=== PATIENT | female | born 1945 | race Hispanic/Latino ===

== ENCOUNTER 2018-02-19 09:53 | Emergency (ER) | payer MEDICARE, SELFPAY ==
[2018-02-19] VITALS (19 sets, daily range): BP systolic 103–137; BP diastolic 45–84; PULSE 39–104; RESP 12–23; TEMP 36.4; O2SAT 95–100
--- NOTE | 2018-02-19 10:04 | DI.RAD.S_ITS ---
PROCEDURE: XR CHEST 1V INDICATIONS: chest pains TECHNIQUE: One view of the chest was acquired. COMPARISON: [facility], , CHEST 1 VIEW, 10/17/2017, 4:18. FINDINGS: Surgical changes and devices: None. Metallic artifact overlies the lower spine Lungs and pleura: No pleural effusions or pneumothorax. Lungs are clear. Mediastinum: Mediastinal contours appear normal. Heart size is normal. Bones and chest wall: No suspicious bony lesions. Bilateral degenerative a.c. joint disease. Overlying soft tissues appear unremarkable. IMPRESSION: No acute cardiopulmonary abnormality Dictated by: Dante Garrison M.D. on 02/19/2018 at 10:43 Approved by: Dante Garrison M.D. on 02/19/2018 at 10:44
--- NOTE | 2018-02-19 10:12 | ED.CHESTPAIN ---
HPI - Chest Pain General Chief Complaint: Chest Pain Stated Complaint: SHORTNESS OF BREATH,AFIB Time Seen by Provider: 02/19/18 09:58 Source: patient Mode of arrival: ambulatory Limitations: no limitations History of Present Illness HPI narrative: Patient with history of cardiac disease and AFib on Xarelto presents with worsening chest pain with radiation to her jaw and dizziness. She had some episodes of discomfort last night that improved with nitro and at 8:30 a.m. this morning her pain has been more consistent and started radiating to her jaw. Her nitro at home did not help. She denies shortness of breath or any obvious provocation. She last had a stress test about 1 year ago at [facility]. 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 at [facility] complaint: chest pain Onset (ago): hour(s) Time: 10:13 Duration: constant and progressively worsening Onset: during rest Pain location: substernal Severity: moderate Severity scale (1-10): 5 Quality: tightness, aching and heaviness Pain radiation: jaw/teeth Relieving factors: nothing Exacerbating factors: nothing Associated symptoms: dyspnea Treatments prior to arrival chest pain: nitroglycerin Related Data On Oral Contraceptives: No Home Medications Medication Instructions Recorded Confirmed omeprazole 20 mg PO QDAY #0 01/16/17 02/19/18 diltiazem HCl 120 mg PO DAILY #0 11/08/17 02/19/18 B.breve-L.acid-L.rham-S.thermo 1 tab PO DAILY 02/19/18 02/19/18 [Probiotic] cyclosporine [Restasis] 1 drp OPHTHALMIC (EYE) BID 02/19/18 02/19/18 digoxin 125 mcg PO BEDTIME 02/19/18 02/19/18 nitroglycerin [Nitrostat] 0.4 mg SUBLINGUAL 5XD PRN 02/19/18 02/19/18 pravastatin 20 mg PO BEDTIME 02/19/18 02/19/18 promethazine 25 mg PO Q4-6H PRN 02/19/18 02/19/18 ranitidine HCl [Zantac] 150 mg PO BEDTIME 02/19/18 02/19/18 rivaroxaban [Xarelto] 20 mg PO QPM 02/19/18 02/19/18 Allergies Allergy/AdvReac Type Severity Reaction Status Date / Time No Known Drug Allergies Allergy Verified 02/19/18 10:08 Review of Systems Review of Systems All systems reviewed & are unremarkable except as noted in HPI and below Constitutional Denies chills, Denies fever(s), Denies lethargy and Denies weakness Eyes Denies change in vision, Denies eye discharge, Denies irritation and Denies loss of vision ENT Ears, Nose, Mouth, and Throat: Denies change in voice, Reports dizziness, Denies neck pain and Denies sore throat Cardiovascular Reports chest pain, Reports chest pain at rest, Denies irregular heart rhythm, Reports lightheadedness, Reports radiating jaw, neck or arm pain, Denies palpitations, Reports dyspnea, Denies dyspnea on exertion and Denies orthopnea Respiratory Denies cough, Reports dyspnea, Denies dyspnea on exertion and Denies wheezing Gastrointestinal Gastrointestinal: Denies abdominal pain, Denies change in bowel habits, Denies diarrhea, Denies nausea and Denies vomiting Genitourinary Denies hematuria, Denies flank pain, Denies urinary incontinence and Denies urinary urgency Musculoskeletal Denies neck pain Integumentary/Breasts Denies pruritus, Denies erythema, Denies rash and Denies wounds Neurologic Denies confusion, Reports dizziness, Denies loss of vision and Denies weakness Psychiatric Denies anxiety, Denies confusion, Denies depression, Denies homicidal ideation and Denies suicidal ideation Endocrine Denies palpitations Hematologic/Lymphatic Denies easy bruising Allergic/Immunologic Denies wheezing PFSH Medical History Cystocele (Acute) Hypertension (Acute) Lower GI bleed (Acute) Surgical History H/O abdominal hysterectomy (Acute) H/O laminectomy (Acute) Hx of cholecystectomy (Acute) Social History Smoking Status: Former smoker Exam Narrative Exam Narrative: Pleasant 72-year-old female obviously in some distress Initial Vital Signs Initial Vital Signs: Vital Signs Temperature 97.6 F 02/19/18 09:55 Pulse Rate 104 H 02/19/18 09:55 Respiratory Rate 16 02/19/18 09:55 Blood Pressure 131/76 H 02/19/18 09:55 Pulse Oximetry 100 02/19/18 09:55 Const General: cooperative, well developed and in distress Nutritional Appearance: well nourished Orientation: alert, awake, oriented x3 and not confused HENMT Head: normocephalic and atraumatic Ears: external ears normal and TM's normal bilaterally Nose: external nose normal and No nasal discharge Face and sinus: sinuses nontender, face symmetric, no sinus tenderness and No dry mucous membranes Mouth: oral mucosae normal and moist mucous membranes Teeth and gingiva: dentition normal Throat: tonsils normal and uvula midline Eyes General: appearance normal, both eyes and all related structures Eyelids: eyelids normal Conjunctivae: conjunctivae normal Sclera: sclerae normal Pupils: PERRL EOM: EOM intact bilaterally Chest Chest: normal inspection of the chest Resp Effort & Inspection: normal respiratory effort, able to speak in complete sentences, no respiratory distress and no use of accessory muscles Auscultation: clear to auscultation bilaterally, no rales, no rhonchi and no wheezes Cardio Rate: regular rate Rhythm: regular rhythm Heart Sounds: no click, no gallops, no murmurs and no rubs Pulses: normal peripheral pulses GI Inspection: non-distended Palpation: soft, no hepatosplenomegaly, No guarding, No pulsatile mass and No tender Auscultation: normal bowel sounds Back/Spine/Pelvis Back: No CVA tenderness Cervical Spine: cervical ROM normal and No pain with cervical ROM Thoracic/Lumbar Spine: thoracic and lumbar spine normal to inspection Neuro General: alert, awake and oriented x3 Psych Appearance: grossly normal and well kempt Mental Status: mental status grossly normal Speech and Movement: speech and movement normal Course Orders Ordered: ED Orders 02/19/18 10:04 XR chest 1V Stat EKG-12 Lead Stat 02/19/18 10:08 Complete Blood Count AUTO DIFF Stat Comprehensive Metabolic Panel Stat Digoxin Stat Lipase Stat Troponin with CK Cardiac Panel Stat 02/19/18 12:18 Urine Culture Stat Urine Microscopic Stat 02/19/18 13:00 Troponin I Stat Sodium Chloride (Normal Saline 0.9%) 1,000 mls @ 150 mls/hr IV CONT NICOLA Last Infusion: 02/19/18 14:39 Dose: 0 mls/hr Admin: 02/19/18 10:17 Dose: 150 mls/hr Nitroglycerin (Nitrostat) 0.4 mg SL [id number] PRN PRN Reason: Chest Pain Last Admin: 02/19/18 10:41 Dose: 0.4 mg Admin: 02/19/18 10:17 Dose: 0.4 mg Discontinued Medications Aspirin (Aspirin Chew) 324 mg PO NOW ONE Stop: 02/19/18 10:05 Last Admin: 02/19/18 10:17 Dose: 324 mg Metoprolol Tartrate (Lopressor) 50 mg PO NOW ONE Stop: 02/19/18 10:12 Last Admin: 02/19/18 10:17 Dose: 50 mg Reevaluation(s) Reevaluation #1: Patient pain is resolved after nitro. Repeat EKG shows improvement of the ST depressions in the 3, V4, V5 Time: 10:58 Reevaluation #2: Patient continues to be pain free. Repeat EKG shows near complete resolution ofST depressions. Consultations Consultation #1: Call to Cardiology at [facility] whom recommends a 2nd troponin at the 3 hr chiara and a call back Time: 10:58 Consultation #2: Repeat troponin unchanged. Cardiology recommends admission locally provided hospitalist is comfortable caring for patient Consultation #3: Call to Dr. Easton whom is uncomfortable keeping patient here given the very concerning story, EKG changes, and resolution with nitro Additional Consultation(s): Call back to [facility] Cardiology whom recommends hospitalist admit patient. Dr. Chen is happy to accept Vital Signs - 8 hr 02/19/18 09:55 02/19/18 10:17 02/19/18 10:29 Temperature 97.6 F Pulse Rate 104 H 96 H 95 H Respiratory Rate 16 Blood Pressure 131/76 H 129/60 H 121/49 H Blood Pressure [Right Arm] Pulse Oximetry 100 02/19/18 10:30 02/19/18 10:41 02/19/18 11:00 Temperature Pulse Rate 85 95 H 76 Respiratory Rate 20 20 Blood Pressure 106/47 L Blood Pressure [Right Arm] 106/47 L 114/61 Pulse Oximetry 100 100 02/19/18 11:20 02/19/18 12:32 02/19/18 12:33 Temperature Pulse Rate 66 56 L 60 Respiratory Rate 13 18 Blood Pressure 111/55 L Blood Pressure [Right Arm] 103/53 L 111/55 L Pulse Oximetry 99 99 02/19/18 13:00 02/19/18 13:30 02/19/18 14:30 Temperature Pulse Rate 62 39 L 70 Respiratory Rate 12 20 14 Blood Pressure Blood Pressure [Right Arm] 112/45 L 107/58 L 125/79 H Pulse Oximetry 99 95 99 MDM - Chest Pain Differential Diagnosis Likely stable angina, unstable angina pectoris, atypical chest pain, st elevation myocardial infarction, costochondritis and chest pain Medical Records Data Attestation: I reviewed the patient's medical records. Lab Data Result diagrams: 02/19/18 10:08 02/19/18 10:08 Lab Results 02/19/18 02/19/18 02/19/18 Range/Units 10:08 10:08 10:08 WBC 6.7 (4.5-11.0) X10^3/uL RBC 5.05 (4.0-5.2) X10^6/uL Hgb 15.0 (12.0-16.0) g/dL Hct 45.6 (36-46) % MCV 90.3 (80-100) fL MCH 29.7 (26-34) PG MCHC 32.9 (30-36) % RDW 14.2 (11.6-14.8) % Plt Count 180 (150-400) X10^3/uL Neut % (Auto) 50.8 (50-75) % Lymph % (Auto) 38.5 (25-40) % Winston % (Auto) 8.5 (3-14) % Eos % (Auto) 1.5 L (2-4) % Baso % (Auto) 0.7 (0-2) % Neut # (Auto) 3400 (0569-2386) /uL Sodium 142 (137-145) mmol/L Potassium 5.5 H (3.4-5.1) mmol/L Chloride 107 (98-107) mmol/L Carbon Dioxide 24 (22-32) mmol/L BUN 13 (7-17) mg/dL Creatinine 0.70 (0.52-1.04) mg/dL Estimated GFR > 60.0 (>60) mL/min BUN/Creatinine Ratio 18.6 (6-22) Glucose 113 H (80-110) mg/dL Calcium 9.1 (8.4-10.2) mg/dL Total Bilirubin 1.1 (0.2-1.3) mg/dL AST 47 H (14-36) IU/L ALT 18 (9-52) IU/L Alkaline Phosphatase 79 (38-126) U/L Total Creatine Kinase 77 (30-135) U/L Troponin I 0.012 (0.01-0.034) ng/mL Total Protein 8.0 (6.3-8.2) g/dL Albumin 4.4 (3.5-5.0) g/dL Globulin 3.6 (1.7-4.1) g/dL Albumin/Globulin Ratio 1.2 (1.0-2.8) Lipase 66 (23-300) U/L Urine RBC (0-5/HPF) Urine WBC (0-5/HPF) Ur Squamous Epith Cells Urine Bacteria (None) Ur Culture Indicated? Micro UA Comment Digoxin 2.4 H (0.8-2.0) ng/mL 02/19/18 02/19/18 Range/Units 12:18 13:00 WBC (4.5-11.0) X10^3/uL RBC (4.0-5.2) X10^6/uL Hgb (12.0-16.0) g/dL Hct (36-46) % MCV (80-100) fL MCH (26-34) PG MCHC (30-36) % RDW (11.6-14.8) % Plt Count (150-400) X10^3/uL Neut % (Auto) (50-75) % Lymph % (Auto) (25-40) % Winston % (Auto) (3-14) % Eos % (Auto) (2-4) % Baso % (Auto) (0-2) % Neut # (Auto) (9285-4572) /uL Sodium (137-145) mmol/L Potassium (3.4-5.1) mmol/L Chloride (98-107) mmol/L Carbon Dioxide (22-32) mmol/L BUN (7-17) mg/dL Creatinine (0.52-1.04) mg/dL Estimated GFR (>60) mL/min BUN/Creatinine Ratio (6-22) Glucose (80-110) mg/dL Calcium (8.4-10.2) mg/dL Total Bilirubin (0.2-1.3) mg/dL AST (14-36) IU/L ALT (9-52) IU/L Alkaline Phosphatase (38-126) U/L Total Creatine Kinase (30-135) U/L Troponin I < 0.012 (0.01-0.034) ng/mL Total Protein (6.3-8.2) g/dL Albumin (3.5-5.0) g/dL Globulin (1.7-4.1) g/dL Albumin/Globulin Ratio (1.0-2.8) Lipase (23-300) U/L Urine RBC None seen (0-5/HPF) Urine WBC 0-1/hpf (0-5/HPF) Ur Squamous Epith Cells 0-1 /hpf Urine Bacteria Moderate (10-30) H (None) Ur Culture Indicated? Specimen cultured Micro UA Comment Not Reportable Digoxin (0.8-2.0) ng/mL ECG Data Attestation: I personally reviewed and interpreted this ECG as follows: Prior ECG tracings: not available for review Interpretation: AFib in the mid 90s. ST depressions in septal leads Critical Care Time Critical Care Time: Yes Total Critical Care Time: 30 Attestation: C Critical care time is separate from other billable procedures. This critical care time includes consultation with family and other consulting doctors, review of records, and interpretation of data from labs, EKGs, imaging, etc. Discharge Plan Departure Patient Disposition: [facility] Clinical Impression: Chest pain Prescriptions: No Action omeprazole 20 MG tablet,delayed release (DR/EC) 20 mg PO QDAY Qty: 0 RF: 0 diltiazem HCl 120 MG capsule,extended release 24hr 120 mg PO DAILY Qty: 0 RF: 0 nitroglycerin [Nitrostat] 0.4 MG tablet, sublingual 0.4 mg Sublingual 5XD PRN (Reason: Chest Pain) RF: 0 ranitidine HCl [Zantac] 150 mg Tablet 150 mg PO BEDTIME RF: 0 promethazine 25 mg Tablet 25 mg PO Q4-6H PRN (Reason: nasuea) RF: 0 pravastatin 20 mg Tablet 20 mg PO BEDTIME RF: 0 digoxin 125 mcg Tablet 125 mcg PO BEDTIME RF: 0 rivaroxaban [Xarelto] 20 mg Tablet 20 mg PO QPM RF: 0 B.breve-L.acid-L.rham-S.thermo [Probiotic] 3 billion cell Tablet,Chewable 1 tab PO DAILY RF: 0 cyclosporine [Restasis] 0.05 % dropperette 1 drp ophthalmic (eye) BID RF: 0
[2018-02-19] MEDS: NITROGLYCERIN 0.4 MG SL TAB SL ×2 (10:17→10:41)
[2018-02-19] MEDS: ASPIRIN 81 MG TAB 324 MG PO (10:17)
[2018-02-19] MEDS: SODIUM CHLORIDE 0.9% 1,000 ML 150 ML IV (10:17)
[2018-02-19] MEDS: METOPROLOL 50 MG TABLET PO (10:17)
[2018-02-19 10:19] LABS: Add Manual Diff / Slide Review NO; Basophils Percent Auto 0.7 % (0-2); Eosinophils Percent Auto 1.5 % (2-4); Hematocrit 45.6 % (36-46); Lymphocytes Percent Auto 38.5 % (25-40); Mean Corpuscular HGB Conc 32.9 % (30-36); Mean Corpuscular Hemoglobin 29.7 PG (26-34); Mean Corpuscular Volume 90.3 fL (80-100); Monocytes Percent Auto 8.5 % (3-14); Neutrophils Absolute Auto 3400 /uL (3000-5900); Neutrophils Percent Auto 50.8 % (50-75); Platelet Count 180 X10^3/uL (150-400); Red Blood Cell Count 5.05 X10^6/uL (4.0-5.2); Red Cell Distribution Width 14.2 % (11.6-14.8); White Blood Cell Count 6.7 X10^3/uL (4.5-11.0)
[2018-02-19 10:28] LABS: Alanine Aminotransferase 18 IU/L (9-52); Albumin 4.4 g/dL (3.5-5.0); Albumin Globulin Ratio 1.2 (1.0-2.8); Alkaline Phosphatase 79 U/L (38-126); Aspartate Aminotransferase 47 IU/L (14-36); BUN Creatinine Ratio 18.6 (6-22); Bilirubin Total 1.1 mg/dL (0.2-1.3); Blood Urea Nitrogen 13 mg/dL (7-17); Calcium 9.1 mg/dL (8.4-10.2); Carbon Dioxide 24 mmol/L (22-32); Chloride 107 mmol/L (98-107); Creatine Kinase 77 U/L (30-135); Estimated Glomerular Filt Rate > 60.0 mL/min (>60); Globulin 3.6 g/dL (1.7-4.1); Glucose 113 mg/dL (80-110); Lipase 66 U/L (23-300); Sodium 142 mmol/L (137-145)
[2018-02-19 10:33] LABS: HEMOLYSIS 187 (0-50); Potassium 5.5 mmol/L (3.4-5.1)
[2018-02-19 10:39] LABS: Troponin I 0.012 ng/mL (0.01-0.034)
[2018-02-19 10:46] LABS: Digoxin 2.4 ng/mL (0.8-2.0)
[2018-02-19 12:57] LABS: RBC Urine None Seen (0-5/HPF)
--- NOTE | 2018-02-19 13:40 | PC.NURSE ---
Dr. Julian aware of pt's heart rate of 39. other vss.
[2018-02-19 13:50] LABS: Troponin I < 0.012 ng/mL (0.01-0.034)
[2018-02-19 13:59] LABS: Squamous Epithelial Cell Urine 0-1 /HPF; WBC Urine 0-1/HPF (0-5/HPF)
[2018-02-19 14:00] LABS: Bacteria Urine Moderate (10-30); Culture Indicated Urine Specimen Cultured
--- NOTE | 2018-02-19 19:42 | PC.NURSE ---
Pt updated on ambulance ETA now being 2030. Pt verbalized frustration.
== END 2018-02-19 20:54 | disposition short-term general hospital (02) ==
PROVIDERS: Emergency Provider Emergency Medicine; PCP Internal Medicine Infectious Disease
DX: R07.9 Chest pain, unspecified (principal)
CPT/HCPCS: 36415; 36591; 71045; 80053; 80162; 81003; 81015; 82550; 82553; 83690; 84484; 85025; 87077; 87086; 87186; 93005; 96360; 96361; 99285

== ENCOUNTER → 2018-05-25 14:11 | Outpatient (CLI) | payer MEDICARE, SELFPAY ==
--- NOTE | 2018-05-25 | DI.MG.S_ITS ---
BILATERAL DIGITAL SCREENING MAMMOGRAM 3D/2D WITH CAD: 05/25/2018 CLINICAL: Routine screening. Family history of breast cancer. Comparison is made to exams dated: 04/28/2017 mammogram, 04/27/2016 mammogram, and 04/23/2015 mammogram - [facility]. There are scattered fibroglandular elements in both breasts. Current study was also evaluated with a Computer Aided Detection (CAD) system. No significant masses, calcifications, or other findings are seen in either breast. There has been no significant interval change. IMPRESSION: NEGATIVE There is no mammographic evidence of malignancy. A 1 year screening mammogram is recommended.(05/26/2019) This exam was interpreted at Station ID: [id number]. NOTE: For mammograms, a report in lay terms will be sent to the patient. Approximately 15% of breast malignancies will not be visualized mammographically. In the management of a palpable breast mass, a negative mammogram must not discourage biopsy of a clinically suspicious lesion. Electronically Signed By: Opal paul/adriano:05/25/2018 16:43:36 letter sent: Normal Exam ACR BI-RADS Category 1: Negative [id number]
== END ==
PROVIDERS: Visit Provider Family Medicine
DX: Z12.31 Encounter for screening mammogram for malignant neoplasm of breast (principal); Z80.3 Family history of malignant neoplasm of breast
CPT/HCPCS: 77063; 77067

== ENCOUNTER 2018-07-27 22:31 | Emergency (ER) | payer MEDICARE, SELFPAY ==
[2018-07-27 22:41] VITALS: BP 127/76; PULSE 77; RESP 16; TEMP 36.4; O2SAT 97; BMI 42.1
--- NOTE | 2018-07-27 22:44 | DI.RAD.S_ITS ---
PROCEDURE: XR CHEST 1V INDICATIONS: chest pain TECHNIQUE: One view of the chest was acquired. COMPARISON: [facility], CR, XR CHEST 1V, 02/19/2018, 10:20. FINDINGS: Surgical changes and devices: None. Lungs and pleura: No pleural effusions or pneumothorax. Lungs are clear. Mediastinum: Mediastinal contours appear normal. Heart size is normal. Bones and chest wall: No suspicious bony lesions. Overlying soft tissues appear unremarkable. IMPRESSION: No acute cardiopulmonary disease process. Dictated by: Christina Winslow MD, PhD on 07/28/2018 at 12:03 Approved by: Christina Winslow MD, PhD on 07/28/2018 at 12:03
--- NOTE | 2018-07-27 22:45 | PC.NURSE ---
Attempted PIV placement in R AC, unsuccessful. Second RN to attempt IV placement.
--- NOTE | 2018-07-27 22:54 | ED.CHESTPAIN ---
HPI - Chest Pain General Chief Complaint: Chest Pain Stated Complaint: CHEST , ARM , NECK PAIN, NAUSEA Time Seen by Provider: 07/27/18 22:47 Source: patient and old records reviewed Mode of arrival: ambulatory Limitations: no limitations History of Present Illness HPI narrative: The patient is a 72-year-old female who presents with left-sided chest pain and bilateral arm pain. He does have a history of atrial fibrillation. She says that it has been acting up however her rate does seem to be controlled. She also had a similar presentation to this in January at which point she was transferred to [facility] where she had full workup including stress test and echocardiogram which were negative. 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 She says she is still having some mild pressure in her chest but the arm pain is gone. She often gets neck pain and flushing which she also experienced today. She has no shortness of breath she did have some minor nausea but no vomiting. She has no abdominal pain. MD complaint: chest pain Onset (ago): hour(s) Duration: intermittent and improved Onset: during rest Pain location: left chest Severity: similar to previous episodes Pain radiation: RUE, LUE and neck Related Data Home Medications Medication Instructions Recorded Confirmed omeprazole 20 mg PO QDAY #0 01/16/17 02/19/18 diltiazem HCl 120 mg PO DAILY #0 11/08/17 02/19/18 B.breve-L.acid-L.rham-S.thermo 1 tab PO DAILY 02/19/18 02/19/18 [Probiotic] cyclosporine [Restasis] 1 drp OPHTHALMIC (EYE) BID 02/19/18 02/19/18 digoxin 125 mcg PO BEDTIME 02/19/18 02/19/18 nitroglycerin [Nitrostat] 0.4 mg SUBLINGUAL 5XD PRN 02/19/18 02/19/18 pravastatin 20 mg PO BEDTIME 02/19/18 02/19/18 promethazine 25 mg PO Q4-6H PRN 02/19/18 02/19/18 ranitidine HCl [Zantac] 150 mg PO BEDTIME 02/19/18 02/19/18 rivaroxaban [Xarelto] 20 mg PO QPM 02/19/18 02/19/18 Allergies Allergy/AdvReac Type Severity Reaction Status Date / Time No Known Drug Allergies Allergy Verified 07/27/18 22:41 Review of Systems Review of Systems All systems reviewed & are unremarkable except as noted in HPI and below Constitutional Denies chills, Denies fever(s), Denies lethargy and Denies weakness Eyes Denies change in vision, Denies eye discharge, Denies irritation and Denies loss of vision ENT Ears, Nose, Mouth, and Throat: Reports as per HPI, Denies vertigo, Denies dizziness, Denies facial pain, Denies epistaxis and Reports neck pain Cardiovascular Reports as per HPI, Reports chest pain, Reports irregular heart rhythm, Reports radiating jaw, neck or arm pain, Denies palpitations, Denies dyspnea on exertion and Denies orthopnea Respiratory Denies dyspnea on exertion Gastrointestinal Gastrointestinal: Denies abdominal pain, Denies change in bowel habits, Denies diarrhea, Reports nausea and Denies vomiting Musculoskeletal Reports neck pain Integumentary/Breasts Denies pruritus, Denies erythema, Denies rash and Denies wounds Neurologic Denies vertigo, Denies dizziness, Denies loss of vision and Denies weakness Endocrine Denies palpitations Hematologic/Lymphatic Reports easy bleeding and Reports easy bruising PFSH Medical History Atrial fibrillation (Acute) Cystocele (Acute) Hypertension (Acute) Lower GI bleed (Acute) Surgical History H/O abdominal hysterectomy (Acute) H/O laminectomy (Acute) Hx of cholecystectomy (Acute) Social History Smoking Status: Former smoker Exam Initial Vital Signs Initial Vital Signs: Vital Signs Temperature 97.6 F 07/27/18 22:41 Pulse Rate 77 07/27/18 22:41 Respiratory Rate 16 07/27/18 22:41 Blood Pressure 127/76 07/27/18 22:41 Pulse Oximetry 97 07/27/18 22:41 Const General: cooperative and healthy appearing Nutritional Appearance: overweight Orientation: alert, awake and oriented x3 Eyes General: appearance normal, both eyes and all related structures Neck Neck: normal visual inspection, full ROM, no meningeal signs and trachea midline Chest Chest: normal inspection of the chest Resp Effort & Inspection: normal respiratory effort Auscultation: clear to auscultation bilaterally, no rales, no rhonchi and no wheezes Cardio Rate: regular rate Rhythm: regular rhythm Heart Sounds: S1 normal and S2 normal GI Palpation: soft, No firm, No guarding and No tender Percussion: normal to percussion Skin General: no rashes or lesions noted Neuro General: alert, oriented x3, gait normal and no focal motor deficits Speech: speech normal Course Orders Ordered: ED Orders 07/27/18 22:44 XR chest 1V Stat EKG-12 Lead Stat 07/27/18 23:10 Complete Blood Count AUTO DIFF Stat Comprehensive Metabolic Panel Stat Lipase Stat Partial Thromboplastin Time Stat Prothrombin Time INR Stat Troponin & CK Cardiac Panel Stat 07/28/18 01:21 Trop I [Troponin I] Stat Discontinued Medications Sodium Chloride (Normal Saline 0.9%) 500 mls @ 1,000 mls/hr IV BOLUS ONE Stop: 07/28/18 00:26 Last Infusion: 07/28/18 00:28 Dose: 0 mls/hr Admin: 07/27/18 23:58 Dose: 1,000 mls/hr Nitroglycerin (Nitrostat) 0.4 mg SL NOW ONE Stop: 07/27/18 23:00 Last Admin: 07/27/18 23:44 Dose: 0.4 mg Vital Signs - 8 hr 07/27/18 22:41 07/27/18 23:00 07/27/18 23:30 Temperature 97.6 F Pulse Rate 77 61 66 Respiratory Rate 16 16 15 Blood Pressure 127/76 Blood Pressure [Left Arm] 115/73 129/55 L Pulse Oximetry 97 99 98 07/27/18 23:44 07/27/18 23:56 07/28/18 00:00 Temperature Pulse Rate 62 81 60 Respiratory Rate 15 Blood Pressure 122/55 L 100/52 L Blood Pressure [Left Arm] 120/65 Pulse Oximetry 98 07/28/18 00:06 07/28/18 00:30 07/28/18 01:06 Temperature Pulse Rate 60 56 L 58 L Respiratory Rate 15 14 16 Blood Pressure Blood Pressure [Left Arm] 122/62 129/67 113/61 Pulse Oximetry 96 100 100 07/28/18 01:56 07/28/18 02:18 Temperature Pulse Rate 69 58 L Respiratory Rate 15 14 Blood Pressure Blood Pressure [Left Arm] 131/62 116/66 Pulse Oximetry 98 MDM - Chest Pain Lab Data Attestation: I reviewed the patient's lab results. Result diagrams: 07/27/18 23:10 07/27/18 23:10 Lab Results 07/27/18 07/27/18 07/27/18 Range/Units 23:10 23:10 23:10 WBC 8.5 (4.5-11.0) X10^3/uL RBC 5.12 (4.0-5.2) X10^6/uL Hgb 15.2 (12.0-16.0) g/dL Hct 44.9 (36-46) % MCV 87.8 (80-100) fL MCH 29.8 (26-34) PG MCHC 33.9 (30-36) % RDW 13.9 (11.6-14.8) % Plt Count 182 (150-400) X10^3/uL Neut % (Auto) 48.2 L (50-75) % Lymph % (Auto) 39.0 (25-40) % [place] % (Auto) 10.0 (3-14) % Eos % (Auto) 2.0 (2-4) % Baso % (Auto) 0.8 (0-2) % Neut # (Auto) 4100 (1067-9715) /uL PT 22.2 H (10.1-12.7) SECONDS INR 2.0 H (0.9-1.3) APTT 40 H (26.4-36.2) SECONDS Sodium 141 (137-145) mmol/L Potassium 4.2 (3.4-5.1) mmol/L Chloride 108 H (98-107) mmol/L Carbon Dioxide 21 L (22-32) mmol/L BUN 17 (7-17) mg/dL Creatinine 0.80 (0.52-1.04) mg/dL Estimated GFR > 60.0 (>60) mL/min BUN/Creatinine Ratio 21.3 (6-22) Glucose 96 (80-110) mg/dL Calcium 9.0 (8.4-10.2) mg/dL Total Bilirubin 0.2 (0.2-1.3) mg/dL AST 30 (14-36) IU/L ALT 32 (9-52) IU/L Alkaline Phosphatase 99 (38-126) U/L Total Creatine Kinase 71 (30-135) U/L CK-MB (CK-2) TNP CK-MB (CK-2) Rel Index TNP Troponin I < 0.012 (0.01-0.034) ng/mL Total Protein 7.7 (6.3-8.2) g/dL Albumin 4.3 (3.5-5.0) g/dL Globulin 3.4 (1.7-4.1) g/dL Albumin/Globulin Ratio 1.3 (1.0-2.8) Lipase 108 (23-300) U/L 07/28/18 Range/Units 01:21 WBC (4.5-11.0) X10^3/uL RBC (4.0-5.2) X10^6/uL Hgb (12.0-16.0) g/dL Hct (36-46) % MCV (80-100) fL MCH (26-34) PG MCHC (30-36) % RDW (11.6-14.8) % Plt Count (150-400) X10^3/uL Neut % (Auto) (50-75) % Lymph % (Auto) (25-40) % [place] % (Auto) (3-14) % Eos % (Auto) (2-4) % Baso % (Auto) (0-2) % Neut # (Auto) (5246-3243) /uL PT (10.1-12.7) SECONDS INR (0.9-1.3) APTT (26.4-36.2) SECONDS Sodium (137-145) mmol/L Potassium (3.4-5.1) mmol/L Chloride (98-107) mmol/L Carbon Dioxide (22-32) mmol/L BUN (7-17) mg/dL Creatinine (0.52-1.04) mg/dL Estimated GFR (>60) mL/min BUN/Creatinine Ratio (6-22) Glucose (80-110) mg/dL Calcium (8.4-10.2) mg/dL Total Bilirubin (0.2-1.3) mg/dL AST (14-36) IU/L ALT (9-52) IU/L Alkaline Phosphatase (38-126) U/L Total Creatine Kinase (30-135) U/L CK-MB (CK-2) CK-MB (CK-2) Rel Index Troponin I < 0.012 (0.01-0.034) ng/mL Total Protein (6.3-8.2) g/dL Albumin (3.5-5.0) g/dL Globulin (1.7-4.1) g/dL Albumin/Globulin Ratio (1.0-2.8) Lipase (23-300) U/L Imaging Data Chest x-ray: Attestation: I personally reviewed and interpreted this imaging study as follows: My impression: No acute cardiopulmonary process similar to prior chest x-ray ECG Data Attestation: I personally reviewed and interpreted this ECG as follows: Prior ECG tracings: available for review Interpretation: Atrial fibrillation rate [address] changes similar to previous EKG [facility] and here [facility] Narrative Medical decision making narrative: Patient had nitroglycerin which did not change her chest discomfort. The chest discomfort has overall improved. This presentation is very similar to her previous presentation. I have received and reviewed [facility] records including stress test and echocardiogram. From 6 months ago. They were reviewed as negative. She has 2-troponins here. I think that her discomfort is due to her atrial fibrillation. She has appointment with her PCP next week. At this time she feels ready and able to go home. Discharge Plan Departure Patient Disposition: Home Clinical Impression: Atrial fibrillation Discharge Date/Time: 07/28/18 02:36 Interventions: ED Discharge Assessment Last Done: 07/28/18 02:33 Instructions: Atrial Fibrillation Activity Restrictions/Additional Instructions: *You have been diagnosed with atrial fibrillation * blood work, EKG chest x-ray are reassuring today. You did not have a stress test today. 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 on Monday to schedule follow-up appointment *Return to ER if you should have increasing chest pain, neck pain, arm pain, shortness of or any new, worsening or concerning symptoms Prescriptions: No Action omeprazole 20 MG tablet,delayed release (DR/EC) 20 mg PO QDAY Qty: 0 RF: 0 diltiazem HCl 120 MG capsule,extended release 24hr 120 mg PO DAILY Qty: 0 RF: 0 nitroglycerin [Nitrostat] 0.4 MG tablet, sublingual 0.4 mg Sublingual 5XD PRN (Reason: Chest Pain) RF: 0 ranitidine HCl [Zantac] 150 mg Tablet 150 mg PO BEDTIME RF: 0 promethazine 25 mg Tablet 25 mg PO Q4-6H PRN (Reason: nasuea) RF: 0 pravastatin 20 mg Tablet 20 mg PO BEDTIME RF: 0 digoxin 125 mcg Tablet 125 mcg PO BEDTIME RF: 0 rivaroxaban [Xarelto] 20 mg Tablet 20 mg PO QPM RF: 0 B.breve-L.acid-L.rham-S.thermo [Probiotic] 3 billion cell Tablet,Chewable 1 tab PO DAILY RF: 0 cyclosporine [Restasis] 0.05 % dropperette 1 drp ophthalmic (eye) BID RF: 0 Referrals: Vivi Avila DO [Primary Care Provider] -
[2018-07-27 23:00] VITALS: BP 115/73; PULSE 61; RESP 16; O2SAT 99
[2018-07-27 23:21] LABS: Add Manual Diff / Slide Review NO; Basophils Percent Auto 0.8 % (0-2); Hematocrit 44.9 % (36-46); Hemoglobin 15.2 g/dL (12.0-16.0); Mean Corpuscular HGB Conc 33.9 % (30-36); Mean Corpuscular Hemoglobin 29.8 PG (26-34); Mean Corpuscular Volume 87.8 fL (80-100); Neutrophils Absolute Auto 4100 /uL (3000-5900); Neutrophils Percent Auto 48.2 % (50-75); Platelet Count 182 X10^3/uL (150-400); Red Blood Cell Count 5.12 X10^6/uL (4.0-5.2); Red Cell Distribution Width 13.9 % (11.6-14.8); White Blood Cell Count 8.5 X10^3/uL (4.5-11.0)
[2018-07-27 23:28] LABS: Prothrombin Time 22.2 SECONDS (10.1-12.7)
[2018-07-27 23:30] VITALS: BP 129/55; PULSE 66; RESP 15; O2SAT 98
[2018-07-27 23:30] LABS: PTT Partial Thromboplastin Tim 40 SECONDS (26.4-36.2)
[2018-07-27 23:32] LABS: Alanine Aminotransferase 32 IU/L (9-52); Albumin 4.3 g/dL (3.5-5.0); Albumin Globulin Ratio 1.3 (1.0-2.8); Alkaline Phosphatase 99 U/L (38-126); Aspartate Aminotransferase 30 IU/L (14-36); BUN Creatinine Ratio 21.3 (6-22); Bilirubin Total 0.2 mg/dL (0.2-1.3); Blood Urea Nitrogen 17 mg/dL (7-17); Carbon Dioxide 21 mmol/L (22-32); Chloride 108 mmol/L (98-107); Creatine Kinase 71 U/L (30-135); Estimated Glomerular Filt Rate > 60.0 mL/min (>60); Globulin 3.4 g/dL (1.7-4.1); Glucose 96 mg/dL (80-110); HEMOLYSIS 18 (0-50); Lipase 108 U/L (23-300); Potassium 4.2 mmol/L (3.4-5.1); Sodium 141 mmol/L (137-145); Total Protein 7.7 g/dL (6.3-8.2)
[2018-07-27 23:44] VITALS: BP 122/55; PULSE 62
[2018-07-27 23:44] LABS: Troponin I < 0.012 ng/mL (0.01-0.034)
[2018-07-27] MEDS: NITROGLYCERIN 0.4 MG SL TAB SL (23:44)
--- NOTE | 2018-07-27 23:44 | PC.NURSE ---
provider aware of bp and heart rate, ordered nitro.
[2018-07-27 23:56] VITALS: BP 100/52; PULSE 81
--- NOTE | 2018-07-27 23:56 | PC.NURSE ---
provider notified of vitals post nitro, recieved order for 500ml NS bolus.
[2018-07-27] MEDS: SODIUM CHLORIDE 0.9% 500 ML 1000 ML IV (23:58)
[2018-07-28] VITALS: BP 120/65; PULSE 60; RESP 15; O2SAT 98
[2018-07-28 00:06] VITALS: BP 122/62; PULSE 60; RESP 15; O2SAT 96
[2018-07-28 00:30] VITALS: BP 129/67; PULSE 56; PULSE 58; RESP 14; RESP 58; O2SAT 100; O2SAT 99
[2018-07-28 01:06] VITALS: BP 113/61; PULSE 58; RESP 16; O2SAT 100
[2018-07-28 01:56] VITALS: BP 131/62; PULSE 69; RESP 15
[2018-07-28 02:04] LABS: Troponin I < 0.012 ng/mL (0.01-0.034)
[2018-07-28 02:18] VITALS: BP 116/66; PULSE 58; RESP 14; O2SAT 98
== END 2018-07-28 02:36 | disposition home or self-care (01) ==
PROVIDERS: Emergency Provider Emergency Medicine; Family Provider Family Medicine; PCP Family Medicine
DX: I48.91 Unspecified atrial fibrillation (principal)
CPT/HCPCS: 36591; 71045; 80053; 82550; 83690; 84484; 85025; 85610; 85730; 93005; 99285

== ENCOUNTER 2018-08-11 14:49 | Observation (INO) | payer MEDICARE, SELFPAY ==
[2018-08-11] VITALS (10 sets, daily range): BP systolic 113–137; BP diastolic 56–77; PULSE 45–62; RESP 12–17; TEMP 36.4–36.6; O2SAT 97–100; BMI 39.4
--- NOTE | 2018-08-11 15:11 | DI.RAD.S_ITS ---
PROCEDURE: XR CHEST 1V INDICATIONS: chest pain TECHNIQUE: One view of the chest was acquired. COMPARISON: [facility], CR, XR CHEST 1V, 07/27/2018, 22:52. [facility], CR, XR CHEST 1V, 02/19/2018, 10:20. [facility], CR, CHEST 1 VIEW, 10/17/2017, 4:18. [facility], CR, CHEST 1 VIEW, 05/28/2017, 1:20. FINDINGS: Surgical changes and devices: None. Lungs and pleura: No pleural effusions or pneumothorax. Diffuse reticular pulmonary opacities are noted. There is prominence of the pulmonary vasculature. Mediastinum: Cardiac and mediastinal silhouettes appear enlarged, suggestive of cardiomegaly. This is similar in appearance prior comparison exams. Bones and chest wall: Osseous structures are unchanged from prior exam. IMPRESSION: Pulmonary findings suggestive of mild pulmonary edema. Stable enlargement of the cardiac silhouette suggestive of cardiomegaly versus a pericardial effusion. Dictated by: Gustavo Leonardo M.D. on 08/11/2018 at 16:12 Approved by: Gustavo Leonardo M.D. on 08/11/2018 at 16:14
[2018-08-11 15:24] LABS: Add Manual Diff / Slide Review NO; Basophils Percent Auto 0.9 % (0-2); Eosinophils Percent Auto 1.3 % (2-4); Hematocrit 43.5 % (36-46); Hemoglobin 14.6 g/dL (12.0-16.0); Lymphocytes Percent Auto 36.4 % (25-40); Mean Corpuscular HGB Conc 33.5 % (30-36); Mean Corpuscular Hemoglobin 29.6 PG (26-34); Mean Corpuscular Volume 88.5 fL (80-100); Monocytes Percent Auto 7.9 % (3-14); Neutrophils Absolute Auto 4000 /uL (1500-7000); Neutrophils Percent Auto 53.5 % (50-75); Platelet Count 183 X10^3/uL (150-400); Red Blood Cell Count 4.91 X10^6/uL (4.0-5.2); Red Cell Distribution Width 14.4 % (11.6-14.8); White Blood Cell Count 7.4 X10^3/uL (4.5-11.0)
[2018-08-11 15:30] LABS: INR 1.3 (0.9-1.3); Prothrombin Time 15.4 SECONDS (10.1-12.7)
[2018-08-11 15:32] LABS: PTT Partial Thromboplastin Tim 35 SECONDS (26.4-36.2)
[2018-08-11 15:37] LABS: Alanine Aminotransferase 123 IU/L (9-52); Albumin 4.3 g/dL (3.5-5.0); Albumin Globulin Ratio 1.3 (1.0-2.8); Alkaline Phosphatase 97 U/L (38-126); Aspartate Aminotransferase 126 IU/L (14-36); BUN Creatinine Ratio 18.8 (6-22); Bilirubin Total 0.2 mg/dL (0.2-1.3); Blood Urea Nitrogen 15 mg/dL (7-17); Calcium 9.2 mg/dL (8.4-10.2); Carbon Dioxide 21 mmol/L (22-32); Chloride 109 mmol/L (98-107); Creatine Kinase 62 U/L (30-135); Estimated Glomerular Filt Rate > 60.0 mL/min (>60); Globulin 3.2 g/dL (1.7-4.1); Glucose 116 mg/dL (80-110); HEMOLYSIS 19 (0-50); Lipase 69 U/L (23-300); Potassium 4.3 mmol/L (3.4-5.1); Sodium 144 mmol/L (137-145); Total Protein 7.5 g/dL (6.3-8.2)
--- NOTE | 2018-08-11 15:44 | ED_ITS ---
HPI - Dizziness General Chief Complaint: Dizziness Stated Complaint: elevated HR & BP, SOB, Dizziness Time Seen by Provider: 08/11/18 15:09 Source: patient Mode of arrival: ambulatory Limitations: no limitations History of Present Illness HPI Narrative: patient is a 72-year-old female with history of atrial fibrillation presenting with lightheadedness. She was seen evaluated here for atrial fibrillation on June as. She has since followed up with her direct care professional who started her on sotalol 3 days ago. Today she will extremely dizzy lightheaded her heart rate dropped to the 40 she said and she had a blood pressure in the 90s. Related Data Home Medications Medication Instructions Recorded Confirmed diltiazem HCl 360 mg PO DAILY #0 11/08/17 08/11/18 digoxin 125 mcg PO BEDTIME 02/19/18 08/11/18 nitroglycerin [Nitrostat] 0.4 mg SUBLINGUAL 5XD PRN 02/19/18 08/11/18 pravastatin 20 mg PO BEDTIME 02/19/18 08/11/18 rivaroxaban [Xarelto] 20 mg PO QPM 02/19/18 08/11/18 sotalol 80 mg PO BID 08/11/18 08/11/18 Allergies Allergy/AdvReac Type Severity Reaction Status Date / Time No Known Drug Allergies Allergy Verified 08/11/18 15:03 Review of Systems Review of Systems All systems reviewed & are unremarkable except as noted in HPI and below Constitutional Denies chills, Denies fever(s), Denies lethargy and Denies weakness Eyes Denies blurry vision and Denies change in vision ENT Ears, Nose, Mouth, and Throat: Denies change in voice, Denies vertigo, Denies dizziness, Denies neck pain and Denies sore throat Cardiovascular Reports as per HPI, Denies chest pain, Denies syncope, Reports lightheadedness, Denies dyspnea and Denies dyspnea on exertion Respiratory Denies cough, Denies dyspnea, Denies dyspnea on exertion and Denies wheezing Gastrointestinal Gastrointestinal: Denies abdominal pain, Denies change in bowel habits, Denies diarrhea, Denies nausea and Denies vomiting Genitourinary Denies hematuria, Denies flank pain, Denies urinary incontinence and Denies urinary urgency Musculoskeletal Denies atrophy and Denies neck pain Integumentary/Breasts Denies pruritus, Denies erythema, Denies rash and Denies wounds Neurologic Denies confusion, Denies vertigo, Denies dizziness, Denies syncope and Denies weakness Psychiatric Denies confusion Allergic/Immunologic Denies wheezing [facility] Medical History Atrial fibrillation (Acute) Cystocele (Acute) Hypertension (Acute) Lower GI bleed (Acute) Social History Smoking Status: Former smoker Exam Initial Vital Signs Initial Vital Signs: Vital Signs Temperature 97.9 F 08/11/18 15:03 Pulse Rate 60 08/11/18 15:03 Respiratory Rate 12 08/11/18 15:03 Blood Pressure 133/77 08/11/18 15:03 Pulse Oximetry 99 08/11/18 15:03 GENERAL: Alert elderly female no acute distress alert oriented x3 HEENT: Head atraumatic,EOMI, pupils reactive, CARDIOVASCULAR: Bradycardia irregularly irregular RESPIRATORY: Breath sounds equal bilaterally, no wheezes rales or rhonchi. ABDOMEN: Soft, nontender. Normoactive bowel sounds all 4 quadrants. No guarding or rebound. EXTREMITIES: Normal range of motion, no clubbing or edema. Neurovascularly intact NEUROLOGICAL: Alert and oriented x4.Normal gait and speech. Cranial nerves II through XII grossly intact. SKIN: Warm, dry, no laceration, no petechiae, no rashes or lesions. Course Orders Ordered: ED Orders 08/11/18 15:00 Complete Blood Count AUTO DIFF Stat Comprehensive Metabolic Panel Stat Lipase Stat Partial Thromboplastin Time Stat Prothrombin Time INR Stat Troponin & CK Cardiac Panel Stat EKG-12 Lead Stat 08/11/18 15:11 XR chest 1V Stat 08/11/18 17:11 Digoxin Stat Sodium Chloride (Normal Saline 0.9%) 1,000 mls @ 125 mls/hr IV CONT NICOLA Last Infusion: 08/11/18 17:53 Dose: 125 mls/hr Admin: 08/11/18 17:14 Dose: 125 mls/hr Vital Signs - 8 hr 08/11/18 15:03 08/11/18 15:30 08/11/18 16:00 Temperature 97.9 F Pulse Rate 60 45 L 46 L Respiratory Rate 08 11 17 Blood Pressure 133/77 Blood Pressure [Left Arm] 118/70 137/72 Pulse Oximetry 99 100 98 08/11/18 16:30 08/11/18 17:25 Temperature Pulse Rate 45 L 47 L Respiratory Rate 17 17 Blood Pressure Blood Pressure [Left Arm] 123/66 125/69 Pulse Oximetry 98 100 MDM - Dizziness Lab Data Attestation: I reviewed the patient's lab results. Result diagrams: 08/11/18 15:00 08/11/18 15:00 Lab Results 08/11/18 08/11/18 08/11/18 Range/Units 15:00 15:00 15:00 WBC 7.4 (4.5-11.0) X10^3/uL RBC 4.91 (4.0-5.2) X10^6/uL Hgb 14.6 (12.0-16.0) g/dL Hct 43.5 (36-46) % MCV 88.5 (80-100) fL MCH 29.6 (26-34) PG MCHC 33.5 (30-36) % RDW 14.4 (11.6-14.8) % Plt Count 183 (150-400) X10^3/uL Neut % (Auto) 53.5 (50-75) % Lymph % (Auto) 36.4 (25-40) % [place] % (Auto) 7.9 (3-14) % Eos % (Auto) 1.3 L (2-4) % Baso % (Auto) 0.9 (0-2) % Neut # (Auto) 4000 (7919-0595) /uL PT 15.4 H (10.1-12.7) SECONDS INR 1.3 (0.9-1.3) APTT 35 D (26.4-36.2) SECONDS Sodium 144 (137-145) mmol/L Potassium 4.3 (3.4-5.1) mmol/L Chloride 109 H (98-107) mmol/L Carbon Dioxide 21 L (22-32) mmol/L BUN 15 (7-17) mg/dL Creatinine 0.80 (0.52-1.04) mg/dL Estimated GFR > 60.0 (>60) mL/min BUN/Creatinine Ratio 18.8 (6-22) Glucose 116 H (80-110) mg/dL Calcium 9.2 (8.4-10.2) mg/dL Total Bilirubin 0.2 (0.2-1.3) mg/dL AST 126 H (14-36) IU/L ALT 123 H (9-52) IU/L Alkaline Phosphatase 97 (38-126) U/L Total Creatine Kinase 62 (30-135) U/L CK-MB (CK-2) TNP CK-MB (CK-2) Rel Index TNP Troponin I < 0.012 (0.01-0.034) ng/mL Total Protein 7.5 (6.3-8.2) g/dL Albumin 4.3 (3.5-5.0) g/dL Globulin 3.2 (1.7-4.1) g/dL Albumin/Globulin Ratio 1.3 (1.0-2.8) Lipase 69 (23-300) U/L Digoxin (0.8-2.0) ng/mL 08/11/ Range/Units 17:11 WBC (4.5-11.0) X10^3/uL RBC (4.0-5.2) X10^6/uL Hgb (12.0-16.0) g/dL Hct (36-46) % MCV (80-100) fL MCH (26-34) PG MCHC (30-36) % RDW (11.6-14.8) % Plt Count (150-400) X10^3/uL Neut % (Auto) (50-75) % Lymph % (Auto) (25-40) % [place] % (Auto) (3-14) % Eos % (Auto) (2-4) % Baso % (Auto) (0-2) % Neut # (Auto) (8212-2453) /uL PT (10.1-12.7) SECONDS INR (0.9-1.3) APTT (26.4-36.2) SECONDS Sodium (137-145) mmol/L Potassium (3.4-5.1) mmol/L Chloride (98-107) mmol/L Carbon Dioxide (22-32) mmol/L BUN (7-17) mg/dL Creatinine (0.52-1.04) mg/dL Estimated GFR (>60) mL/min BUN/Creatinine Ratio (6-22) Glucose (80-110) mg/dL Calcium (8.4-10.2) mg/dL Total Bilirubin (0.2-1.3) mg/dL AST (14-36) IU/L ALT (9-52) IU/L Alkaline Phosphatase (38-126) U/L Total Creatine Kinase (30-135) U/L CK-MB (CK-2) CK-MB (CK-2) Rel Index Troponin I (0.01-0.034) ng/mL Total Protein (6.3-8.2) g/dL Albumin (3.5-5.0) g/dL Globulin (1.7-4.1) g/dL Albumin/Globulin Ratio (1.0-2.8) Lipase (23-300) U/L Digoxin 0.4 L (0.8-2.0) ng/mL Imaging Data Chest x-ray: Radiologist's impression: PROCEDURE: XR CHEST 1V INDICATIONS: chest pain TECHNIQUE: One view of the chest was acquired. COMPARISON: [facility], CR, XR CHEST 1V, 07/27/2018, 22:52. [facility], CR, XR CHEST 1V, 02/19/2018, 10:20. [facility], CR, CHEST 1 VIEW, 10/17/2017, 4: 18. [facility], CR, CHEST 1 VIEW, 05/28/2017, 1:20. FINDINGS: Surgical changes and devices: None. Lungs and pleura: No pleural effusions or pneumothorax. Diffuse reticular pulmonary opacities are noted. There is prominence of the pulmonary vasculature. Mediastinum: Cardiac and mediastinal silhouettes appear enlarged, suggestive of cardiomegaly. This is similar in appearance prior comparison exams. Bones and chest wall: Osseous structures are unchanged from prior exam. IMPRESSION: Pulmonary findings suggestive of mild pulmonary edema. Stable enlargement of the cardiac silhouette suggestive of cardiomegaly versus a pericardial effusion. Dictated by: Gustavo Leonardo M.D. on 08/11/2018 at 16:12 ECG Data Attestation: I personally reviewed and interpreted this ECG as follows: Prior ECG tracings: available for review Interpretation: Atrial fibrillation rate [address] changes similar to prior EKG MDM Narrative Medical decision making narrative: I have called and spoken with patient's on- call direct care professional at [facility] . He states patient is still on digoxin and taking diltiazem x3. On and was started on sotalol. Her heart rate is in the 40s here which he is aware of. He recommends stopping digoxin and diltiazem only taking sotalol. He also says checked his heart rate twice a day if heart rate is more than 80 beats per minute then to take 1 diltiazem. He will follow up with the patient next week. Patient is been monitored in the ED. Her heart rate actually dropped to the 30s at time she still does not feel great. Recommend monitoring in observation while changing medications. agrees with observation Discharge Plan Departure Patient Disposition: Admitted as Observation Clinical Impression: Bradycardia, Atrial fibrillation Discharge Date/Time: 08/11/18 17:54 Interventions: ED Discharge Assessment Last Done: 08/11/18 17:32 Admit Date/Time: 08/11/18 17:21 Admit Provider: Nikhil Zamudio
--- NOTE | 2018-08-11 15:47 | PC.NURSE ---
pt reports, while walking at 11am, developed shortness of breath, when she was sitting down, hr 47, systolic bp at 90's/50. felt flushed. reports tightness throat,neck,chest and jaw 03/06 with right ear popping sensations. new meds since monday sotalol. denies fever,chills,coughing, vomiting or diarrhea.
[2018-08-11 15:52] LABS: Troponin I < 0.012 ng/mL (0.01-0.034)
[2018-08-11] MEDS: SODIUM CHLORIDE 0.9% 1,000 ML 125 ML IV (17:14)
--- NOTE | 2018-08-11 17:25 | PC.NURSE ---
pt reports chills, cold inside hr as low as 37-47
[2018-08-11 17:27] LABS: Digoxin 0.4 ng/mL (0.8-2.0)
--- NOTE | 2018-08-11 19:30 | PM.HP.1 ---
History of Present Illness Date Patient Seen: 08/11/18 Time Patient Seen: 18:50 Chief complaint: elevated HR,BP, SOB, Dizziness Narrative: The patient is a 72-year-old female with PMH significant for HTN, AFIB (dx 2013), chronic anticoagulation (Xarelto), HLD, GERD, h/o GIB (2003), IBS, diverticulitis, DVT and PE sequela of a fall 1896, obesity (BMI 39.5), and JEFF / BiPap (04/2015). Presented to the ED on 08/11/2018 at 1503, respectively, out of concern for chest pain, dizziness, and exertional dyspnea. Patient woke up on the morning of 08/11 in her usual state of health. At 9:00 a.m. she took her morning medications, which included diltiazem and digoxin. He has taken a shower and felt a little bit dizzy and lightheaded; however, notes that she does experience that fairly frequently. Thereafter, she went for a walk (approx. 1/2 a mile) at her routine, non-exertional pace (patient ambulates w/ a walker). During her walk she started to feel weak and short of breath. Her walk was essentially completed (short of 50 feet or so). Came home, rested and took her BP which showed a BP of 90/50 and a HR of 40. At that time all started to experience chest tightness, localized to the left upper aspect of the chest with radiation to left shoulder, and bilateral aspect of the neck and jaw. Pain magnitude of 5/10 chest and 7/10 neck/jaw. Additional, associated symptoms included head pressure, increased in magnitude of weakness (nots notes being able to get up from the chair), palpitations, and diaphoresis. Denies change in vision / blurry vision, disorientation, difficulty with speech, extremity weakness, heaviness, paresthesia, nausea, or vomiting. In ED, initial trop was negative and EKG revealing of AFIB w/ slow ventricular response. She did not receive ASA. Review of patient's records revealed a myocardial perfusion scan, 05/2016, revealed a small sized, reversible inferior wall perfusion defect, suggestive of small, reversible ischemia of inferior wall. Also, reports having a stress echo in [facility], 03/2018, w/ reported normal findings. Patient has never had a cardiac cath. Next f/u scheduled for 08/13/2018. Per patient's report, she was diagnosed with atrial fibrillation in 2013. At that time she underwent cardioversion, which was unsuccessful. No additional attempts at cardioversion. Consequently she was started on metoprolol and beta-shay. Since 2014, patient notes inconsistent follow up with Cardiology for reasons out of her control. 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 Recently, establish herself with a different practice at [facility]. Patient has had difficulties with AFib control in the past 6 months. Reports a hospitalization in February of 2018. At that time she underwent a stress echo, which she notes to be negative and her dose of diltiazem was increased from 240 mg to 360 mg daily. Since diagnosis she has had labila AFib control; however, more so and more symptomatic in the past 6 months. Now seeing a new shipping and receiving operator at [facility]. Recently, 2-3 weeks ago placed on Sotalol. Patient History Medical History Atrial fibrillation (Acute) Cystocele (Acute) Hypertension (Acute) Lower GI bleed (Acute) Surgical History H/O abdominal hysterectomy (Acute) H/O laminectomy (Acute) Hx of cholecystectomy (Acute) Family & Social History Social History: PSx: Patient is . Lives with her in her own home. She does have children. Ambulates with the use of an assistive device (walker); however, fairly independent and able to engage no activities of daily living. Currently denies tobacco, alcohol, marijuana, and recreational drug use. Patient's HISTORICAL RECORDS note that she has a PRIOR history of tobacco dependence; however, patient denies. I have confirmed with patient and she reports no lifetime history of tobacco use. household members Spouse Prior Living Arrangements House Safety & Behavioral: Feels Safe in Current Yes Environment Been Physically Hurt or No Threatened By a Person Suicidal Ideation Description None Suicide Plan Description No Plan Tobacco & Substance use: Smoking Status Never smoker alcohol intake frequency 0-2 drinks per day Substance Use Type Does not use Meds Home Medications Medication Instructions Recorded Confirmed Type diltiazem HCl 360 mg PO DAILY #0 11/08/17 08/11/18 History digoxin 125 mcg PO BEDTIME 02/19/18 08/11/18 History nitroglycerin [Nitrostat] 0.4 mg SUBLINGUAL 5XD PRN 02/19/18 08/11/18 History pravastatin 20 mg PO BEDTIME 02/19/18 08/11/18 History rivaroxaban [Xarelto] 20 mg PO QPM 02/19/18 08/11/18 History sotalol 80 mg PO BID 08/11/18 08/11/18 History Allergies Allergy/AdvReac Type Severity Reaction Status Date / Time No Known Drug Allergies Allergy Verified 08/11/18 15:03 Review of Systems Review of Systems All systems reviewed & are unremarkable except as noted in HPI and below Exam Vital Signs (past 8 hours): - 08/11/18 15:03 08/11/18 15:30 08/11/18 16:00 Temperature 97.9 F Pulse Rate 60 45 L 46 L Respiratory Rate 12 15 17 Blood Pressure 133/77 Blood Pressure [Left Arm] 118/70 137/72 Pulse Oximetry 99 100 98 08/11/18 16:30 08/11/18 17:25 08/11/18 18:19 Temperature 97.7 F Pulse Rate 45 L 47 L 50 L Respiratory Rate 17 17 16 Blood Pressure 121/74 Blood Pressure [Left Arm] 123/66 125/69 Pulse Oximetry 98 100 99 08/11/18 18:40 Temperature Pulse Rate Respiratory Rate Blood Pressure Blood Pressure [Left Arm] Pulse Oximetry 99 Oxygen Delivery Method Room Air Oxygen Flow Rate 0 Narrative Exam Narrative: Constitutional: NAD, older female that appears younger than her stated age Neurologic: AOx3, no focal neurological deficits Head: NC, AT Eyes: Pupils equal and reactive Ears: external ears normal, no otorrhea Nose: external nose normal, no rhinorrhea or epistaxis Throat: MMM, oropharynx w/o exudate Neck: no masses, lymphadenopathy, or JVD Chest / Respiratory: equal chest rise, unlabored respiratory effort, no tachypnea, CTAB Heart / CV: S1S2, irregularly irregular, telemonitor rate 40s, no murmur Abdomen / GI: round, + central obesity,NT, ND, + BS, no organomegaly : no suprapubic tenderness Peripheral / Vascular: warm to touch, DP and PT pulses palpable bilateral 1-2 + edema, mild pitting Musc: full ROM of upper and lower extremities, adequate muscle tone and bulk Skin: no ecchymosis or suspicious lesions / ulcers Objective Labs Result Diagrams: 08/11/18 15:00 08/11/18 15:00 Labs: Laboratory Results - last 24 hr 08/11/18 08/11/18 08/11/18 15:00 15:00 15:00 WBC 7.4 RBC 4.91 Hgb 14.6 Hct 43.5 MCV 88.5 MCH 29.6 MCHC 33.5 RDW 14.4 Plt Count 183 Neut % (Auto) 53.5 Lymph % (Auto) 36.4 [place] % (Auto) 7.9 Eos % (Auto) 1.3 L Baso % (Auto) 0.9 Neut # (Auto) 4000 PT 15.4 H INR 1.3 APTT 35 D Sodium 144 Potassium 4.3 Chloride 109 H Carbon Dioxide 21 L BUN 15 Creatinine 0.80 Estimated GFR > 60.0 BUN/Creatinine Ratio 18.8 Glucose 116 H Calcium 9.2 Total Bilirubin 0.2 AST 126 H ALT 123 H Alkaline Phosphatase 97 Total Creatine Kinase 62 CK-MB (CK-2) TNP CK-MB (CK-2) Rel Index TNP Troponin I < 0.012 Total Protein 7.5 Albumin 4.3 Globulin 3.2 Albumin/Globulin Ratio 1.3 Lipase 69 Digoxin 08/11/18 17:11 WBC RBC Hgb Hct MCV MCH MCHC RDW Plt Count Neut % (Auto) Lymph % (Auto) [place] % (Auto) Eos % (Auto) Baso % (Auto) Neut # (Auto) PT INR APTT Sodium Potassium Chloride Carbon Dioxide BUN Creatinine Estimated GFR BUN/Creatinine Ratio Glucose Calcium Total Bilirubin AST ALT Alkaline Phosphatase Total Creatine Kinase CK-MB (CK-2) CK-MB (CK-2) Rel Index Troponin I Total Protein Albumin Globulin Albumin/Globulin Ratio Lipase Digoxin 0.4 L Assessment & Plan Plan: Assessment/Plan Narrative: Permanent AFIB w/ slow ventricular rate, symptomatic - Tele monitoring at all times - Hold Cardizem and digoxin - Pending patient's heart rate, resume sotalol at 80 mg b.i.d. this evening or tomorrow am - Continue anticoagulation w/ Xarelto - TSH Chest Pain potentially in the setting of slow ventricular response, hypoperfusion, ischemia Troponin negative. EKG without ST changes. Myocardial perfusion scan, 05/2016, revealed a small sized, reversible inferior wall perfusion defect, suggestive of small, reversible ischemia of inferior wall. She has had a stress echo in [facility], by report, on 03/2018 w/ reported normal findings. No reported or known h/o a cardiac cath. Risk Factors: HTN, HLD, obesity. No family h/o heart disease. - Trend troponins - Risk stratify: FLP, A1C Pulmonary Edema XR chest revealed diffuse reticular pulmonary opacities. Prominence of pulmonary vasculature. Pulmonary findings suggestive of mild pulmonary edema. Cardiac and mediastinal silhouettes appear enlarged, suggestive of cardiomegaly. Stable enlargement of the cardiac silhouette suggestive of cardiomegaly versus a pericardial effusion. No prior known h/o heart failure. Per exercise perfusion study 05/2016, resting LVEF 68% and stress LVEF 72%. Known h/o HTN, AFIB (uncontrolled). Not on diuretics at home. At present time no overt s/s of volume excess, she does have 1-2+ peripheral edema (fairly recent manifestation for the patient). - Will hold diuretics at this time - Echo - Check BNP - Stop IVF Elevated Glucose No personal or family history of DM. 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 No formal have directive. Designates her as a surrogate decision maker. Home medications reviewed and reconciled accordingly / as clinically indicated DVT prophylaxis with SCDs. Patient chronically anticoagulated with Xarelto, continue. [id number] time with patient is 35 min, obtaining HPI, discussing AFib pathology and associated complications, and plan of care.
--- NOTE | 2018-08-11 19:34 | P.HP_ITS ---
History of Present Illness Date Patient Seen: 08/11/18 Time Patient Seen: 18:50 Chief complaint: elevated HR,BP, SOB, Dizziness Narrative: The patient is a 72-year-old female with PMH significant for HTN, AFIB (dx 2013), chronic anticoagulation (Xarelto), HLD, GERD, h/o GIB ( 2003), IBS, diverticulitis, DVT and PE sequela of a fall 1896, obesity (BMI 39.5 ), and JEFF / BiPap (04/2015). Presented to the ED on 08/11/2018 at 1503, respectively, out of concern for chest pain, dizziness, and exertional dyspnea. Patient woke up on the morning of 08/11 in her usual state of health. At 9:00 a.m. she took her morning medications, which included diltiazem and digoxin. He has taken a shower and felt a little bit dizzy and lightheaded; however, notes that she does experience that fairly frequently. Thereafter, she went for a walk (approx. 1/ 2 a mile) at her routine, non-exertional pace (patient ambulates w/ a walker). During her walk she started to feel weak and short of breath. Her walk was essentially completed (short of 50 feet or so). Came home, rested and took her BP which showed a BP of 90/50 and a HR of 40. At that time all started to experience chest tightness, localized to the left upper aspect of the chest with radiation to left shoulder, and bilateral aspect of the neck and jaw. Pain magnitude of 5/10 chest and 7/10 neck/jaw. Additional, associated symptoms included head pressure, increased in magnitude of weakness (nots notes being able to get up from the chair), palpitations, and diaphoresis. Denies change in vision / blurry vision, disorientation, difficulty with speech, extremity weakness, heaviness, paresthesia, nausea, or vomiting. In ED, initial trop was negative and EKG revealing of AFIB w/ slow ventricular response. She did not receive ASA. Review of patient's records revealed a myocardial perfusion scan, 05/2016, revealed a small sized, reversible inferior wall perfusion defect, suggestive of small, reversible ischemia of inferior wall. Also, reports having a stress echo in [facility], 03/2018, w/ reported normal findings. Patient has never had a cardiac cath. Next f/u scheduled for 08/13/2018. Per patient's report, she was diagnosed with atrial fibrillation in 2013. At that time she underwent cardioversion, which was unsuccessful. No additional attempts at cardioversion. Consequently she was started on metoprolol and beta- shay. Since 2014, patient notes inconsistent follow up with Cardiology for reasons out of her control. 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 Recently, establish herself with a different practice at [facility]. Patient has had difficulties with AFib control in the past 6 months. Reports a hospitalization in February of 2018. At that time she underwent a stress echo, which she notes to be negative and her dose of diltiazem was increased from 240 mg to 360 mg daily. Since diagnosis she has had labila AFib control; however, more so and more symptomatic in the past 6 months. Now seeing a new realty loan specialist at [facility]. Recently, 2-3 weeks ago placed on Sotalol. Patient History Medical History Atrial fibrillation (Acute) Cystocele (Acute) Hypertension (Acute) Lower GI bleed (Acute) Surgical History H/O abdominal hysterectomy (Acute) H/O laminectomy (Acute) Hx of cholecystectomy (Acute) Family & Social History Social History: PSx: Patient is . Lives with her in her own home. She does have children. Ambulates with the use of an assistive device ( walker); however, fairly independent and able to engage no activities of daily living. Currently denies tobacco, alcohol, marijuana, and recreational drug use. Patient's HISTORICAL RECORDS note that she has a PRIOR history of tobacco dependence; however, patient denies. I have confirmed with patient and she reports no lifetime history of tobacco use. household members Spouse Prior Living Arrangements House Safety & Behavioral: Feels Safe in Current Yes Environment Been Physically Hurt or No Threatened By a Person Suicidal Ideation Description None Suicide Plan Description No Plan Tobacco & Substance use: Smoking Status Never smoker alcohol intake frequency 0-2 drinks per day Substance Use Type Does not use Meds Home Medications Medication Instructions Recorded Confirmed Type diltiazem HCl 360 mg PO DAILY #0 11/08/17 08/11/18 History digoxin 125 mcg PO BEDTIME 02/19/18 08/11/18 History nitroglycerin [Nitrostat] 0.4 mg SUBLINGUAL 5XD PRN 02/19/18 08/11/18 History pravastatin 20 mg PO BEDTIME 02/19/18 08/11/18 History rivaroxaban [Xarelto] 20 mg PO QPM 02/19/18 08/11/18 History sotalol 80 mg PO BID 08/11/18 08/11/18 History Allergies Allergy/AdvReac Type Severity Reaction Status Date / Time No Known Drug Allergies Allergy Verified 08/11/18 15:03 Review of Systems Review of Systems All systems reviewed & are unremarkable except as noted in HPI and below Exam Vital Signs (past 8 hours): - 08/11/18 15:03 08/11/18 15:30 08/11/18 16:00 Temperature 97.9 F Pulse Rate 60 45 L 46 L Respiratory Rate 12 15 17 Blood Pressure 133/77 Blood Pressure [Left Arm] 118/70 137/72 Pulse Oximetry 99 100 98 08/11/18 16:30 08/11/18 17:25 08/11/18 18:19 Temperature 97.7 F Pulse Rate 45 L 47 L 50 L Respiratory Rate 17 17 16 Blood Pressure 121/74 Blood Pressure [Left Arm] 123/66 125/69 Pulse Oximetry 98 100 99 08/11/18 18:40 Temperature Pulse Rate Respiratory Rate Blood Pressure Blood Pressure [Left Arm] Pulse Oximetry 99 Oxygen Delivery Method Room Air Oxygen Flow Rate 0 Narrative Exam Narrative: Constitutional: NAD, older female that appears younger than her stated age Neurologic: AOx3, no focal neurological deficits Head: NC, AT Eyes: Pupils equal and reactive Ears: external ears normal, no otorrhea Nose: external nose normal, no rhinorrhea or epistaxis Throat: MMM, oropharynx w/o exudate Neck: no masses, lymphadenopathy, or JVD Chest / Respiratory: equal chest rise, unlabored respiratory effort, no tachypnea, CTAB Heart / CV: S1S2, irregularly irregular, telemonitor rate 40s, no murmur Abdomen / GI: round, + central obesity,NT, ND, + BS, no organomegaly : no suprapubic tenderness Peripheral / Vascular: warm to touch, DP and PT pulses palpable bilateral 1-2 + edema, mild pitting Musc: full ROM of upper and lower extremities, adequate muscle tone and bulk Skin: no ecchymosis or suspicious lesions / ulcers Objective Labs Result Diagrams: 08/11/18 15:00 08/11/18 15:00 Labs: Laboratory Results - last 24 hr 08/11/18 08/11/18 08/11/18 15:00 15:00 15:00 WBC 7.4 RBC 4.91 Hgb 14.6 Hct 43.5 MCV 88.5 MCH 29.6 MCHC 33.5 RDW 14.4 Plt Count 183 Neut % (Auto) 53.5 Lymph % (Auto) 36.4 [place] % (Auto) 7.9 Eos % (Auto) 1.3 L Baso % (Auto) 0.9 Neut # (Auto) 4000 PT 15.4 H INR 1.3 APTT 35 D Sodium 144 Potassium 4.3 Chloride 109 H Carbon Dioxide 21 L BUN 15 Creatinine 0.80 Estimated GFR > 60.0 BUN/Creatinine Ratio 18.8 Glucose 116 H Calcium 9.2 Total Bilirubin 0.2 AST 126 H ALT 123 H Alkaline Phosphatase 97 Total Creatine Kinase 62 CK-MB (CK-2) TNP CK-MB (CK-2) Rel Index TNP Troponin I < 0.012 Total Protein 7.5 Albumin 4.3 Globulin 3.2 Albumin/Globulin Ratio 1.3 Lipase 69 Digoxin 08/11/18 17:11 WBC RBC Hgb Hct MCV MCH MCHC RDW Plt Count Neut % (Auto) Lymph % (Auto) [place] % (Auto) Eos % (Auto) Baso % (Auto) Neut # (Auto) PT INR APTT Sodium Potassium Chloride Carbon Dioxide BUN Creatinine Estimated GFR BUN/Creatinine Ratio Glucose Calcium Total Bilirubin AST ALT Alkaline Phosphatase Total Creatine Kinase CK-MB (CK-2) CK-MB (CK-2) Rel Index Troponin I Total Protein Albumin Globulin Albumin/Globulin Ratio Lipase Digoxin 0.4 L Assessment & Plan Plan: Assessment/Plan Narrative: Permanent AFIB w/ slow ventricular rate, symptomatic - Tele monitoring at all times - Hold Cardizem and digoxin - Pending patient's heart rate, resume sotalol at 80 mg b.i.d. this evening or tomorrow am - Continue anticoagulation w/ Xarelto - TSH Chest Pain potentially in the setting of slow ventricular response, hypoperfusion, ischemia Troponin negative. EKG without ST changes. Myocardial perfusion scan, 05/2016, revealed a small sized, reversible inferior wall perfusion defect, suggestive of small, reversible ischemia of inferior wall. She has had a stress echo in [facility], by report, on 03/2018 w/ reported normal findings. No reported or known h/o a cardiac cath. Risk Factors: HTN, HLD, obesity. No family h/o heart disease. - Trend troponins - Risk stratify: FLP, A1C Pulmonary Edema XR chest revealed diffuse reticular pulmonary opacities. Prominence of pulmonary vasculature. Pulmonary findings suggestive of mild pulmonary edema. Cardiac and mediastinal silhouettes appear enlarged, suggestive of cardiomegaly. Stable enlargement of the cardiac silhouette suggestive of cardiomegaly versus a pericardial effusion. No prior known h/o heart failure. Per exercise perfusion study 05/2016, resting LVEF 68% and stress LVEF 72%. Known h/o HTN, AFIB (uncontrolled). Not on diuretics at home. At present time no overt s/s of volume excess, she does have 1-2+ peripheral edema (fairly recent manifestation for the patient). - Will hold diuretics at this time - Echo - Check BNP - Stop IVF Elevated Glucose No personal or family history of DM. 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 No formal have directive. Designates her as a surrogate decision maker. Home medications reviewed and reconciled accordingly / as clinically indicated DVT prophylaxis with SCDs. Patient chronically anticoagulated with Xarelto, continue. [id number] time with patient is 35 min, obtaining HPI, discussing AFib pathology and associated complications, and plan of care.
[2018-08-11 21:27] LABS: Hemoglobin A1C% w Est Avg Glu 5.8 % (4.0-6.0)
[2018-08-11 21:28] LABS: Magnesium 2.1 mg/dL (1.6-2.3)
[2018-08-11 21:40] LABS: Troponin I 0.013 ng/mL (0.01-0.034)
[2018-08-11 22:06] LABS: TSH w/ Reflex to FT4 1.81 uIU/mL (0.47-4.68)
--- NOTE | 2018-08-11 22:06 | PC.NURSE ---
Patient up to floor from ED via stretcher with ivf infusing. Patient is A&Ox4, steady on her feet, calling appropriately so far. 99% on RA, lung sounds clear during initial assessment, HR is less than 50 bpm, telemetry unit applied; tele reading is AFib. Patient reports no pain except soreness around neck, shoulder, and left chest area. Patient reports she does feel dizzy and sob when standing. Denies nausea. Skin is intact, CMS intact, no muscle weakness observed. BP wnl at this time. Patient has CPAP on at this time and is resting. Per orders, did not give HS doses of heart medications such as her beta shay. Could not give HS dose of pravastatin because not available in night pharmacy. Patient has been oriented to room and use of call light, instructed to not get oob by herself. Will continue to monitor.
[2018-08-12 00:44] VITALS: O2SAT 97
[2018-08-12 03:00] VITALS: BP 108/55; PULSE 58; RESP 17; TEMP 36.3; O2SAT 99
[2018-08-12 04:00] VITALS: O2SAT 99
[2018-08-12 08:00] VITALS: BP 129/65; PULSE 63; RESP 16; TEMP 36.6; O2SAT 97
[2018-08-12 08:15] LABS: BUN Creatinine Ratio 17.1 (6-22); Blood Urea Nitrogen 12 mg/dL (7-17); Calcium 8.7 mg/dL (8.4-10.2); Carbon Dioxide 22 mmol/L (22-32); Chloride 110 mmol/L (98-107); Estimated Glomerular Filt Rate > 60.0 mL/min (>60); Glucose 95 mg/dL (80-110); HEMOLYSIS < 15 (0-50); Potassium 4.1 mmol/L (3.4-5.1); Sodium 144 mmol/L (137-145)
[2018-08-12] MEDS: ASPIRIN 81 MG TAB PO (09:02)
--- NOTE | 2018-08-12 11:56 | CM.DANOTE ---
Patient is a 72 year old female who was admitted on 08/11/18 OBS Status for Elevated HR and SOB. Pt has [facility] and [employer] for insurance and her PCP is Dr. Avila. EMR was reviewed. Per MD, pt is medically stable to d/c home today with follow up with Driver Utility Worker. Per RN, no concerns at this time. SW met bedside with pt and spouse and explained role and they confirmed that they live at home in [place] and pt is Independent with ADL's at baseline and has a FWW. Pt's DPOA is her spouse. Pt and spouse do not anticipate any SW needs at d/c and preference is to d/c home today with already scheduled follow up appointment tomorrow 08/13/18 with Driver Utility Worker at [facility]. Plan: Patient to d/c home today via spouse POV and no SW needs at this time. JUSTICE Mejia Discharge Planning/Care Management CM Discharge Assessment Start: 08/12/18 11:53 Freq: Status: Active Protocol: Document 08/12/18 11:54 BF (Rec: 08/12/18 11:56 BF [id number]) Discharge Planning Assessment Assigned Weasand Trimmer JUSTICE Ruelas DPOA/Assigned Designee Name spouse Onel Contact Information [phone] Advance Directives? No Advance Directives on File No History Provided By Patient Significant Other Medical Record Has Patient been admitted in last 30 No days? Prior Living Arrangements House Household Members spouse Independent with ADL's Yes Is patient alert and oriented? Yes Caregiver for Another No Comment No needs at this time, home with follow up tomorrow with Driver Utility Worker at [facility] Barriers to Discharge No Discharge Plan Home Transportation Arrangement Spouse bedside and able to provide transport home Referrals Initiated None needed Whiteboard Updated in Patient Room with Yes name and ext. # of Weasand Trimmer Review Status In Process Please Provide Date Initial DC 08/12/18 Assessment Was Performed Next Review Type Continued Stay Review
--- NOTE | 2018-08-12 11:59 | PM.DS.1 ---
History of Present Illness Date Patient Seen: 08/12/18 Time Patient Seen: 06:41 Chief complaint: elevated HR,BP, SOB, Dizziness Narrative: Date Patient Seen: 08/11/18 Time Patient Seen: 18:50 Chief complaint: elevated HR,BP, SOB, Dizziness Narrative: The patient is a 72-year-old female with PMH significant for HTN, AFIB (dx 2013), chronic anticoagulation (Xarelto), HLD, GERD, h/o GIB (2003), IBS, diverticulitis, DVT and PE sequela of a fall 1896, obesity (BMI 39.5), and JEFF / BiPap (04/2015). Presented to the ED on 08/11/2018 at 1503, respectively, out of concern for chest pain, dizziness, and exertional dyspnea. Patient woke up on the morning of 08/11 in her usual state of health. At 9:00 a.m. she took her morning medications, which included diltiazem and digoxin. He has taken a shower and felt a little bit dizzy and lightheaded; however, notes that she does experience that fairly frequently. Thereafter, she went for a walk (approx. 1/2 a mile) at her routine, non-exertional pace (patient ambulates w/ a walker). During her walk she started to feel weak and short of breath. Her walk was essentially completed (short of 50 feet or so). Came home, rested and took her BP which showed a BP of 90/50 and a HR of 40. At that time all started to experience chest tightness, localized to the left upper aspect of the chest with radiation to left shoulder, and bilateral aspect of the neck and jaw. Pain magnitude of 5/10 chest and 7/10 neck/jaw. Additional, associated symptoms included head pressure, increased in magnitude of weakness (nots notes being able to get up from the chair), palpitations, and diaphoresis. Denies change in vision / blurry vision, disorientation, difficulty with speech, extremity weakness, heaviness, paresthesia, nausea, or vomiting. In ED, initial trop was negative and EKG revealing of AFIB w/ slow ventricular response. She did not receive ASA. Review of patient's records revealed a myocardial perfusion scan, 05/2016, revealed a small sized, reversible inferior wall perfusion defect, suggestive of small, reversible ischemia of inferior wall. Also, reports having a stress echo in [facility], 03/2018, w/ reported normal findings. Patient has never had a cardiac cath. Next f/u scheduled for 08/13/2018. Per patient's report, she was diagnosed with atrial fibrillation in 2013. At that time she underwent cardioversion, which was unsuccessful. No additional attempts at cardioversion. Consequently she was started on metoprolol and beta-shay. Since 2014, patient notes inconsistent follow up with Cardiology for reasons out of her control. Her previous coat tailor has retired, she was able to establish herself with a different coat tailor, however reports difficulty in appointments and follow-up due to volume of the practice. Recently, establish herself with a different practice at [facility]. Patient has had difficulties with AFib control in the past 6 months. Reports a hospitalization in February of 2018. At that time she underwent a stress echo, which she notes to be negative and her dose of diltiazem was increased from 240 mg to 360 mg daily. Since diagnosis she has had labila AFib control; however, more so and more symptomatic in the past 6 months. Now seeing a new coat tailor at [facility]. Recently, 2-3 weeks ago placed on Sotalol. Discharge Providers Date of admission: 08/11/18 17:21 Primary care physician: Vivi Avila DO Consults: 08/11/18 18:45 Consult to Discharge Planning Routine Comment: Discharge provider: Nikhil Zamudio DO Discharge Date: 08/12/18 Summary Discharge Diagnosis: HYPOTENSION; ESOLVING ; ALL Antiarrhythmic drugs ON HOLD AFIB PER HX; HOLD RATE CONTROLLED MEDS FOR NOW; CONT LTACT OBESITY; OUTPATIENT MANAGEMENT HTN PER HX IBS PER HX Hospital Course: PATIENT WAS SEEN FOR HYPOTENSION WHICH WAS SECONDARY TO RX MEDS SHE IS ON DIALTIAZEM AND SATOLOL AND DIG FOR ABF THOSE MEDS WERE HELD AND HR IMPROVED MODERATELY SHE IS ASYMPTOMATIC AND HAS AN APPOINTMENT WITH [facility] IN AM SHE WILL BE DC TO HOME AND RECOMMENDED TO KEEP APPOINTMENT FOR THE AM WITH [facility] PROVIDER PREVIOUSLY PLANNED ADDITIONAL MANAGEMENT DEFERRED TO OUTPATIENT PROVIDERS Status at Discharge Functional status at discharge: independent ambulation Overall status at discharge: patient is back to baseline Time Spent with Patient Greater than 30 minutes Exam Vital Signs (past 8 hours): - 08/12/18 04:00 08/12/18 08:00 Temperature 97.9 F Pulse Rate 63 Respiratory Rate 16 Blood Pressure 129/65 Pulse Oximetry 99 97 Oxygen Delivery Method Room Air,CPAP Oxygen Flow Rate 0 Narrative Exam Narrative: NO ACUTE DISTRESS. PATIENT IS ALERT ORIENTED X3. VITAL SIGNS STABLE HEAD ATRAUMATIC NORMOCEPHALIC; OBESES NECK : SUPPLE WITHOUT ADENOPATHY NO CAROTID BRUITS EYE: EOMI, PERRLA, NORMAL CONJUNCTIVA; NO JAUNDICE CHEST: REGULAR RATE AT 66 DURING EXAM . NO RUBS. PMI IS NON DISPLACED. NO MURMURS; NORMAL S1-S2 PULMONARY: DECREASED BS OVER THE BASES. MILD BIBASILAR CRACKLES NOTED; NO INCREASED DULLNESS TO PERCUSSION ABDOMEN: SOFT. NONTENDER. NONDISTENDED. BOWEL SOUNDS ARE PRESENT IN ALL 4 QUADRANTS. NO MASS. EXTREMITIES: NO EDEMA.. NO CYANOSIS CLUBBING NOTED. NEURO: CRANIAL NERVES 2-12 GROSSLY INTACT. NO FOCAL NEUROLOGICAL DEFICIT NOTED. MSK: NORMAL RANGE OF MOTION FOR AGE. NO JOINT EFFUSION. SKIN: NORMAL FOR ETHNICITY; NO ECCHYMOSIS. NO LESION. GOOD TURGOR.; NO RASHES : NORMAL EXTERNAL GENITALIA. PSYCH : APPROPRIATE MOOD AND AFFECT. ALERT AWAKE ORIENTED X3 Objective Labs Result Diagrams: 08/11/18 15:00 08/12/18 07:26 Labs: Laboratory Results - last 24 hr 08/11/18 08/11/18 08/11/18 15:00 15:00 15:00 WBC 7.4 RBC 4.91 Hgb 14.6 Hct 43.5 MCV 88.5 MCH 29.6 MCHC 33.5 RDW 14.4 Plt Count 183 Neut % (Auto) 53.5 Lymph % (Auto) 36.4 Barton % (Auto) 7.9 Eos % (Auto) 1.3 L Baso % (Auto) 0.9 Neut # (Auto) 4000 PT 15.4 H INR 1.3 APTT 35 D Sodium 144 Potassium 4.3 Chloride 109 H Carbon Dioxide 21 L BUN 15 Creatinine 0.80 Estimated GFR > 60.0 BUN/Creatinine Ratio 18.8 Glucose 116 H Hemoglobin A1c Calcium 9.2 Magnesium Total Bilirubin 0.2 AST 126 H ALT 123 H Alkaline Phosphatase 97 Total Creatine Kinase 62 CK-MB (CK-2) TNP CK-MB (CK-2) Rel Index TNP Troponin I < 0.012 B-Natriuretic Peptide Total Protein 7.5 Albumin 4.3 Globulin 3.2 Albumin/Globulin Ratio 1.3 Lipase 69 TSH Digoxin 08/11/18 08/11/18 08/11/18 17:11 21:05 21:05 WBC RBC Hgb Hct MCV MCH MCHC RDW Plt Count Neut % (Auto) Lymph % (Auto) Barton % (Auto) Eos % (Auto) Baso % (Auto) Neut # (Auto) PT INR APTT Sodium Potassium Chloride Carbon Dioxide BUN Creatinine Estimated GFR BUN/Creatinine Ratio Glucose Hemoglobin A1c Calcium Magnesium Total Bilirubin AST ALT Alkaline Phosphatase Total Creatine Kinase CK-MB (CK-2) CK-MB (CK-2) Rel Index Troponin I B-Natriuretic Peptide 145.0 H Total Protein Albumin Globulin Albumin/Globulin Ratio Lipase TSH 1.81 Digoxin 0.4 L 08/11/18 08/11/18 08/11/18 21:05 21:05 21:05 WBC RBC Hgb Hct MCV MCH MCHC RDW Plt Count Neut % (Auto) Lymph % (Auto) Barton % (Auto) Eos % (Auto) Baso % (Auto) Neut # (Auto) PT INR APTT Sodium Potassium Chloride Carbon Dioxide BUN Creatinine Estimated GFR BUN/Creatinine Ratio Glucose Hemoglobin A1c 5.8 Calcium Magnesium 2.1 Total Bilirubin AST ALT Alkaline Phosphatase Total Creatine Kinase CK-MB (CK-2) CK-MB (CK-2) Rel Index Troponin I 0.013 B-Natriuretic Peptide Total Protein Albumin Globulin Albumin/Globulin Ratio Lipase TSH Digoxin 08/12/18 08/12/18 07:26 07:26 WBC RBC Hgb Hct MCV MCH MCHC RDW Plt Count Neut % (Auto) Lymph % (Auto) Barton % (Auto) Eos % (Auto) Baso % (Auto) Neut # (Auto) PT INR APTT Sodium 144 Potassium 4.1 Chloride 110 H Carbon Dioxide 22 BUN 12 Creatinine 0.70 Estimated GFR > 60.0 BUN/Creatinine Ratio 17.1 Glucose 95 Hemoglobin A1c Calcium 8.7 Magnesium Total Bilirubin AST ALT Alkaline Phosphatase Total Creatine Kinase CK-MB (CK-2) CK-MB (CK-2) Rel Index Troponin I B-Natriuretic Peptide 169.0 H Total Protein Albumin Globulin Albumin/Globulin Ratio Lipase TSH Digoxin Discharge Plan Discharge Plan Patient Disposition: Home Discharge comment: dc home today act as to cardiac diet f/u with cardio 2-7 days patient to hold sotalol, dig and Cardizem meds until seen by cardio or HR > 80 Discharge Med Rec/Prescriptions Prescriptions: Continue nitroglycerin [Nitrostat] 0.4 MG tablet, sublingual 0.4 mg Sublingual 5XD PRN (Reason: Chest Pain) RF: 0 pravastatin 20 mg Tablet 20 mg PO BEDTIME RF: 0 rivaroxaban [Xarelto] 20 mg Tablet 20 mg PO QPM RF: 0 Discontinued diltiazem HCl 120 MG capsule,extended release 24hr 360 mg PO DAILY Qty: 0 RF: 0 digoxin 125 mcg Tablet 125 mcg PO BEDTIME RF: 0 sotalol 80 mg PO BID RF: 0 Follow up/Referrals: Vivi Avila DO [Primary Care Provider] - Provider Discharge Instructions Diet: Low-fat and Low-cholesterol Skin/Wound/Dressing Care Report to your healthcare provider any signs of infection, such as:: chills, fever, night sweats, increased pain, unusual drainage and unusual redness Visit Report/Discharge Packet Instructions: Pneumonia-Adult, Atrial Fibrillation Visit Report Forms: Stroke Signs & Symptoms Discharge Data Primary Care Provider: Vivi Avila Attending Provider: Nikhil Zamudio Admit Date/Time: 08/11/18 17:21 Discharges patient from system. Discharge Date/Time: 08/12/18 09:09
--- NOTE | 2018-08-12 12:07 | P.DS_ITS ---
History of Present Illness Date Patient Seen: 08/12/18 Time Patient Seen: 06:41 Chief complaint: elevated HR,BP, SOB, Dizziness Narrative: Date Patient Seen: 08/11/18 Time Patient Seen: 18:50 Chief complaint: elevated HR,BP, SOB, Dizziness Narrative: The patient is a 72-year-old female with PMH significant for HTN, AFIB (dx 2013), chronic anticoagulation (Xarelto), HLD, GERD, h/o GIB ( 2003), IBS, diverticulitis, DVT and PE sequela of a fall 1896, obesity (BMI 39.5 ), and JEFF / BiPap (04/2015). Presented to the ED on 08/11/2018 at 1503, respectively, out of concern for chest pain, dizziness, and exertional dyspnea. Patient woke up on the morning of 08/11 in her usual state of health. At 9:00 a.m. she took her morning medications, which included diltiazem and digoxin. He has taken a shower and felt a little bit dizzy and lightheaded; however, notes that she does experience that fairly frequently. Thereafter, she went for a walk (approx. 1/ 2 a mile) at her routine, non-exertional pace (patient ambulates w/ a walker). During her walk she started to feel weak and short of breath. Her walk was essentially completed (short of 50 feet or so). Came home, rested and took her BP which showed a BP of 90/50 and a HR of 40. At that time all started to experience chest tightness, localized to the left upper aspect of the chest with radiation to left shoulder, and bilateral aspect of the neck and jaw. Pain magnitude of 5/10 chest and 7/10 neck/jaw. Additional, associated symptoms included head pressure, increased in magnitude of weakness (nots notes being able to get up from the chair), palpitations, and diaphoresis. Denies change in vision / blurry vision, disorientation, difficulty with speech, extremity weakness, heaviness, paresthesia, nausea, or vomiting. In ED, initial trop was negative and EKG revealing of AFIB w/ slow ventricular response. She did not receive ASA. Review of patient's records revealed a myocardial perfusion scan, 05/2016, revealed a small sized, reversible inferior wall perfusion defect, suggestive of small, reversible ischemia of inferior wall. Also, reports having a stress echo in [facility], 03/2018, w/ reported normal findings. Patient has never had a cardiac cath. Next f/u scheduled for 08/13/2018. Per patient's report, she was diagnosed with atrial fibrillation in 2013. At that time she underwent cardioversion, which was unsuccessful. No additional attempts at cardioversion. Consequently she was started on metoprolol and beta- shay. Since 2014, patient notes inconsistent follow up with Cardiology for reasons out of her control. Her previous elementary educator has retired, she was able to establish herself with a different elementary educator, however reports difficulty in appointments and follow-up due to volume of the practice. Recently, establish herself with a different practice at [facility]. Patient has had difficulties with AFib control in the past 6 months. Reports a hospitalization in February of 2018. At that time she underwent a stress echo, which she notes to be negative and her dose of diltiazem was increased from 240 mg to 360 mg daily. Since diagnosis she has had labila AFib control; however, more so and more symptomatic in the past 6 months. Now seeing a new elementary educator at [facility]. Recently, 2-3 weeks ago placed on Sotalol. Discharge Providers Date of admission: 08/11/18 17:21 Primary care physician: Vivi Avila DO Consults: 08/11/18 18:45 Consult to Discharge Planning Routine Comment: Discharge provider: Nikhil Zamudio DO Discharge Date: 08/12/18 Summary Discharge Diagnosis: HYPOTENSION; ESOLVING ; ALL Antiarrhythmic drugs ON HOLD AFIB PER HX; HOLD RATE CONTROLLED MEDS FOR NOW; CONT LTACT OBESITY; OUTPATIENT MANAGEMENT HTN PER HX IBS PER HX Hospital Course: PATIENT WAS SEEN FOR HYPOTENSION WHICH WAS SECONDARY TO RX MEDS SHE IS ON DIALTIAZEM AND SATOLOL AND DIG FOR ABF THOSE MEDS WERE HELD AND HR IMPROVED MODERATELY SHE IS ASYMPTOMATIC AND HAS AN APPOINTMENT WITH [facility] IN AM SHE WILL BE DC TO HOME AND RECOMMENDED TO KEEP APPOINTMENT FOR THE AM WITH [facility] PROVIDER PREVIOUSLY PLANNED ADDITIONAL MANAGEMENT DEFERRED TO OUTPATIENT PROVIDERS Status at Discharge Functional status at discharge: independent ambulation Overall status at discharge: patient is back to baseline Time Spent with Patient Greater than 30 minutes Exam Vital Signs (past 8 hours): - 08/12/18 04:00 08/12/18 08:00 Temperature 97.9 F Pulse Rate 63 Respiratory Rate 16 Blood Pressure 129/65 Pulse Oximetry 99 97 Oxygen Delivery Method Room Air,CPAP Oxygen Flow Rate 0 Narrative Exam Narrative: NO ACUTE DISTRESS. PATIENT IS ALERT ORIENTED X3. VITAL SIGNS STABLE HEAD ATRAUMATIC NORMOCEPHALIC; OBESES NECK : SUPPLE WITHOUT ADENOPATHY NO CAROTID BRUITS EYE: EOMI, PERRLA, NORMAL CONJUNCTIVA; NO JAUNDICE CHEST: REGULAR RATE AT 66 DURING EXAM . NO RUBS. PMI IS NON DISPLACED. NO MURMURS; NORMAL S1-S2 PULMONARY: DECREASED BS OVER THE BASES. MILD BIBASILAR CRACKLES NOTED; NO INCREASED DULLNESS TO PERCUSSION ABDOMEN: SOFT. NONTENDER. NONDISTENDED. BOWEL SOUNDS ARE PRESENT IN ALL 4 QUADRANTS. NO MASS. EXTREMITIES: NO EDEMA.. NO CYANOSIS CLUBBING NOTED. NEURO: CRANIAL NERVES 2-12 GROSSLY INTACT. NO FOCAL NEUROLOGICAL DEFICIT NOTED. MSK: NORMAL RANGE OF MOTION FOR AGE. NO JOINT EFFUSION. SKIN: NORMAL FOR ETHNICITY; NO ECCHYMOSIS. NO LESION. GOOD TURGOR.; NO RASHES : NORMAL EXTERNAL GENITALIA. PSYCH : APPROPRIATE MOOD AND AFFECT. ALERT AWAKE ORIENTED X3 Objective Labs Result Diagrams: 08/11/18 15:00 08/12/18 07:26 Labs: Laboratory Results - last 24 hr 08/11/18 08/11/18 08/11/18 15:00 15:00 15:00 WBC 7.4 RBC 4.91 Hgb 14.6 Hct 43.5 MCV 88.5 MCH 29.6 MCHC 33.5 RDW 14.4 Plt Count 183 Neut % (Auto) 53.5 Lymph % (Auto) 36.4 [place] % (Auto) 7.9 Eos % (Auto) 1.3 L Baso % (Auto) 0.9 Neut # (Auto) 4000 PT 15.4 H INR 1.3 APTT 35 D Sodium 144 Potassium 4.3 Chloride 109 H Carbon Dioxide 21 L BUN 15 Creatinine 0.80 Estimated GFR > 60.0 BUN/Creatinine Ratio 18.8 Glucose 116 H Hemoglobin A1c Calcium 9.2 Magnesium Total Bilirubin 0.2 AST 126 H ALT 123 H Alkaline Phosphatase 97 Total Creatine Kinase 62 CK-MB (CK-2) TNP CK-MB (CK-2) Rel Index TNP Troponin I < 0.012 B-Natriuretic Peptide Total Protein 7.5 Albumin 4.3 Globulin 3.2 Albumin/Globulin Ratio 1.3 Lipase 69 TSH Digoxin 08/11/18 08/11/18 08/11/18 17:11 21:05 21:05 WBC RBC Hgb Hct MCV MCH MCHC RDW Plt Count Neut % (Auto) Lymph % (Auto) [place] % (Auto) Eos % (Auto) Baso % (Auto) Neut # (Auto) PT INR APTT Sodium Potassium Chloride Carbon Dioxide BUN Creatinine Estimated GFR BUN/Creatinine Ratio Glucose Hemoglobin A1c Calcium Magnesium Total Bilirubin AST ALT Alkaline Phosphatase Total Creatine Kinase CK-MB (CK-2) CK-MB (CK-2) Rel Index Troponin I B-Natriuretic Peptide 145.0 H Total Protein Albumin Globulin Albumin/Globulin Ratio Lipase TSH 1.81 Digoxin 0.4 L 08/11/18 08/11/18 08/11/18 21:05 21:05 21:05 WBC RBC Hgb Hct MCV MCH MCHC RDW Plt Count Neut % (Auto) Lymph % (Auto) [place] % (Auto) Eos % (Auto) Baso % (Auto) Neut # (Auto) PT INR APTT Sodium Potassium Chloride Carbon Dioxide BUN Creatinine Estimated GFR BUN/Creatinine Ratio Glucose Hemoglobin A1c 5.8 Calcium Magnesium 2.1 Total Bilirubin AST ALT Alkaline Phosphatase Total Creatine Kinase CK-MB (CK-2) CK-MB (CK-2) Rel Index Troponin I 0.013 B-Natriuretic Peptide Total Protein Albumin Globulin Albumin/Globulin Ratio Lipase TSH Digoxin 08/12/18 08/12/18 07:26 07:26 WBC RBC Hgb Hct MCV MCH MCHC RDW Plt Count Neut % (Auto) Lymph % (Auto) [place] % (Auto) Eos % (Auto) Baso % (Auto) Neut # (Auto) PT INR APTT Sodium 144 Potassium 4.1 Chloride 110 H Carbon Dioxide 22 BUN 12 Creatinine 0.70 Estimated GFR > 60.0 BUN/Creatinine Ratio 17.1 Glucose 95 Hemoglobin A1c Calcium 8.7 Magnesium Total Bilirubin AST ALT Alkaline Phosphatase Total Creatine Kinase CK-MB (CK-2) CK-MB (CK-2) Rel Index Troponin I B-Natriuretic Peptide 169.0 H Total Protein Albumin Globulin Albumin/Globulin Ratio Lipase TSH Digoxin Discharge Plan Discharge Plan Patient Disposition: Home Discharge comment: dc home today act as to cardiac diet f/u with cardio 2-7 days patient to hold sotalol, dig and Cardizem meds until seen by cardio or HR > 80 Discharge Med Rec/Prescriptions Prescriptions: Continue nitroglycerin [Nitrostat] 0.4 MG tablet, sublingual 0.4 mg Sublingual 5XD PRN (Reason: Chest Pain) RF: 0 pravastatin 20 mg Tablet 20 mg PO BEDTIME RF: 0 rivaroxaban [Xarelto] 20 mg Tablet 20 mg PO QPM RF: 0 Discontinued diltiazem HCl 120 MG capsule,extended release 24hr 360 mg PO DAILY Qty: 0 RF: 0 digoxin 125 mcg Tablet 125 mcg PO BEDTIME RF: 0 sotalol 80 mg PO BID RF: 0 Follow up/Referrals: Vivi Avila DO [Primary Care Provider] - Provider Discharge Instructions Diet: Low-fat and Low-cholesterol Skin/Wound/Dressing Care Report to your healthcare provider any signs of infection, such as:: chills, fever, night sweats, increased pain, unusual drainage and unusual redness Visit Report/Discharge Packet Instructions: Pneumonia-Adult, Atrial Fibrillation Visit Report Forms: Stroke Signs & Symptoms Discharge Data Primary Care Provider: Vivi Avila Attending Provider: Nikhil Zamudio Admit Date/Time: 08/11/18 17:21 Discharges patient from system. Discharge Date/Time: 08/12/18 09:09
== END 2018-08-12 09:09 | disposition home or self-care (01) ==
LOC: ED 17:07 → AC 17:21
PROVIDERS: Nurse Practitioner Gerontology; Admitting Provider Hospitalist; Emergency Provider Emergency Medicine; Family Provider Family Medicine; PCP Family Medicine; Visit Provider Hospitalist
DX: I95.2 Hypotension due to drugs (principal); R42 Dizziness and giddiness; I48.91 Unspecified atrial fibrillation; E66.9 Obesity, unspecified; I10 Essential (primary) hypertension; K58.9 Irritable bowel syndrome, unspecified; Z79.01 Long term (current) use of anticoagulants; E78.5 Hyperlipidemia, unspecified; K21.9 Gastro-esophageal reflux disease without esophagitis; Z86.718 Personal history of other venous thrombosis and embolism; Z86.711 Personal history of pulmonary embolism; Z68.39 Body mass index [BMI] 39.0-39.9, adult; G47.33 Obstructive sleep apnea (adult) (pediatric)
CPT/HCPCS: 36415; 36591; 71045; 80048; 80053; 80162; 82550; 83036; 83690; 83735; 83880; 84443; 84484; 85025; 85610; 85730; 93005; 96360; 99284; G0378

== ENCOUNTER → 2019-05-25 12:46 | Outpatient (CLI) | payer MEDICARE, SELFPAY ==
[2018-08-11 17:25] VITALS: BMI 39.4
--- NOTE | 2019-05-25 | DI.MG.S_ITS ---
BILATERAL DIGITAL SCREENING MAMMOGRAM 3D/2D WITH CAD: 05/25/2019 CLINICAL: Routine screening. Family history of breast cancer. Comparison is made to exams dated: 05/25/2018 mammogram, 04/28/2017 mammogram, and 04/27/2016 mammogram - [facility]. There are scattered fibroglandular elements in both breasts. Current study was also evaluated with a Computer Aided Detection (CAD) system. No significant masses, calcifications, or other findings are seen in either breast. There has been no significant interval change. IMPRESSION: NEGATIVE There is no mammographic evidence of malignancy. A 1 year screening mammogram is recommended. This exam was interpreted at Station ID: [id number]. NOTE: For mammograms, a report in lay terms will be sent to the patient. Approximately 15% of breast malignancies will not be visualized mammographically. In the management of a palpable breast mass, a negative mammogram must not discourage biopsy of a clinically suspicious lesion. Electronically Signed By: Aquilino choudhary/adriano:05/27/2019 08:27:52 letter sent: Normal Exam ACR BI-RADS Category 1: Negative [id number]
== END ==
PROVIDERS: PCP Family Medicine; Visit Provider Family Medicine
DX: Z12.31 Encounter for screening mammogram for malignant neoplasm of breast (principal); Z80.3 Family history of malignant neoplasm of breast
CPT/HCPCS: 77063; 77067

== ENCOUNTER 2019-05-30 01:41 | Emergency (ER) | payer MEDICARE, SELFPAY ==
[2018-08-11 17:25] VITALS: BMI 39.4
[2019-05-30 01:52] VITALS: BP 135/70; PULSE 78; RESP 18; TEMP 36.6; O2SAT 98
--- NOTE | 2019-05-30 01:54 | ED.CHESTPAIN ---
HPI - Chest Pain General Chief Complaint: Chest Pain Stated Complaint: chest pain, high blood pressure Time Seen by Provider: 05/30/19 01:44 Source: patient Mode of arrival: Ambulatory Limitations: no limitations History of Present Illness HPI narrative: The patient presents with mild left upper chest discomfort. She has PAF. She developed symptoms so this evening, several hours ago. She checked her pulse, her heart rate was in the 90s. She took an extra dose of sotalol. She also has Cardizem, she took an extra dose of that also. She still has left chest discomfort, but she has not asymptomatic. She has no associated dyspnea. She has no weakness or dizziness. She has had no strain or injury to the left upper chest, or left shoulder. She denies recent illness. She has had no fever or cough. She describes a blood pressure up at that time, in the 150s. She feels better at the time arrival. Related Data Home Medications Medication Instructions Recorded Confirmed nitroglycerin [Nitrostat] 0.4 mg SUBLINGUAL 5XD PRN 02/19/18 08/11/18 pravastatin 20 mg PO BEDTIME 02/19/18 08/11/18 rivaroxaban [Xarelto] 20 mg PO QPM 02/19/18 08/11/18 Allergies Allergy/AdvReac Type Severity Reaction Status Date / Time No Known Drug Allergies Allergy Verified 08/11/18 15:03 Review of Systems Review of Systems ROS Unobtainable: All systems reviewed & are unremarkable except as noted in HPI and below Constitutional Constitutional: Denies chills, Denies fever(s), Denies lethargy and Denies weakness ENT Ears, Nose, Mouth, and Throat: Denies change in voice, Denies vertigo, Denies neck pain and Denies sore throat Cardiovascular Cardiovascular: Reports chest pain, Reports irregular heart rhythm, Denies lightheadedness, Reports palpitations, Reports dyspnea and Denies orthopnea Respiratory Respiratory: Denies cough, Reports dyspnea and Denies wheezing Gastrointestinal Gastrointestinal: Denies abdominal pain, Denies change in bowel habits, Denies diarrhea, Denies nausea and Denies vomiting Musculoskeletal Musculoskeletal: Denies neck pain Comments: No lower extremity edema. Integumentary/Breasts Skin/Breast: Denies pruritus, Denies erythema, Denies rash and Denies wounds Neurologic Neurologic: Denies confusion, Denies vertigo and Denies weakness Psychiatric Psychiatric: Denies confusion Endocrine Endocrine: Reports palpitations Allergic/Immunologic Allergic/Immunologic: Denies wheezing [facility] Medical History Atrial fibrillation (Acute) Cystocele (Acute) Hypertension (Acute) Lower GI bleed (Acute) Surgical History H/O abdominal hysterectomy (Acute) H/O laminectomy (Acute) Hx of cholecystectomy (Acute) Family History (Updated 08/11/18 @ 20:00 by ANUPAM Johnson) Mother Breast cancer Father No known health problems Social History household members: spouse Smoking Status: Never smoker Family History Mother Breast cancer Father No known health problems Social History household members: spouse Smoking Status: Never smoker Exam Initial Vital Signs Initial Vital Signs: Vital Signs Temperature 98 F 05/30/19 01:52 Pulse Rate 78 05/30/19 01:52 Respiratory Rate 18 05/30/19 01:52 Blood Pressure 135/70 05/30/19 01:52 Pulse Oximetry 98 05/30/19 01:52 Const General: cooperative and well developed Nutritional Appearance: well nourished Orientation: alert, awake, oriented x3 and not confused [facility] Head: normocephalic and atraumatic Nose: external nose normal Face and sinus: face symmetric Mouth: oral mucosae normal and moist mucous membranes Throat: posterior oropharynx normal and tonsils normal Eyes General: appearance normal, both eyes and all related structures Eyelids: eyelids normal Conjunctivae: conjunctivae normal Sclera: sclerae normal Pupils: PERRL EOM: EOM intact bilaterally Neck Neck: No JVD Chest Other: Mild upper left chest tenderness. Resp Effort & Inspection: normal respiratory effort, able to speak in complete sentences, no respiratory distress and no use of accessory muscles Auscultation: clear to auscultation bilaterally, no rales, no rhonchi and no wheezes Cardio Rate: regular rate Rhythm: regular rhythm Heart Sounds: no click, no gallops, no murmurs and no rubs Pulses: normal peripheral pulses GI Inspection: no edema, non-distended and obesity Palpation: soft, No guarding and No tender Auscultation: normal bowel sounds Back/Spine/Pelvis Back: normal to inspection, No back tenderness and No CVA tenderness Skin General: no rashes or lesions noted, No jaundice and No petechiae Neuro General: alert, oriented x3, gait normal and no focal motor deficits Speech: speech normal Course Course Course Narrative: Although the patient is normal sinus rhythm after evaluation here, she likely had an episode of AFib. She feels well now. Labs are normal, there are no EKG findings of concern. She is scheduled for cardiac ablation, and implantation of an AICD. Orders Ordered: ED Orders 05/30/19 02:00 Basic Metabolic Panel Stat Complete Blood Count AUTO DIFF Stat Prothrombin Time INR Stat Troponin & CK Cardiac Panel Stat Vital Signs Vital signs: Vital Signs - 8 hr 05/30/19 01:52 05/30/19 03:00 Temperature 98 F Pulse Rate 78 68 Respiratory Rate 18 12 Blood Pressure 135/70 Blood Pressure [Left Arm] 120/60 Pulse Oximetry 98 95 MDM - Chest Pain Lab Data Result diagrams: 05/30/19 02:00 05/30/19 02:00 Labs: Lab Results 05/30/19 05/30/19 05/30/19 Range/Units 02:00 02:00 02:00 WBC 7.9 (4.5-11.0) X10^3/uL RBC 4.91 (4.0-5.2) X10^6/uL Hgb 14.5 (12.0-16.0) g/dL Hct 42.9 (36-46) % MCV 87.5 (80-100) fL MCH 29.6 (26-34) PG MCHC 33.8 (30-36) % RDW 13.9 (11.6-14.8) % Plt Count 189 (150-400) X10^3/uL Neut % (Auto) 50.3 (50-75) % Lymph % (Auto) 38.0 (25-40) % [place] % (Auto) 9.3 (3-14) % Eos % (Auto) 1.5 L (2-4) % Baso % (Auto) 0.9 (0-2) % Neut # (Auto) 4000 (5040-2098) /uL Lymph # (Auto) 3000 (0859-2325) /uL [place] # (Auto) 700 (0-900) /uL Eos # (Auto) 100 (0-450) /uL Baso # (Auto) 100 (0-100) /uL PT 20.4 H (10.1-12.7) SECONDS INR 1.8 H (0.9-1.3) Sodium 140 (137-145) mmol/L Potassium 4.0 (3.4-5.1) mmol/L Chloride 107 (98-107) mmol/L Carbon Dioxide 25 (22-32) mmol/L BUN 18 H (7-17) mg/dL Creatinine 0.70 (0.52-1.04) mg/dL Estimated GFR > 60.0 (>60) mL/min BUN/Creatinine Ratio 25.7 H (6-22) Glucose 100 (80-110) mg/dL Calcium 9.4 (8.4-10.2) mg/dL Total Creatine Kinase 56 (30-135) U/L CK-MB (CK-2) TNP CK-MB (CK-2) Rel Index TNP Troponin I < 0.012 (0.01-0.034) ng/mL ECG Data Attestation: I personally reviewed and interpreted this ECG as follows: (Normal sinus rhythm rate 67 beats per minute. Occasional PVCs. Incomplete RBBB. No acute ST T wave changes.) Discharge Plan Departure Patient Disposition: Home Clinical Impression: Heart palpitations Discharge Date/Time: 05/30/19 03:20 Instructions: DI for Arrhythmias Activity Restrictions/Additional Instructions: Continue your medications as prescribed. Follow-up with cardiology as planned, return the ER as necessary. Prescriptions: No Action nitroglycerin [Nitrostat] 0.4 MG tablet, sublingual 0.4 mg Sublingual 5XD PRN (Reason: Chest Pain) RF: 0 pravastatin 20 mg Tablet 20 mg PO BEDTIME RF: 0 rivaroxaban [Xarelto] 20 mg Tablet 20 mg PO QPM RF: 0 Referrals: Vivi Avila DO [Primary Care Provider] -
[2019-05-30 02:16] LABS: Add Manual Diff / Slide Review NO; Basophils Absolute Auto 100 /uL (0-100); Basophils Percent Auto 0.9 % (0-2); Eosinophils Absolute Auto 100 /uL (0-450); Eosinophils Percent Auto 1.5 % (2-4); Hematocrit 42.9 % (36-46); Hemoglobin 14.5 g/dL (12.0-16.0); INR 1.8 (0.9-1.3); Lymphocytes Absolute Auto 3000 /uL (1100-4500); Mean Corpuscular HGB Conc 33.8 % (30-36); Mean Corpuscular Hemoglobin 29.6 PG (26-34); Mean Corpuscular Volume 87.5 fL (80-100); Monocytes Absolute Auto 700 /uL (0-900); Monocytes Percent Auto 9.3 % (3-14); Neutrophils Absolute Auto 4000 /uL (1500-7000); Neutrophils Percent Auto 50.3 % (50-75); Platelet Count 189 X10^3/uL (150-400); Prothrombin Time 20.4 SECONDS (10.1-12.7); Red Blood Cell Count 4.91 X10^6/uL (4.0-5.2); Red Cell Distribution Width 13.9 % (11.6-14.8); White Blood Cell Count 7.9 X10^3/uL (4.5-11.0)
[2019-05-30 02:20] LABS: BUN Creatinine Ratio 25.7 (6-22); Blood Urea Nitrogen 18 mg/dL (7-17); Calcium 9.4 mg/dL (8.4-10.2); Carbon Dioxide 25 mmol/L (22-32); Chloride 107 mmol/L (98-107); Creatine Kinase 56 U/L (30-135); Estimated Glomerular Filt Rate > 60.0 mL/min (>60); Glucose 100 mg/dL (80-110); HEMOLYSIS < 15 (0-50); Sodium 140 mmol/L (137-145)
[2019-05-30 02:32] LABS: Troponin I < 0.012 ng/mL (0.01-0.034)
[2019-05-30 03:00] VITALS: BP 120/60; PULSE 68; RESP 12; O2SAT 95
== END 2019-05-30 03:20 | disposition home or self-care (01) ==
PROVIDERS: Emergency Provider Emergency Medicine; PCP Family Medicine
DX: R00.2 Palpitations (principal)
CPT/HCPCS: 36415; 80048; 82550; 84484; 85025; 85610; 93005; 99282; 99284

== ENCOUNTER → 2020-02-04 09:37 | Outpatient (CLI) | payer MEDICARE, OTHER, SELFPAY ==
[2018-08-11 17:25] VITALS: BMI 39.4
[2020-02-04 11:07] LABS: Alanine Aminotransferase 26 IU/L (<35); Albumin 4.2 g/dL (3.5-5.0); Albumin Globulin Ratio 1.1 (1.0-2.8); Alkaline Phosphatase 95 U/L (38-126); Aspartate Aminotransferase 33 IU/L (14-36); BUN Creatinine Ratio 24.3 (6-22); Bilirubin Total 0.4 mg/dL (0.2-1.3); Blood Urea Nitrogen 18 mg/dL (7-17); Calcium 9.4 mg/dL (8.4-10.2); Carbon Dioxide 22 mmol/L (22-32); Chloride 108 mmol/L (98-107); Cholesterol 191 mg/dL (140-199); Estimated Glomerular Filt Rate > 60.0 mL/min (>60); Globulin 3.7 g/dL (1.7-4.1); Glucose 92 mg/dL (80-110); HDL Cholesterol 49 mg/dL (40-60); HEMOLYSIS < 15 (0-50); LDL Cholesterol Calculated 114 mg/dL (<100); Potassium 4.4 mmol/L (3.4-5.1); Sodium 138 mmol/L (137-145); Total Protein 7.9 g/dL (6.3-8.2); Triglycerides 142 mg/dL (35-150)
== END ==
PROVIDERS: PCP Family Medicine; Referring Provider Internal Medicine Cardiovascular Disease; Visit Provider Internal Medicine Cardiovascular Disease
DX: I48.0 Paroxysmal atrial fibrillation (principal); E78.2 Mixed hyperlipidemia
CPT/HCPCS: 36415; 80053; 80061

== ENCOUNTER → 2020-06-06 09:58 | Outpatient (CLI) | payer MEDICARE, OTHER, SELFPAY ==
[2018-08-11 17:25] VITALS: BMI 39.4
--- NOTE | 2020-06-06 | DI.MG.S_ITS ---
BILATERAL DIGITAL SCREENING MAMMOGRAM 3D/2D WITH CAD: 06/06/2020 CLINICAL: Routine screening. Family history of breast cancer. Comparison is made to exams dated: 05/25/2019 mammogram, 05/25/2018 mammogram, and 04/28/2017 mammogram - [facility]. There are scattered fibroglandular elements in both breasts. Current study was also evaluated with a Computer Aided Detection (CAD) system. No significant masses, calcifications, or other findings are seen in either breast. There has been no significant interval change. IMPRESSION: NEGATIVE There is no mammographic evidence of malignancy. A 1 year screening mammogram is recommended. This exam was interpreted at Station ID: [id number]. NOTE: For mammograms, a report in lay terms will be sent to the patient. Approximately 15% of breast malignancies will not be visualized mammographically. In the management of a palpable breast mass, a negative mammogram must not discourage biopsy of a clinically suspicious lesion. Electronically Signed By: Opal paul/adriano:06/07/2020 15:39:04 letter sent: Normal Exam ACR BI-RADS Category 1: Negative 3341F
== END ==
PROVIDERS: PCP Family Medicine; Referring Provider Family Medicine; Visit Provider Family Medicine
DX: Z12.31 Encounter for screening mammogram for malignant neoplasm of breast (principal); Z80.3 Family history of malignant neoplasm of breast
CPT/HCPCS: 77063; 77067

== ENCOUNTER → 2020-07-25 08:02 | Outpatient (CLI) | payer MEDICARE, OTHER, SELFPAY ==
[2018-08-11 17:25] VITALS: BMI 39.4
[2020-07-25 09:20] LABS: Cholesterol 158 mg/dL (140-199); HDL Cholesterol 43 mg/dL (40-60); LDL Cholesterol Calculated 88 mg/dL (<100); Triglycerides 134 mg/dL (35-150)
[2020-07-25 09:31] LABS: Vitamin D 25 Hydroxy (D3) 28.1 ng/mL (30.0-100.0)
[2020-07-25 09:45] LABS: TSH w/ Reflex to FT4 2.03 uIU/mL (0.47-4.68)
[2020-07-25 10:08] LABS: Vitamin B12 Reflex MMA if <400 314 pg/mL (239-931)
[2020-07-29 01:54] LABS: Methylmalonic Acid,Serum 150 nmol/L (0-378)
== END ==
PROVIDERS: PCP Family Medicine; Referring Provider Family Medicine; Visit Provider Family Medicine
DX: E55.9 Vitamin D deficiency, unspecified (principal); R53.82 Chronic fatigue, unspecified; R68.89 Other general symptoms and signs
CPT/HCPCS: 36415; 80061; 82306; 82607; 83921; 84443

== ENCOUNTER → 2020-09-22 10:58 | Outpatient (CLI) | payer MEDICARE, OTHER, SELFPAY ==
[2018-08-11 17:25] VITALS: BMI 39.4
[2020-09-22] MEDS: COVID-19 VACC #1, MRNA(MOD) 100 MCG/0.5 ML VIAL IM (11:04)
== END ==
PROVIDERS: PCP Family Medicine; Visit Provider Internal Medicine
DX: Z23 Encounter for immunization (principal)
CPT/HCPCS: 0011A; 91301

== ENCOUNTER → 2020-10-20 10:59 | Outpatient (CLI) | payer MEDICARE, OTHER, SELFPAY ==
[2018-08-11 17:25] VITALS: BMI 39.4
[2020-10-20] MEDS: COVID-19 VACC #2, MRNA(MOD) 100 MCG/0.5 ML VIAL IM (11:06)
== END ==
PROVIDERS: PCP Family Medicine; Visit Provider Internal Medicine
DX: Z23 Encounter for immunization (principal)
CPT/HCPCS: 0012A; 91301

== ENCOUNTER 2020-10-31 23:32 | Emergency (ER) | payer MEDICARE, OTHER, SELFPAY ==
[2018-08-11 17:25] VITALS: BMI 39.4
[2020-10-31 23:35] VITALS: BP 178/103; PULSE 111; RESP 22; TEMP 37; O2SAT 99; BMI 41.5
[2020-10-31 23:37] VITALS: BP 179/103; PULSE 131; O2SAT 95
[2020-11-01] VITALS (11 sets, daily range): BP systolic 135–192; BP diastolic 61–104; PULSE 73–103; RESP 10–16; O2SAT 95–98
--- NOTE | 2020-11-01 00:57 | ED.CHESTPAIN ---
HPI - Chest Pain General Chief Complaint: Chest Pain Stated Complaint: Feels like throat is closing Time Seen by Provider: 11/01/20 00:46 Source: patient, family and EMS Mode of arrival: EMS Limitations: no limitations History of Present Illness HPI narrative: This is a 75-year-old female comes emergency department with complaint of an episode of choking and what sounds like a food bolus about 4 days ago. She states afterwards she had some discomfort in her chest. She states she vomited the food up. Patient states since then she has had some occasional sensation of choking. She has also had some discomfort substernally up and down into her stomach. She has also noted she has had some intermittent abdominal pain which he has had for prolonged. She noted that there was infection the umbilicus which has since cleared with some localized care. Patient states she has had epigastric discomfort. She states that she has had nausea but no vomiting intermittently. She has not had any shortness of breath. She states that when she drinks milk or eats fiber she has diarrhea. This is been a longstanding issue. She did have a bowel movement today. She states it was regular maybe even a little dry. She denies any bright red blood or melena. She denies any urinary symptoms. She has a history of atrial fibrillation she is on Tikosyn, metoprolol, Xarelto and pravastatin. She has also had a history of diverticulitis but states she usually has abdominal pain in her lower abdomen which she has not. Patient has a history of hysterectomy, appendectomy, cholecystectomy, bladder suspension, laminectomy and had a pacemaker placed. She is actually supposed to see GI on Monday for her abdominal issues. Related Data Home Medications Medication Instructions Recorded Confirmed nitroglycerin [Nitrostat] 0.4 mg SUBLINGUAL 5XD PRN 02/19/18 08/11/18 pravastatin 20 mg PO BEDTIME 02/19/18 08/11/18 rivaroxaban [Xarelto] 20 mg PO QPM 02/19/18 08/11/18 Allergies Allergy/AdvReac Type Severity Reaction Status Date / Time No Known Drug Allergies Allergy Verified 08/11/18 15:03 Review of Systems Review of Systems ROS Unobtainable: All systems reviewed & are unremarkable except as noted in HPI and below Patient History Medical History (Updated 11/01/20 @ 04:48 by Fely Alcala DO) Atrial fibrillation Cystocele Hypertension Lower GI bleed Surgical History H/O abdominal hysterectomy H/O laminectomy Hx of cholecystectomy Family History Mother Breast cancer Father No known health problems Social History household members: spouse Smoking Status: Never smoker Smoking Status: Never smoker alcohol intake frequency: 0-2 drinks per day Substance Use Type: does not use Exam Narrative Exam Narrative: GENERAL: Alert and oriented x three, obese, well-appearing female in mild distress. HEENT: Head normocephalic, atraumatic, EOMI, pupils reactive, face symmetric, moist mucous membranes NECK: Supple, full range of motion CARDIOVASCULAR: Regular rate and rhythm without murmurs, rubs or gallops. RESPIRATORY: Breath sounds equal bilaterally, no wheezes rales or rhonchi. ABDOMEN: Soft, nontender. Normoactive bowel sounds all 4 quadrants. No guarding or rebound, rigidity, no mass, umbilicus is clear dry with no erythema and nontender. : No CVA tenderness EXTREMITIES: Normal range of motion, no clubbing or edema. Neurovascularly intact NEUROLOGICAL: Cranial nerves II through XII grossly intact. Moving all extremities SKIN: Warm, dry, no petechiae, no rashes or lesions. Initial Vital Signs Initial Vital Signs: Vital Signs Temperature 98.6 F 10/31/20 23:35 Pulse Rate 111 H 10/31/20 23:35 Respiratory Rate 22 10/31/20 23:35 Blood Pressure 178/103 H 10/31/20 23:35 Pulse Oximetry 99 10/31/20 23:35 Course Orders Ordered: ED Orders 10/31/20 23:47 EKG-12 Lead Stat 11/01/20 00:42 EKG-12 Lead Stat 11/01/20 01:28 XR acute abdomen series Stat 11/01/20 01:55 Urine Microscopic Stat 11/01/20 02:24 Complete Blood Count AUTO DIFF Stat Comprehensive Metabolic Panel Stat Lipase Stat NT-proBNP (BNP-Adult 18+) Stat Troponin & CK Cardiac Panel Stat 11/01/20 03:10 CT abdomen pelvis w con Stat Discontinued Medications Ondansetron HCl (Ondansetron 4 Mg/2 Ml Inj) 4 mg IV NOW ONE Stop: 11/01/20 01:10 Last Admin: 11/01/20 01:13 Dose: 4 mg Documented by: CALVIN Ondansetron HCl (Ondansetron 4 Mg/2 Ml Inj) 4 mg IV NOW ONE Stop: 11/01/20 03:18 Last Admin: 11/01/20 03:20 Dose: 4 mg Documented by: CALVIN Reevaluation(s) Reevaluation #1: Patient states she has had some mild nausea. Was improved after the Zofran but still continues to have some. We reviewed her labs. She does have mildly elevated lipase. She has had some discomfort in this area. She has posed to see Gastroenterology on Monday but there is also a possible foreign body on her x-ray. This is unlikely to be causes of her symptoms and it will likely pass on its own but was unable to visualize on her outside body it on physical exam. Patient elects to continue with further imaging. Time: 03:18 Vital Signs Vital signs: Vital Signs - 8 hr 10/31/20 23:35 10/31/20 23:37 11/01/20 00:16 Temperature 98.6 F Pulse Rate 111 H 131 H 101 H Respiratory Rate 22 12 Blood Pressure 178/103 H 179/103 H 159/104 H Pulse Oximetry 99 95 97 11/01/20 00:31 11/01/20 01:01 11/01/20 01:31 Temperature Pulse Rate 77 78 79 Respiratory Rate 14 15 13 Blood Pressure 173/74 H 174/73 H 154/81 H Pulse Oximetry 96 97 95 11/01/20 02:08 11/01/20 02:15 11/01/20 02:30 Temperature Pulse Rate 83 79 73 Respiratory Rate 12 12 Blood Pressure 192/80 H 162/70 H 140/61 Pulse Oximetry 97 97 96 11/01/20 03:00 11/01/20 03:38 11/01/20 04:00 Temperature Pulse Rate 80 103 H 78 Respiratory Rate 16 15 10 L Blood Pressure 135/73 156/77 H 157/68 H Pulse Oximetry 96 96 98 11/01/20 04:30 Temperature Pulse Rate 73 Respiratory Rate 12 Blood Pressure 153/71 H Pulse Oximetry 97 MDM - Chest Pain Lab Data Attestation: I reviewed the patient's lab results. Result diagrams: 11/01/20 02:24 11/01/20 02:24 Labs: Lab Results 11/01/20 11/01/20 11/01/20 Range/Units 01:55 02:24 02:24 WBC 7.0 (4.5-11.0) X10^3/uL RBC 4.68 (4.0-5.2) X10^6/uL Hgb 13.5 (12.0-16.0) g/dL Hct 41.7 (36-46) % MCV 89.2 (80-100) fL MCH 28.8 (26-34) PG MCHC 32.3 (30-36) % RDW 13.7 (11.6-14.8) % Plt Count 177 (150-400) X10^3/uL Neut % (Auto) 59.7 (50-75) % Lymph % (Auto) 29.9 (25-40) % [place] % (Auto) 8.1 (3-14) % Eos % (Auto) 1.6 L (2-4) % Baso % (Auto) 0.7 (0-2) % Neut # (Auto) 4200 (0672-7328) /uL Lymph # (Auto) 2100 (3141-4373) /uL [place] # (Auto) 600 (0-900) /uL Eos # (Auto) 100 (0-450) /uL Baso # (Auto) 0 (0-100) /uL Sodium 138 (137-145) mmol/L Potassium 3.9 (3.4-5.1) mmol/L Chloride 109 H (98-107) mmol/L Carbon Dioxide 26 (22-32) mmol/L BUN 16 (7-17) mg/dL Creatinine 0.76 (0.52-1.04) mg/dL Estimated GFR > 60.0 (>60) mL/min BUN/Creatinine Ratio 21.1 (6-22) Glucose 107 (80-110) mg/dL Calcium 9.2 (8.4-10.2) mg/dL Total Bilirubin 0.3 (0.2-1.3) mg/dL AST 28 (14-36) IU/L ALT 22 (<35) IU/L Alkaline Phosphatase 92 (38-126) U/L Total Creatine Kinase 83 (30-135) U/L CK-MB (CK-2) TNP CK-MB (CK-2) Rel Index TNP Troponin I < 0.012 (0.01-0.034) ng/mL NT-Pro-B Natriuret Pep 148 (<450) pg/mL Total Protein 7.3 (6.3-8.2) g/dL Albumin 4.1 (3.5-5.0) g/dL Globulin 3.2 (1.7-4.1) g/dL Albumin/Globulin Ratio 1.3 (1.0-2.8) Lipase 494 H (23-300) U/L Urine RBC 0-1/hpf (0-5/HPF) Urine WBC 0-1/hpf (0-5/HPF) Ur Squamous Epith Cells 0-1 /hpf (0-5/HPF) Urine Bacteria Moderate (10-30) H (None) Ur Culture Indicated? Cult not indicated Urine Dip Bedside Urine Glucose Negative Bedside Urine Bilirubin - Negative Bedside Urine Ketone - Negative Urine Specific [place] 1.015 Bedside Urine Occult Blood + Bedside Urine pH 6.0 Bedside Urine Protein - Negative Bedside Urine Urobilinogen - Negative Bedside Urine Nitrite - Negative Bedside Urine Leukocytes - Negative Esterase Imaging Data CT scan - abdomen/pelvis: Radiologist's Impression: Volume distribution suggesting cirrhosis without evidence of portal hypertension. Patent portal veins. Normal enhancement the pancreas. No radio-opaque foreign body demonstrated. Mild cardiomegaly. Chest x-ray: Radiologist's Impression: lear lungs. Mild passive venous congestion. Nonspecific bowel gas pattern. Increased fecal content. Focal ileus left abdomen. Persistent 13 mm tubular radiopaque density projected in left abdomen in although abdominal films may ingested foreign body within the colon or extraneous to the patient. Correlate clinically repeat KUB otherwise non crest CT abdomen and pelvis is recommended. ECG Data Attestation: I personally reviewed and interpreted this ECG as follows: Prior ECG tracings: available for review Interpretation: Atrial flutter with a rate of 108 QRS of 100 and QTC 514. Incomplete right bundle-branch. A EKG 2. Sinus rhythm with sinus arrhythmia, frequent atrial paced complexes. Right bundle branch block with a rate of 77 UT interval 152 QRS of 98 QTC of 470. Patient has priors that appear similar. MDM Narrative Medical decision making narrative: This is a 75-year-old female with what by description sounds like an esophageal food bolus which she cleared. She has continued to have some irritation which may have been present if she had any abrasion on the esophagus itself. She has not had continued or persistent vomiting, she has not had any hematemesis or hemoptysis. She is also complaining of some epigastric abdominal pain and occasional pain at the umbilicus. She is at febrile, hypertensive. She was initially in atrial fibrillation but cardioverted without intervention to in sinus rhythm. Patient is appropriately anticoagulated for paroxysmal AFib. Her labs showed a mild elevation in her lipase. This could be consistent with her persistent nausea and epigastric discomfort. Her x-ray imaging showed a possible foreign body and with her elevated lipase we discussed further evaluation which she elects to pursue. CT of abdomen pelvis shows some hepatic cirrhosis with no other major abnormalities. Patient has had several days of symptoms with a negative troponin and no acute changes to her EKG. She has follow-up with Gastroenterology this Monday and was given a disc of her images as well as her lab work. She was encouraged to return to the emergency department if she is having any worsening symptoms as we discussed she had a very mild pancreatitis. Discharge Plan Departure Patient Disposition: Home Clinical Impression: Elevated lipase, Abdominal pain Instructions: Lipase Activity Restrictions/Additional Instructions: Follow up with gastroenterology this week at your appointment. Continue your home medications as prescribed. Your lipase level or pancreatic enzyme is slightly elevated. If you continue to have worsening symptoms this does need to be rechecked. Return for fevers, rapidly worsening abdominal or chest pain, persistent vomiting, new shortness of breath, lightheadedness or passing out, black or bloody stools or other new or concerning symptoms. Prescriptions: No Action nitroglycerin [Nitrostat] 0.4 MG tablet, sublingual 0.4 mg Sublingual 5XD PRN (Reason: Chest Pain) RF: 0 pravastatin 20 mg Tablet 20 mg PO BEDTIME RF: 0 rivaroxaban [Xarelto] 20 mg Tablet 20 mg PO QPM RF: 0 Referrals: Doris Guy MD [Primary Care Provider] -
[2020-11-01] MEDS: ONDANSETRON 4 MG/2 ML INJ IV ×2 (01:13→03:20)
--- NOTE | 2020-11-01 01:28 | DI.RAD.S_ITS ---
PROCEDURE: XR ACUTE ABDOMEN SERIES INDICATIONS: abdominal pain, intermittent. prior ? food bolus TECHNIQUE: One view chest and two views of the abdomen were acquired. COMPARISON: [facility], , ABDOMEN ACUTE SERIES, 01/10/2015, 10:37. FINDINGS: Surgical changes and devices: Pacemaker Chest: Lungs are clear. Pulmonary venous congestion without tenisha pulmonary edema. Heart size is normal. No pleural effusions. No pneumoperitoneum. Abdomen: Bowel gas pattern is normal. Moderate fecal debris. No suspicious calcifications. Visualized solid organ contours appear normal. 13 mm tubular structure projects over left abdomen, possibly on the patient. Bones: No suspicious bony lesions. IMPRESSION: 1. Normal bowel gas pattern. Moderate fecal debris. 2. Pulmonary venous congestion. Comment: Final report is concordant with preliminary interpretation provided by [facility]. Dictated by: Troy Betts M.D. on 11/01/2020 at 5:51 Approved by: Troy Betts M.D. on 11/01/2020 at 5:54
[2020-11-01 02:38] LABS: Add Manual Diff / Slide Review NO; Basophils Absolute Auto 0 /uL (0-100); Basophils Percent Auto 0.7 % (0-2); Eosinophils Absolute Auto 100 /uL (0-450); Eosinophils Percent Auto 1.6 % (2-4); Hematocrit 41.7 % (36-46); Hemoglobin 13.5 g/dL (12.0-16.0); Lymphocytes Absolute Auto 2100 /uL (1100-4500); Lymphocytes Percent Auto 29.9 % (25-40); Mean Corpuscular HGB Conc 32.3 % (30-36); Mean Corpuscular Hemoglobin 28.8 PG (26-34); Mean Corpuscular Volume 89.2 fL (80-100); Monocytes Absolute Auto 600 /uL (0-900); Monocytes Percent Auto 8.1 % (3-14); Neutrophils Absolute Auto 4200 /uL (1500-7000); Neutrophils Percent Auto 59.7 % (50-75); Platelet Count 177 X10^3/uL (150-400); Red Blood Cell Count 4.68 X10^6/uL (4.0-5.2); Red Cell Distribution Width 13.7 % (11.6-14.8)
[2020-11-01 02:48] LABS: RBC Urine 0-1/HPF (0-5/HPF); Squamous Epithelial Cell Urine 0-1 /HPF (0-5/HPF); WBC Urine 0-1/HPF (0-5/HPF)
[2020-11-01 02:49] LABS: Alanine Aminotransferase 22 IU/L (<35); Albumin 4.1 g/dL (3.5-5.0); Albumin Globulin Ratio 1.3 (1.0-2.8); Alkaline Phosphatase 92 U/L (38-126); Aspartate Aminotransferase 28 IU/L (14-36); BUN Creatinine Ratio 21.1 (6-22); Bilirubin Total 0.3 mg/dL (0.2-1.3); Blood Urea Nitrogen 16 mg/dL (7-17); Calcium 9.2 mg/dL (8.4-10.2); Carbon Dioxide 26 mmol/L (22-32); Chloride 109 mmol/L (98-107); Creatine Kinase 83 U/L (30-135); Estimated Glomerular Filt Rate > 60.0 mL/min (>60); Globulin 3.2 g/dL (1.7-4.1); Glucose 107 mg/dL (80-110); HEMOLYSIS < 15 (0-50); Lipase 494 U/L (23-300); Potassium 3.9 mmol/L (3.4-5.1); Sodium 138 mmol/L (137-145); Total Protein 7.3 g/dL (6.3-8.2)
[2020-11-01 02:49] LABS: Bacteria Urine Moderate (10-30)
[2020-11-01 02:50] LABS: Culture Indicated Urine Cult Not Indicated
[2020-11-01 03:01] LABS: NT-proBNP (BNP-Adult 18+) 148 pg/mL (<450); Troponin I < 0.012 ng/mL (0.01-0.034)
--- NOTE | 2020-11-01 03:10 | DI.CT.S_ITS ---
PROCEDURE: CT ABDOMEN PELVIS W CON INDICATIONS: abd pain, mildly elevated lipase, ? FB xray TECHNIQUE: After the administration of intravenous contrast, 5 mm thick sections acquired from the diaphragm to the symphysis. 5 mm coronal and sagittal reformats were acquired. For radiation dose reduction, the following was used: automated exposure control, adjustment of mA and/or kV according to patient size. COMPARISON: [facility], CT, ABDOMEN/PELVIS WITH CONTRAST, 11/20/2015, 11:58. FINDINGS: Image quality: Excellent. ABDOMEN: Lung bases: Lung bases are clear. Cardiomegaly. Pacemaker. Solid organs: The liver has an enlarged left lobe raising the question possible cirrhotic change. No focal liver masses. Gallbladder gallbladder is surgically absent.. Biliary system is non dilated. Pancreas enhances normally. Spleen is normal in size and enhancement. No adrenal nodules. Kidneys demonstrate normal size and enhancement, without hydronephrosis. Peritoneum and bowel: Bowel loops demonstrate normal wall thickness and caliber. No free fluid or air. Diverticulosis without evidence of diverticulitis. Nodes and vessels: No retroperitoneal or mesenteric adenopathy by size criteria. Aorta and inferior vena cava are normal in size. Miscellaneous: Small periumbilical hernia containing fat. No foreign body identified. PELVIS: Genitourinary: Bladder wall thickness is normal. Miscellaneous: Small fat containing right inguinal hernia. No inguinal adenopathy. Uterus is surgically absent. Bones: No suspicious bony lesions. No vertebral body compression fractures. A peripherally calcified disc protrusion L1-L2 plus facet arthropathy at this level results in canal stenosis. Bilateral hip degenerative change. IMPRESSION: 1. Remote cholecystectomy and hysterectomy. 2. Question cirrhotic change in the liver. 3. No evidence of foreign body. 4. There is lumbar canal stenosis L1-L2. 5. Bilateral hip degenerative arthritis. 6. Cardiomegaly, pacemaker. 7. Fat containing right inguinal hernia. Comment: Final report is concordant with preliminary interpretation provided by [facility]. Dictated by: Troy Betts M.D. on 11/01/2020 at 6:04 Approved by: Troy Betts M.D. on 11/01/2020 at 6:10
== END 2020-11-01 05:15 | disposition home or self-care (01) ==
PROVIDERS: Emergency Provider Emergency Medicine; PCP Family Medicine
DX: R74.8 Abnormal levels of other serum enzymes (principal); R10.13 Epigastric pain; R11.0 Nausea; E66.9 Obesity, unspecified; Z68.41 Body mass index [BMI] 40.0-44.9, adult
CPT/HCPCS: 36415; 74022; 74177; 80053; 81003; 81015; 82550; 83690; 83880; 84484; 85025; 93005; 96374; 96376; 99284; J2405; Q9967

== ENCOUNTER 2021-02-06 13:07 | Emergency (ER) | payer MEDICARE, OTHER, SELFPAY ==
[2018-08-11 17:25] VITALS: BMI 39.4
[2021-02-06] VITALS (13 sets, daily range): BP systolic 137–193; BP diastolic 72–118; PULSE 69–101; RESP 12–22; TEMP 36.8; O2SAT 93–100; BMI 44.2
--- NOTE | 2021-02-06 13:22 | DI.RAD.S_ITS ---
PROCEDURE: XR CHEST 1V INDICATIONS: chest pain TECHNIQUE: One view of the chest was acquired. COMPARISON: [facility], CT, CT CHEST WITHOUT CONTRAST, 08/26/2019, 13:41. [facility], CR, XR CHEST 2 VIEWS, 02/19/2019, 10:17. [facility], CR, XR CHEST 1V, 08/11/2018, 15:35. FINDINGS: Surgical changes and devices: A dual lead pacer device is seen, with the leads in the expected locations. Lungs and pleura: No focal infiltrates are seen. Minimal interstitial prominence can be seen. No pleural effusions or pneumothorax. Mediastinum: Mediastinal contours appear normal. Heart size is mildly enlarged. Bones and chest wall: No suspicious bony lesions. Age-appropriate bony degenerative changes are seen. Overlying soft tissues appear unremarkable. IMPRESSION: Mild cardiomegaly and interstitial prominence. Please correlate with patient presentation, physical examination findings, and laboratory values for congestive heart failure. Pacer device. Dictated by: Fer Gardner M.D. on 02/06/2021 at 12:40 Approved by: Fer Gardner M.D. on 02/06/2021 at 12:42
--- NOTE | 2021-02-06 13:40 | ED_ITS ---
HPI - Arrhythmia/Palpitations General Chief Complaint: Arrhythmia/Palpitations Stated Complaint: blood pressure very high/shortness of breath Time Seen by Provider: 02/06/21 13:27 Source: patient Mode of arrival: Ambulatory Limitations: no limitations History of Present Illness HPI narrative: 75-year-old female nonsmoker with history of atrial fibrillation and atrial flutter with her recent cardiac ablation presents with the chief complaint palpitations and shortness of breath for the past hour or so. She has a bit lightheaded and states she tends to be rather symptomatic when she is in a regular rhythm. Her resting heart rate tends to be in the 60s. Additionally, she states that her blood pressure been up in the 160s, 170s and 180s at home. She denies any fever or chills. She denies any new medications. She states that her ablation was in the end of December and though she was off the Xarelto than she has been back on it for the past couple weeks. MD complaint: heart racing, palpitations and irregular heart beat Onset (ago): hour(s) Duration: constant Severity: moderate Context: occurred during rest Arrhythmia history: atrial fibrillation Associated symptoms: chest pain and shortness of breath Related Data Home Medications Medication Instructions Recorded Confirmed Xarelto 20 mg PO QPM 02/19/18 02/06/21 pravastatin 20 mg PO BEDTIME 02/19/18 02/06/21 benzonatate 100 mg PO Q6HR 02/06/21 02/06/21 digoxin 250 mcg PO QNOON 02/06/21 02/06/21 diltiazem HCl 30 mg PO TID 02/06/21 02/06/21 dofetilide [Tikosyn] 500 mcg PO Q12H 02/06/21 02/06/21 Allergies Allergy/AdvReac Type Severity Reaction Status Date / Time No Known Drug Allergies Allergy Verified 02/06/21 13:14 Review of Systems Constitutional Constitutional: Denies chills, Denies fatigue, Denies fever(s), Denies frequent falls, Denies lethargy and Denies weakness Eyes Eyes: Denies change in vision, Denies eye discharge, Denies irritation and Denies loss of vision ENT Ears, Nose, Mouth, and Throat: Denies change in voice, Denies dizziness, Denies neck pain, Denies sore throat and Denies throat swelling Cardiovascular Cardiovascular: Reports chest pain, Reports irregular heart rhythm, Reports lightheadedness, Denies palpitations, Reports dyspnea, Denies dyspnea on exertion and Denies orthopnea Respiratory Respiratory: Denies cough, Reports dyspnea, Denies dyspnea on exertion and Denies wheezing Gastrointestinal Gastrointestinal: Denies abdominal pain, Denies change in bowel habits, Denies diarrhea, Denies nausea and Denies vomiting Musculoskeletal Musculoskeletal: Denies neck pain and Denies numbness Integumentary/Breasts Skin/Breast: Denies pruritus, Denies erythema, Denies rash and Denies wounds Neurologic Neurologic: Denies behavioral changes, Denies confusion, Denies dizziness, Denies frequent falls, Denies loss of vision, Denies numbness and Denies weakness Psychiatric Psychiatric: Denies anxiety, Denies behavioral changes, Denies confusion, Denies depression, Denies homicidal ideation and Denies suicidal ideation Endocrine Endocrine: Denies fatigue, Denies flushing and Denies palpitations Hematologic/Lymphatic Hematologic/Lymphatic: Denies easy bruising Allergic/Immunologic Allergic/Immunologic: Denies urticaria, Denies throat swelling and Denies wheezing Patient History Medical History Atrial fibrillation Atrial fibrillation (~2008) Cardiac arrhythmia (~2008) Cataracts, bilateral (~2010) Colitis (~2007) Colon polyps (~1999) GI bleeding (~2004) Hypertension (~2004) Irritable bowel syndrome (~1999) Lower GI bleed Osteoarthritis (~2013) Osteoporosis (~2013) Sleep apnea (~2012) Surgical History Anesthesia Cystocele (~03/2001) H/O abdominal hysterectomy (~04/1977) H/O laminectomy (~04/1990) History of cataract removal with insertion of prosthetic lens (~05/2001) Hx of cholecystectomy (~05/1978) Pacemaker (~2018) Family History Mother Breast cancer Diabetes mellitus Hyperlipidemia Hypertension Stroke Father No known health problems Grandfather Stroke Grandmother No problems noted. Grandfather Stroke Social History household members: spouse Smoking Status: Never smoker Smoking Status: Never smoker alcohol intake frequency: 0-2 drinks per day Substance Use Type: does not use Exam Narrative Exam Narrative: GENERAL: [75] year old patient appears stated age. Well- developed patient, in mild distress. HEAD: Atraumatic. Normocephalic. EYES: Pupils equal round and reactive. Extraocular motions intact. No scleral icterus. No injection or drainage. ENT: Nose without bleeding, purulent drainage. Throat without erythema, tonsillar hypertrophy or exudate. Airway patent. NECK: Trachea midline. Non tender CARDIOVASCULAR: Regular rate and rhythm without murmurs, gallops, or rubs. RESPIRATORY: Clear to auscultation. Breath sounds equal bilaterally. No wheezes, rales, or rhonchi. GASTROINTESTINAL: Abdomen soft, non-tender, nondistended. EXTREMITIES: No edema or joint tenderness. BACK: Nontender without deformity or crepitance. No flank tenderness. NEURO: AOx3. SKIN: No rash or erythema of visible areas Initial Vital Signs Initial Vital Signs: Vital Signs Temperature 98.2 F 02/06/21 13:14 Pulse Rate 88 02/06/21 13:14 Respiratory Rate 20 02/06/21 13:14 Blood Pressure 137/85 02/06/21 13:14 Pulse Oximetry 100 02/06/21 13:14 Course Orders Ordered: ED Orders 02/06/21 13:22 XR chest 1V Stat EKG-12 Lead Stat 02/06/21 13:59 Complete Blood Count AUTO DIFF Stat Comprehensive Metabolic Panel Stat Lipase Stat Magnesium Stat NT-proBNP (BNP-Adult 18+) Stat Troponin & CK Cardiac Panel Stat 02/06/21 14:37 EKG-12 Lead Stat 02/06/21 16:13 Troponin I Stat Discontinued Medications Diltiazem HCl (Diltiazem 5 Mg/Ml Sdv) 20 mg IV NOW ONE Stop: 02/06/21 16:00 Last Admin: 02/06/21 16:05 Dose: 20 mg Documented by: JAC Reevaluation(s) Reevaluation #1: Patient feeling much better after above-stated therapies. Blood pressure down into the 150s 160s. Heart rate is in the 60s and 70s. Consultations Consultation #1: Call to medical operations supervisor cardiology at [facility] ([facility] He is able to review the patient's chart and states the patient has been in atrial flutter ever since the ablation. He states that she typically will be in the 60s to 90s. We have reviewed labs, imaging, response to therapies in medications. He states that she is on the books for a follow-up on the and recommend she call the office on Monday morning Vital Signs Vital signs: Vital Signs - 8 hr 02/06/21 13:14 02/06/21 13:27 02/06/21 13:30 Temperature 98.2 F Pulse Rate 88 93 H 86 Respiratory Rate 20 16 Blood Pressure 137/85 Pulse Oximetry 100 98 99 02/06/21 13:34 02/06/21 14:00 02/06/21 14:30 Temperature Pulse Rate 85 86 77 Respiratory Rate 14 22 15 Blood Pressure 165/94 H 159/118 H 173/77 H Pulse Oximetry 98 99 97 02/06/21 15:00 02/06/21 15:30 02/06/21 16:00 Temperature Pulse Rate 80 89 94 H Respiratory Rate 12 19 14 Blood Pressure 170/78 H 193/83 H 182/82 H Pulse Oximetry 100 100 99 02/06/21 16:05 02/06/21 16:30 Temperature Pulse Rate 101 H 69 Respiratory Rate 18 Blood Pressure 182/102 H 161/72 H Pulse Oximetry 93 MDM - Arrhythmia/Palpitations Lab Data Result diagrams: 02/06/21 13:59 02/06/21 13:59 Labs: Lab Results 02/06/21 02/06/21 02/06/21 Range/Units 13:59 13:59 13:59 WBC 6.6 (4.5-11.0) X10^3/uL RBC 4.59 (4.0-5.2) X10^6/uL Hgb 13.5 (12.0-16.0) g/dL Hct 41.0 (36-46) % MCV 89.2 (80-100) fL MCH 29.4 (26-34) PG MCHC 33.0 (30-36) % RDW 14.1 (11.6-14.8) % Plt Count 206 (150-400) X10^3/uL Neut % (Auto) 54.7 (50-75) % Lymph % (Auto) 31.4 (25-40) % [place] % (Auto) 11.3 (3-14) % Eos % (Auto) 1.7 L (2-4) % Baso % (Auto) 0.9 (0-2) % Neut # (Auto) 3600 (3008-9519) /uL Lymph # (Auto) 2100 (9826-5561) /uL [place] # (Auto) 700 (0-900) /uL Eos # (Auto) 100 (0-450) /uL Baso # (Auto) 100 (0-100) /uL Sodium 140 (137-145) mmol/L Potassium 4.0 (3.4-5.1) mmol/L Chloride 109 H (98-107) mmol/L Carbon Dioxide 24 (22-32) mmol/L BUN 11 (7-17) mg/dL Creatinine 0.63 (0.52-1.04) mg/dL Estimated GFR > 60.0 (>60) mL/min BUN/Creatinine Ratio 17.5 (6-22) Glucose 108 (80-110) mg/dL Calcium 9.2 (8.4-10.2) mg/dL Magnesium 2.1 (1.6-2.3) mg/dL Total Bilirubin 0.2 (0.2-1.3) mg/dL AST 37 H (14-36) IU/L ALT 28 (<35) IU/L Alkaline Phosphatase 97 (38-126) U/L Total Creatine Kinase 49 (30-135) U/L CK-MB (CK-2) TNP CK-MB (CK-2) Rel Index TNP Troponin I < 0.012 (0.01-0.034) ng/mL NT-Pro-B Natriuret Pep (<450) pg/mL Total Protein 7.6 (6.3-8.2) g/dL Albumin 4.0 (3.5-5.0) g/dL Globulin 3.6 (1.7-4.1) g/dL Albumin/Globulin Ratio 1.1 (1.0-2.8) Lipase 63 (23-300) U/L 02/06/21 02/06/21 Range/Units 13:59 16:13 WBC (4.5-11.0) X10^3/uL RBC (4.0-5.2) X10^6/uL Hgb (12.0-16.0) g/dL Hct (36-46) % MCV (80-100) fL MCH (26-34) PG MCHC (30-36) % RDW (11.6-14.8) % Plt Count (150-400) X10^3/uL Neut % (Auto) (50-75) % Lymph % (Auto) (25-40) % [place] % (Auto) (3-14) % Eos % (Auto) (2-4) % Baso % (Auto) (0-2) % Neut # (Auto) (2713-8310) /uL Lymph # (Auto) (1693-0614) /uL [place] # (Auto) (0-900) /uL Eos # (Auto) (0-450) /uL Baso # (Auto) (0-100) /uL Sodium (137-145) mmol/L Potassium (3.4-5.1) mmol/L Chloride (98-107) mmol/L Carbon Dioxide (22-32) mmol/L BUN (7-17) mg/dL Creatinine (0.52-1.04) mg/dL Estimated GFR (>60) mL/min BUN/Creatinine Ratio (6-22) Glucose (80-110) mg/dL Calcium (8.4-10.2) mg/dL Magnesium (1.6-2.3) mg/dL Total Bilirubin (0.2-1.3) mg/dL AST (14-36) IU/L ALT (<35) IU/L Alkaline Phosphatase (38-126) U/L Total Creatine Kinase (30-135) U/L CK-MB (CK-2) CK-MB (CK-2) Rel Index Troponin I < 0.012 (0.01-0.034) ng/mL NT-Pro-B Natriuret Pep 247 (<450) pg/mL Total Protein (6.3-8.2) g/dL Albumin (3.5-5.0) g/dL Globulin (1.7-4.1) g/dL Albumin/Globulin Ratio (1.0-2.8) Lipase (23-300) U/L MDM Narrative Medical decision making narrative: Patient doing much better after the above- stated therapies. She has had extensive workup including troponins negative x2, reassuring EKGs, other labs, imaging. She is feeling much improvement. Return precautions given and questions answered to her apparent satisfaction Discharge Plan Departure Patient Disposition: Home Clinical Impression: Hypertension Qualifiers: Hypertension type: essential hypertension Qualified Code(s): I10 - Essential (primary) hypertension Atrial flutter Qualifiers: Atrial flutter type: typical Qualified Code(s): I48.3 - Typical atrial flutter Instructions: DI for Atrial Flutter Activity Restrictions/Additional Instructions: *You have been diagnosed with [atrial flutter and hypertension] *What to do: *Please continue to take your regular medications as directed. [ ] New medication prescriptions sent to your pharmacy: [ ] [ ] New medication written as a paper prescription [ x] No new medications given *Please follow up with your primary care provider in 2-3 days, call for an appointment. Let them know you were seen in the Emergency Department and that we ask that you be seen in follow up. We will electronically transmit a record of today's note if your PCP is in our system *You have an appointment with your truss maker on February 05, please contact the office on Monday morning and let them know your in the emergency department as they will likely want to obtain the records from today's visit *If you do not have a primary care provider please contact the [facility] Resource line at [phone]. They will ask some questions about your medical history and help get you set up with a doctor in the community. *Return to Emergency Department if you should have any new, worsening or concerning symptoms, such as [fever greater than 101 F, shaking chills, worsening pain, persistent vomiting or other bothersome symptoms] Prescriptions: No Action digoxin 250 mcg (0.25 mg) tablet 250 mcg PO QNOON RF: 0 benzonatate 100 mg capsule 100 mg PO Q6HR RF: 0 diltiazem HCl 30 mg tablet 30 mg PO TID RF: 0 dofetilide [Tikosyn] 500 mcg Capsule 500 mcg PO Q12H RF: 0 pravastatin 20 mg Tablet 20 mg PO BEDTIME RF: 0 Xarelto 20 mg Tablet 20 mg PO QPM RF: 0 Referrals: Mark Brennan DO [Primary Care Provider] -
[2021-02-06 14:05] LABS: Add Manual Diff / Slide Review NO; Basophils Absolute Auto 100 /uL (0-100); Basophils Percent Auto 0.9 % (0-2); Eosinophils Absolute Auto 100 /uL (0-450); Eosinophils Percent Auto 1.7 % (2-4); Hemoglobin 13.5 g/dL (12.0-16.0); Lymphocytes Absolute Auto 2100 /uL (1100-4500); Lymphocytes Percent Auto 31.4 % (25-40); Mean Corpuscular Hemoglobin 29.4 PG (26-34); Mean Corpuscular Volume 89.2 fL (80-100); Monocytes Absolute Auto 700 /uL (0-900); Monocytes Percent Auto 11.3 % (3-14); Neutrophils Absolute Auto 3600 /uL (1500-7000); Neutrophils Percent Auto 54.7 % (50-75); Platelet Count 206 X10^3/uL (150-400); Red Blood Cell Count 4.59 X10^6/uL (4.0-5.2); Red Cell Distribution Width 14.1 % (11.6-14.8); White Blood Cell Count 6.6 X10^3/uL (4.5-11.0)
[2021-02-06 14:26] LABS: Alanine Aminotransferase 28 IU/L (<35); Albumin Globulin Ratio 1.1 (1.0-2.8); Alkaline Phosphatase 97 U/L (38-126); Aspartate Aminotransferase 37 IU/L (14-36); BUN Creatinine Ratio 17.5 (6-22); Bilirubin Total 0.2 mg/dL (0.2-1.3); Blood Urea Nitrogen 11 mg/dL (7-17); Calcium 9.2 mg/dL (8.4-10.2); Carbon Dioxide 24 mmol/L (22-32); Chloride 109 mmol/L (98-107); Creatine Kinase 49 U/L (30-135); Estimated Glomerular Filt Rate > 60.0 mL/min (>60); Globulin 3.6 g/dL (1.7-4.1); Glucose 108 mg/dL (80-110); HEMOLYSIS < 15 (0-50); Lipase 63 U/L (23-300); Sodium 140 mmol/L (137-145); Total Protein 7.6 g/dL (6.3-8.2)
[2021-02-06 14:27] LABS: Magnesium 2.1 mg/dL (1.6-2.3)
[2021-02-06 14:35] LABS: NT-proBNP (BNP-Adult 18+) 247 pg/mL (<450)
[2021-02-06 14:38] LABS: Troponin I < 0.012 ng/mL (0.01-0.034)
[2021-02-06] MEDS: dilTIAZem 5 MG/ML SDV 20 MG IV (16:05)
[2021-02-06 16:43] LABS: Troponin I < 0.012 ng/mL (0.01-0.034)
== END 2021-02-06 17:20 | disposition home or self-care (01) ==
PROVIDERS: Emergency Provider Emergency Medicine; PCP Family Medicine
DX: I10 Essential (primary) hypertension (principal); I48.3 Typical atrial flutter; R06.02 Shortness of breath
CPT/HCPCS: 71045; 80053; 82550; 83690; 83735; 83880; 84484; 85025; 93005; 96374; 99284

== ENCOUNTER → 2021-04-27 12:02 | Outpatient (CLI) | payer MEDICARE, OTHER, SELFPAY ==
[2018-08-11 17:25] VITALS: BMI 39.4
[2021-04-27 12:32] LABS: Bacteria Urine None Seen
[2021-04-27 13:39] LABS: Appearance Urine UA CLEAR; Bilirubin Urine UA NEGATIVE (NEGATIVE); Color Urine UA YELLOW; Glucose Urine UA NEGATIVE (Negative); Ketones Urine UA NEGATIVE (NEGATIVE); Leukocyte Esterase Urine UA TRACE (NEGATIVE); Nitrite Urine UA NEGATIVE (Negative); Occult Blood Urine UA 1+ (Negative); Protein Urine UA NEGATIVE (Negative); Urobilinogen Urine UA 0.2 E.U./dL (0.2)
[2021-04-27 13:43] LABS: Culture Indicated Urine Specimen Cultured; RBC Urine 5-10/HPF (0-5/HPF); WBC Urine 1-5/HPF (0-5/HPF); pH Urine UA 6.5 (4.5-8.0)
[2021-04-27 14:16] LABS: TSH w/ Reflex to FT4 2.01 uIU/mL (0.47-4.68)
== END ==
PROVIDERS: PCP Family Medicine; Referring Provider Family Medicine; Visit Provider Family Medicine
DX: R53.83 Other fatigue (principal)
CPT/HCPCS: 36415; 81001; 84443; 87086

== ENCOUNTER 2021-06-16 06:33 | Emergency (ER) | payer MEDICARE, OTHER, SELFPAY ==
[2018-08-11 17:25] VITALS: BMI 39.4
[2021-06-16 06:48] VITALS: BP 172/80; PULSE 71; O2SAT 96
--- NOTE | 2021-06-16 06:54 | DI.RAD.S_ITS ---
PROCEDURE: XR CHEST 1V INDICATIONS: dizziness post cardiac ablation TECHNIQUE: One view of the chest was acquired. COMPARISON: [facility], , XR CHEST 1V, 02/06/2021, 13:26. FINDINGS: Surgical changes and devices: A cardiac pacemaker is seen with pulse generator in the left chest. Lungs and pleura: Lungs are clear. No pleural effusions or pneumothorax. Mediastinum: Mediastinal contours appear normal. Heart size is stable. Bones and chest wall: No suspicious bony lesions. Overlying soft tissues appear unremarkable. IMPRESSION: No acute cardiopulmonary abnormality. Dictated by: Bossman Espino M.D. on 06/16/2021 at 7:45 Approved by: Bossman Espino M.D. on 06/16/2021 at 7:49
[2021-06-16 06:55] VITALS: PULSE 79; RESP 17; TEMP 36.5; O2SAT 100; BMI 43.4
[2021-06-16 07:00] VITALS: PULSE 80; RESP 16
[2021-06-16 07:28] LABS: Add Manual Diff / Slide Review NO; Basophils Absolute Auto 100 /uL (0-100); Basophils Percent Auto 0.9 % (0-2); Eosinophils Absolute Auto 200 /uL (0-450); Eosinophils Percent Auto 2.7 % (2-4); Hematocrit 42.6 % (36-46); Hemoglobin 13.9 g/dL (12.0-16.0); Lymphocytes Absolute Auto 2300 /uL (1100-4500); Mean Corpuscular HGB Conc 32.7 % (30-36); Mean Corpuscular Hemoglobin 29.3 PG (26-34); Mean Corpuscular Volume 89.7 fL (80-100); Monocytes Absolute Auto 700 /uL (0-900); Monocytes Percent Auto 9.4 % (3-14); Neutrophils Absolute Auto 4400 /uL (1500-7000); Platelet Count 207 X10^3/uL (150-400); Red Blood Cell Count 4.75 X10^6/uL (4.0-5.2); Red Cell Distribution Width 14.1 % (11.6-14.8); White Blood Cell Count 7.7 X10^3/uL (4.5-11.0)
--- NOTE | 2021-06-16 07:28 | ED.GENADULT ---
HPI - General Adult General Chief complaint: Dizziness Stated complaint: Dizzy after surgery 06/10/21 Time Seen by Provider: 06/16/21 06:49 Source: patient and family Mode of arrival: Wheelchair Limitations: no limitations History of Present Illness HPI narrative: Patient is a 75-year-old female. Has a history of atrial fibrillation. Is on Xarelto. Has a pacemaker in place that has been there since 2019 because of the atrial fibrillation. Approximately 6 days ago underwent a heart ablation by her hospice bereavement coordinator at an outside facility for the AFib. She states that she tolerated the procedure well. There were adjustments made to the pacemaker at that time. Last evening had episodes of what she describes as dizziness. Also associated with some nausea. No headache. No ringing in her ears. No vision changes. No chest pain. No palpitations. No shortness of breath. Did not vomit despite the nausea. No urinary symptoms. No change in bowel habits. No bruising. No extremity weakness. She did take an Kaye last evening. She thought that her right ear felt somewhat full. She has had these types of issues in the past. Related Data Home Medications Medication Instructions Recorded Confirmed pravastatin 20 mg tablet 20 mg PO BEDTIME 02/19/18 02/08/21 rivaroxaban 20 mg tablet (Xarelto) 20 mg PO QPM 02/19/18 02/06/21 benzonatate 100 mg capsule 100 mg PO Q6HR 02/06/21 02/08/21 diltiazem HCl 30 mg tablet 30 mg PO TID 02/06/21 02/08/21 dofetilide 500 mcg capsule 500 mcg PO Q12H 02/06/21 02/08/21 (Tikosyn) Previous Rx's Medication Instructions Recorded meclizine 25 mg tablet 25 mg PO TID PRN #21 tab 06/16/21 Allergies Allergy/AdvReac Type Severity Reaction Status Date / Time Beta-Blockers Allergy Severe Get all Verified 02/08/21 14:47 (Beta-Adrenergic Bloc the side effects flecainide Allergy Severe Get all Verified 02/08/21 14:47 the symptoms metoprolol Allergy Severe get all Verified 02/08/21 14:47 the side effects Review of Systems Eyes Eyes: Reports as per HPI and Reports system reviewed and no additional complaints, except as documented ENT Ears, Nose, Mouth, and Throat: Reports system reviewed and no additional complaints, except as documented and Reports as per HPI Cardiovascular Cardiovascular: Reports as per HPI and Reports system reviewed and no additional complaints, except as documented Respiratory Respiratory: Reports as per HPI and Reports system reviewed and no additional complaints, except as documented Gastrointestinal Gastrointestinal: Reports as per HPI Musculoskeletal Musculoskeletal: Reports system reviewed and no additional complaints, except as documented Integumentary/Breasts Skin/Breast: Reports system reviewed and no additional complaints, except as documented and Reports as per HPI Neurologic Neurologic: Reports as per HPI Psychiatric Psychiatric: Reports system reviewed and no additional complaints, except as documented Hematologic/Lymphatic On Anticoagulants: Yes Patient History Medical History Atrial fibrillation Atrial fibrillation (~2008) Cardiac arrhythmia (~2008) Cataracts, bilateral (~2010) Colitis (~2007) Colon polyps (~1999) Family history of breast cancer Fatigue GI bleeding (~2004) Hyperlipidemia Hypertension (~2004) Irritable bowel syndrome (~1999) Lower GI bleed Osteoarthritis (~2013) Osteoporosis (~2013) Sleep apnea (~2012) Well adult Surgical History Anesthesia Cystocele (~03/2001) H/O abdominal hysterectomy (~04/1977) H/O laminectomy (~04/1990) History of cataract removal with insertion of prosthetic lens (~05/2001) Hx of cholecystectomy (~05/1978) Pacemaker (~2018) Family History Mother Breast cancer Diabetes mellitus Hyperlipidemia Hypertension Stroke Father No known health problems Grandfather Stroke Grandmother No problems noted. Grandfather Stroke Social History household members: spouse Smoking Status: Never smoker second hand exposure: No alcohol intake: never substance use type: does not use Smoking Status: Never smoker alcohol intake frequency: 0-2 drinks per day Substance Use Type: does not use Exam Initial Vital Signs Initial Vital Signs: Vital Signs Pulse Rate 71 06/16/21 06:48 Blood Pressure 172/80 H 06/16/21 06:48 Pulse Oximetry 96 06/16/21 06:48 Const General: cooperative, healthy appearing, comfortable and well developed Limitations: mental status not altered HENNC Head: normal to inspection and normocephalic Ears: TM normal on the right and EAC abnormal (Left tympanic membrane obscured by cerumen) Nose: external nose normal Mouth: oral mucosae normal Eyes General: appearance normal, both eyes and all related structures Neck Neck: normal visual inspection Resp Effort & Inspection: normal respiratory effort Auscultation: clear to auscultation bilaterally Cardio Rate: regular rate Rhythm: regular rhythm GI Inspection: non-distended Palpation: soft and No tender Back/Spine/Pelvis Back: normal to inspection Skin Lesions: no lesions Rashes: no rashes Neuro General: patient alert, patient awake, patient oriented x3 and moves all extremities Cognition: normal cognition Speech: speech normal Sensory Exam: no sensory deficits noted Other: Patient is able to reproduce the symptoms spine laying back and looking to the left. She did this on her own. Essentially a positive Jil-Hallpike maneuver Extrem General: capillary refill normal and No edema Psych Appearance: grossly normal and well kempt Course Orders Ordered: ED Orders 06/16/21 EKG-12 Lead Stat EKG-12 Lead Stat 06/16/21 06:54 XR chest 1V Stat Urinalysis and Microscopic Stat 06/16/21 07:00 Complete Blood Count AUTO DIFF Stat Lipase Stat 06/16/21 07:15 Comprehensive Metabolic Panel Stat Magnesium Stat NT-proBNP (BNP-Adult 18+) Stat Troponin I Stat 06/16/21 07:30 CT head/brain wo con Stat Discontinued Medications Meclizine HCl (Meclizine Hcl 12.5 Mg Tablet) 25 mg PO NOW ONE Stop: 06/16/21 07:30 Last Admin: 06/16/21 07:42 Dose: 25 mg Documented by: MICK Vital Signs Vital signs: Vital Signs - 8 hr 06/16/21 06:48 06/16/21 06:55 06/16/21 07:00 Temperature 97.7 F Pulse Rate 71 79 80 Respiratory Rate 17 16 Blood Pressure 172/80 H Pulse Oximetry 96 100 06/16/21 07:30 Temperature Pulse Rate 81 Respiratory Rate 27 H Blood Pressure Pulse Oximetry Medical Decision Making Lab Data Lab results reviewed: Yes I reviewed the patient's lab results. Result diagrams: 06/16/21 07:00 06/16/21 07:15 Labs: Lab Results 06/16/21 06/16/21 06/16/21 Range/Units 07:00 07:00 07:15 WBC 7.7 (4.5-11.0) X10^3/uL RBC 4.75 (4.0-5.2) X10^6/uL Hgb 13.9 (12.0-16.0) g/dL Hct 42.6 (36-46) % MCV 89.7 (80-100) fL MCH 29.3 (26-34) PG MCHC 32.7 (30-36) % RDW 14.1 (11.6-14.8) % Plt Count 207 (150-400) X10^3/uL Neut % (Auto) 57.0 (50-75) % Lymph % (Auto) 30.0 (25-40) % [place] % (Auto) 9.4 (3-14) % Eos % (Auto) 2.7 (2-4) % Baso % (Auto) 0.9 (0-2) % Neut # (Auto) 4400 (5855-2454) /uL Lymph # (Auto) 2300 (3248-6525) /uL [place] # (Auto) 700 (0-900) /uL Eos # (Auto) 200 (0-450) /uL Baso # (Auto) 100 (0-100) /uL Sodium 139 (137-145) mmol/L Potassium 4.4 (3.4-5.1) mmol/L Chloride 106 (98-107) mmol/L Carbon Dioxide 26 (22-32) mmol/L BUN 17 (7-17) mg/dL Creatinine 0.73 (0.52-1.04) mg/dL Estimated GFR > 60.0 (>60) mL/min BUN/Creatinine Ratio 23.3 H (6-22) Glucose 101 (80-110) mg/dL Calcium 9.6 (8.4-10.2) mg/dL Magnesium 2.2 (1.6-2.3) mg/dL Total Bilirubin 0.3 (0.2-1.3) mg/dL AST 27 (14-36) IU/L ALT 32 (<35) IU/L Alkaline Phosphatase 96 (38-126) U/L Troponin I 0.078 H (0.01-0.034) ng/mL NT-Pro-B Natriuret Pep 119 (<450) pg/mL Total Protein 7.8 (6.3-8.2) g/dL Albumin 4.3 (3.5-5.0) g/dL Globulin 3.5 (1.7-4.1) g/dL Albumin/Globulin Ratio 1.2 (1.0-2.8) Lipase 71 (23-300) U/L Imaging Data Chest x-ray: Radiologist's Impression: [address] [address] XRay Report Signed Patient: Alivia Stockton MR#: [id number] : 1945 Acct:[id number] Age/Sex: 75 / F Date of Service: 06/16/21 Loc: ED Accession Number: [id number] ?? Procedure: XR chest 1V Ordering Provider: Rosangela Lynch MD PROCEDURE:? XR CHEST 1V ? INDICATIONS:? dizziness post cardiac ablation ? TECHNIQUE:? One view of the chest was acquired.? ? COMPARISON:? [facility], , XR CHEST 1V, 02/06/2021, 13:26. ? FINDINGS:? ? Surgical changes and devices:? A cardiac pacemaker is seen with pulse generator in the left chest. ? Lungs and pleura:? Lungs are clear.? No pleural effusions or pneumothorax.? ? Mediastinum:? Mediastinal contours appear normal.? Heart size is stable.? ? Bones and chest wall:? No suspicious bony lesions.? Overlying soft tissues appear unremarkable.? ? IMPRESSION:? No acute cardiopulmonary abnormality. ? ? Dictated by: Bossman Espino M.D. on 06/16/2021 at 7:45 ? ? Approved by: Bossman Espino M.D. on 06/16/2021 at 7:49? CT scan - head: Radiologist's Impression: Launch?Image [address] [address] [address] Scan Report Signed Patient: Alivia Stockton MR#: [id number] : 1945 Acct:[id number] Age/Sex: 75 / F Date of Service: 06/16/21 Loc: ED Accession Number: [id number] ?? Procedure: CT head/brain wo con Ordering Provider: Long Rosales D.O. PROCEDURE:? CT HEAD/BRAIN WO CON ? INDICATIONS:? Dizziness and on Xarelto ? TECHNIQUE:? Noncontrast 4.5 mm thick angled axial sections acquired from the foramen magnum to the vertex, with coronal and sagittal reformats.? For radiation dose reduction, the following was used:? automated exposure control, adjustment of mA and/or kV according to patient size.? ? COMPARISON:? None. ? FINDINGS:? Image quality:? Excellent.? ? CSF spaces:? Basal cisterns are patent.? No extra-axial fluid collections.? The ventricles are symmetric in size and shape.? ? Brain:? No intracranial bleeds or masses.? There is cerebral volume loss for age, with resultant ventricular and sulcal prominence.? There are periventricular and deep white matter chronic small vessel ischemic changes.? There is intracranial internal carotid artery atherosclerosis.? ? Skull and face:? Calvarium and visualized facial bones appear intact, without suspicious lesions.? ? Sinuses:? Visualized sinuses and mastoids are clear.? ? IMPRESSION:? No acute intracranial disease process. ? ? Dictated by: Christina Winslow MD, PhD on 06/16/2021 at 8:11 ? ? Approved by: Christina Winslow MD, PhD on 06/16/2021 at 8:13?? ECG Data Attestation: I personally reviewed and interpreted this ECG as follows: Interpretation: AV dual paced Rate of 84 Repeat EKG AV paced Ventricular rate 82 Unchanged from previous EKG MDM Narrative Medical decision making narrative: Patient did feel somewhat better after the meclizine. Her symptoms are clearly positional. It occurs when she lays down looks to the left which is essentially a positive Jil-Hallpike maneuver to the left. Her head CT is unremarkable. Interrogation of her pacemaker shows that she is 100% ventricularly paced. No signs of atrial fibrillation. Will not change any of her medications. Will send home with a prescription for meclizine. She is a follow-up on Monday with her hospice bereavement coordinator. The insertion site of the catheter in the left groin appears well without any signs of infection. Patient was given return precautions and follow-up instructions. She expressed understanding agreement. Discharge Plan Departure Patient Disposition: Home Clinical Impression: Vertigo Instructions: DI for Vertigo Activity Restrictions/Additional Instructions: I recommend that you continue to take all of your medications as directed. A prescription for meclizine was transmitted to the pharmacy of your choice. Please take it as needed as directed. Keep all of your scheduled medical appointments. Return to the emergency department for any new or worsening symptoms. Prescriptions: New meclizine 25 mg tablet 25 mg PO TID PRN (Reason: dizziness) Qty: 21 RF: 0 No Action benzonatate 100 mg capsule 100 mg PO Q6HR RF: 0 diltiazem HCl 30 mg tablet 30 mg PO TID RF: 0 dofetilide [Tikosyn] 500 mcg Capsule 500 mcg PO Q12H RF: 0 pravastatin 20 mg Tablet 20 mg PO BEDTIME RF: 0 Xarelto 20 mg Tablet 20 mg PO QPM RF: 0 Referrals: Mark Brennan DO [Primary Care Provider] -
[2021-06-16 07:30] VITALS: PULSE 81; RESP 27
--- NOTE | 2021-06-16 07:30 | DI.CT.S_ITS ---
PROCEDURE: CT HEAD/BRAIN WO CON INDICATIONS: Dizziness and on Xarelto TECHNIQUE: Noncontrast 4.5 mm thick angled axial sections acquired from the foramen magnum to the vertex, with coronal and sagittal reformats. For radiation dose reduction, the following was used: automated exposure control, adjustment of mA and/or kV according to patient size. COMPARISON: None. FINDINGS: Image quality: Excellent. CSF spaces: Basal cisterns are patent. No extra-axial fluid collections. The ventricles are symmetric in size and shape. Brain: No intracranial bleeds or masses. There is cerebral volume loss for age, with resultant ventricular and sulcal prominence. There are periventricular and deep white matter chronic small vessel ischemic changes. There is intracranial internal carotid artery atherosclerosis. Skull and face: Calvarium and visualized facial bones appear intact, without suspicious lesions. Sinuses: Visualized sinuses and mastoids are clear. IMPRESSION: No acute intracranial disease process. Dictated by: Christina Winslow MD, PhD on 06/16/2021 at 8:11 Approved by: Christina Winslow MD, PhD on 06/16/2021 at 8:13
[2021-06-16 07:35] LABS: Lipase 71 U/L (23-300)
[2021-06-16] MEDS: MECLIZINE HCL 12.5 MG TABLET 25 MG PO (07:42)
[2021-06-16 08:07] LABS: Alanine Aminotransferase 32 IU/L (<35); Albumin 4.3 g/dL (3.5-5.0); Albumin Globulin Ratio 1.2 (1.0-2.8); Alkaline Phosphatase 96 U/L (38-126); Aspartate Aminotransferase 27 IU/L (14-36); BUN Creatinine Ratio 23.3 (6-22); Bilirubin Total 0.3 mg/dL (0.2-1.3); Blood Urea Nitrogen 17 mg/dL (7-17); Calcium 9.6 mg/dL (8.4-10.2); Carbon Dioxide 26 mmol/L (22-32); Chloride 106 mmol/L (98-107); Estimated Glomerular Filt Rate > 60.0 mL/min (>60); Globulin 3.5 g/dL (1.7-4.1); Glucose 101 mg/dL (80-110); HEMOLYSIS < 15 (0-50); Magnesium 2.2 mg/dL (1.6-2.3); Potassium 4.4 mmol/L (3.4-5.1); Sodium 139 mmol/L (137-145); Total Protein 7.8 g/dL (6.3-8.2)
[2021-06-16 08:19] LABS: NT-proBNP (BNP-Adult 18+) 119 pg/mL (<450); Troponin I 0.078 ng/mL (0.01-0.034)
--- NOTE | 2021-06-16 08:25 | PC.NURSE ---
Pt c/o dizziness and nausea x 1 day. States she had a MELISSA w/ ablation on , requesting an incision check left femoral area. Patient states she sleeps in an upright position due to a nagging cough and sputum. Hx vertigo.
[2021-06-16 09:24] VITALS: BP 133/63; PULSE 79; RESP 16; O2SAT 97
== END 2021-06-16 09:26 | disposition home or self-care (01) ==
PROVIDERS: Emergency Medicine; Emergency Provider Emergency Medicine; PCP Family Medicine
DX: R42 Dizziness and giddiness (principal); Z95.0 Presence of cardiac pacemaker; R07.9 Chest pain, unspecified
CPT/HCPCS: 36415; 70450; 71045; 80053; 83690; 83735; 83880; 84484; 85025; 93005; 93010; 99284

== ENCOUNTER → 2021-06-25 09:13 | Outpatient (CLI) | payer MEDICARE, OTHER, SELFPAY ==
[2018-08-11 17:25] VITALS: BMI 39.4
--- NOTE | 2021-06-25 | DI.MG.S_ITS ---
BILATERAL DIGITAL SCREENING MAMMOGRAM 3D/2D WITH CAD: 06/25/2021 CLINICAL: Routine screening. Family history of breast cancer. Comparison is made to exams dated: 06/06/2020 mammogram, 05/25/2019 mammogram, 05/25/2018 mammogram, and 04/28/2017 mammogram - [facility]. There are scattered fibroglandular elements in both breasts. Current study was also evaluated with a Computer Aided Detection (CAD) system. No significant masses, calcifications, or other findings are seen in either breast. There has been no significant interval change. IMPRESSION: NEGATIVE There is no mammographic evidence of malignancy. A 1 year screening mammogram is recommended. This exam was interpreted at Station ID: [id number]. NOTE: For mammograms, a report in lay terms will be sent to the patient. Approximately 15% of breast malignancies will not be visualized mammographically. In the management of a palpable breast mass, a negative mammogram must not discourage biopsy of a clinically suspicious lesion. Electronically Signed By: Arik bah/adriano:06/25/2021 12:01:01 letter sent: Normal Exam ACR BI-RADS Category 1: Negative [id number]
== END ==
PROVIDERS: PCP Family Medicine; Referring Provider Family Medicine; Visit Provider Family Medicine
DX: Z12.31 Encounter for screening mammogram for malignant neoplasm of breast (principal); Z80.3 Family history of malignant neoplasm of breast
CPT/HCPCS: 77063; 77067

== ENCOUNTER → 2021-11-02 09:38 | Outpatient (CLI) | payer MEDICARE, OTHER, SELFPAY ==
[2018-08-11 17:25] VITALS: BMI 39.4
--- NOTE | 2021-11-02 09:41 | DI.RAD.S_ITS ---
PROCEDURE: XR LUMBAR SPINE MIN 4V INDICATIONS: Back pain TECHNIQUE: 5 views of the lumbar spine acquired, including flexion and extension views. COMPARISON: None. FINDINGS: Bones: 5 nonrib-bearing vertebrae are present. There is normal bony alignment. No vertebral body compression fractures. No suspicious bony lesions. Disc space narrowing anterior osteophytes noted in the upper lumbar spine and thoracolumbar junction. Sclerotic facet joints present in the lower lumbar spine. No evidence of fracture or malalignment. Soft tissues: Overlying bowel gas pattern is normal. No suspicious soft tissue calcifications. Flexion/extension: There is normal range of motion, with preserved normal alignment. IMPRESSION: 1. Multilevel degenerative disc disease and arthropathy. No fracture or malalignment. Approved by: Francois Rodriguez M.D. on 11/02/2021 at 13:50
== END ==
PROVIDERS: PCP Family Medicine; Referring Provider Family Medicine; Visit Provider Family Medicine
DX: M51.36 Other intervertebral disc degeneration, lumbar region (principal); M54.9 Dorsalgia, unspecified; M47.816 Spondylosis without myelopathy or radiculopathy, lumbar region; G89.29 Other chronic pain
CPT/HCPCS: 72110

== ENCOUNTER → 2021-12-27 08:33 | Outpatient (CLI) | payer MEDICARE, OTHER, SELFPAY ==
[2018-08-11 17:25] VITALS: BMI 39.4
[2021-12-27 09:51] LABS: Add Manual Diff / Slide Review NO; Basophils Absolute Auto 0 /uL (0-100); Basophils Percent Auto 0.4 % (0-2); Eosinophils Absolute Auto 100 /uL (0-450); Eosinophils Percent Auto 2.2 % (2-4); Hematocrit 40.6 % (36-46); Hemoglobin 13.6 g/dL (12.0-16.0); Lymphocytes Absolute Auto 2000 /uL (1100-4500); Lymphocytes Percent Auto 35.2 % (25-40); Mean Corpuscular HGB Conc 33.5 % (30-36); Mean Corpuscular Hemoglobin 29.6 PG (26-34); Mean Corpuscular Volume 88.5 fL (80-100); Monocytes Absolute Auto 500 /uL (0-900); Monocytes Percent Auto 9.1 % (3-14); Neutrophils Absolute Auto 3100 /uL (1500-7000); Neutrophils Percent Auto 53.1 % (50-75); Platelet Count 176 X10^3/uL (150-400); Red Blood Cell Count 4.59 X10^6/uL (4.0-5.2); Red Cell Distribution Width 13.9 % (11.6-14.8); White Blood Cell Count 5.8 X10^3/uL (4.5-11.0)
[2021-12-27 10:43] LABS: Alanine Aminotransferase 21 IU/L (<35); Albumin 3.9 g/dL (3.5-5.0); Albumin Globulin Ratio 1.2 (1.0-2.8); Alkaline Phosphatase 87 U/L (38-126); Aspartate Aminotransferase 28 IU/L (14-36); BUN Creatinine Ratio 19.2 (6-22); Bilirubin Total 0.4 mg/dL (0.2-1.3); Blood Urea Nitrogen 14 mg/dL (7-17); Carbon Dioxide 25 mmol/L (22-32); Chloride 108 mmol/L (98-107); Cholesterol 192 mg/dL (140-199); Estimated Glomerular Filt Rate > 60 mL/min (>60); Globulin 3.2 g/dL (1.7-4.1); Glucose 92 mg/dL (80-110); HDL Cholesterol 63 mg/dL (40-60); HEMOLYSIS < 15 (0-50); LDL Cholesterol Calculated 109 mg/dL (<100); Potassium 4.2 mmol/L (3.4-5.1); Sodium 141 mmol/L (137-145); Total Protein 7.1 g/dL (6.3-8.2); Triglycerides 99 mg/dL (35-150)
[2021-12-27 11:04] LABS: Thyroid Stimulating Hormone 2.26 uIU/mL (0.47-4.68)
== END ==
PROVIDERS: PCP Family Medicine; Referring Provider Family Medicine; Visit Provider Family Medicine
DX: E78.00 Pure hypercholesterolemia, unspecified (principal); I10 Essential (primary) hypertension; I48.20 Chronic atrial fibrillation, unspecified
CPT/HCPCS: 36415; 80053; 80061; 84443; 85025

== ENCOUNTER 2022-01-05 23:52 | Emergency (ER) | payer MEDICARE, OTHER, SELFPAY ==
[2018-08-11 17:25] VITALS: BMI 39.4
[2022-01-05 23:56] VITALS: BP 186/79; PULSE 80; RESP 17; TEMP 36.6; O2SAT 98; BMI 44.2
--- NOTE | 2022-01-06 | DI.RAD.S_ITS ---
PROCEDURE: XR CHEST 1V INDICATIONS: chest pain TECHNIQUE: One view of the chest was acquired. COMPARISON: [facility], CR, XR CHEST 1V, 06/16/2021, 7:05. FINDINGS: Surgical changes and devices: Left chest wall dual lead pacemaker and leads appear similar in position. Lungs and pleura: There is pulmonary vascular prominence suggestive of mild edema. No focal consolidation. No pleural effusions or pneumothorax. Mediastinum: Mediastinal contours appear normal. Heart size is normal. Bones and chest wall: No suspicious bony lesions. Overlying soft tissues appear unremarkable. IMPRESSION: 1. Suggestion of mild pulmonary edema. No focal consolidation. Dictated by: Nasim Krueger M.D. on 01/06/2022 at 1:07 Approved by: Nasim Krueger M.D. on 01/06/2022 at 1:08
[2022-01-06 00:36] LABS: Add Manual Diff / Slide Review NO; Basophils Absolute Auto 100 /uL (0-100); Basophils Percent Auto 0.8 % (0-2); Eosinophils Absolute Auto 200 /uL (0-450); Hematocrit 41.1 % (36-46); Hemoglobin 13.8 g/dL (12.0-16.0); Lymphocytes Absolute Auto 3400 /uL (1100-4500); Lymphocytes Percent Auto 43.9 % (25-40); Mean Corpuscular HGB Conc 33.6 % (30-36); Mean Corpuscular Hemoglobin 29.6 PG (26-34); Mean Corpuscular Volume 88.2 fL (80-100); Monocytes Absolute Auto 600 /uL (0-900); Monocytes Percent Auto 7.4 % (3-14); Neutrophils Absolute Auto 3600 /uL (1500-7000); Neutrophils Percent Auto 45.9 % (50-75); Platelet Count 185 X10^3/uL (150-400); Red Blood Cell Count 4.66 X10^6/uL (4.0-5.2); Red Cell Distribution Width 13.8 % (11.6-14.8); White Blood Cell Count 7.8 X10^3/uL (4.5-11.0)
[2022-01-06 00:52] LABS: Alanine Aminotransferase 27 IU/L (<35); Albumin 4.4 g/dL (3.5-5.0); Albumin Globulin Ratio 1.2 (1.0-2.8); Alkaline Phosphatase 100 U/L (38-126); Aspartate Aminotransferase 34 IU/L (14-36); BUN Creatinine Ratio 17.9 (6-22); Bilirubin Total 0.5 mg/dL (0.2-1.3); Blood Urea Nitrogen 14 mg/dL (7-17); Carbon Dioxide 24 mmol/L (22-32); Chloride 108 mmol/L (98-107); Creatine Kinase 70 U/L (30-135); Estimated Glomerular Filt Rate > 60 mL/min (>60); Globulin 3.8 g/dL (1.7-4.1); Glucose 106 mg/dL (80-110); HEMOLYSIS < 15 (0-50); Lipase 78 U/L (23-300); Magnesium 2.1 mg/dL (1.6-2.3); Potassium 3.8 mmol/L (3.4-5.1); Sodium 140 mmol/L (137-145); Total Protein 8.2 g/dL (6.3-8.2)
[2022-01-06 01:02] LABS: Troponin I < 0.012 ng/mL (0.01-0.034)
[2022-01-06 02:04] LABS: NT-proBNP (BNP-Adult 18+) 200 pg/mL (<450)
[2022-01-06 02:50] VITALS: BP 129/78; PULSE 80; RESP 20; O2SAT 98
[2022-01-06] MEDS: ONDANSETRON 4 MG/2 ML INJ IV (03:01)
--- NOTE | 2022-01-06 03:13 | ED_ITS ---
HPI - Nausea/Vomiting/Diarrhea General Chief complaint: Nausea/Vomiting/Diarrhea Stated complaint: NAUSEA AND DIZZY A FIB AND PACEMAKER Time Seen by Provider: 01/06/22 01:32 Source: patient Mode of arrival: Ambulatory Limitations: no limitations History of Present Illness HPI Narrative: This is a 76-year-old female with atrial fibrillation history with cardiac ablation in May, patient has had EGD and dilation approximately 2 years ago. She arrives today with complaint of nausea, eructation and flatus for the past several days. She states she has had episodes where she feels tired, lightheaded and can feel her heart pounding in her chest. She states these are episodes where she has AFib. They happen occasionally but not frequently and have not changed in intensity or frequency. She states she has felt nauseated but had no abdominal pain, she feels bloated, she denies any shortness of breath or chest pain or pressure, no syncope. No constipation or diarrhea. No dysuria urgency or frequency. Patient has not had any new medication changes, no tobacco, alcohol or illicit. Her primary care is Dr. Brennan. She sees Cardiology in [facility]. Related Data Home Medications Medication Instructions Recorded Confirmed pravastatin 20 mg tablet 20 mg PO BEDTIME 02/19/18 12/24/21 rivaroxaban 20 mg tablet (Xarelto) 20 mg PO QPM 02/19/18 12/24/21 diltiazem HCl 30 mg tablet 30 mg PO TID 02/06/21 12/24/21 dofetilide 500 mcg capsule 500 mcg PO Q12H 02/06/21 12/24/21 (Tikosyn) cholecalciferol (vitamin D3) 125 125 mcg PO DAILY 11/02/21 12/24/21 mcg (5,000 unit) capsule mecobalamin (vitamin B12) 1,000 1,000 mcg PO DAILY 11/02/21 12/24/21 mcg chewable tablet (B12 Active) Previous Rx's Medication Instructions Recorded cephalexin 500 mg capsule 500 mg PO BID #10 cap 01/06/22 Allergies Allergy/AdvReac Type Severity Reaction Status Date / Time Beta-Blockers Allergy Severe Get all Verified 01/06/22 00:00 (Beta-Adrenergic Bloc the side effects flecainide Allergy Severe Get all Verified 01/06/22 00:00 the symptoms metoprolol Allergy Severe get all Verified 01/06/22 00:00 the side effects Review of Systems Review of Systems ROS Unobtainable: All systems reviewed & are unremarkable except as noted in HPI and below Patient History Medical History Atrial fibrillation Atrial fibrillation (~2008) Cardiac arrhythmia (~2008) Cataracts, bilateral (~2010) Colitis (~2007) Colon polyps (~1999) Family history of breast cancer Fatigue GI bleeding (~2004) Hyperlipidemia Hypertension (~2004) Irritable bowel syndrome (~1999) Lower GI bleed Osteoarthritis (~2013) Osteoporosis (~2013) Sleep apnea (~2012) Well adult Surgical History Anesthesia Cystocele (~03/2001) H/O abdominal hysterectomy (~04/1977) H/O laminectomy (~04/1990) History of cataract removal with insertion of prosthetic lens (~05/2001) Hx of cholecystectomy (~05/1978) Pacemaker (~2018) Family History Mother Breast cancer Diabetes mellitus Hyperlipidemia Hypertension Stroke Father No known health problems Grandfather Stroke Grandmother No problems noted. Grandfather Stroke Social History household members: spouse Smoking Status: Never smoker second hand exposure: No alcohol intake: never substance use type: does not use Smoking Status: Never smoker alcohol intake frequency: 0-2 drinks per day Substance Use Type: does not use Exam Narrative Exam Narrative: GENERAL: Alert and oriented x three, obese female in mild distress. HEENT: Head normocephalic, atraumatic, EOMI, pupils reactive, face symmetric, moist mucous membranes NECK: Supple, full range of motion CARDIOVASCULAR: Regular rate and rhythm without murmurs, rubs or gallops. RESPIRATORY: Breath sounds equal bilaterally, no wheezes rales or rhonchi. ABDOMEN: Soft, mild upper abdominal tenderness bilateral upper quadrants.Nondistended. Normoactive bowel sounds all 4 quadrants. No guarding or rebound, rigidity, no mass : No CVA tenderness EXTREMITIES: Normal range of motion, no clubbing or edema. Neurovascularly intact NEUROLOGICAL: Cranial nerves II through XII grossly intact. Moving all extremities SKIN: Warm, dry, no petechiae, no rashes or lesions. Initial Vital Signs Initial Vital Signs: Vital Signs Temperature 98 F 01/05/22 23:56 Pulse Rate 80 01/05/22 23:56 Respiratory Rate 17 01/05/22 23:56 Blood Pressure 186/79 H 01/05/22 23:56 Pulse Oximetry 98 01/05/22 23:56 Course Orders Ordered: Discontinued Medications Cephalexin HCl (Cephalexin 250 Mg Capsule) 500 mg PO NOW ONE Stop: 01/06/22 03:50 Last Admin: 01/06/22 04:08 Dose: 500 mg Documented by: [email or web address] Ondansetron HCl (Ondansetron 4 Mg/2 Ml Inj) 4 mg IV NOW ONE Stop: 01/06/22 02:54 Last Admin: 01/06/22 03:01 Dose: 4 mg Documented by: [email or web address] Ondansetron HCl (Ondansetron 4 Mg Odt Prepack) 1 bottle MISC SEEINSTR ONE Stop: 01/06/22 03:50 Last Admin: 01/06/22 04:08 Dose: 1 bottle Documented by: [email or web address] Vital Signs Vital signs: Vital Signs - 8 hr 01/05/22 23:56 01/06/22 02:50 Temperature 98 F Pulse Rate 80 80 Respiratory Rate 17 20 Blood Pressure 186/79 H 129/78 Pulse Oximetry 98 98 MDM - Nausea/Vomiting/Diarrhea Lab Data Result diagrams: 01/06/22 00:20 01/06/22 00:20 Labs: Lab Results 01/06/22 01/06/22 01/06/22 Range/Units 00:20 00:20 00:20 WBC 7.8 (4.5-11.0) X10^3/uL RBC 4.66 (4.0-5.2) X10^6/uL Hgb 13.8 (12.0-16.0) g/dL Hct 41.1 (36-46) % MCV 88.2 (80-100) fL MCH 29.6 (26-34) PG MCHC 33.6 (30-36) % RDW 13.8 (11.6-14.8) % Plt Count 185 (150-400) X10^3/uL Neut % (Auto) 45.9 L (50-75) % Lymph % (Auto) 43.9 H (25-40) % [place] % (Auto) 7.4 (3-14) % Eos % (Auto) 2.0 (2-4) % Baso % (Auto) 0.8 (0-2) % Neut # (Auto) 3600 (2446-5180) /uL Lymph # (Auto) 3400 (2333-8853) /uL [place] # (Auto) 600 (0-900) /uL Eos # (Auto) 200 (0-450) /uL Baso # (Auto) 100 (0-100) /uL Sodium 140 (137-145) mmol/L Potassium 3.8 (3.4-5.1) mmol/L Chloride 108 H (98-107) mmol/L Carbon Dioxide 24 (22-32) mmol/L BUN 14 (7-17) mg/dL Creatinine 0.78 (0.52-1.04) mg/dL Estimated GFR > 60 (>60) mL/min BUN/Creatinine Ratio 17.9 (6-22) Glucose 106 (80-110) mg/dL Calcium 9.0 (8.4-10.2) mg/dL Magnesium 2.1 (1.6-2.3) mg/dL Total Bilirubin 0.5 (0.2-1.3) mg/dL AST 34 (14-36) IU/L ALT 27 (<35) IU/L Alkaline Phosphatase 100 (38-126) U/L Total Creatine Kinase 70 (30-135) U/L CK-MB (CK-2) TNP CK-MB (CK-2) Rel Index TNP Troponin I < 0.012 (0.01-0.034) ng/mL NT-Pro-B Natriuret Pep 200 (<450) pg/mL Total Protein 8.2 (6.3-8.2) g/dL Albumin 4.4 (3.5-5.0) g/dL Globulin 3.8 (1.7-4.1) g/dL Albumin/Globulin Ratio 1.2 (1.0-2.8) Lipase 78 (23-300) U/L Urine Color Urine Appearance Urine pH (4.5-8.0) Ur Specific Regina (1.000-1.035) Urine Protein (Negative) Urine Glucose (UA) (Negative) g/dL Urine Ketones (NEGATIVE) Urine Occult Blood (Negative) Urine Nitrate (Negative) Urine Bilirubin (NEGATIVE) Urine Urobilinogen (0.2) E.U./dL Ur Leukocyte Esterase (NEGATIVE) Urine RBC (0-5/HPF) Urine WBC (0-5/HPF) Ur Squamous Epith Cells (0-5/HPF) Urine Bacteria (None) Ur Culture Indicated? 01/06/22 Range/Units 02:40 WBC (4.5-11.0) X10^3/uL RBC (4.0-5.2) X10^6/uL Hgb (12.0-16.0) g/dL Hct (36-46) % MCV (80-100) fL MCH (26-34) PG MCHC (30-36) % RDW (11.6-14.8) % Plt Count (150-400) X10^3/uL Neut % (Auto) (50-75) % Lymph % (Auto) (25-40) % [place] % (Auto) (3-14) % Eos % (Auto) (2-4) % Baso % (Auto) (0-2) % Neut # (Auto) (2059-6337) /uL Lymph # (Auto) (5581-3381) /uL [place] # (Auto) (0-900) /uL Eos # (Auto) (0-450) /uL Baso # (Auto) (0-100) /uL Sodium (137-145) mmol/L Potassium (3.4-5.1) mmol/L Chloride (98-107) mmol/L Carbon Dioxide (22-32) mmol/L BUN (7-17) mg/dL Creatinine (0.52-1.04) mg/dL Estimated GFR (>60) mL/min BUN/Creatinine Ratio (6-22) Glucose (80-110) mg/dL Calcium (8.4-10.2) mg/dL Magnesium (1.6-2.3) mg/dL Total Bilirubin (0.2-1.3) mg/dL AST (14-36) IU/L ALT (<35) IU/L Alkaline Phosphatase (38-126) U/L Total Creatine Kinase (30-135) U/L CK-MB (CK-2) CK-MB (CK-2) Rel Index Troponin I (0.01-0.034) ng/mL NT-Pro-B Natriuret Pep (<450) pg/mL Total Protein (6.3-8.2) g/dL Albumin (3.5-5.0) g/dL Globulin (1.7-4.1) g/dL Albumin/Globulin Ratio (1.0-2.8) Lipase (23-300) U/L Urine Color Yellow Urine Appearance Clear Urine pH 6.5 (4.5-8.0) Ur Specific Regina 1.010 (1.000-1.035) Urine Protein Negative (Negative) Urine Glucose (UA) Negative (Negative) g/dL Urine Ketones Negative (NEGATIVE) Urine Occult Blood 1+ H (Negative) Urine Nitrate Negative (Negative) Urine Bilirubin Negative (NEGATIVE) Urine Urobilinogen 0.2 (0.2) E.U./dL Ur Leukocyte Esterase 2+ H (NEGATIVE) Urine RBC 0-1/hpf (0-5/HPF) Urine WBC 1-5/hpf (0-5/HPF) Ur Squamous Epith Cells 0-1 /hpf (0-5/HPF) Urine Bacteria Occasional (0-1) (None) Ur Culture Indicated? Specimen cultured Imaging Data Chest x-ray: Radiologist's Impression: [address] [address] XRay Report Signed Patient: Alivia Stockton MR#: [id number] : 1945 Acct:[id number] Age/Sex: 76 / F Date of Service: 01/06/22 Loc: ED Accession Number: [id number] ?? Procedure: XR chest 1V Ordering Provider: Fely Alcala D.O. PROCEDURE:? XR CHEST 1V ? INDICATIONS:? chest pain ? TECHNIQUE:? One view of the chest was acquired.? ? [facility] 7[facility]. ? FINDINGS:? ? Surgical changes and devices:? Left chest wall dual lead pacemaker and leads appear similar in position.? ? Lungs and pleura:? There is pulmonary vascular prominence suggestive of mild edema.? No focal consolidation.? No pleural effusions or pneumothorax.? ? Mediastinum:? Mediastinal contours appear normal.? Heart size is normal.? ? Bones and chest wall:? No suspicious bony lesions.? Overlying soft tissues appear unremarkable.? ? IMPRESSION:? ? 1. Suggestion of mild pulmonary edema.? No focal consolidation. ? ? Dictated by: Nasim Krueger M.D. on 01/06/2022 at 1:07 ? ? Approved by: Nasim Krueger M.D. on 01/06/2022 at 1:08?? ECG Data Attestation: I personally reviewed and interpreted this ECG as follows: Interpretation: Atrial paced ventricularly paced rhythm. Rate 83 NC 172, QRS of 156 and QTC of 521. No acute change. MDM Narrative Medical decision making narrative: 76-year-old female with known cardiac history with nausea, patient states she has had nausea on and off but this is little bit for more persistent than normal. She takes martha sometimes which is helpful. She does not feel like her AFib is worse than normal and is actually improved since her ablation in May. She has some mild abdominal discomfort but denies any pain she is very mildly tender on exam. Labs are reassuring, troponin was negative with negative EKG, chest x-ray shows mild change. Urine does show leukocyte esterase. Discussed with patient about getting additional imaging. Patient defers and would like to return home reviewed her urine shows possible infection and has been cultured. Discussed watchful waiting for culture results versus starting antibiotics but with her persistent nausea likes to go ahead start antibiotics. We did discuss differential including cardiac causes but seems less likely at t his time. Return precautions were discussed. Patient was also offered CT imaging but defers. Discharge Plan Departure Patient Disposition: Home Clinical Impression: Acute UTI, Nausea Instructions: DI for Urinary Tract Infection (UTI) Activity Restrictions/Additional Instructions: Follow-up with your physician in the next week. Take antibiotics until completely gone. You may take 1 tablet a Zofran every 6 hours as needed for nausea and vomiting. Prescription sent to [facility] in [place]. Please return for fevers, persistent vomiting, new or worsening abdominal, back or flank pain, passing out or lightheadedness, new swelling in your extremities other new or concerning symptoms. Prescriptions: New cephalexin 500 mg capsule 500 mg PO BID Qty: 10 0RF No Action cholecalciferol (vitamin D3) 125 mcg (5,000 unit) capsule 125 mcg PO DAILY 0RF B12 Active 1,000 mcg tablet,chewable 1,000 mcg PO DAILY 0RF diltiazem HCl 30 mg tablet 30 mg PO TID 0RF Label Comments: take 1 tablet by mouth three times a day Rx Instructions: 0700, 1400, 2100 dofetilide [Tikosyn] 500 mcg Capsule 500 mcg PO Q12H 0RF Rx Instructions: 0700/1900 pravastatin 20 mg Tablet 20 mg PO BEDTIME 0RF Xarelto 20 mg Tablet 20 mg PO QPM 0RF Referrals: Mark Brennan DO [Primary Care Provider] -
[2022-01-06 03:16] LABS: Appearance Urine UA CLEAR; Bilirubin Urine UA NEGATIVE (NEGATIVE); Color Urine UA YELLOW; Glucose Urine UA NEGATIVE (Negative); Ketones Urine UA NEGATIVE (NEGATIVE); Leukocyte Esterase Urine UA 2+ (NEGATIVE); Nitrite Urine UA NEGATIVE (Negative); Occult Blood Urine UA 1+ (Negative); Protein Urine UA NEGATIVE (Negative); Urobilinogen Urine UA 0.2 E.U./dL (0.2)
[2022-01-06 03:18] LABS: pH Urine UA 6.5 (4.5-8.0)
[2022-01-06 03:53] LABS: RBC Urine 0-1/HPF (0-5/HPF); Squamous Epithelial Cell Urine 0-1 /HPF (0-5/HPF); WBC Urine 1-5/HPF (0-5/HPF)
[2022-01-06 03:54] LABS: Bacteria Urine Occasional (0-1); Culture Indicated Urine Specimen Cultured
[2022-01-06] MEDS: cephALEXin 250 MG CAPSULE 500 MG PO (04:08)
[2022-01-06] MEDS: ONDANSETRON 4 MG ODT PREPACK 1 BOTTLE MISC (04:08)
[2022-01-06 04:16] VITALS: BP 134/83; PULSE 87; RESP 20; O2SAT 98
== END 2022-01-06 04:18 | disposition home or self-care (01) ==
PROVIDERS: Emergency Provider Emergency Medicine; PCP Family Medicine
DX: R42 Dizziness and giddiness (principal); N39.0 Urinary tract infection, site not specified; R11.0 Nausea; I48.91 Unspecified atrial fibrillation; Z95.0 Presence of cardiac pacemaker
CPT/HCPCS: 36415; 71045; 80053; 81001; 82550; 83690; 83735; 83880; 84484; 85025; 87086; 93005; 96374; 99284; J2405

== ENCOUNTER 2022-03-24 19:44 | Emergency (ER) | payer MEDICARE, OTHER, SELFPAY ==
[2018-08-11 17:25] VITALS: BMI 39.4
[2022-03-24 20:11] VITALS: BP 158/77; PULSE 51; RESP 20; TEMP 36.8; O2SAT 99; BMI 44.9
--- NOTE | 2022-03-24 20:16 | DI.RAD.S_ITS ---
PROCEDURE: XR CHEST 1V INDICATIONS: Chest pain TECHNIQUE: One view of the chest was acquired. COMPARISON: [facility], [facility], XR CHEST 1V, 01/06/2022, 0:32. FINDINGS: Left chest wall 2 lead cardiac pacing device with leads in normal in unchanged position when compared with prior study. Heart size is at the upper limits of normal. Diffusely increased interstitial markings, similar to but slightly less prominent than the prior study. No consolidative airspace opacity. No pleural effusion or pneumothorax. IMPRESSION: Increased interstitial markings may represent pulmonary edema. No acute finding otherwise. Dictated by: Matt Dougherty M.D. on 03/24/2022 at 21:10 Approved by: Matt Dougherty M.D. on 03/24/2022 at 21:11
[2022-03-24 20:30] VITALS: PULSE 92; RESP 16; O2SAT 99
--- NOTE | 2022-03-24 20:32 | ED_ITS ---
HPI - Chest Pain General Chief Complaint: Chest Pain Stated Complaint: irratic heart rate, o2 spikes and drops Time Seen by Provider: 03/24/22 20:28 Source: patient Mode of arrival: Wheelchair Limitations: no limitations History of Present Illness HPI narrative: 76-year-old female nonsmoker with history of bradycardia requiring a pacemaker, hypertension, AFib presents with her in the chief complaint of widely varying heart rates today including as low as the 40s and as high as the 120s and 130s. She is had ablations in the past and had a pacemaker placed last year which is now managed by cardiology at [facility]. She states she is been having some troubles lately and her primary care provider decreased her dose of diltiazem and she states yesterday she was seen by her intelligence director and had her pacemaker interrogated. She states that when her heart rate is low she notices she becomes dizzy, weak and lightheaded. She denies any fever or chills. She denies nausea, vomiting or diarrhea. She denies chest pain or shortness of breath. When she was checking in her heart rate was 47 since then she is been largely in the 90s and asymptomatic. Related Data Home Medications Medication Instructions Recorded Confirmed pravastatin 20 mg tablet 20 mg PO BEDTIME 02/19/18 02/25/22 rivaroxaban 20 mg tablet (Xarelto) 20 mg PO QPM 02/19/18 02/25/22 diltiazem HCl 30 mg tablet 30 mg PO TID 02/06/21 02/25/22 dofetilide 500 mcg capsule 500 mcg PO Q12H 02/06/21 02/25/22 (Tikosyn) cholecalciferol (vitamin D3) 125 125 mcg PO DAILY 11/02/21 02/25/22 mcg (5,000 unit) capsule mecobalamin (vitamin B12) 1,000 1,000 mcg PO DAILY 11/02/21 02/25/22 mcg chewable tablet (B12 Active) Allergies Allergy/AdvReac Type Severity Reaction Status Date / Time Beta-Blockers Allergy Severe Get all Verified 02/25/22 10:19 (Beta-Adrenergic Bloc the side effects flecainide Allergy Severe Get all Verified 02/25/22 10:19 the symptoms metoprolol Allergy Severe get all Verified 02/25/22 10:19 the side effects Review of Systems Review of Systems Narrative: GENERAL: Denies chills, fatigue, malaise, fever, sweats. HEENT: Denies sinus pain, ear pain, sore throat, difficulty swallowing, dizziness. RESPIRATORY: See HPI CARDIOVASCULAR: See HPI GASTROINTESTINAL: Denies nausea, vomiting, abdominal pain, diarrhea, constipation, melena. : Denies dysuria, frequency, incontinence, hematuria, urinary retention. MUSCULOSKELETAL: denies weakness, joint pain, or bony pain SKIN: Denies rash, skin lesions, or other NEUROLOGIC: Denies weakness, headache, numbness, change in speech, confusion, seizures, incoordination. PSYCHIATRIC: No concerning psychosocial issues. 12 point review of systems is negative except for those stated above Patient History Medical History Atrial fibrillation Atrial fibrillation (~2008) Cardiac arrhythmia (~2008) Cataracts, bilateral (~2010) Colitis (~2007) Colon polyps (~1999) Family history of breast cancer Fatigue GI bleeding (~2004) Hyperlipidemia Hypertension (~2004) Irritable bowel syndrome (~1999) Lower GI bleed Orthostatic hypotension Osteoarthritis (~2013) Osteoporosis (~2013) Sleep apnea (~2012) Strain of left hip Well adult Surgical History Anesthesia Cystocele (~03/2001) H/O abdominal hysterectomy (~04/1977) H/O laminectomy (~04/1990) History of cataract removal with insertion of prosthetic lens (~05/2001) Hx of cholecystectomy (~05/1978) Pacemaker (~2018) Family History Mother Breast cancer Diabetes mellitus Hyperlipidemia Hypertension Stroke Father No known health problems Grandfather Stroke Grandmother No problems noted. Grandfather Stroke Social History household members: spouse Smoking Status: Never smoker second hand exposure: No alcohol intake: never substance use type: does not use Smoking Status: Never smoker alcohol intake frequency: 0-2 drinks per day Substance Use Type: does not use Exam Narrative Exam Narrative: GENERAL: [76] year old patient appears stated age. Well-developed patient, in mild distress. HEAD: Atraumatic. Normocephalic. EYES: Pupils equal round and reactive. Extraocular motions intact. No scleral icterus. No injection or drainage. ENT: Nose without bleeding, purulent drainage. Throat without erythema, tonsillar hypertrophy or exudate. Airway patent. NECK: Trachea midline. Non tender CARDIOVASCULAR: Regular rate and rhythm without murmurs, gallops, or rubs. RESPIRATORY: Clear to auscultation. Breath sounds equal bilaterally. No wheezes, rales, or rhonchi. GASTROINTESTINAL: Abdomen soft, non-tender, nondistended. EXTREMITIES: No edema or joint tenderness. BACK: Nontender without deformity or crepitance. No flank tenderness. NEURO: AOx3. SKIN: No rash or erythema of visible areas Initial Vital Signs Initial Vital Signs: Vital Signs Temperature 98.2 F 03/24/22 20:11 Pulse Rate 51 L 03/24/22 20:11 Respiratory Rate 20 03/24/22 20:11 Blood Pressure 158/77 H 03/24/22 20:11 Pulse Oximetry 99 03/24/22 20:11 Oxygen Delivery Method 03/24/22 20:11 Course Orders Ordered: ED Orders 03/24/22 23:05 Troponin & CK Cardiac Panel Stat Consultations Consultation #1: [id number] call to [facility] Chart and recent visits reviewed and though the temporal relationship between patient feeling worse and changes to pacemaker can not be ignored there were no changes in ventricular aspect, there is no risk send patient home and no need fo r immediate intervention, recommends patient given reassurance, return precautions and encouraged to call Cardiology Clinic in the morning so they can get her back in 2 re-evaluate pacemaker settings Vital Signs Vital signs: Vital Signs - 8 hr 03/25/22 00:00 Pulse Rate 79 Respiratory Rate 18 Pulse Oximetry 99 MDM - Chest Pain Lab Data Result diagrams: 03/24/22 20:52 03/24/22 21:50 Labs: Lab Results 03/24/22 03/24/22 03/24/22 Range/Units 20:52 20:52 21:50 WBC 7.3 (4.5-11.0) X10^3/uL RBC 4.66 (4.0-5.2) X10^6/uL Hgb 13.8 (12.0-16.0) g/dL Hct 40.9 (36-46) % MCV 87.7 (80-100) fL MCH 29.6 (26-34) PG MCHC 33.7 (30-36) % RDW 13.7 (11.6-14.8) % Plt Count 181 (150-400) X10^3/uL Neut % (Auto) 59.5 (50-75) % Lymph % (Auto) 27.1 (25-40) % Summers % (Auto) 8.7 (3-14) % Eos % (Auto) 2.7 (2-4) % Baso % (Auto) 2.0 (0-2) % Neut # (Auto) 4300 (7239-5847) /uL Lymph # (Auto) 2000 (3253-0457) /uL Summers # (Auto) 600 (0-900) /uL Eos # (Auto) 200 (0-450) /uL Baso # (Auto) 100 (0-100) /uL PT 13.3 H (10.1-12.7) SECONDS INR 1.2 (0.9-1.3) APTT 35 (26.4-36.2) SECONDS Sodium 142 (137-145) mmol/L Potassium 4.1 (3.4-5.1) mmol/L Chloride 107 (98-107) mmol/L Carbon Dioxide 26 (22-32) mmol/L BUN 16 (7-17) mg/dL Creatinine 0.70 (0.52-1.04) mg/dL Estimated GFR > 60 (>60) mL/min BUN/Creatinine Ratio 22.9 H (6-22) Glucose 99 (80-110) mg/dL Calcium 8.9 (8.4-10.2) mg/dL Magnesium 2.2 (1.6-2.3) mg/dL Total Bilirubin 0.1 L (0.2-1.3) mg/dL AST 30 (14-36) IU/L ALT 21 (<35) IU/L Alkaline Phosphatase 83 (38-126) U/L Total Creatine Kinase 67 (30-135) U/L CK-MB (CK-2) TNP CK-MB (CK-2) Rel Index TNP Troponin I < 0.012 (0.01-0.034) ng/mL Total Protein 7.6 (6.3-8.2) g/dL Albumin 4.1 (3.5-5.0) g/dL Globulin 3.5 (1.7-4.1) g/dL Albumin/Globulin Ratio 1.2 (1.0-2.8) Lipase 201 (23-300) U/L 03/24/22 Range/Units 23:05 WBC (4.5-11.0) X10^3/uL RBC (4.0-5.2) X10^6/uL Hgb (12.0-16.0) g/dL Hct (36-46) % MCV (80-100) fL MCH (26-34) PG MCHC (30-36) % RDW (11.6-14.8) % Plt Count (150-400) X10^3/uL Neut % (Auto) (50-75) % Lymph % (Auto) (25-40) % Summers % (Auto) (3-14) % Eos % (Auto) (2-4) % Baso % (Auto) (0-2) % Neut # (Auto) (3859-9954) /uL Lymph # (Auto) (5561-0158) /uL Summers # (Auto) (0-900) /uL Eos # (Auto) (0-450) /uL Baso # (Auto) (0-100) /uL PT (10.1-12.7) SECONDS INR (0.9-1.3) APTT (26.4-36.2) SECONDS Sodium (137-145) mmol/L Potassium (3.4-5.1) mmol/L Chloride (98-107) mmol/L Carbon Dioxide (22-32) mmol/L BUN (7-17) mg/dL Creatinine (0.52-1.04) mg/dL Estimated GFR (>60) mL/min BUN/Creatinine Ratio (6-22) Glucose (80-110) mg/dL Calcium (8.4-10.2) mg/dL Magnesium (1.6-2.3) mg/dL Total Bilirubin (0.2-1.3) mg/dL AST (14-36) IU/L ALT (<35) IU/L Alkaline Phosphatase (38-126) U/L Total Creatine Kinase 64 (30-135) U/L CK-MB (CK-2) TNP CK-MB (CK-2) Rel Index TNP Troponin I < 0.012 (0.01-0.034) ng/mL Total Protein (6.3-8.2) g/dL Albumin (3.5-5.0) g/dL Globulin (1.7-4.1) g/dL Albumin/Globulin Ratio (1.0-2.8) Lipase (23-300) U/L Imaging Data Chest x-ray: Radiologist's Impression: ? Chart Viewer Diagnostics Subcategory All Activity ??:?? All Time ??:?? All Subcategories Filter Laboratory Imaging Microbiology Pathology Blood Bank Tests Cardiovascular Other Specialty DATE TYPE STATUS REF RANGE/AUTHOR Hx 03/24/22 20:16 Chest X-Ray Signed Matt Dougherty 01/06/22 00:00 Chest X-Ray Signed Nasim Krueger 11/02/21 09:41 Lumbar Spine X-Ray Signed Francois Rodriguez 06/25/21 00:00 Mammogram Screening Signed Arik Nicholas 06/16/21 07:[address] Signed Christina Winslow 06/16/21 06:54 Chest X-Ray Signed Bossman Espino 02/06/21 13:22 Chest X-Ray Signed Fer Gardner 11/01/20 03:10 Abdomen/Pelvis CT Signed Troy Betts 11/01/20 01:28 Chest/Abdomen X-ray Signed Troy Betts 10/31/20 12:49 EKG Rpt. with notes 06/06/20 00:00 Mammogram Screening Signed Opal Moon 05/25/19 00:00 Mammogram Screening Signed Aquilino Lombardi 08/11/18 17:21 Telemetry Strips ? 08/11/18 17:21 Telemetry Strips ? 08/11/18 15:11 Chest X-Ray Signed Gustavo Leonardo 07/27/18 22:44 Chest X-Ray Signed Christina Winslow 05/25/18 00:00 Mammogram Screening Signed Opal Moon 02/19/18 10:04 Chest X-Ray Signed Dante Garrison 02/19/18 09:53 Telemetry Strips ? Alivia Stockton ED 76, F?1945 MRN#? [id number] DEP ER,?Main ED??? 160.02cm 115.212kg BMI: 45.0kg/m? Chest Pain Acc#? [id number] Resus Status Not Ordered Hx Avail Special Indicators No Data to Display Home Meds Not Confirmed Prescription Monitoring Program MEDICATIONS (INSTRUCTIONS) LAST TAKEN Active ??cholecalciferol (vitamin D3) 125 mcg (5,000 unit) capsule ??125 mcgPODAILY ??diltiazem HCl ??30 mgPOTID ??dofetilide [Tikosyn] ??500 [id number] ??mecobalamin (vitamin B12) 1,000 mcg chewable tablet ??1,000 mcgPODAILY ??pravastatin ??20 mgPOBEDTIME ??Xarelto ??20 mgPOQPM Allergies Beta-Blockers (Beta-Adrenergic Bloc Get all the side effects flecainide Get all the symptoms metoprolol get all the side effects Problems ? ONSET Heart palpitations Orthostatic hypotension Strain of left hip Hyperlipidemia Fatigue Hypertension ~2004 Family history of breast cancer Colon polyps ~1999 Well adult Osteoarthritis ~2013 Sleep apnea ~2012 Osteoporosis ~2013 Chronic back pain ~1989 Irritable bowel syndrome ~1999 Atrial fibrillation ~2008 Cardiac arrhythmia ~2008 Bronchitis Pneumonia Palpitations Diarrhea Vomiting Nausea Chest pain Chest pain, rule out acute myocardial infarction A-fib Atypical chest pain Pleurisy Atypical pneumonia Bradycardia Vital Signs Today 00:00 Pulse 79? Resp 18? O2 Sat 99? Diagnostics Reports Tsockton,Alivia B??76??F??1945 ? Allergy/Adv: Beta-Blockers (Beta-Adrenergic Bloc, flecainide, metoprolol (More??) Close Chest X-Ray (Signed) Matt Dougherty - 03/24/22 Chest X-Ray (Signed) Nasim Krueger - 01/06/22 Lumbar Spine X-Ray (Signed) Francois Rodriguez - 11/02/21 Mammogram Screening (Signed) Arik Nicholas - 06/25/[address] (Signed) Christina Winslow - 06/16/21 Chest X-Ray (Signed) Bossman Espino - 06/16/21 Chest X-Ray (Signed) Fer Gardner - 02/06/21 Abdomen/Pelvis CT (Signed) Troy Betts - 11/01/20 Chest/Abdomen X-ray (Signed) Troy Betts - 11/01/20 EKG Rpt. 10/31/20 Mammogram Screening (Signed) Opal Moon - 06/06/20 Mammogram Screening (Signed) Aquilino Lombardi - 05/25/19 Telemetry Strips 08/11/18 Telemetry Strips 08/11/18 Chest X-Ray (Signed) Gustavo Leonardo - 08/11/18 Chest X-Ray (Signed) Christina Winslow - 07/27/18 Mammogram Screening (Signed) Opal Moon - 05/25/18 Chest X-Ray (Signed) Dante Garrison - 02/19/18 Telemetry Strips 02/19/18 Launch?Image [address] [address] XRay Report Signed Patient: Alivia Stockton MR#: [id number] : 1945 Acct:[id number] Age/Sex: 76 / F Date of Service: 03/24/22 Loc: ED Accession Number: [id number] ?? Procedure: XR chest 1V Ordering Provider: Rosendo Julian D.O. PROCEDURE:? XR CHEST 1V ? INDICATIONS:? Chest pain ? TECHNIQUE:? One view of the chest was acquired.? ? COMPARISON:? [facility], , XR CHEST 1V, 01/06/2022, 0:32. ? FINDINGS:? ? Left chest wall 2 lead cardiac pacing device with leads in normal in unchanged position when compared with prior study.? Heart size is at the upper limits of normal.? Diffusely increased interstitial markings, similar to but slightly less prominent than the prior study.? No consolidative airspace opacity.? No pleural effusion or pneumothorax. ? IMPRESSION:? Increased interstitial markings may represent pulmonary edema.? No acute finding otherwise. ? Dictated by: Matt Dougherty M.D. on 03/24/2022 at 21:10 ? ? Approved by: Matt Dougherty M.D. on 03/24/2022 at 21:11 ? MDM Narrative Medical decision making narrative: Patient with very reassuring physical exam, labs and EKGs. Her pacemaker has been interrogated and no significant findings noted. She is been feeling increased palpitations and some weakness since recent pacemaker settings which have been reviewed with her intelligence director. She will contact their office later in the day to set up follow-up. She is been given return precautions and questions answered to her apparent satisfaction Discharge Plan Departure Patient Disposition: Home Clinical Impression: Heart palpitations Instructions: DI for Arrhythmias Activity Restrictions/Additional Instructions: *You have been diagnosed with [ palpitations. As we discussed your history and physical exam are very reassuring as are the labs, EKGs and pictures. I have discussed this with the on-call intelligence director for your group and they state they would like you to call in the morning so they can discuss getting you back for an appointment to readjust your pacemaker] *What to do: *Please continue to take your regular medications as directed. * please call your intelligence director's office later this morning and let them know you were seen in the emergency department and we would like you seen in follow- up. Return to Emergency Department if you should have any new, worsening or concerning symptoms, such as [fever greater than 101 F, shaking chills, worsening pain, persistent vomiting or other bothersome symptoms] Prescriptions: No Action cholecalciferol (vitamin D3) 125 mcg (5,000 unit) capsule 125 mcg PO DAILY B12 Active 1,000 mcg tablet,chewable 1,000 mcg PO DAILY diltiazem HCl 30 mg tablet 30 mg PO TID Label Comments: take 1 tablet by mouth three times a day Rx Instructions: 0700, 1400, 2100 dofetilide [Tikosyn] 500 mcg Capsule 500 mcg PO Q12H Rx Instructions: 0700/1900 pravastatin 20 mg Tablet 20 mg PO BEDTIME Xarelto 20 mg Tablet 20 mg PO QPM Referrals: Mark Brennan DO [Primary Care Provider] - Visit Report Forms: Patient Portal/API
--- NOTE | 2022-03-24 20:47 | PC.NURSE ---
Pt [employer] Pacemaker interrogated.
[2022-03-24 21:00] VITALS: PULSE 90; RESP 16; O2SAT 98
[2022-03-24 21:00] LABS: Add Manual Diff / Slide Review NO; Basophils Absolute Auto 100 /uL (0-100); Eosinophils Absolute Auto 200 /uL (0-450); Eosinophils Percent Auto 2.7 % (2-4); Hematocrit 40.9 % (36-46); Hemoglobin 13.8 g/dL (12.0-16.0); Lymphocytes Absolute Auto 2000 /uL (1100-4500); Lymphocytes Percent Auto 27.1 % (25-40); Mean Corpuscular HGB Conc 33.7 % (30-36); Mean Corpuscular Hemoglobin 29.6 PG (26-34); Mean Corpuscular Volume 87.7 fL (80-100); Monocytes Absolute Auto 600 /uL (0-900); Monocytes Percent Auto 8.7 % (3-14); Neutrophils Absolute Auto 4300 /uL (1500-7000); Neutrophils Percent Auto 59.5 % (50-75); Platelet Count 181 X10^3/uL (150-400); Red Blood Cell Count 4.66 X10^6/uL (4.0-5.2); Red Cell Distribution Width 13.7 % (11.6-14.8); White Blood Cell Count 7.3 X10^3/uL (4.5-11.0)
[2022-03-24 21:07] LABS: INR 1.2 (0.9-1.3); Prothrombin Time 13.3 SECONDS (10.1-12.7)
[2022-03-24 21:10] LABS: PTT Partial Thromboplastin Tim 35 SECONDS (26.4-36.2)
[2022-03-24 21:30] VITALS: PULSE 88; RESP 16; O2SAT 99
[2022-03-24 22:00] VITALS: PULSE 88; RESP 18; O2SAT 99
[2022-03-24 22:11] LABS: Alanine Aminotransferase 21 IU/L (<35); Albumin 4.1 g/dL (3.5-5.0); Albumin Globulin Ratio 1.2 (1.0-2.8); Alkaline Phosphatase 83 U/L (38-126); Aspartate Aminotransferase 30 IU/L (14-36); BUN Creatinine Ratio 22.9 (6-22); Bilirubin Total 0.1 mg/dL (0.2-1.3); Blood Urea Nitrogen 16 mg/dL (7-17); Calcium 8.9 mg/dL (8.4-10.2); Carbon Dioxide 26 mmol/L (22-32); Chloride 107 mmol/L (98-107); Creatine Kinase 67 U/L (30-135); Estimated Glomerular Filt Rate > 60 mL/min (>60); Globulin 3.5 g/dL (1.7-4.1); Glucose 99 mg/dL (80-110); HEMOLYSIS 19 (0-50); Lipase 201 U/L (23-300); Magnesium 2.2 mg/dL (1.6-2.3); Potassium 4.1 mmol/L (3.4-5.1); Sodium 142 mmol/L (137-145); Total Protein 7.6 g/dL (6.3-8.2)
[2022-03-24 22:22] LABS: Troponin I < 0.012 ng/mL (0.01-0.034)
[2022-03-24 23:36] LABS: Creatine Kinase 64 U/L (30-135)
[2022-03-24 23:49] LABS: Troponin I < 0.012 ng/mL (0.01-0.034)
[2022-03-25] VITALS: PULSE 79; RESP 18; O2SAT 99
== END 2022-03-25 01:49 | disposition home or self-care (01) ==
PROVIDERS: Emergency Provider Emergency Medicine; PCP Family Medicine
DX: R00.2 Palpitations (principal); R00.1 Bradycardia, unspecified; Z95.0 Presence of cardiac pacemaker
CPT/HCPCS: 36415; 71045; 80053; 82550; 83690; 83735; 84484; 85025; 85610; 85730; 93005; 99283

== ENCOUNTER → 2022-04-29 14:25 | Outpatient (CLI) | payer MEDICARE, OTHER, SELFPAY ==
[2018-08-11 17:25] VITALS: BMI 39.4
--- NOTE | 2022-04-29 14:27 | DI.US.S_ITS ---
PROCEDURE: US EXTREMITY NONVASC LOWER LT INDICATIONS: MASS VS BLOOD CLOT, CLARIFIED BY MARK SALEH ONLY NOT DVT TECHNIQUE: Real-time scanning was performed of the left calf, with image documentation. COMPARISON: None. FINDINGS: Small area of varicosities are noted in left medial posterior calf soft tissue. No discrete soft tissue mass or fluid collection is seen. IMPRESSION: No soft tissue mass or fluid collection is seen. Small amount of air cos ease in posterior medial left calf soft tissue. Dictated by: Raimundo Hassan M.D. on 04/29/2022 at 15:49 Approved by: Raimundo Hassan M.D. on 04/29/2022 at 15:50
== END ==
PROVIDERS: PCP Family Medicine; Referring Provider Dermatology; Visit Provider Dermatology
DX: D48.5 Neoplasm of uncertain behavior of skin (principal)
CPT/HCPCS: 76882

== ENCOUNTER → 2022-06-05 09:46 | Outpatient (CLI) | payer MEDICARE, OTHER, SELFPAY ==
[2018-08-11 17:25] VITALS: BMI 39.4
== END ==
PROVIDERS: PCP Family Medicine; Visit Provider Nurse Practitioner Family
DX: R30.0 Dysuria (principal)
CPT/HCPCS: 87086

== ENCOUNTER 2022-06-09 08:11 | Emergency (ER) | payer MEDICARE, OTHER, SELFPAY ==
[2018-08-11 17:25] VITALS: BMI 39.4
[2022-06-09 08:25] VITALS: BP 185/81; PULSE 73; RESP 18; TEMP 36.4; O2SAT 97; BMI 44.2
--- NOTE | 2022-06-09 08:39 | DI.RAD.S_ITS ---
PROCEDURE: XR LUMBAR SPINE 2-3V INDICATIONS: LBP hx of L5 Surgery TECHNIQUE: 3 views of the lumbar spine were acquired. COMPARISON: [facility], CR, XR LUMBAR SPINE MIN 4V, 11/02/2021, 9:34. FINDINGS: Bones: 5 [id number] vertebrae are present. Mild left convexity curvature centered at L3. 3 millimeters retrolisthesis L2 on L3, 2 millimeters anterolisthesis L4 on L5. Moderate-severe multilevel degenerative changes redemonstrated with disc height loss, endplate spurring and facet degenerative changes. Facet degenerative changes most pronounced at L5-S1, L4-L5. No vertebral body compression fractures. No suspicious bony lesions. Soft tissues: Overlying bowel gas pattern is normal. No suspicious soft tissue calcifications. IMPRESSION: 1. No acute lumbar spine fracture visualized radiographically. 2. Moderate-severe multilevel degenerative changes. Dictated by: Bossman York M.D. on 06/09/2022 at 8:56 Approved by: Bossman York M.D. on 06/09/2022 at 8:59
--- NOTE | 2022-06-09 08:42 | ED.BACK ---
HPI - Back Pain/Injury General Chief Complaint: Back Pain/Injury Stated Complaint: Left leg pain and weakness 24 hrs Time Seen by Provider: 06/09/22 08:31 Source: patient Mode of arrival: Wheelchair Limitations: no limitations History of Present Illness HPI Narrative: Patient is a 76 year old female who is here for evaluation of left-sided lower back pain/buttocks pain that is radiating down her left leg. She has had issues in the past. Has had a surgery approximately 30 years ago on the L5 region. Has had intermittent pain in this area since then but 2 days ago she was out on a walk where she felt like things were getting ?tight? she was still able to ambulate. Yesterday she stood up and had to sit back down because she had an increase in the tenderness on the left side. It does radiate down to her left knee. No urinary or bowel symptoms. No fevers. She did not fall. She tried Tylenol without any improvement. She had some leftover hydrocodone after having her pacemaker placed and she took that last evening. She states she does not like the way that it makes her feel because she gets dizzy with it. Related Data Home Medications Medication Instructions Recorded Confirmed pravastatin 20 mg tablet 20 mg PO BEDTIME 02/19/18 06/05/22 rivaroxaban 20 mg tablet (Xarelto) 20 mg PO QPM 02/19/18 06/05/22 diltiazem HCl 30 mg tablet 30 mg PO TID 02/06/21 06/05/22 dofetilide 500 mcg capsule 500 mcg PO Q12H 02/06/21 06/05/22 (Tikosyn) cholecalciferol (vitamin D3) 125 125 mcg PO DAILY 11/02/21 06/05/22 mcg (5,000 unit) capsule mecobalamin (vitamin B12) 1,000 1,000 mcg PO DAILY 11/02/21 06/05/22 mcg chewable tablet (B12 Active) Previous Rx's Medication Instructions Recorded prednisone 20 mg tablet 20 mg PO DAILY 7 days #7 tabs 06/09/22 Allergies Allergy/AdvReac Type Severity Reaction Status Date / Time Beta-Blockers Allergy Severe Get all Verified 06/09/22 08:28 (Beta-Adrenergic Bloc the side effects flecainide Allergy Severe Get all Verified 06/09/22 08:28 the symptoms metoprolol Allergy Severe get all Verified 06/09/22 08:28 the side effects Review of Systems Constitutional Constitutional: Reports system reviewed and no additional complaints, except as documented Gastrointestinal Gastrointestinal: Reports system reviewed and no additional complaints, except as documented Genitourinary Genitourinary: Reports system reviewed and no additional complaints, except as documented Musculoskeletal Musculoskeletal: Reports system reviewed and no additional complaints, except as documented Integumentary/Breasts Skin/Breast: Reports system reviewed and no additional complaints, except as documented Neurologic Neurologic: Reports system reviewed and no additional complaints, except as documented Hematologic/Lymphatic On Anticoagulants: Yes Patient History Medical History Atrial fibrillation Atrial fibrillation (~2008) Cardiac arrhythmia (~2008) Cataracts, bilateral (~2010) Colitis (~2007) Colon polyps (~1999) Family history of breast cancer Fatigue GI bleeding (~2004) Hyperlipidemia Hypertension (~2004) Irritable bowel syndrome (~1999) Lower GI bleed Orthostatic hypotension Osteoarthritis (~2013) Osteoporosis (~2013) Sleep apnea (~2012) Strain of left hip Well adult Surgical History Anesthesia Cystocele (~03/2001) H/O abdominal hysterectomy (~04/1977) H/O laminectomy (~04/1990) History of cataract removal with insertion of prosthetic lens (~05/2001) Hx of cholecystectomy (~05/1978) Pacemaker (~2018) Family History Mother Breast cancer Diabetes mellitus Hyperlipidemia Hypertension Stroke Father No known health problems Grandfather Stroke Grandmother No problems noted. Grandfather Stroke Social History household members: spouse Smoking Status: Never smoker second hand exposure: No alcohol intake: never substance use type: does not use Smoking Status: Never smoker alcohol intake frequency: 0-2 drinks per day Substance Use Type: does not use Exam Initial Vital Signs Initial Vital Signs: Vital Signs Temperature 97.5 F L 06/09/22 08:25 Pulse Rate 73 06/09/22 08:25 Respiratory Rate 18 06/09/22 08:25 Blood Pressure 185/81 H 06/09/22 08:25 Pulse Oximetry 97 06/09/22 08:25 Oxygen Delivery Method 06/09/22 08:25 Const General: cooperative, comfortable and well developed HENMT Head: normal to inspection and normocephalic Resp Effort & Inspection: normal respiratory effort Cardio Rate: regular rate GI Inspection: normal to inspection and non-distended Palpation: soft and No tender Back/Spine/Pelvis Thoracic/Lumbar Spine: paraspinal tenderness (Left-sided lumbar), No thoracic spinal tenderness and lumbar spinal tenderness Skin General: no rashes or lesions noted Neuro General: patient alert, patient awake, patient oriented x3 and moves all extremities Cognition: normal cognition Extrem General: normal to inspection and capillary refill normal Course Orders Ordered: ED Orders 06/09/22 08:39 XR lumbar spine 2-3V Stat Vital Signs Vital signs: Vital Signs - 8 hr 06/09/22 08:25 Temperature 97.5 F L Pulse Rate 73 Respiratory Rate 18 Blood Pressure 185/81 H Pulse Oximetry 97 Oxygen Delivery Method Room Air MDM - Back Pain/Injury Imaging Data lumbar spine: Radiologist's Impression: [address] [address] XRay Report Signed Patient: Alivia Stockton MR#: [id number] : 1945 Acct:[id number] Age/Sex: 76 / F Date of Service: 06/09/22 Loc: ED Accession Number: [id number] ?? Procedure: XR lumbar spine 2-3V Ordering Provider: Long Rosales D.O. PROCEDURE:? XR LUMBAR SPINE 2-3V ? INDICATIONS:? LBP hx of L5 Surgery ? TECHNIQUE:? 3 views of the lumbar spine were acquired.? ? COMPARISON:? [facility], CR, XR LUMBAR SPINE MIN 4V, 11/02/2021, 9:34. ? FINDINGS:? ? Bones:? 5 [id number] vertebrae are present.? Mild left convexity curvature centered at L3.? 3 millimeters retrolisthesis L2 on L3, 2 millimeters anterolisthesis L4 on L5.? Moderate-severe multilevel degenerative changes redemonstrated with disc height loss, endplate spurring and facet degenerative changes.? Facet degenerative changes most pronounced at L5-S1, L4-L5. ? No vertebral body compression fractures.? No suspicious bony lesions.? ? Soft tissues:? Overlying bowel gas pattern is normal.? No suspicious soft tissue calcifications.? ? ? IMPRESSION:? 1. No acute lumbar spine fracture visualized radiographically. 2. Moderate-severe multilevel degenerative changes. ? ? Dictated by: Bossman Yrok M.D. on 06/09/2022 at 8:56 ? ? Approved by: Bossman York M.D. on 06/09/2022 at 8:59?? MDM Narrative Medical decision making narrative: X-ray is unremarkable. Suspect musculoskeletal etiology and most likely muscular. She does not like the way that the hydrocodone makes her feel. She is been on steroids in the past which has helped these symptoms. Will start her on a short course of steroids. No further workup required in the emergency department. She was given return precautions. She expressed understanding and agreement. Discharge Plan Departure Patient Disposition: Home Clinical Impression: Lumbar back pain with radiculopathy affecting left lower extremity Instructions: DI for Low Back Pain Activity Restrictions/Additional Instructions: Recommend that you continue to take all of your medications as directed. Contact your primary doctor for a follow-up. Return to the emergency department for any new or worsening symptoms Prescriptions: New prednisone 20 mg tablet 20 mg PO DAILY 7 Days Qty: 7 0RF No Action cholecalciferol (vitamin D3) 125 mcg (5,000 unit) capsule 125 mcg PO DAILY B12 Active 1,000 mcg tablet,chewable 1,000 mcg PO DAILY diltiazem HCl 30 mg tablet 30 mg PO TID Label Comments: take 1 tablet by mouth three times a day Rx Instructions: 0700, 1400, 2100 dofetilide [Tikosyn] 500 mcg Capsule 500 mcg PO Q12H Rx Instructions: 0700/1900 pravastatin 20 mg Tablet 20 mg PO BEDTIME Xarelto 20 mg Tablet 20 mg PO QPM Referrals: Mark Brennan DO [Primary Care Provider] -
== END 2022-06-09 09:55 | disposition home or self-care (01) ==
PROVIDERS: Emergency Provider Emergency Medicine; PCP Family Medicine
DX: M54.16 Radiculopathy, lumbar region (principal)
CPT/HCPCS: 72100; 99281; 99283

== ENCOUNTER → 2022-06-27 11:26 | Outpatient (CLI) | payer MEDICARE, OTHER, SELFPAY ==
[2018-08-11 17:25] VITALS: BMI 39.4
--- NOTE | 2022-06-27 11:27 | DI.RAD.S_ITS ---
PROCEDURE: XR CHEST 2V INDICATIONS: persistent cough TECHNIQUE: 2 views of the chest were acquired. COMPARISON: [facility], CR, XR CHEST 1V, 03/24/2022, 21:02. [facility], CR, XR CHEST 1V, 01/06/2022, 0:32. FINDINGS: Surgical changes and devices: Left pacemaker with right atrial and right ventricular leads. Lungs and pleura: No consolidation. Prominent pulmonary vasculature markings. No pleural effusions or pneumothorax. Mediastinum: Mediastinal contours are unchanged. Heart size is within normal limits. Bones and chest wall: No suspicious bony abnormalities. Soft tissues appear unremarkable. IMPRESSION: Suspect pulmonary vasculature engorgement. Dictated by: Arik Nicholas M.D. on 06/27/2022 at 11:59 Approved by: Arik Nicholas M.D. on 06/27/2022 at 12:01
== END ==
PROVIDERS: PCP Family Medicine; Referring Provider Family Medicine; Visit Provider Family Medicine
DX: R05.3 Chronic cough (principal)
CPT/HCPCS: 71046

== ENCOUNTER → 2022-07-07 07:32 | Outpatient (CLI) | payer MEDICARE, OTHER, SELFPAY ==
[2018-08-11 17:25] VITALS: BMI 39.4
[2022-07-07 09:16] LABS: Add Manual Diff / Slide Review NO; Basophils Absolute Auto 0 /uL (0-100); Basophils Percent Auto 0.8 % (0-2); Eosinophils Absolute Auto 200 /uL (0-450); Eosinophils Percent Auto 2.4 % (2-4); Hematocrit 39.4 % (36-46); Hemoglobin 13.1 g/dL (12.0-16.0); Lymphocytes Absolute Auto 2100 /uL (1100-4500); Lymphocytes Percent Auto 32.5 % (25-40); Mean Corpuscular HGB Conc 33.3 % (30-36); Mean Corpuscular Hemoglobin 29.2 PG (26-34); Mean Corpuscular Volume 87.7 fL (80-100); Monocytes Absolute Auto 600 /uL (0-900); Monocytes Percent Auto 9.6 % (3-14); Neutrophils Absolute Auto 3600 /uL (1500-7000); Neutrophils Percent Auto 54.7 % (50-75); Platelet Count 184 X10^3/uL (150-400); Red Blood Cell Count 4.49 X10^6/uL (4.0-5.2); Red Cell Distribution Width 14.2 % (11.6-14.8); White Blood Cell Count 6.5 X10^3/uL (4.5-11.0)
[2022-07-07 10:48] LABS: Alanine Aminotransferase 19 IU/L (<35); Albumin 3.9 g/dL (3.5-5.0); Albumin Globulin Ratio 1.2 (1.0-2.8); Alkaline Phosphatase 88 U/L (38-126); Aspartate Aminotransferase 23 IU/L (14-36); BUN Creatinine Ratio 17.5 (6-22); Bilirubin Total 0.3 mg/dL (0.2-1.3); Blood Urea Nitrogen 14 mg/dL (7-17); Calcium 8.5 mg/dL (8.4-10.2); Carbon Dioxide 21 mmol/L (22-32); Chloride 105 mmol/L (98-107); Estimated Glomerular Filt Rate > 60 mL/min (>60); Globulin 3.3 g/dL (1.7-4.1); Glucose 89 mg/dL (80-110); HEMOLYSIS < 15 (0-50); Magnesium 2.1 mg/dL (1.6-2.3); Phosphorous 3.5 mg/dL (2.8-4.1); Potassium 4.3 mmol/L (3.4-5.1); Sodium 138 mmol/L (137-145); Total Protein 7.2 g/dL (6.3-8.2)
== END ==
PROVIDERS: PCP Family Medicine; Referring Provider Internal Medicine Cardiovascular Disease; Visit Provider Internal Medicine Cardiovascular Disease
DX: I47.1 Supraventricular tachycardia (principal); I48.19 Other persistent atrial fibrillation
CPT/HCPCS: 36415; 80053; 80069; 83735; 85025

== ENCOUNTER → 2022-07-12 14:12 | Outpatient (CLI) | payer MEDICARE, OTHER, SELFPAY ==
[2018-08-11 17:25] VITALS: BMI 39.4
--- NOTE | 2022-07-12 | DI.MG.S_ITS ---
BILATERAL DIGITAL SCREENING MAMMOGRAM 3D/2D WITH CAD: 07/12/2022 CLINICAL: Routine screening. Family history of breast cancer. Comparison is made to exams dated: 06/25/2021 mammogram, 06/06/2020 mammogram, and 05/25/2019 mammogram - [facility]. There are scattered areas of fibroglandular density in both breasts (category b / 25%-50% glandular tissue). Current study was also evaluated with a Computer Aided Detection (CAD) system. No significant masses, calcifications, or other findings are seen in either breast. There has been no significant interval change. IMPRESSION: NEGATIVE There is no mammographic evidence of malignancy. A 1 year screening mammogram is recommended. Based on the Tyrer Cuzick model (a risk assessment model) the patient's lifetime risk is 5.4% and her 10 year risk is 0.0%. According to the ACR, ACS, and NCCN guidelines, an annual breast MRI exam along with mammogram is recommended if the patient's lifetime risk is 20% or greater. This exam was interpreted at Station ID: [id number]. NOTE: For mammograms, a report in lay terms will be sent to the patient. Approximately 15% of breast malignancies will not be visualized mammographically. In the management of a palpable breast mass, a negative mammogram must not discourage biopsy of a clinically suspicious lesion. Electronically Signed By: Mayte [email or web address]:07/12/2022 16:46:57 copy to: Dieudonne Mcfarlane, [facility], [address], ph: [phone], fax: [phone] letter sent: Normal Exam ACR BI-RADS Category 1: Negative [id number]
== END ==
PROVIDERS: PCP Family Medicine; Referring Provider Family Medicine; Visit Provider Family Medicine
DX: Z12.31 Encounter for screening mammogram for malignant neoplasm of breast (principal); Z80.3 Family history of malignant neoplasm of breast
CPT/HCPCS: 77063; 77067

== ENCOUNTER → 2022-09-02 10:25 | Outpatient (CLI) | payer MEDICARE, OTHER, SELFPAY ==
[2018-08-11 17:25] VITALS: BMI 39.4
[2022-09-02 11:35] LABS: COVID-19 CEPHEID 4-PLEX PCR Negative (Negative); Influenza A - CEPHEID Flu A NEGATIVE (NEGATIVE); Influenza B - CEPHEID Flu B NEGATIVE (NEGATIVE); Respiratory Syncytial Virus Negative (Negative)
== END ==
PROVIDERS: PCP Family Medicine; Visit Provider Student in an Organized Health Care Education/Training Program
DX: J06.9 Acute upper respiratory infection, unspecified (principal); Z20.822 Contact with and (suspected) exposure to COVID-19
CPT/HCPCS: 0241U

== ENCOUNTER → 2022-09-02 10:35 | Outpatient (CLI) | payer MEDICARE, OTHER, SELFPAY ==
[2018-08-11 17:25] VITALS: BMI 39.4
--- NOTE | 2022-09-02 10:36 | DI.RAD.S_ITS ---
PROCEDURE: XR ABDOMEN MIN 2V INDICATIONS: LLQ abd pain, hx diverticulitis TECHNIQUE: 2 views of the abdomen were acquired. COMPARISON: None. FINDINGS: Surgical changes and devices: None. Bowel: No pneumoperitoneum. The bowel gas pattern is normal. Soft tissues: No masses; visualized solid organ contours appear normal in size. No suspicious abdominal calcifications. Bones: No suspicious bony abnormalities. IMPRESSION: Unremarkable exam. Dictated by: Irma Coburn M.D. on 09/02/2022 at 11:28 Approved by: Irma Coburn M.D. on 09/02/2022 at 11:28
[2022-09-02 13:13] LABS: Alanine Aminotransferase 24 IU/L (<35); Albumin 4.3 g/dL (3.5-5.0); Albumin Globulin Ratio 1.1 (1.0-2.8); Alkaline Phosphatase 90 U/L (38-126); Aspartate Aminotransferase 29 IU/L (14-36); Bilirubin Total 0.4 mg/dL (0.2-1.3); Blood Urea Nitrogen 17 mg/dL (7-17); C-Reactive Protein Quant < 0.5 mg/dL (<1.0); Carbon Dioxide 22 mmol/L (22-32); Chloride 103 mmol/L (98-107); Estimated Glomerular Filt Rate > 60 mL/min (>60); Glucose 143 mg/dL (80-110); HEMOLYSIS < 15 (0-50); Potassium 3.9 mmol/L (3.4-5.1); Sodium 138 mmol/L (137-145); Total Protein 8.3 g/dL (6.3-8.2)
[2022-09-02 13:29] LABS: Add Manual Diff / Slide Review NO; Basophils Absolute Auto 0 /uL (0-100); Basophils Percent Auto 0.5 % (0-2); Eosinophils Absolute Auto 100 /uL (0-450); Eosinophils Percent Auto 0.8 % (2-4); Hematocrit 43.9 % (36-46); Hemoglobin 14.5 g/dL (12.0-16.0); Lymphocytes Absolute Auto 2400 /uL (1100-4500); Lymphocytes Percent Auto 31.4 % (25-40); Mean Corpuscular HGB Conc 32.9 % (30-36); Mean Corpuscular Hemoglobin 29.2 PG (26-34); Mean Corpuscular Volume 88.6 fL (80-100); Monocytes Absolute Auto 600 /uL (0-900); Monocytes Percent Auto 7.5 % (3-14); Neutrophils Absolute Auto 4500 /uL (1500-7000); Neutrophils Percent Auto 59.8 % (50-75); Platelet Count 207 X10^3/uL (150-400); Red Blood Cell Count 4.96 X10^6/uL (4.0-5.2); White Blood Cell Count 7.5 X10^3/uL (4.5-11.0)
== END ==
PROVIDERS: PCP Family Medicine; Referring Provider Student in an Organized Health Care Education/Training Program; Visit Provider Student in an Organized Health Care Education/Training Program
DX: R10.32 Left lower quadrant pain (principal); J06.9 Acute upper respiratory infection, unspecified; Z20.822 Contact with and (suspected) exposure to COVID-19
CPT/HCPCS: 0241U; 36415; 74019; 80053; 85025; 86140

== ENCOUNTER → 2022-11-09 11:26 | Outpatient (CLI) | payer MEDICARE, OTHER, SELFPAY ==
[2018-08-11 17:25] VITALS: BMI 39.4
[2022-11-09 12:56] LABS: Appearance Urine UA CLEAR; Bilirubin Urine UA NEGATIVE (NEGATIVE); Color Urine UA YELLOW; Glucose Urine UA NEGATIVE (Negative); Ketones Urine UA NEGATIVE (NEGATIVE); Leukocyte Esterase Urine UA 1+ (NEGATIVE); Nitrite Urine UA NEGATIVE (Negative); Occult Blood Urine UA TRACE-INTACT (Negative); Protein Urine UA NEGATIVE (Negative); Specific Gravity Urine UA 1.015 (1.000-1.035); Urobilinogen Urine UA 0.2 E.U./dL (0.2); pH Urine UA 6.5 (4.5-8.0)
[2022-11-09 13:10] LABS: HEMOLYSIS < 15 (0-50); Magnesium 1.9 mg/dL (1.6-2.3); Potassium 4.2 mmol/L (3.4-5.1)
[2022-11-09 13:16] LABS: Bacteria Urine Few (2-10); Culture Indicated Urine Specimen Cultured; RBC Urine 0-1/HPF (0-5/HPF); Squamous Epithelial Cell Urine 0-1 /HPF (0-5/HPF); WBC Urine 5-10/HPF (0-5/HPF)
[2022-11-09 16:51] LABS: Vitamin D 25 Hydroxy (D3) 33.3 ng/mL (30.0-100.0)
== END ==
PROVIDERS: PCP Family Medicine; Referring Provider Family Medicine; Visit Provider Family Medicine
DX: E87.6 Hypokalemia (principal); E55.9 Vitamin D deficiency, unspecified; E61.2 Magnesium deficiency; R30.9 Painful micturition, unspecified
CPT/HCPCS: 36415; 81001; 82306; 83735; 84132; 87077; 87086; 87186

== ENCOUNTER → 2022-11-24 08:15 | Outpatient (CLI) | payer MEDICARE, OTHER, SELFPAY ==
[2018-08-11 17:25] VITALS: BMI 39.4
--- NOTE | 2022-11-24 | DI.CT.S_ITS ---
PROCEDURE: CT CHEST WO CON INDICATIONS: CHRONIC COUGH TECHNIQUE: Noncontrast 5 mm thick sections acquired from the pulmonary apices to the posterior costophrenic angles. 1 mm lung window, 5 mm thick coronal and sagittal and 7 mm axial MIP reformats were then acquired. For radiation dose reduction, the following was used: automated exposure control, adjustment of mA and/or kV according to patient size. COMPARISON: [facility], CT, CT CHEST WITHOUT CONTRAST, 08/26/2019, 13:41. [facility], CR, XR CHEST 2V, 06/27/2022, 11:44. FINDINGS: Lungs and pleura: Bilateral interlobular septal thickening with patchy ground-glass opacities also demonstrated. Mosaic attenuation is present. Some peripheral reticulation present. No pleural effusion. Unchanged 6 mm subpleural right middle lobe nodule (3/175). Mediastinum: No pericardial effusion. Thoracic aorta and central pulmonary arteries are normal in size. Esophagus is normal in caliber. Bones and chest wall: Multilevel degenerative change of the visualized spine. No axillary or supraclavicular adenopathy by size criteria. Left chest pacemaker Abdomen: Colonic diverticulosis IMPRESSION: Findings suggestive of mild-moderate pulmonary edema. Other etiologies are also possible however, including pneumonia such as viral or atypical infection. Other nonspecific pneumonitis or interstitial disease also possible. Clinical correlation is recommended. Dictated by: Bossman York M.D. on 11/24/2022 at 11:52 Approved by: Bossman York M.D. on 11/24/2022 at 12:07
== END ==
PROVIDERS: PCP Family Medicine; Referring Provider Internal Medicine Pulmonary Disease; Visit Provider Internal Medicine Pulmonary Disease
DX: R05.3 Chronic cough (principal)
CPT/HCPCS: 71250

== ENCOUNTER 2023-02-03 09:59 | Emergency (ER) | payer MEDICARE, OTHER, SELFPAY ==
[2018-08-11 17:25] VITALS: BMI 39.4
[2023-02-03 10:14] VITALS: BP 134/72; PULSE 77; RESP 15; TEMP 36.1; O2SAT 98; BMI 42.9
--- NOTE | 2023-02-03 10:18 | ED.EAR ---
HPI - Ear Problem <Jackie Quevedo, [facility] - Last Filed: 02/03/23 11:40> General Chief complaint: Ear Stated complaint: pulsing sensation in ear/dizzy/T-1 Time Seen by Provider: 02/03/23 10:08 Source: patient Mode of arrival: Ambulatory History of Present Illness HPI Narrative: This is a 77-year-old female with history of atrial fibrillation status post ablation and pacemaker who is anticoagulated on 20 mg Xarelto nightly, she comes emergency department with her today for onset of audible and sensation of pulsation in her right ear that started in the middle of the night. She states that her took her blood pressure and heart rate, her systolic blood pressure was 120, states that her heart rate was normal between 60 and 70. He denies any chest pain, shortness of breath, vision changes, dizziness, lightheadedness, congestion, throat pain, mental status changes, and states that the only other associated symptom is a sensation of fullness in her right ear and a high pitched humming sound. She was able to go back to sleep after she took diltiazem and states that she woke up with audible pulsation and pounding in her right ear. She states that in the past when she is had a cold it starts in her ears. She denies any other symptoms like rhinorrhea, nasal congestion a cough or recent illness. She does not have diabetes. Related Data Home Medications Medication Instructions Recorded Confirmed pravastatin 20 mg tablet 20 mg PO BEDTIME 02/19/18 02/02/23 rivaroxaban 20 mg tablet (Xarelto) 20 mg PO QPM 02/19/18 02/02/23 dofetilide 500 mcg capsule 500 mcg PO Q12H 02/06/21 02/02/23 (Tikosyn) cholecalciferol (vitamin D3) 125 125 mcg PO DAILY 11/02/21 02/02/23 mcg (5,000 unit) capsule mecobalamin (vitamin B12) 1,000 1,000 mcg PO DAILY 11/02/21 02/02/23 mcg chewable tablet (B12 Active) spironolactone 25 1 tab PO DAILY 07/27/22 02/02/23 mg-hydrochlorothiazide 25 mg tablet diltiazem HCl 30 mg tablet 30 mg PO BID 11/04/22 02/02/23 Previous Rx's Medication Instructions Recorded prednisone 20 mg tablet 20 mg PO DAILY #5 tabs 11/04/22 cetirizine 10 mg tablet 10 mg PO DAILY PRN allergy 02/03/23 symptoms #30 tabs fluticasone propionate 50 1 spray intranasal BID PRN 02/03/23 mcg/actuation nasal congestion #16 grams spray,suspension lidocaine 5 % topical patch 1 patch topical DAILY PRN back 02/03/23 pain #30 ea prednisone 20 mg tablet 20 mg PO DAILY #2 tabs 02/03/23 prednisone 20 mg tablet 20 mg PO DAILY #4 tabs 02/03/23 Allergies Allergy/AdvReac Type Severity Reaction Status Date / Time Beta-Blockers Allergy Severe Get all Verified 02/03/23 10:16 (Beta-Adrenergic Bloc the side effects flecainide Allergy Severe Get all Verified 02/03/23 10:16 the symptoms metoprolol Allergy Severe get all Verified 02/03/23 10:16 the side effects Review of Systems <ANUPAM Ray - Last Filed: 02/03/23 11:40> Review of Systems ROS Unobtainable: All systems reviewed & are unremarkable except as noted in HPI and below Patient History <ANUPAM Ray - Last Filed: 02/03/23 11:40> Medical History Atrial fibrillation Atrial fibrillation (~2008) Cardiac arrhythmia (~2008) Cataracts, bilateral (~2010) Colitis (~2007) Colon polyps (~1999) Costochondritis, acute COVID-19 Diverticular disease Eustachian tube dysfunction Family history of breast cancer Fatigue GI bleeding (~2004) Greater trochanteric bursitis of left hip Hyperlipidemia Hypertension (~2004) Irritable bowel syndrome (~1999) Lower GI bleed Orthostatic hypotension Osteoarthritis (~2013) Osteoarthritis of hands, bilateral Osteoporosis (~2013) Pulmonary edema cardiac cause Sleep apnea (~2012) Strain of left hip Strain of left piriformis muscle Well adult Surgical History Anesthesia Cystocele (~03/2001) H/O abdominal hysterectomy (~04/1977) H/O laminectomy (~04/1990) History of cataract removal with insertion of prosthetic lens (~05/2001) Hx of cholecystectomy (~05/1978) Pacemaker (~2019) Family History Mother Breast cancer Diabetes mellitus Hyperlipidemia Hypertension Stroke Father No known health problems Grandfather Stroke Grandmother No problems noted. Grandfather Stroke Social History household members: spouse Smoking Status: Never smoker second hand exposure: No alcohol intake: never substance use type: does not use Smoking Status: Never smoker alcohol intake frequency: 0-2 drinks per day Substance Use Type: does not use Exam <ANUPAM Ray - Last Filed: 02/03/23 11:40> Narrative Exam Narrative: Reviewed vitals signs and nursing notes. General: Pleasant, sitting upright, in no acute distress, well groomed, afebrile HEENT: symmetrical facial expressions, moist mucous membranes, neck is supple, no posterior pharynx erythema, right TM is bulging, without erythema, serous media behind, no mastoid tenderness bilaterally, left TM is also bulging with serous media behind but not as distended as the right. No anterior cervical lymphadenopathy, no nystagmus, EOMI, CV: irregular rate and irregular rhythm in the 70s, warm extremities Respiratory: normal work of breathing, without tachypnea or hypoxia. GI: abdomen soft, nondistended, without CVA tenderness bilaterally. MSK: moves all extremities, no weakness, normal tone, ambulatory without deficit Skin: brisk capillary refill, without rash or wound Neuro: clear speech and normal cognition, A&O x3, GCS 15, no focal motor or sensation deficits, cranial nerves 2-10 are grossly intact Initial Vital Signs Initial Vital Signs: Vital Signs Temperature 97.0 F L 02/03/23 10:14 Pulse Rate 77 02/03/23 10:14 Respiratory Rate 15 02/03/23 10:14 Blood Pressure 134/72 02/03/23 10:14 Pulse Oximetry 98 02/03/23 10:14 Oxygen Delivery Method Room Air 02/03/23 10:14 <Rosendo Julian DO - Last Filed: 02/04/23 09:37> Initial Vital Signs Initial Vital Signs: Vital Signs Temperature 97.0 F L 02/03/23 10:14 Pulse Rate 77 02/03/23 10:14 Respiratory Rate 15 02/03/23 10:14 Blood Pressure 134/72 02/03/23 10:14 Pulse Oximetry 98 02/03/23 10:14 Oxygen Delivery Method Room Air 02/03/23 10:14 Course <Jackie Quevedo [facility] - Last Filed: 02/03/23 11:40> Orders Ordered: ED Orders 02/03/23 10:23 Respiratory Panel (Film Array) Stat Vital Signs Vital signs: Vital Signs - 8 hr 02/03/23 10:14 Temperature 97.0 F L Pulse Rate 77 Respiratory Rate 15 Blood Pressure 134/72 Pulse Oximetry 98 Oxygen Delivery Method Room Air <Rosendo Julian DO - Last Filed: 02/04/23 09:37> Orders Ordered: ED Orders 02/03/23 10:23 Respiratory Panel (Film Array) Stat Vital Signs Vital signs: Vital Signs - 8 hr 02/03/23 10:14 Temperature 97.0 F L Pulse Rate 77 Respiratory Rate 15 Blood Pressure 134/72 Pulse Oximetry 98 Oxygen Delivery Method Room Air Medical Decision Making <Jackie Quevedo [facility] - Last Filed: 02/03/23 11:40> Lab Data Labs: Lab Results 02/03/23 Range/Units 10:23 Chlamy pneumoniae PCR Not detected (Not Detect) Adenovirus (PCR) Not detected (Not Detect) B. pertussis DNA (PCR) Not detected (Not Detecte) B.parapertussis DNA PCR Not detected (Not Detecte) Coronavirus OC43 (PCR) Not detected (Not Detect) Coronavirus HKU1 (PCR) Not detected (Not Detect) Coronavirus 229E (PCR) Not detected (Not Detect) SARS-CoV-2 (PCR) Not detected (Not Detecte) Coronavirus NL63 (PCR) Not detected (Not Detect) Human Metapneumovir PCR Not detected (Not Detect) Influenza Type A (PCR) Not detected (Not Detect) Influenza Type B (PCR) Not detected (Not Detect) M. pneumoniae (PCR) Not detected (Not Detect) Parainfluenza 1 (PCR) Not detected (Not Detect) Parainfluenza 2 (PCR) Not detected (Not Detect) Parainfluenza 3 (PCR) Not detected (Not Detect) Parainfluenza 4 (PCR) Not detected (Not Detect) RSV (PCR) Not detected (Not Detect) Entero/Rhino (PCR) Not detected (Not Detect) MDM Narrative Medical decision making narrative: Chief Complaint: Right ear tinnitus Primary historian: Patient and her Multiple etiologies for patient's complaint considered including, but not limited to: Vascular disorder/intracranial hemorrhage/abnormality, eustachian tube dysfunction, ototoxic medication, acute viral illness, presbycusis I have independently reviewed the patient's vital signs and nursing notes as well as prior records if available. My interpretation of imaging: Patient is headed over for an x-ray of her hip ordered by primary care provider. She states that she has left-sided sciatica and has been having worsening pain. We discussed using lidocaine patches and given her prescription of these, also discussed how the prednisone will help for 1 more tab for total of 5 days 20 mg daily. She does not have any neuro deficits, denies any symptoms at this time other than sensation of right middle ear fullness without pain, pulsation, vision changes, abnormal vital signs, or any other symptom. She states that she feels well, she is talkative with clear speech. Respiratory PCR: Is negative for all tested viruses Course of care: I saw the patient in the waiting room, discussed with her at length the symptoms that she is experiencing. She states that she thinks it is her middle ear as she has had fullness sensation, on exam there is a bulging tympanic membrane with serous media behind, no erythema, left TM is not quite as distended, no nasal congestion, posterior pharynx without erythema. We discussed that this could be vascular, neurologic, but is most likely eustachian tube dysfunction. She understands to return to the emergency department immediately if she has any change of her symptoms, worsening, and will start with cetirizine in the a.m. and Kaye in the evening, Flonase morning night and prednisone 20 mg for the next 6 days total. She understands dehydrated, she is ambulatory, I walked her over to x-ray for her hip x-ray ordered by primary care. Patient has follow-up with ENT scheduled on 02/17/2023. I printed out her paperwork for her to take to him with the plan of care, of also sent the chart to [facility] orthopedics so he can access the chart if able. Social considerations that may affect disposition: none Questions are addressed and there is agreement with the plan and for follow-up. I consulted with the ED attending physician Dr. Julian as needed for higher level of care considerations and they were available for discussion and recommendations regarding plan of care and diagnostic testing. Patient is appropriate for outpatient management. <Rosendo Julian, DO - Last Filed: 02/04/23 09:37> Lab Data Labs: Lab Results 02/03/23 Range/Units 10:23 Chlamy pneumoniae PCR Not detected (Not Detect) Adenovirus (PCR) Not detected (Not Detect) B. pertussis DNA (PCR) Not detected (Not Detecte) B.parapertussis DNA PCR Not detected (Not Detecte) Coronavirus OC43 (PCR) Not detected (Not Detect) Coronavirus HKU1 (PCR) Not detected (Not Detect) Coronavirus 229E (PCR) Not detected (Not Detect) SARS-CoV-2 (PCR) Not detected (Not Detecte) Coronavirus NL63 (PCR) Not detected (Not Detect) Human Metapneumovir PCR Not detected (Not Detect) Influenza Type A (PCR) Not detected (Not Detect) Influenza Type B (PCR) Not detected (Not Detect) M. pneumoniae (PCR) Not detected (Not Detect) Parainfluenza 1 (PCR) Not detected (Not Detect) Parainfluenza 2 (PCR) Not detected (Not Detect) Parainfluenza 3 (PCR) Not detected (Not Detect) Parainfluenza 4 (PCR) Not detected (Not Detect) RSV (PCR) Not detected (Not Detect) Entero/Rhino (PCR) Not detected (Not Detect) Discharge Plan Departure Patient Disposition: Home Clinical Impression: History of atrial fibrillation, History of anticoagulant therapy Eustachian tube disorder Qualifiers: Laterality: right Qualified Code(s): H69.91 - Unspecified Eustachian tube disorder, right ear Tinnitus Qualifiers: Laterality: right Qualified Code(s): H93.11 - Tinnitus, right ear Instructions: DI for Eustachian Tube Dysfunction-Adult Activity Restrictions/Additional Instructions: *You have been diagnosed with eustachian tube dysfunction, this is middle ear fullness and congestion. Continue with your Kaye nightly, please add Zyrtec once daily in the morning, use Flonase morning and night to see if this helps, stay hydrated, if this is progressive or you have any associated symptoms like blurred vision, cognitive changes, weakness, or other concerning symptom of a stroke or emergency please come immediately to the hospital. I will call you if the viral panel is positive for the tested viruses. Please go to your appointment on the , thank you for coming in today, I hope that you feel better soon. I am giving you 4 days of prednisone, this should help relieve some of congestion in your middle ear. *What to do: *Please continue to take your regular medications as directed. [x ] New medication prescriptions sent to your pharmacy: [ [facility]] [ ] New medication written as a paper prescription [ ] No new medications given *Please call and schedule follow up with your primary care provider in 2-3 days, at least for an update. Let them know you were seen in the Emergency Department for the above problem. We will electronically transmit a record of today's note if your PCP or specialist is in our system. *If you do not have a primary care provider please contact [phone] to establish care with one of the [facility] primary care providers. *Return to the Emergency Department for worsening symptoms, inability to keep liquids down, fever greater than 101F, chills, or other concerning symptom. Prescriptions: New prednisone 20 mg tablet 20 mg PO DAILY Qty: 4 0RF fluticasone propionate 50 mcg/actuation spray,suspension 1 spray intranasal BID PRN (Reason: congestion) Qty: 16 2RF Rx Instructions: administer into each nostril cetirizine 10 mg tablet 10 mg PO DAILY PRN (Reason: allergy symptoms) Qty: 30 2RF lidocaine 5 % adhesive patch,medicated 1 patch topical DAILY PRN (Reason: back pain) Qty: 30 0RF Rx Instructions: leave on most painful area for up to 12 hrs, if hip pain, apply to middle, low back. prednisone 20 mg tablet 20 mg PO DAILY Qty: 2 0RF No Action cholecalciferol (vitamin D3) 125 mcg (5,000 unit) capsule 125 mcg PO DAILY B12 Active 1,000 mcg tablet,chewable 1,000 mcg PO DAILY spironolacton-hydrochlorothiaz 25-25 mg tablet 1 tab PO DAILY diltiazem HCl 30 mg tablet 30 mg PO BID Patient Comments: take 1 tablet by mouth three times a day Rx Instructions: 0700, 1400, 2100 prednisone 20 mg tablet 20 mg PO DAILY Qty: 5 0RF dofetilide [Tikosyn] 500 mcg Capsule 500 mcg PO Q12H Rx Instructions: 0700/1900 pravastatin 20 mg Tablet 20 mg PO BEDTIME Xarelto 20 mg Tablet 20 mg PO QPM Referrals: Deepak Cuevas [Other] [facility] [Provider Group] Mark Brennan DO [Primary Care Provider] - Stand Alone Forms: Patient Portal/API <Rosendo Julian DO - Last Filed: 02/04/23 09:37> Cosign ED Attending Cosumeshature Attestation: I was immediately available in the department for consultation. This documentation has been reviewed and I agree with assessment and plan. Supervised by Rosendo Julian DO
[2023-02-03 11:35] LABS: Adenovirus Not Detected (Not Detect); B. parapertussis Not Detected (Not Detecte); Bordetella pertussis Not Detected (Not Detecte); Chlamydophila pneumoniae Not Detected (Not Detect); Coronavirus 229E Not Detected (Not Detect); Coronavirus HKU1 Not Detected (Not Detect); Coronavirus NL 63 Not Detected (Not Detect); Coronavirus OC43 Not Detected (Not Detect); Human Metapneumovirus Not Detected (Not Detect); Human Rhinovirus/Enterovirus Not Detected (Not Detect); Influenza A Not Detected (Not Detect); Influenza B Not Detected (Not Detect); Mycoplasma pneumoniae Not Detected (Not Detect); Parainfluenza Virus 1 Not Detected (Not Detect); Parainfluenza Virus 2 Not Detected (Not Detect); Parainfluenza Virus 3 Not Detected (Not Detect); Parainfluenza Virus 4 Not Detected (Not Detect); Respiratory Syncytial Virus Not Detected (Not Detect); SARS- CoV-2 Not Detected (Not Detecte)
== END 2023-02-03 11:09 | disposition home or self-care (01) ==
PROVIDERS: Emergency Provider Nurse Practitioner Critical Care Medicine; PCP Family Medicine
DX: H69.91 Unspecified Eustachian tube disorder, right ear (principal); H93.11 Tinnitus, right ear; M16.12 Unilateral primary osteoarthritis, left hip; M51.36 Other intervertebral disc degeneration, lumbar region; M51.37 Other intervertebral disc degeneration, lumbosacral region; M47.816 Spondylosis without myelopathy or radiculopathy, lumbar region; M47.817 Spondylosis without myelopathy or radiculopathy, lumbosacral region; M25.552 Pain in left hip; M54.9 Dorsalgia, unspecified
CPT/HCPCS: 72110; 73502; 87633; 99281; 99282

== ENCOUNTER → 2023-02-03 10:55 | Outpatient (CLI) | payer MEDICARE, OTHER, SELFPAY ==
[2018-08-11 17:25] VITALS: BMI 39.4
--- NOTE | 2023-02-03 10:56 | DI.RAD.S_ITS ---
PROCEDURE: XR HIP W PEL IF DONE LT 2V INDICATIONS: Left hip pain TECHNIQUE: 2 views of the hip were acquired. COMPARISON: None. FINDINGS: Bones: No fractures or dislocations. No suspicious bony lesions. The visualized pelvic ring appears intact. Nonuniform joint space narrowing with associated osteophytosis and subchondral sclerosis/bone cysts. Soft tissues: No suspicious soft tissue calcifications or masses. IMPRESSION: No displaced fracture. If there remains a high clinical concern or the patient cannot bear weight, consider cross-sectional imaging to exclude an occult fracture. Moderate left hip osteoarthritis. Kellgren-Srikanth Grade 3. Dictated by: Prabhakar Sotelo M.D. on 02/03/2023 at 11:36 Approved by: Prabhakar Sotelo M.D. on 02/03/2023 at 11:37
--- NOTE | 2023-02-03 10:56 | DI.RAD.S_ITS ---
PROCEDURE: XR LUMBAR SPINE MIN 4V INDICATIONS: low back pain TECHNIQUE: 5 views of the lumbar spine were acquired, including bilateral oblique views. COMPARISON: [facility], CR, XR LUMBAR SPINE 2-3V, 06/09/2022, 8:40. [facility], CR, XR LUMBAR SPINE MIN 4V, 11/02/2021, 9:34. FINDINGS: Bones: 5 nonrib-bearing vertebrae are present. Slight rightward curvature. Stable mild vertebral body height loss L3. Moderate to severe disc height loss at L1-2, L2-3, L5-S1 and mild disc height loss at remaining levels. Facet arthrosis L4 through S1. Soft tissues: Overlying bowel gas pattern is normal. No suspicious soft tissue calcifications. Oblique images: No pars defects. IMPRESSION: Multilevel degenerative disc disease and facet arthrosis, as detailed above. Dictated by: Prabhakar Sotelo M.D. on 02/03/2023 at 11:39 Approved by: Prabhakar Sotelo M.D. on 02/03/2023 at 11:55
== END ==
PROVIDERS: PCP Family Medicine; Referring Provider Family Medicine; Visit Provider Family Medicine
DX: M16.12 Unilateral primary osteoarthritis, left hip (principal); M51.36 Other intervertebral disc degeneration, lumbar region; M51.37 Other intervertebral disc degeneration, lumbosacral region; M47.816 Spondylosis without myelopathy or radiculopathy, lumbar region; M47.817 Spondylosis without myelopathy or radiculopathy, lumbosacral region; M25.552 Pain in left hip; M54.9 Dorsalgia, unspecified
CPT/HCPCS: 72110; 73502

== ENCOUNTER → 2023-04-11 13:38 | Outpatient (CLI) | payer MEDICARE, OTHER, SELFPAY ==
[2018-08-11 17:25] VITALS: BMI 39.4
== END ==
PROVIDERS: PCP Family Medicine; Visit Provider Family Medicine
DX: N39.0 Urinary tract infection, site not specified (principal)
CPT/HCPCS: 87077; 87086; 87186

== ENCOUNTER → 2023-04-18 13:40 | Outpatient (CLI) | payer MEDICARE, OTHER, SELFPAY ==
[2018-08-11 17:25] VITALS: BMI 39.4
[2023-04-18 14:51] LABS: Appearance Urine UA CLEAR; Bilirubin Urine UA NEGATIVE (NEGATIVE); Color Urine UA YELLOW; Glucose Urine UA NEGATIVE (Negative); Ketones Urine UA NEGATIVE (NEGATIVE); Leukocyte Esterase Urine UA 1+ (NEGATIVE); Nitrite Urine UA NEGATIVE (Negative); Occult Blood Urine UA TRACE-INTACT (Negative); Protein Urine UA NEGATIVE (Negative); Specific Gravity Urine UA 1.025 (1.000-1.035); Urobilinogen Urine UA 0.2 E.U./dL (0.2)
[2023-04-18 15:03] LABS: Bacteria Urine Few (2-10); Culture Indicated Urine Specimen Cultured; RBC Urine 0-1/HPF (0-5/HPF); Squamous Epithelial Cell Urine 1-5 /HPF (0-5/HPF); WBC Urine 10-30/HPF (0-5/HPF)
== END ==
PROVIDERS: PCP Family Medicine; Referring Provider Family Medicine; Visit Provider Family Medicine
DX: N39.0 Urinary tract infection, site not specified (principal)
CPT/HCPCS: 81001; 87077; 87086; 87186

== ENCOUNTER → 2023-04-27 10:33 | Outpatient (CLI) | payer MEDICARE, OTHER, SELFPAY ==
[2018-08-11 17:25] VITALS: BMI 39.4
[2023-04-27 13:38] LABS: BUN Creatinine Ratio 19.5 (6-22); Blood Urea Nitrogen 17 mg/dL (7-17); Calcium 9.1 mg/dL (8.4-10.2); Carbon Dioxide 23 mmol/L (22-32); Chloride 108 mmol/L (98-107); Estimated Glomerular Filt Rate > 60 mL/min (>60); Glucose 103 mg/dL (80-110); HEMOLYSIS 16 (0-50); Potassium 4.4 mmol/L (3.4-5.1); Sodium 139 mmol/L (137-145)
== END ==
PROVIDERS: PCP Family Medicine; Referring Provider Internal Medicine Cardiovascular Disease; Visit Provider Internal Medicine Cardiovascular Disease
DX: Z79.899 Other long term (current) drug therapy (principal)
CPT/HCPCS: 36415; 80048; 83735

== ENCOUNTER → 2023-05-05 11:24 | Outpatient (CLI) | payer MEDICARE, OTHER, SELFPAY ==
[2018-08-11 17:25] VITALS: BMI 39.4
[2023-05-05 12:44] LABS: Appearance Urine UA CLEAR; Bilirubin Urine UA NEGATIVE (NEGATIVE); Color Urine UA YELLOW; Glucose Urine UA NEGATIVE (Negative); Ketones Urine UA NEGATIVE (NEGATIVE); Leukocyte Esterase Urine UA TRACE (NEGATIVE); Nitrite Urine UA NEGATIVE (Negative); Occult Blood Urine UA TRACE-INTACT (Negative); Protein Urine UA NEGATIVE (Negative); Specific Gravity Urine UA 1.015 (1.000-1.035); Urobilinogen Urine UA 0.2 E.U./dL (0.2)
[2023-05-05 13:03] LABS: Culture Indicated Urine Specimen Cultured
[2023-05-05 13:04] LABS: Bacteria Urine Occasional (0-1); RBC Urine 0-1/HPF (0-5/HPF); Squamous Epithelial Cell Urine 1-5 /HPF (0-5/HPF); WBC Urine 1-5/HPF (0-5/HPF)
== END ==
PROVIDERS: PCP Family Medicine; Referring Provider Family Medicine; Visit Provider Family Medicine
DX: N39.0 Urinary tract infection, site not specified (principal)
CPT/HCPCS: 81001; 87086

== ENCOUNTER 2023-05-06 12:14 | Emergency (ER) | payer MEDICARE, OTHER, SELFPAY ==
[2018-08-11 17:25] VITALS: BMI 39.4
[2023-05-06] VITALS (12 sets, daily range): BP systolic 122–161; BP diastolic 69–84; PULSE 80–90; RESP 12–21; TEMP 36.6; O2SAT 95–99; BMI 45.7
--- NOTE | 2023-05-06 12:24 | DI.RAD.S_ITS ---
PROCEDURE: XR CHEST 1V INDICATIONS: Shortness of breath TECHNIQUE: One view of the chest was acquired. COMPARISON: [facility], CR, XR CHEST 2V, 06/27/2022, 11:44. FINDINGS: Left-sided dual-chamber pacemaker present. Heart size is enlarged, there is moderate vascular congestion. Mild right basilar atelectasis and infiltrate. Minimal blunting of both costophrenic angles. Osseous structures normal. IMPRESSION: Cardiomegaly, moderate vascular congestion small bibasilar pleural effusions. Approved by: Francois Rodriguez M.D. on 05/06/2023 at 12:47
--- NOTE | 2023-05-06 12:33 | ED_ITS ---
HPI - SOB/Dyspnea <Cirilo Mcallister PA-C - Last Filed: 05/06/23 16:37> General Chief Complaint: Shortness of Breath/Dyspnea Stated Complaint: SOB, tired, leg pain Time Seen by Provider: 05/06/23 12:28 Source: patient Mode of arrival: Ambulatory Limitations: no limitations History of Present Illness HPI Narrative: This is a 77-year-old female presents emergency department due to shortness of breath, fatigue, cough, and left lower calf pain for the last 2 days. History of DVT. On Xarelto. History of lung nodules. Patient states that she is had shortness of breath for the last couple of days, worse with activity. She also reports a slight cough as well as fatigue. Also noticed some left lower calf pain which began 2 days ago as well. Takes 30 mg of Xarelto daily as she has had AFib. Also has had a pacemaker placed which was last interrogated approximately a month ago without significant findings. Denies any fevers, headaches, abdominal pain, chest pain, or any other concerning signs or symptoms. Related Data Home Medications Medication Instructions Recorded Confirmed pravastatin 20 mg tablet 20 mg PO BEDTIME 02/19/18 02/02/23 rivaroxaban 20 mg tablet (Xarelto) 20 mg PO QPM 02/19/18 02/02/23 dofetilide 500 mcg capsule 500 mcg PO Q12H 02/06/21 02/02/23 (Tikosyn) cholecalciferol (vitamin D3) 125 125 mcg PO DAILY 11/02/21 02/02/23 mcg (5,000 unit) capsule mecobalamin (vitamin B12) 1,000 1,000 mcg PO DAILY 11/02/21 02/02/23 mcg chewable tablet (B12 Active) spironolactone 25 1 tab PO DAILY 07/27/22 02/02/23 mg-hydrochlorothiazide 25 mg tablet diltiazem HCl 30 mg tablet 30 mg PO BID 11/04/22 02/02/23 Previous Rx's Medication Instructions Recorded prednisone 20 mg tablet 20 mg PO DAILY #5 tabs 11/04/22 cetirizine 10 mg tablet 10 mg PO DAILY PRN allergy 02/03/23 symptoms #30 tabs fluticasone propionate 50 1 spray intranasal BID PRN 02/03/23 mcg/actuation nasal congestion #16 grams spray,suspension lidocaine 5 % topical patch 1 patch topical DAILY PRN back 02/03/23 pain #30 ea prednisone 20 mg tablet 20 mg PO DAILY #2 tabs 02/03/23 prednisone 20 mg tablet 20 mg PO DAILY #4 tabs 02/03/23 motorized scooter #1 ea 04/06/23 sulfamethoxazole 800 1 tab PO BID #14 tabs 04/11/23 mg-trimethoprim 160 mg tablet (Bactrim DS) amoxicillin 500 mg-potassium 1 tab PO BID #14 tabs 04/20/23 clavulanate 125 mg tablet (Augmentin) furosemide 40 mg tablet (Lasix) 40 mg PO DAILY #14 tabs 05/06/23 Allergies Allergy/AdvReac Type Severity Reaction Status Date / Time Beta-Blockers Allergy Severe Get all Verified 05/06/23 12:24 (Beta-Adrenergic Bloc the side effects flecainide Allergy Severe Get all Verified 05/06/23 12:24 the symptoms metoprolol Allergy Severe get all Verified 05/06/23 12:24 the side effects Review of Systems <Cirilo Mcallister PA-C - Last Filed: 05/06/23 16:37> Review of Systems Narrative: GENERAL: Reports fatigue Denies chills, , malaise, fever, sweats. HEENT: Denies sinus pain, ear pain, sore throat, difficulty swallowing, dizziness. RESPIRATORY: Reports shortness of breath, cough CARDIOVASCULAR: Denies chest pain, palpitations, orthopnea, edema, GASTROINTESTINAL: Denies nausea, vomiting, abdominal pain, diarrhea, constipation, melena. : Denies dysuria, frequency, incontinence, hematuria, urinary retention. MUSCULOSKELETAL: Reports left lower calf pain SKIN: Denies rash, skin lesions, or other NEUROLOGIC: Denies weakness, headache, numbness, change in speech, confusion, seizures, incoordination. PSYCHIATRIC: No concerning psychosocial issues. 12 point review of systems is negative except for those stated above Patient History <Cirilo Mcallister PA-C - Last Filed: 05/06/23 16:37> Medical History Atrial fibrillation Atrial fibrillation (~2008) Cardiac arrhythmia (~2008) Cataracts, bilateral (~2010) Colitis (~2007) Colon polyps (~1999) Costochondritis, acute COVID-19 Diverticular disease Eustachian tube dysfunction Family history of breast cancer Fatigue GI bleeding (~2004) Greater trochanteric bursitis of left hip Hyperlipidemia Hypertension (~2004) Irritable bowel syndrome (~1999) Lower GI bleed Orthostatic hypotension Osteoarthritis (~2013) Osteoarthritis of hands, bilateral Osteoporosis (~2013) Pulmonary edema cardiac cause Sleep apnea (~2012) Strain of left hip Strain of left piriformis muscle Well adult Surgical History Anesthesia Cystocele (~03/2001) H/O abdominal hysterectomy (~04/1977) H/O laminectomy (~04/1990) History of cataract removal with insertion of prosthetic lens (~05/2001) Hx of cholecystectomy (~05/1978) Pacemaker (~2018) Family History Mother Breast cancer Diabetes mellitus Hyperlipidemia Hypertension Stroke Father No known health problems Grandfather Stroke Grandmother No problems noted. Grandfather Stroke Social History household members: spouse Smoking Status: Never smoker second hand exposure: No alcohol intake: never substance use type: does not use Smoking Status: Never smoker alcohol intake frequency: 0-2 drinks per day Substance Use Type: does not use Exam <Cirilo Mcallister PA-C - Last Filed: 05/06/23 16:37> Narrative Exam Narrative: GENERAL: Well-developed patient, in mild distress. HEAD: Atraumatic. Normocephalic. EYES: Pupils equal round and reactive. Extraocular motions intact. No scleral icterus. No injection or drainage. ENT: Nose without bleeding, purulent drainage. Throat without erythema, tonsillar hypertrophy or exudate. Airway patent. NECK: Trachea midline. Non tender CARDIOVASCULAR: Regular rate and rhythm without murmurs, gallops, or rubs. RESPIRATORY: Clear to auscultation. Breath sounds equal bilaterally. No wheezes, rales, or rhonchi. GASTROINTESTINAL: Abdomen soft, non-tender, nondistended. EXTREMITIES: Tenderness to palpation to the left calf BACK: Nontender without deformity or crepitance. No flank tenderness. NEURO: AOx3. SKIN: No rash or erythema of visible areas Initial Vital Signs Initial Vital Signs: Vital Signs Temperature 97.9 F 05/06/23 12:19 Pulse Rate 80 05/06/23 12:19 Respiratory Rate 20 05/06/23 12:19 Blood Pressure 137/76 05/06/23 12:19 Pulse Oximetry 98 05/06/23 12:19 Oxygen Delivery Method Room Air 05/06/23 12:19 <Fely Alcala DO - Last Filed: 05/21/23 05:06> Initial Vital Signs Initial Vital Signs: Vital Signs Temperature 97.9 F 05/06/23 12:19 Pulse Rate 80 05/06/23 12:19 Respiratory Rate 20 05/06/23 12:19 Blood Pressure 137/76 05/06/23 12:19 Pulse Oximetry 98 05/06/23 12:19 Oxygen Delivery Method Room Air 05/06/23 12:19 Course <Cirilo Mcallister PA-C - Last Filed: 05/06/23 16:37> Orders Ordered: ED Orders 05/06/23 12:24 XR chest 1V Stat EKG-12 Lead Stat Measure peak expiratory flow ONCE RT Consult Eval and Treat NOW 05/06/23 12:41 COVID19 -Nasal RAPID Stat 05/06/23 12:42 US periph venous low extrem lt Stat 05/06/23 13:20 Complete Blood Count AUTO DIFF Stat Comprehensive Metabolic Panel Stat D Dimer Stat Lactate (Lactic Acid) Stat NT-proBNP (BNP-Adult 18+) Stat Prothrombin Time INR Stat Troponin I Stat 05/06/23 15:20 Trop I [Troponin I] Stat Consultations Consultation #1: [id number]: Discussed case with or scrub tech who stated ultrasound was negative for DVT. Consultation #2: [id number]: Pacemaker [employer] rep spoken to and states that everything seems to be working as appropriate. No episodes of atrial fibrillation. Consultation #3: [id number]: Discussed patient's case with on-call [facility] as patient's states her cargo services coordinator is Dr. Vidal [facility]. Agree with plan for diuresis and follow up in clinic. Vital Signs Vital signs: Vital Signs - 8 hr 05/06/23 12:19 05/06/23 12:53 05/06/23 13:00 Temperature 97.9 F Pulse Rate 80 81 85 Respiratory Rate 20 21 Blood Pressure 137/76 Pulse Oximetry 98 98 97 Oxygen Delivery Method Room Air 05/06/23 13:30 05/06/23 13:54 05/06/23 13:54 Temperature Pulse Rate 81 90 Respiratory Rate 15 Blood Pressure 155/74 H Pulse Oximetry 97 97 Oxygen Delivery Method 05/06/23 14:00 05/06/23 14:00 05/06/23 14:30 Temperature Pulse Rate 82 Respiratory Rate 17 Blood Pressure 143/84 H 161/78 H Pulse Oximetry 98 Oxygen Delivery Method 05/06/23 14:30 05/06/23 15:00 05/06/23 15:01 Temperature Pulse Rate 81 83 81 Respiratory Rate 12 18 20 Blood Pressure Pulse Oximetry 99 98 95 Oxygen Delivery Method 05/06/23 15:01 05/06/23 15:30 05/06/23 15:31 Temperature Pulse Rate 80 80 Respiratory Rate 19 19 Blood Pressure 146/70 H Pulse Oximetry 98 98 Oxygen Delivery Method 05/06/23 15:31 05/06/23 16:00 05/06/23 16:00 Temperature Pulse Rate 90 Respiratory Rate 17 Blood Pressure 135/69 122/77 Pulse Oximetry 98 Oxygen Delivery Method <Fely Alcala, - Last Filed: 05/21/23 05:06> Orders Ordered: ED Orders 05/06/23 12:24 XR chest 1V Stat EKG-12 Lead Stat Measure peak expiratory flow ONCE RT Consult Eval and Treat NOW 05/06/23 12:41 COVID19 -Nasal RAPID Stat 05/06/23 12:42 US periph venous low extrem lt Stat 05/06/23 13:20 Complete Blood Count AUTO DIFF Stat Comprehensive Metabolic Panel Stat D Dimer Stat Lactate (Lactic Acid) Stat NT-proBNP (BNP-Adult 18+) Stat Prothrombin Time INR Stat Troponin I Stat 05/06/23 15:20 Trop I [Troponin I] Stat Vital Signs Vital signs: Vital Signs - 8 hr 05/06/23 12:19 05/06/23 12:53 05/06/23 13:00 Temperature 97.9 F Pulse Rate 80 81 85 Respiratory Rate 20 21 Blood Pressure 137/76 Pulse Oximetry 98 98 97 Oxygen Delivery Method Room Air 05/06/23 13:30 05/06/23 13:54 05/06/23 13:54 Temperature Pulse Rate 81 90 Respiratory Rate 15 Blood Pressure 155/74 H Pulse Oximetry 97 97 Oxygen Delivery Method 05/06/23 14:00 05/06/23 14:00 05/06/23 14:30 Temperature Pulse Rate 82 Respiratory Rate 17 Blood Pressure 143/84 H 161/78 H Pulse Oximetry 98 Oxygen Delivery Method 05/06/23 14:30 05/06/23 15:00 05/06/23 15:01 Temperature Pulse Rate 81 83 81 Respiratory Rate 12 18 20 Blood Pressure Pulse Oximetry 99 98 95 Oxygen Delivery Method 05/06/23 15:01 05/06/23 15:30 05/06/23 15:31 Temperature Pulse Rate 80 80 Respiratory Rate 19 19 Blood Pressure 146/70 H Pulse Oximetry 98 98 Oxygen Delivery Method 05/06/23 15:31 05/06/23 16:00 05/06/23 16:00 Temperature Pulse Rate 90 Respiratory Rate 17 Blood Pressure 135/69 122/77 Pulse Oximetry 98 Oxygen Delivery Method MDM - SOB/Dyspnea <Cirilo Mcallister PA-C - Last Filed: 05/06/23 16:37> Lab Data 05/06/23 13:20 05/06/23 13:20 Labs: Lab Results 05/06/23 05/06/23 05/06/23 Range/Units 12:41 13:20 13:20 WBC 7.2 (4.5-11.0) X10^3/uL RBC 4.36 (4.0-5.2) X10^6/uL Hgb 12.9 (12.0-16.0) g/dL Hct 39.2 (36-46) % MCV 89.9 (80-100) fL MCH 29.6 (26-34) PG MCHC 32.9 (30-36) % RDW 14.1 (11.6-14.8) % Plt Count 180 (150-400) X10^3/uL Neut % (Auto) 58.1 (50-75) % Lymph % (Auto) 27.2 (25-40) % [place] % (Auto) 12.5 (3-14) % Eos % (Auto) 1.5 L (2-4) % Baso % (Auto) 0.7 (0-2) % Neut # (Auto) 4200 (2768-3807) /uL Lymph # (Auto) 2000 (0245-3467) /uL [place] # (Auto) 900 (0-900) /uL Eos # (Auto) 100 (0-450) /uL Baso # (Auto) 0 (0-100) /uL PT 17.1 H (10.1-12.7) SECONDS INR 1.5 H (0.9-1.3) D-Dimer (<500) ng/ml Sodium (137-145) mmol/L Potassium (3.4-5.1) mmol/L Chloride (98-107) mmol/L Carbon Dioxide (22-32) mmol/L BUN (7-17) mg/dL Creatinine (0.52-1.04) mg/dL Estimated GFR (>60) mL/min BUN/Creatinine Ratio (6-22) Glucose (80-110) mg/dL Lactate (0.7-2.1) mmol/L Calcium (8.4-10.2) mg/dL Total Bilirubin (0.2-1.3) mg/dL AST (14-36) IU/L ALT (<35) IU/L Alkaline Phosphatase (38-126) U/L Troponin I (0.01-0.034) ng/mL NT-Pro-B Natriuret Pep (<450) pg/mL Total Protein (6.3-8.2) g/dL Albumin (3.5-5.0) g/dL Globulin (1.7-4.1) g/dL Albumin/Globulin Ratio (1.0-2.8) SARS-CoV-2 (PCR) Negative (Negative) 05/06/23 05/06/23 05/06/23 Range/Units 13:20 13:20 13:20 WBC (4.5-11.0) X10^3/uL RBC (4.0-5.2) X10^6/uL Hgb (12.0-16.0) g/dL Hct (36-46) % MCV (80-100) fL MCH (26-34) PG MCHC (30-36) % RDW (11.6-14.8) % Plt Count (150-400) X10^3/uL Neut % (Auto) (50-75) % Lymph % (Auto) (25-40) % [place] % (Auto) (3-14) % Eos % (Auto) (2-4) % Baso % (Auto) (0-2) % Neut # (Auto) (1689-7855) /uL Lymph # (Auto) (1596-7894) /uL [place] # (Auto) (0-900) /uL Eos # (Auto) (0-450) /uL Baso # (Auto) (0-100) /uL PT (10.1-12.7) SECONDS INR (0.9-1.3) D-Dimer 447 (<500) ng/ml Sodium 139 (137-145) mmol/L Potassium 4.3 (3.4-5.1) mmol/L Chloride 109 H (98-107) mmol/L Carbon Dioxide 23 (22-32) mmol/L BUN 16 (7-17) mg/dL Creatinine 0.79 (0.52-1.04) mg/dL Estimated GFR > 60 (>60) mL/min BUN/Creatinine Ratio 20.3 (6-22) Glucose 92 (80-110) mg/dL Lactate 1.3 (0.7-2.1) mmol/L Calcium 9.0 (8.4-10.2) mg/dL Total Bilirubin 0.3 (0.2-1.3) mg/dL AST 31 (14-36) IU/L ALT 25 (<35) IU/L Alkaline Phosphatase 81 (38-126) U/L Troponin I < 0.012 (0.01-0.034) ng/mL NT-Pro-B Natriuret Pep 714 H (<450) pg/mL Total Protein 7.4 (6.3-8.2) g/dL Albumin 4.0 (3.5-5.0) g/dL Globulin 3.4 (1.7-4.1) g/dL Albumin/Globulin Ratio 1.2 (1.0-2.8) SARS-CoV-2 (PCR) (Negative) 05/06/23 Range/Units 15:20 WBC (4.5-11.0) X10^3/uL RBC (4.0-5.2) X10^6/uL Hgb (12.0-16.0) g/dL Hct (36-46) % MCV (80-100) fL MCH (26-34) PG MCHC (30-36) % RDW (11.6-14.8) % Plt Count (150-400) X10^3/uL Neut % (Auto) (50-75) % Lymph % (Auto) (25-40) % [place] % (Auto) (3-14) % Eos % (Auto) (2-4) % Baso % (Auto) (0-2) % Neut # (Auto) (6797-3820) /uL Lymph # (Auto) (2917-1961) /uL [place] # (Auto) (0-900) /uL Eos # (Auto) (0-450) /uL Baso # (Auto) (0-100) /uL PT (10.1-12.7) SECONDS INR (0.9-1.3) D-Dimer (<500) ng/ml Sodium (137-145) mmol/L Potassium (3.4-5.1) mmol/L Chloride (98-107) mmol/L Carbon Dioxide (22-32) mmol/L BUN (7-17) mg/dL Creatinine (0.52-1.04) mg/dL Estimated GFR (>60) mL/min BUN/Creatinine Ratio (6-22) Glucose (80-110) mg/dL Lactate (0.7-2.1) mmol/L Calcium (8.4-10.2) mg/dL Total Bilirubin (0.2-1.3) mg/dL AST (14-36) IU/L ALT (<35) IU/L Alkaline Phosphatase (38-126) U/L Troponin I < 0.012 (0.01-0.034) ng/mL NT-Pro-B Natriuret Pep (<450) pg/mL Total Protein (6.3-8.2) g/dL Albumin (3.5-5.0) g/dL Globulin (1.7-4.1) g/dL Albumin/Globulin Ratio (1.0-2.8) SARS-CoV-2 (PCR) (Negative) Imaging Data US - DVT: Radiologist's Impression: [address] [address] Ultrasound Report Signed Patient: Alivia Stockton MR#: [id number] : 1945 Acct:[id number] Age/Sex: 77 / F Date of Service: 05/06/23 Loc: ED Accession Number: [id number] ?? Procedure: US periph venous low extrem lt Ordering Provider: Cirilo Mcallister P.A-C PROCEDURE:? US PERIPH VENOUS LOW EXTREM LT ? INDICATIONS:? PAIN ? TECHNIQUE:? Real-time imaging, as well as color and pulse Doppler interrogation, were performed of the lower extremity deep veins from the inguinal ligament to the popliteal fossa, with documentation of the visualized calf veins.? ? COMPARISON:? None. ? FINDINGS:? The common femoral, femoral, popliteal, and the visualized calf veins are normally compressible, and free of intraluminal thrombus.? Color and pulse Doppler demonstrate normal phasic intraluminal flow.? There is normal augmentation response to distal compression maneuver.? ? ? IMPRESSION:? No findings of lower extremity deep venous thrombosis. ? ? ? Approved by: Francois Rodriguez M.D. on 05/06/2023 at 13:25? Chest x-ray: Radiologist's Impression: [address] [address] XRay Report Signed Patient: Alivia Stockton MR#: [id number] : 1945 Acct:[id number] Age/Sex: 77 / F Date of Service: 05/06/23 Loc: ED Accession Number: [id number] ?? Procedure: XR chest 1V Ordering Provider: Fely Alcala D.O. PROCEDURE:? XR CHEST 1V ? INDICATIONS:? Shortness of breath ? TECHNIQUE:? One view of the chest was acquired.? ? COMPARISON:? [facility], , XR CHEST 2V, 06/27/2022, 11:44. ? FINDINGS: Left-sided dual-chamber pacemaker present.? Heart size is enlarged, there is moderate vascular congestion.? Mild right basilar atelectasis and infiltrate.? Minimal blunting of both costophrenic angles.? Osseous structures normal. ? ? IMPRESSION:? ? Cardiomegaly, moderate vascular congestion small bibasilar pleural effusions. ? ? ? Approved by: Francois Rodriguez M.D. on 05/06/2023 at 12:47? ECG Data Interpretation: EKG is AV dual paced rhythm with a ventricular rate of 85 beats per minute and free of any signs of ischemia or ectopy. No ST segmental elevation or depression. No T wave inversions MDM Narrative Medical decision making narrative: MDM * differential diagnosis includes but not limited to CHF exacerbation, STEMI, NSTEMI, viral illness, pneumonia * Prior records reviewed:Patient was last seen 3 months ago due to eustachian tube disorder. History of atrial fibrillation status post ablation and pacemaker. On 20 mg Xarelto nightly. Patient was also seen about a year ago due to chest pain. History of bradycardia requiring a pacemaker, hypertension. [facility] was called and no need for immediate intervention reassuring physical exam, labs, EKG. Pacemaker was interrogated and no findings noted. Patient was discharged with instructions to follow up with the cargo services coordinator. Ejection fraction done at echo was 40-45% at [facility]. Done 2 months ago. * My lab interpretation: CBC unremarkable, no evidence of leukocytosis. Lactate within normal limits. Troponin x2 within normal limits. BNP elevated at 721 which was elevated from last year. D-dimer negative, COVID negative * My imaging interpretation: Chest x-ray shows cardiomegaly and moderate vascular congestion with small bilateral pleural effusions. * Clinical Decision Rules/Scores evaluated: None * Independent discussions with: None ED Course: This is a 77-year-old female presents to the emergency department due to worsening shortness breath over the last couple of days. EKG unremarkable. Pacemaker was interrogated and functioning properly. Troponins x2 were within normal limits. Patient did have an elevated BNP and had a chest x-ray showing moderate vascular congestion and concerns for CHF exacerbation. Patient had a recent echo which showed ejection fraction of 40-45%. Patient will be discharged with diuretics and recommended to follow up with her cargo services coordinator later this week where she plans to do. D-dimer negative and low concern for PE. Patient is also having left lower extremity pain in the calf and ultrasound ordered which was negative. Shared Decision Making: Discussed plan with patient who is comfortable with the plan Social Considerations: None Disposition: Discharged to home <Fely Alcala, - Last Filed: 05/21/23 05:06> Lab Data Labs: Lab Results 05/06/23 05/06/23 05/06/23 Range/Units 12:41 13:20 13:20 WBC 7.2 (4.5-11.0) X10^3/uL RBC 4.36 (4.0-5.2) X10^6/uL Hgb 12.9 (12.0-16.0) g/dL Hct 39.2 (36-46) % MCV 89.9 (80-100) fL MCH 29.6 (26-34) PG MCHC 32.9 (30-36) % RDW 14.1 (11.6-14.8) % Plt Count 180 (150-400) X10^3/uL Neut % (Auto) 58.1 (50-75) % Lymph % (Auto) 27.2 (25-40) % [place] % (Auto) 12.5 (3-14) % Eos % (Auto) 1.5 L (2-4) % Baso % (Auto) 0.7 (0-2) % Neut # (Auto) 4200 (6564-7950) /uL Lymph # (Auto) 2000 (5665-4096) /uL [place] # (Auto) 900 (0-900) /uL Eos # (Auto) 100 (0-450) /uL Baso # (Auto) 0 (0-100) /uL PT 17.1 H (10.1-12.7) SECONDS INR 1.5 H (0.9-1.3) D-Dimer (<500) ng/ml Sodium (137-145) mmol/L Potassium (3.4-5.1) mmol/L Chloride (98-107) mmol/L Carbon Dioxide (22-32) mmol/L BUN (7-17) mg/dL Creatinine (0.52-1.04) mg/dL Estimated GFR (>60) mL/min BUN/Creatinine Ratio (6-22) Glucose (80-110) mg/dL Lactate (0.7-2.1) mmol/L Calcium (8.4-10.2) mg/dL Total Bilirubin (0.2-1.3) mg/dL AST (14-36) IU/L ALT (<35) IU/L Alkaline Phosphatase (38-126) U/L Troponin I (0.01-0.034) ng/mL NT-Pro-B Natriuret Pep (<450) pg/mL Total Protein (6.3-8.2) g/dL Albumin (3.5-5.0) g/dL Globulin (1.7-4.1) g/dL Albumin/Globulin Ratio (1.0-2.8) SARS-CoV-2 (PCR) Negative (Negative) 0905/06/23 05/06/23 Range/Units 13:20 13:20 13:20 WBC (4.5-11.0) X10^3/uL RBC (4.0-5.2) X10^6/uL Hgb (12.0-16.0) g/dL Hct (36-46) % MCV (80-100) fL MCH (26-34) PG MCHC (30-36) % RDW (11.6-14.8) % Plt Count (150-400) X10^3/uL Neut % (Auto) (50-75) % Lymph % (Auto) (25-40) % [place] % (Auto) (3-14) % Eos % (Auto) (2-4) % Baso % (Auto) (0-2) % Neut # (Auto) (5429-8452) /uL Lymph # (Auto) (4442-1447) /uL [place] # (Auto) (0-900) /uL Eos # (Auto) (0-450) /uL Baso # (Auto) (0-100) /uL PT (10.1-12.7) SECONDS INR (0.9-1.3) D-Dimer 447 (<500) ng/ml Sodium 139 (137-145) mmol/L Potassium 4.3 (3.4-5.1) mmol/L Chloride 109 H (98-107) mmol/L Carbon Dioxide 23 (22-32) mmol/L BUN 16 (7-17) mg/dL Creatinine 0.79 (0.52-1.04) mg/dL Estimated GFR > 60 (>60) mL/min BUN/Creatinine Ratio 20.3 (6-22) Glucose 92 (80-110) mg/dL Lactate 1.3 (0.7-2.1) mmol/L Calcium 9.0 (8.4-10.2) mg/dL Total Bilirubin 0.3 (0.2-1.3) mg/dL AST 31 (14-36) IU/L ALT 25 (<35) IU/L Alkaline Phosphatase 81 (38-126) U/L Troponin I < 0.012 (0.01-0.034) ng/mL NT-Pro-B Natriuret Pep 714 H (<450) pg/mL Total Protein 7.4 (6.3-8.2) g/dL Albumin 4.0 (3.5-5.0) g/dL Globulin 3.4 (1.7-4.1) g/dL Albumin/Globulin Ratio 1.2 (1.0-2.8) SARS-CoV-2 (PCR) (Negative) 05/06/23 Range/Units 15:20 WBC (4.5-11.0) X10^3/uL RBC (4.0-5.2) X10^6/uL Hgb (12.0-16.0) g/dL Hct (36-46) % MCV (80-100) fL MCH (26-34) PG MCHC (30-36) % RDW (11.6-14.8) % Plt Count (150-400) X10^3/uL Neut % (Auto) (50-75) % Lymph % (Auto) (25-40) % [place] % (Auto) (3-14) % Eos % (Auto) (2-4) % Baso % (Auto) (0-2) % Neut # (Auto) (1507-0268) /uL Lymph # (Auto) (5112-3210) /uL [place] # (Auto) (0-900) /uL Eos # (Auto) (0-450) /uL Baso # (Auto) (0-100) /uL PT (10.1-12.7) SECONDS INR (0.9-1.3) D-Dimer (<500) ng/ml Sodium (137-145) mmol/L Potassium (3.4-5.1) mmol/L Chloride (98-107) mmol/L Carbon Dioxide (22-32) mmol/L BUN (7-17) mg/dL Creatinine (0.52-1.04) mg/dL Estimated GFR (>60) mL/min BUN/Creatinine Ratio (6-22) Glucose (80-110) mg/dL Lactate (0.7-2.1) mmol/L Calcium (8.4-10.2) mg/dL Total Bilirubin (0.2-1.3) mg/dL AST (14-36) IU/L ALT (<35) IU/L Alkaline Phosphatase (38-126) U/L Troponin I < 0.012 (0.01-0.034) ng/mL NT-Pro-B Natriuret Pep (<450) pg/mL Total Protein (6.3-8.2) g/dL Albumin (3.5-5.0) g/dL Globulin (1.7-4.1) g/dL Albumin/Globulin Ratio (1.0-2.8) SARS-CoV-2 (PCR) (Negative) ECG Data Attestation: I personally reviewed and interpreted this ECG as follows: Prior ECG tracings: available for review Interpretation: EKG is AV dual paced rhythm with a ventricular rate of 85 beats per minute and free of any signs of ischemia or ectopy. No ST segmental elevation or depression. No T wave inversions Mank: Dual paced rhythm rate 85 MD 176 QRS of 156 QRS Ca 506. Paced. Patient has prior from 03/24 which appears similar. Discharge Plan Departure Patient Disposition: Home Clinical Impression: CHF exacerbation Activity Restrictions/Additional Instructions: Thank you for coming to the [facility] Emergency Department today. Your EKG was unremarkable in your pacemaker was interrogated and showed to be functioning properly. We also did lab test to check for any kind of heart attack and this was negative. The ultrasound of your leg showed no evidence of a blood clot in your left calf. There is also a test to check for any kind of blood clot in your lungs which was negative. We did show the you did have some ?fluid? in your lungs as well as a heart enzyme suspicious for possible heart failure. We would like to place you on a short course of diuretics to help you drain some of the fluid off. Please follow up with the cargo services coordinator next week for further management and care. I hope you feel better soon. Please follow up with your primary care provider within a week if your symptoms continue. If you do not have a primary care provider please contact the [facility] Resource line at [phone]. They will ask some questions about your medical history and help you get set up with a provider in the community. Prescriptions: New furosemide [Lasix] 40 mg tablet 40 mg PO DAILY Qty: 14 0RF No Action (DME) motorized scooter See Rx Instructions .Route .MEDSUPPLY Qty: 1 0RF Rx Instructions: As directed amoxicillin-pot clavulanate [Augmentin] 500-125 mg tablet 1 tab PO BID Qty: 14 0RF cholecalciferol (vitamin D3) 125 mcg (5,000 unit) capsule 125 mcg PO DAILY B12 Active 1,000 mcg tablet,chewable 1,000 mcg PO DAILY sulfamethoxazole-trimethoprim [Bactrim DS] 800-160 mg tablet 1 tab PO BID Qty: 14 0RF Rx Instructions: take twice a day for 7 days spironolacton-hydrochlorothiaz 25-25 mg tablet 1 tab PO DAILY diltiazem HCl 30 mg tablet 30 mg PO BID Patient Comments: take 1 tablet by mouth three times a day Rx Instructions: 0700, 1400, 2100 prednisone 20 mg tablet 20 mg PO DAILY Qty: 5 0RF dofetilide [Tikosyn] 500 mcg Capsule 500 mcg PO Q12H Rx Instructions: 0700/1900 prednisone 20 mg tablet 20 mg PO DAILY Qty: 4 0RF fluticasone propionate 50 mcg/actuation spray,suspension 1 spray intranasal BID PRN (Reason: congestion) Qty: 16 2RF Rx Instructions: administer into each nostril cetirizine 10 mg tablet 10 mg PO DAILY PRN (Reason: allergy symptoms) Qty: 30 2RF lidocaine 5 % adhesive patch,medicated 1 patch topical DAILY PRN (Reason: back pain) Qty: 30 0RF Rx Instructions: leave on most painful area for up to 12 hrs, if hip pain, apply to middle, low back. prednisone 20 mg tablet 20 mg PO DAILY Qty: 2 0RF pravastatin 20 mg Tablet 20 mg PO BEDTIME Xarelto 20 mg Tablet 20 mg PO QPM Referrals: Mark Brennan DO [Primary Care Provider] - Stand Alone Forms: Patient Portal/API <Fely Alcala DO - Last Filed: 05/21/23 05:06> Cosign ED Attending Ninoskaature Attestation: I was immediately available in the department for consultation. Documentation has been reviewed. Case was discussed, labs and imaging was reviewed.
--- NOTE | 2023-05-06 12:42 | DI.US.S_ITS ---
PROCEDURE: US PERIPH VENOUS LOW EXTREM LT INDICATIONS: PAIN TECHNIQUE: Real-time imaging, as well as color and pulse Doppler interrogation, were performed of the lower extremity deep veins from the inguinal ligament to the popliteal fossa, with documentation of the visualized calf veins. COMPARISON: None. FINDINGS: The common femoral, femoral, popliteal, and the visualized calf veins are normally compressible, and free of intraluminal thrombus. Color and pulse Doppler demonstrate normal phasic intraluminal flow. There is normal augmentation response to distal compression maneuver. IMPRESSION: No findings of lower extremity deep venous thrombosis. Approved by: Francois Rodriguez M.D. on 05/06/2023 at 13:25
[2023-05-06 13:34] LABS: Add Manual Diff / Slide Review NO; Basophils Absolute Auto 0 /uL (0-100); Basophils Percent Auto 0.7 % (0-2); Eosinophils Absolute Auto 100 /uL (0-450); Eosinophils Percent Auto 1.5 % (2-4); Hematocrit 39.2 % (36-46); Hemoglobin 12.9 g/dL (12.0-16.0); Lymphocytes Absolute Auto 2000 /uL (1100-4500); Lymphocytes Percent Auto 27.2 % (25-40); Mean Corpuscular HGB Conc 32.9 % (30-36); Mean Corpuscular Hemoglobin 29.6 PG (26-34); Mean Corpuscular Volume 89.9 fL (80-100); Monocytes Absolute Auto 900 /uL (0-900); Monocytes Percent Auto 12.5 % (3-14); Neutrophils Absolute Auto 4200 /uL (1500-7000); Neutrophils Percent Auto 58.1 % (50-75); Platelet Count 180 X10^3/uL (150-400); Red Blood Cell Count 4.36 X10^6/uL (4.0-5.2); Red Cell Distribution Width 14.1 % (11.6-14.8); White Blood Cell Count 7.2 X10^3/uL (4.5-11.0)
[2023-05-06 13:40] LABS: INR 1.5 (0.9-1.3); Prothrombin Time 17.1 SECONDS (10.1-12.7)
[2023-05-06 13:47] LABS: Alanine Aminotransferase 25 IU/L (<35); Albumin Globulin Ratio 1.2 (1.0-2.8); Alkaline Phosphatase 81 U/L (38-126); Aspartate Aminotransferase 31 IU/L (14-36); BUN Creatinine Ratio 20.3 (6-22); Bilirubin Total 0.3 mg/dL (0.2-1.3); Blood Urea Nitrogen 16 mg/dL (7-17); Carbon Dioxide 23 mmol/L (22-32); Chloride 109 mmol/L (98-107); D Dimer 447 ng/ml (<500); Estimated Glomerular Filt Rate > 60 mL/min (>60); Globulin 3.4 g/dL (1.7-4.1); Glucose 92 mg/dL (80-110); HEMOLYSIS 17 (0-50); Potassium 4.3 mmol/L (3.4-5.1); Sodium 139 mmol/L (137-145); Total Protein 7.4 g/dL (6.3-8.2)
[2023-05-06 13:48] LABS: COVID19 -Nasal RAPID Negative (Negative)
[2023-05-06 13:49] LABS: Lactate (Lactic Acid) 1.3 mmol/L (0.7-2.1)
[2023-05-06 13:58] LABS: NT-proBNP (BNP-Adult 18+) 714 pg/mL (<450); Troponin I < 0.012 ng/mL (0.01-0.034)
[2023-05-06 15:54] LABS: Troponin I < 0.012 ng/mL (0.01-0.034)
== END 2023-05-06 16:54 | disposition home or self-care (01) ==
PROVIDERS: Emergency Medicine; Emergency Provider Physician Assistant Medical; PCP Family Medicine
DX: I50.9 Heart failure, unspecified (principal); R06.02 Shortness of breath; R60.9 Edema, unspecified; Z20.822 Contact with and (suspected) exposure to COVID-19; Z79.01 Long term (current) use of anticoagulants; Z79.899 Other long term (current) drug therapy
CPT/HCPCS: 36415; 71045; 80053; 83605; 83880; 84484; 85025; 85379; 85610; 87635; 93005; 93010; 93971; 99284; C9803

== ENCOUNTER → 2023-06-03 08:40 | Outpatient (CLI) | payer MEDICARE, OTHER, SELFPAY ==
[2018-08-11 17:25] VITALS: BMI 39.4
[2023-06-03 09:43] LABS: Blood Urea Nitrogen 17 mg/dL (7-17); Calcium 9.1 mg/dL (8.4-10.2); Carbon Dioxide 24 mmol/L (22-32); Chloride 108 mmol/L (98-107); Estimated Glomerular Filt Rate > 60 mL/min (>60); Glucose 95 mg/dL (80-110); HEMOLYSIS < 15 (0-50); Magnesium 2.3 mg/dL (1.6-2.3); Potassium 4.4 mmol/L (3.4-5.1); Sodium 139 mmol/L (137-145)
== END ==
PROVIDERS: PCP Family Medicine; Referring Provider Internal Medicine Cardiovascular Disease; Visit Provider Internal Medicine Cardiovascular Disease
DX: Z79.899 Other long term (current) drug therapy (principal)
CPT/HCPCS: 36415; 80048; 83735

== ENCOUNTER → 2023-06-12 09:00 | Outpatient (CLI) | payer MEDICARE, OTHER, SELFPAY ==
[2018-08-11 17:25] VITALS: BMI 39.4
[2023-06-12 10:24] LABS: Alanine Aminotransferase 21 IU/L (<35); Albumin 3.8 g/dL (3.5-5.0); Albumin Globulin Ratio 1.1 (1.0-2.8); Alkaline Phosphatase 74 U/L (38-126); Aspartate Aminotransferase 30 IU/L (14-36); BUN Creatinine Ratio 20.5 (6-22); Bilirubin Total 0.3 mg/dL (0.2-1.3); Blood Urea Nitrogen 18 mg/dL (7-17); Carbon Dioxide 23 mmol/L (22-32); Chloride 108 mmol/L (98-107); Estimated Glomerular Filt Rate > 60 mL/min (>60); Globulin 3.5 g/dL (1.7-4.1); Glucose 93 mg/dL (80-110); HEMOLYSIS < 15 (0-50); Potassium 4.4 mmol/L (3.4-5.1); Sodium 139 mmol/L (137-145); Total Protein 7.3 g/dL (6.3-8.2)
[2023-06-12 10:25] LABS: Albumin 3.8 g/dL (3.5-5.0); BUN Creatinine Ratio 22.6 (6-22); Blood Urea Nitrogen 19 mg/dL (7-17); Calcium 9.3 mg/dL (8.4-10.2); Carbon Dioxide 24 mmol/L (22-32); Chloride 107 mmol/L (98-107); Estimated Glomerular Filt Rate > 60 mL/min (>60); Glucose 92 mg/dL (80-110); HEMOLYSIS < 15 (0-50); Potassium 4.7 mmol/L (3.4-5.1); Sodium 138 mmol/L (137-145)
[2023-06-12 10:30] LABS: Hemoglobin A1C% w Est Avg Glu 5.4 % (4.0-6.0)
== END ==
PROVIDERS: PCP Family Medicine; Referring Provider Internal Medicine Cardiovascular Disease; Visit Provider Internal Medicine Cardiovascular Disease
DX: R73.03 Prediabetes (principal); I50.43 Acute on chronic combined systolic (congestive) and diastolic (congestive) heart failure; I50.9 Heart failure, unspecified; I10 Essential (primary) hypertension
CPT/HCPCS: 36415; 80053; 80069; 83036

== ENCOUNTER 2023-07-02 08:36 | Emergency (ER) | payer MEDICARE, OTHER, SELFPAY ==
[2018-08-11 17:25] VITALS: BMI 39.4
[2023-07-02 08:42] VITALS: BP 138/82; PULSE 78; RESP 18; TEMP 36.6; O2SAT 98; BMI 44.2
--- NOTE | 2023-07-02 08:43 | ED_ITS ---
HPI - Abdominal Pain General Chief Complaint: Skin/Abscess/Foreign Body Stated Complaint: lump on bottom lt side/painful Time Seen by Provider: 07/02/23 08:41 Source: patient, RN notes reviewed and old records reviewed Limitations: no limitations History of Present Illness HPI narrative: 77-year-old female with history of atrial fibrillation status post ablation and pacemaker anticoagulated on Xarelto. Patient presents with complaint of left vaginal/groin pain swelling for the past several days. Patient states no drainage but it has been growing in size. She denies fevers no abdominal back or flank pain. No nausea or vomiting. No issues with bowel movements or urination. She states it is painful to sit in that area. She states she is not had similar issues in the past. She has checked the area her has cleansed at they noticed swelling. Patient states it is quite uncomfortable. Patient has allergies or adverse reactions to beta-blockers, flecainide metoprolol but denies any other medication allergies. Related Data Home Medications Medication Instructions Recorded Confirmed pravastatin 20 mg tablet 20 mg PO BEDTIME 02/19/18 06/29/23 rivaroxaban 20 mg tablet (Xarelto) 20 mg PO QPM 02/19/18 06/29/23 dofetilide 500 mcg capsule 500 mcg PO Q12H 02/06/21 06/29/23 (Tikosyn) cholecalciferol (vitamin D3) 125 125 mcg PO DAILY 11/02/21 06/29/23 mcg (5,000 unit) capsule mecobalamin (vitamin B12) 1,000 1,000 mcg PO DAILY 11/02/21 06/29/23 mcg chewable tablet (B12 Active) diltiazem HCl 30 mg tablet 30 mg PO BID 11/04/22 06/29/23 Previous Rx's Medication Instructions Recorded cetirizine 10 mg tablet 10 mg PO DAILY PRN allergy 02/03/23 symptoms #30 tabs fluticasone propionate 50 1 spray intranasal BID PRN 02/03/23 mcg/actuation nasal congestion #16 grams spray,suspension motorized scooter #1 ea 04/06/23 spironolactone 25 1 tab PO DAILY #90 tabs 05/22/23 mg-hydrochlorothiazide 25 mg tablet amoxicillin 875 mg-potassium 1 tab PO BID #14 tabs 07/02/23 clavulanate 125 mg tablet clindamycin HCl 300 mg capsule 300 mg PO Q6H 7 days #28 caps 07/02/23 Allergies Allergy/AdvReac Type Severity Reaction Status Date / Time Beta-Blockers Allergy Severe Get all Verified 07/02/23 08:47 (Beta-Adrenergic Bloc the side effects flecainide Allergy Severe Get all Verified 07/02/23 08:47 the symptoms metoprolol Allergy Severe get all Verified 07/02/23 08:47 the side effects Review of Systems Review of Systems ROS Unobtainable: All systems reviewed & are unremarkable except as noted in HPI and below Patient History Medical History Bilateral knee pain Mobility impaired Congestive heart failure Strain of left piriformis muscle Greater trochanteric bursitis of left hip Diverticular disease COVID-19 Eustachian tube dysfunction Osteoarthritis of hands, bilateral Pulmonary edema cardiac cause Costochondritis, acute Orthostatic hypotension Strain of left hip Hyperlipidemia Fatigue Family history of breast cancer Well adult Osteoarthritis (~2013) Sleep apnea (~2012) Osteoporosis (~2013) Cataracts, bilateral (~2010) Irritable bowel syndrome (~1999) GI bleeding (~2004) Colon polyps (~1999) Colitis (~2007) Cardiac arrhythmia (~2008) Atrial fibrillation (~2008) Atrial fibrillation Hypertension (~2004) Lower GI bleed Surgical History Anesthesia History of cataract removal with insertion of prosthetic lens (~05/2001) Pacemaker (~2018) Hx of cholecystectomy (~05/1978) H/O abdominal hysterectomy (~04/1977) Cystocele (~03/2001) H/O laminectomy (~04/1990) Family History Mother Breast cancer Diabetes mellitus Hyperlipidemia Hypertension Stroke Father No known health problems Grandfather Stroke Grandmother No problems noted. Grandfather Stroke Social History household members: spouse Smoking Status: Never smoker second hand exposure: No alcohol intake: never substance use type: does not use Smoking Status: Never smoker alcohol intake frequency: 0-2 drinks per day Substance Use Type: does not use Exam Narrative Exam Narrative: GENERAL: Alert and oriented x three, obese female in mild distress. HEENT: Head normocephalic, atraumatic, EOMI, pupils reactive, face symmetric, moist mucous membranes NECK: Supple, full range of motion CARDIOVASCULAR: Regular rate and rhythm without murmurs, rubs or gallops. RESPIRATORY: Breath sounds equal bilaterally, no wheezes rales or rhonchi. ABDOMEN: Soft, nontender. Normoactive bowel sounds all 4 quadrants. No guarding or rebound, rigidity, no mass : No CVA tenderness. Female: externa vaginal exam is normal with the exception of swelling, induration of the left posterior labia in the area of the Bartholin gland. No obvious drainage, no fluctuance but patient has quite a bit of swelling and erythema. No vaginal bleeding, no discharge, digital exam of the external vagina swelling and tenderness does not extend inside the canal. Rectal: non-tender, heme neg stool, prostate exam normal, no masses or nodules noted. EXTREMITIES: Normal range of motion, no clubbing or edema. Neurovascularly intact. NEUROLOGICAL: Cranial nerves II through XII grossly intact. Moving all extremities SKIN: Warm, dry, no petechiae, no rashes or lesions. Initial Vital Signs Initial Vital Signs: Vital Signs Temperature 97.8 F 07/02/23 08:42 Pulse Rate 78 07/02/23 08:42 Respiratory Rate 18 07/02/23 08:42 Blood Pressure 138/82 07/02/23 08:42 Pulse Oximetry 98 07/02/23 08:42 Oxygen Delivery Method Room Air 07/02/23 08:42 Procedures Abscess I/D I&D #1: Site: bartholin's gland Side (if applicable): left Sedation/analgesia: none Local Anesthetic: lidocaine 2% Amount of anesthesia used (mL): 5 Technique: needle aspiration and incised with #11 blade Amount of fluid expressed (mL): 7 Irrigation: Yes Packing used?: none Course Vital Signs Vital signs: Vital Signs - 8 hr 07/02/23 08:42 Temperature 97.8 F Pulse Rate 78 Respiratory Rate 18 Blood Pressure 138/82 Pulse Oximetry 98 Oxygen Delivery Method Room Air MDM - Abdominal Pain MDM Narrative Medical decision making narrative: 77-year-old female with what appears to be an infected or blocked Bartholin gland on the left. Discussed with patient she is agreeable to local anesthesia with attempted aspiration and if successful I and D. was able to aspirate about 7 mL, incision was made small amount of additional area was probed. Patient had small amount of ooze. Patient otherwise tolerated procedure well. Discussed return precautions signs and symptoms to watch for, for Augmentin plus clindamycin for antibiotic coverage as patient has had multiple medications that might not interact well with Bactrim. All return precautions were discussed. Discharge Plan Departure Patient Disposition: Home Clinical Impression: Bartholin's gland abscess Instructions: DI for Bartholin Gland Cyst Activity Restrictions/Additional Instructions: Please follow up with Gynecology for recheck. You will have some continued oozing and bleeding for the next several days this should continue to improve each day. You appear to have had a blockage or developed an infection of the Bartholin's gland. Continue Sitz baths, warm baths or showers regularly or warm compresses to the area 3-4 times daily. Allow area to drain. Take oral antibiotics until completed. Start these today. Prescription sent to [facility] in [place]. Please return for fevers, rapidly worsening pain, increasing redness, swelling, worsening drainage, no abdominal back or flank pain, difficulty with urination, nausea vomiting or other new or concerning changes Prescriptions: New amoxicillin-pot clavulanate 875-125 mg tablet 1 tab PO BID Qty: 14 0RF clindamycin HCl 300 mg capsule 300 mg PO Q6H 7 Days Qty: 28 0RF No Action (DME) motorized scooter See Rx Instructions .Route .MEDSUPPLY Qty: 1 0RF Rx Instructions: As directed cholecalciferol (vitamin D3) 125 mcg (5,000 unit) capsule 125 mcg PO DAILY B12 Active 1,000 mcg tablet,chewable 1,000 mcg PO DAILY diltiazem HCl 30 mg tablet 30 mg PO BID Patient Comments: take 1 tablet by mouth three times a day Rx Instructions: 0700, 1400, 2100 spironolacton-hydrochlorothiaz 25-25 mg tablet 1 tab PO DAILY Qty: 90 1RF dofetilide [Tikosyn] 500 mcg Capsule 500 mcg PO Q12H Rx Instructions: 0700/1900 fluticasone propionate 50 mcg/actuation spray,suspension 1 spray intranasal BID PRN (Reason: congestion) Qty: 16 2RF Rx Instructions: administer into each nostril cetirizine 10 mg tablet 10 mg PO DAILY PRN (Reason: allergy symptoms) Qty: 30 2RF pravastatin 20 mg Tablet 20 mg PO BEDTIME Xarelto 20 mg Tablet 20 mg PO QPM Referrals: Mark Brennan DO [Primary Care Provider] - Stand Alone Forms: Patient Portal/API
--- NOTE | 2023-07-02 09:57 | PC.NURSE ---
assisted Dr. Alcala with Bartholin gland abscess drainage. pt tolerated well. gave patient a pad to place over area for bloody drainage
== END 2023-07-02 09:37 | disposition home or self-care (01) ==
PROVIDERS: Emergency Provider Emergency Medicine; PCP Family Medicine
DX: N75.0 Cyst of Bartholin's gland (principal)
CPT/HCPCS: 10060; 99281; 99283

== ENCOUNTER → 2023-07-19 14:05 | Outpatient (CLI) | payer MEDICARE, OTHER, SELFPAY ==
[2018-08-11 17:25] VITALS: BMI 39.4
== END ==
PROVIDERS: PCP Family Medicine; Visit Provider Nurse Practitioner Family
DX: R30.0 Dysuria (principal)
CPT/HCPCS: 87077; 87086; 87186

== ENCOUNTER → 2023-07-24 13:43 | Outpatient (CLI) | payer MEDICARE, OTHER, SELFPAY ==
[2018-08-11 17:25] VITALS: BMI 39.4
[2023-07-24 14:27] LABS: Appearance Urine UA CLEAR; Bilirubin Urine UA NEGATIVE (NEGATIVE); Color Urine UA YELLOW; Glucose Urine UA NEGATIVE (Negative); Ketones Urine UA NEGATIVE (NEGATIVE); Leukocyte Esterase Urine UA NEGATIVE (NEGATIVE); Nitrite Urine UA NEGATIVE (Negative); Occult Blood Urine UA NEGATIVE (Negative); Protein Urine UA NEGATIVE (Negative); Urobilinogen Urine UA 0.2 E.U./dL (0.2)
[2023-07-24 14:54] LABS: Bacteria Urine Occasional (0-1); Culture Indicated Urine Cult Not Indicated; RBC Urine None Seen (0-5/HPF); Squamous Epithelial Cell Urine 0-1 /HPF (0-5/HPF); WBC Urine 0-1/HPF (0-5/HPF)
== END ==
PROVIDERS: PCP Family Medicine; Referring Provider Family Medicine; Visit Provider Family Medicine
DX: R30.9 Painful micturition, unspecified (principal); R35.0 Frequency of micturition
CPT/HCPCS: 81001

== ENCOUNTER 2023-08-12 20:59 | Emergency (ER) | payer MEDICARE, OTHER, SELFPAY ==
[2018-08-11 17:25] VITALS: BMI 39.4
[2023-08-12] VITALS (12 sets, daily range): BP systolic 110–184; BP diastolic 50–74; PULSE 54–97; RESP 13–26; TEMP 36.4; O2SAT 96–99; BMI 45.7
--- NOTE | 2023-08-12 21:23 | DI.RAD.S_ITS ---
PROCEDURE: XR CHEST 1V INDICATIONS: chest pain TECHNIQUE: One view of the chest was acquired. COMPARISON: Merged With [facility], CR, XR CHEST 1V, 05/06/2023, 12:33. Merged With [facility], CR, XR CHEST 2V, 06/27/2022, 11:44. FINDINGS: Surgical changes and devices: Pacemaker and dual chamber leads stable over time.. Lungs and pleura: Lungs are mildly edematous. No pleural effusions or pneumothorax. Mediastinum: Mediastinal contours appear normal. Heart size is at the upper limits of normal. Bones and chest wall: No suspicious bony lesions. Overlying soft tissues appear unremarkable. IMPRESSION: Chronic CHF pattern, no definite acute CHF with reference to comparison plain films. Dictated by: Frank Garcia M.D. on 08/12/2023 at 21:48 Approved by: Frank Garcia M.D. on 08/12/2023 at 21:49
[2023-08-12] MEDS: ASPIRIN 81 MG CHEW TAB 324 MG PO (21:32)
[2023-08-12 22:11] LABS: Add Manual Diff / Slide Review NO; Basophils Absolute Auto 100 /uL (0-100); Basophils Percent Auto 0.6 % (0-2); Eosinophils Absolute Auto 200 /uL (0-450); Eosinophils Percent Auto 2.3 % (2-4); Hematocrit 40.5 % (36-46); Hemoglobin 13.5 g/dL (12.0-16.0); Lymphocytes Absolute Auto 2700 /uL (1100-4500); Lymphocytes Percent Auto 30.7 % (25-40); Mean Corpuscular HGB Conc 33.2 % (30-36); Mean Corpuscular Hemoglobin 29.8 PG (26-34); Mean Corpuscular Volume 89.5 fL (80-100); Monocytes Absolute Auto 800 /uL (0-900); Monocytes Percent Auto 9.7 % (3-14); Neutrophils Absolute Auto 4900 /uL (1500-7000); Neutrophils Percent Auto 56.7 % (50-75); Platelet Count 190 X10^3/uL (150-400); Red Blood Cell Count 4.53 X10^6/uL (4.0-5.2); Red Cell Distribution Width 13.7 % (11.6-14.8); White Blood Cell Count 8.6 X10^3/uL (4.5-11.0)
[2023-08-12 22:15] LABS: INR 1.2 (0.9-1.3)
[2023-08-12 22:17] LABS: PTT Partial Thromboplastin Tim 30 SECONDS (25.1-36.5)
[2023-08-12 22:20] LABS: Alanine Aminotransferase 27 IU/L (<35); Albumin 4.1 g/dL (3.5-5.0); Albumin Globulin Ratio 1.1 (1.0-2.8); Alkaline Phosphatase 87 U/L (38-126); Aspartate Aminotransferase 34 IU/L (14-36); BUN Creatinine Ratio 29.7 (6-22); Bilirubin Total 0.4 mg/dL (0.2-1.3); Blood Urea Nitrogen 27 mg/dL (7-17); Calcium 9.2 mg/dL (8.4-10.2); Carbon Dioxide 23 mmol/L (22-32); Chloride 104 mmol/L (98-107); Creatine Kinase 50 U/L (30-135); Estimated Glomerular Filt Rate > 60 mL/min (>60); Globulin 3.7 g/dL (1.7-4.1); Glucose 144 mg/dL (80-110); HEMOLYSIS 36 (0-50); Lipase 78 U/L (23-300); Potassium 4.1 mmol/L (3.4-5.1); Sodium 137 mmol/L (137-145); Total Protein 7.8 g/dL (6.3-8.2)
[2023-08-12 22:31] LABS: Troponin I < 0.012 ng/mL (0.01-0.034)
--- NOTE | 2023-08-12 23:23 | ED.GENADULT ---
HPI - General Adult General Chief complaint: Dizziness Stated complaint: dizzy/ Bpress 80/60/ SOB/hot Time Seen by Provider: 08/12/23 22:53 Source: patient and family Mode of arrival: Ambulatory History of Present Illness HPI narrative: 77-year-old woman with a history of atrial fibrillation, pacemaker, hyperlipidemia, anticoagulated on Xarelto, chronic dizziness with a history of orthostatic hypotension presents complaining of dyspnea, feeling hot, chest tightness under her left breast and worsening of her chronic dizziness and low blood pressures at home. She reports no fevers, chills, vomiting, abdominal pain. No dysuria no lower extremity swelling. Related Data Home Medications Medication Instructions Recorded Confirmed pravastatin 20 mg tablet 20 mg PO BEDTIME 02/19/18 07/19/23 rivaroxaban 20 mg tablet (Xarelto) 20 mg PO QPM 02/19/18 07/19/23 dofetilide 500 mcg capsule 500 mcg PO Q12H 02/06/21 07/19/23 (Tikosyn) cholecalciferol (vitamin D3) 125 125 mcg PO DAILY 11/02/21 07/19/23 mcg (5,000 unit) capsule mecobalamin (vitamin B12) 1,000 1,000 mcg PO DAILY 11/02/21 07/19/23 mcg chewable tablet (B12 Active) diltiazem HCl 30 mg tablet 30 mg PO BID 11/04/22 07/19/23 Previous Rx's Medication Instructions Recorded cetirizine 10 mg tablet 10 mg PO DAILY PRN allergy 02/03/23 symptoms #30 tabs fluticasone propionate 50 1 spray intranasal BID PRN 02/03/23 mcg/actuation nasal congestion #16 grams spray,suspension motorized scooter #1 ea 04/06/23 spironolactone 25 1 tab PO DAILY #90 tabs 05/22/23 mg-hydrochlorothiazide 25 mg tablet Allergies Allergy/AdvReac Type Severity Reaction Status Date / Time Beta-Blockers Allergy Severe Get all Verified 08/12/23 21:03 (Beta-Adrenergic Bloc the side effects flecainide Allergy Severe Get all Verified 08/12/23 21:03 the symptoms metoprolol Allergy Severe get all Verified 08/12/23 21:03 the side effects macrobid AdvReac Mild Vomiting Uncoded 07/22/23 17:45 Review of Systems Review of Systems Narrative: Pertinent positive and negative findings as per HPI Patient History Medical History Bilateral knee pain Mobility impaired Congestive heart failure Diverticular disease COVID-19 Eustachian tube dysfunction Osteoarthritis of hands, bilateral Pulmonary edema cardiac cause Orthostatic hypotension Hyperlipidemia Fatigue Well adult Sleep apnea (~2012) Osteoporosis (~2013) Cataracts, bilateral (~2010) Irritable bowel syndrome (~1999) GI bleeding (~2004) Colon polyps (~1999) Atrial fibrillation (~2008) Hypertension (~2004) Lower GI bleed Surgical History Anesthesia History of cataract removal with insertion of prosthetic lens (~05/2001) Pacemaker (~2018) Hx of cholecystectomy (~05/1978) H/O abdominal hysterectomy (~04/1977) Cystocele (~03/2001) H/O laminectomy (~04/1990) Family History Mother Breast cancer Diabetes mellitus Hyperlipidemia Hypertension Stroke Father No known health problems Grandfather Stroke Grandmother No problems noted. Grandfather Stroke Social History household members: spouse Smoking Status: Never smoker second hand exposure: No alcohol intake: never substance use type: does not use Smoking Status: Never smoker alcohol intake frequency: 0-2 drinks per day Substance Use Type: does not use Exam Initial Vital Signs Initial Vital Signs: Vital Signs Temperature 97.5 F L 08/12/23 21:03 Pulse Rate 54 L 08/12/23 21:03 Respiratory Rate 18 08/12/23 21:03 Blood Pressure 136/74 08/12/23 21:03 Pulse Oximetry 97 08/12/23 21:03 Oxygen Delivery Method Room Air 08/12/23 21:03 General: in no acute distress. Able to give a complete and coherent history. Well-nourished well-developed HEENT: Moist mucous membranes, normal sclera with reactive pupils, Neck: No JVD, supple Respiratory: Lungs are clear to auscultation, no wheezing no rales no rhonchi. Full and symmetrical air movement Cardiac: Mild irregularity, no murmurs are appreciated Abdomen: Soft, obese, nontender, good bowel tones, no flank pain Skin: Warm and dry, no rashes Neurologic: Grossly neurologically intact with no obvious asymmetries or abnormalities Extremities: No trauma, well perfused, no significant lower extremity edema Psych: Cooperative, appropriate insight and affect Course Orders Ordered: ED Orders 08/12/23 21:23 XR chest 1V Stat EKG-12 Lead Stat 08/12/23 21:55 Complete Blood Count AUTO DIFF Stat Comprehensive Metabolic Panel Stat Lipase Stat Magnesium Stat PTT Partial Thromboplastin Jamal Stat Prothrombin Time INR Stat Troponin & CK Cardiac Panel Stat 08/12/23 22:43 Trop I [Troponin I] Stat Discontinued Medications Aspirin (Aspirin 81 Mg Chew Tab) 324 mg PO NOW ONE Stop: 08/12/23 21:24 Last Admin: 08/12/23 21:32 Dose: 324 mg Documented By: LUANN Vital Signs Vital signs: Vital Signs - 8 hr 08/12/23 21:03 08/12/23 21:22 08/12/23 21:23 Temperature 97.5 F L Pulse Rate 54 L 88 Respiratory Rate 18 16 Blood Pressure 136/74 137/61 Pulse Oximetry 97 99 Oxygen Delivery Method Room Air 08/12/23 21:30 08/12/23 21:31 08/12/23 21:31 Temperature Pulse Rate 86 88 Respiratory Rate 24 13 Blood Pressure 113/50 L Pulse Oximetry 98 98 Oxygen Delivery Method 08/12/23 21:59 08/12/23 21:59 08/12/23 22:00 Temperature Pulse Rate 92 H 86 Respiratory Rate 24 14 Blood Pressure 114/74 Pulse Oximetry 98 99 Oxygen Delivery Method 08/12/23 22:01 08/12/23 22:01 08/12/23 22:30 Temperature Pulse Rate 91 H 97 H Respiratory Rate 16 13 Blood Pressure 110/56 L Pulse Oximetry 98 97 Oxygen Delivery Method 08/12/23 22:31 08/12/23 22:31 08/12/23 23:00 Temperature Pulse Rate 90 90 Respiratory Rate 16 17 Blood Pressure 184/74 H Pulse Oximetry 96 96 Oxygen Delivery Method 08/12/23 23:30 Temperature Pulse Rate 83 Respiratory Rate 26 H Blood Pressure 183/67 H Pulse Oximetry 98 Oxygen Delivery Method Medical Decision Making Lab Data 08/12/23 21:55 08/12/23 21:55 Labs: Lab Results 08/12/23 Range/Units 21:55 WBC 8.6 (4.5-11.0) X10^3/uL RBC 4.53 (4.0-5.2) X10^6/uL Hgb 13.5 (12.0-16.0) g/dL Hct 40.5 (36-46) % MCV 89.5 (80-100) fL MCH 29.8 (26-34) PG MCHC 33.2 (30-36) % RDW 13.7 (11.6-14.8) % Plt Count 190 (150-400) X10^3/uL Neut % (Auto) 56.7 (50-75) % Lymph % (Auto) 30.7 (25-40) % [place] % (Auto) 9.7 (3-14) % Eos % (Auto) 2.3 (2-4) % Baso % (Auto) 0.6 (0-2) % Neut # (Auto) 4900 (4508-6441) /uL Lymph # (Auto) 2700 (6235-2421) /uL [place] # (Auto) 800 (0-900) /uL Eos # (Auto) 200 (0-450) /uL Baso # (Auto) 100 (0-100) /uL PT 14.0 H (9.4-12.5) SECONDS INR 1.2 (0.9-1.3) APTT 30 (25.1-36.5) SECONDS Sodium 137 (137-145) mmol/L Potassium 4.1 (3.4-5.1) mmol/L Chloride 104 (98-107) mmol/L Carbon Dioxide 23 (22-32) mmol/L BUN 27 H (7-17) mg/dL Creatinine 0.91 (0.52-1.04) mg/dL Estimated GFR > 60 (>60) mL/min BUN/Creatinine Ratio 29.7 H (6-22) Glucose 144 H (80-110) mg/dL Calcium 9.2 (8.4-10.2) mg/dL Magnesium 2.0 (1.6-2.3) mg/dL Total Bilirubin 0.4 (0.2-1.3) mg/dL AST 34 (14-36) IU/L ALT 27 (<35) IU/L Alkaline Phosphatase 87 (38-126) U/L Total Creatine Kinase 50 (30-135) U/L Troponin I < 0.012 (0.01-0.034) ng/mL Total Protein 7.8 (6.3-8.2) g/dL Albumin 4.1 (3.5-5.0) g/dL Globulin 3.7 (1.7-4.1) g/dL Albumin/Globulin Ratio 1.1 (1.0-2.8) Lipase 78 (23-300) U/L MDM Narrative Medical decision making narrative: CC: Left-sided chest pain, worsening of her chronic dizziness and orthostatic hypotension Complicating co-morbidities: Morbid obesity with chronic mobility limitations, chronic atrial fibrillation anticoagulated and pacemaker in place post ablation, Data collected from: patient, Medical records reviewed: Primary care notes with recent Bartholin's gland abscess chronic atrial fibrillation and mild CHF exacerbations are reviewed Differential considered: Acute coronary syndrome, congestive heart failure, viral syndrome, cardiomyopathy, exacerbation of her chronic baseline abnormalities, stroke Exam documented above, pertinent findings include: Patient appears to be at her baseline, is comfortable and able to speak in full sentences. She does continue to complain of some mild left under breast chest pain with the remainder of her exam otherwise benign. Lab Test results independently reviewed as above. Pertinent findings: CBC is unremarkable Coagulation studies show PT is slightly elevated at 14 with INR at 1.2 Chemistries show no significant abnormalities Initial troponin is undetectable Lipase is within normal limits Independently reviewed EKG: Paced at a rate of 95 no additional interpretation is made Imaging studies independently reviewed: Chest x-ray shows no acute heart failure, pacemaker in place Discussion: 77-year-old woman with complex history including chronic atrial fibrillation, pacemaker, orthostatic hypotension who had an episode of worsening of her chronic dizziness, acute dyspnea, mild diaphoresis and checked her blood pressures found it to be with systolics in the low 90s. Initial workup is unremarkable including 1st and 2nd troponin. Her EKG is paced. On re-evaluation her pain has entirely resolved. She is been up into the bathroom to void and noted that she was still a bit dizzy but did not have any additional issues. Her blood pressure has been actually hypertensive here in the emergency department most recently at 183/67. This significant variability from quite low to quite high has been a consistent problem for her and is not an indication for hospital admission or additional workup at this time. Patient is pleased with the idea of discharge home, questions are answered and she is safe for discharge Discharge Plan Departure Patient Disposition: Home Clinical Impression: Dizziness, Low blood pressure, not hypotension High blood pressure Qualifiers: Hypertension type: primary hypertension Qualified Code(s): I10 - Essential (primary) hypertension Instructions: DI for Dizziness-Nonvertigo Activity Restrictions/Additional Instructions: Thank you for coming in today I do not find a life-threatening explanation for your symptoms. Your blood work is reassuring, I am not seeing any evidence of severe infection. There is no evidence of acute electrolyte abnormalities. I am not finding evidence of heart attack or heart attack like syndrome. Throughout your emergency room evaluation you stated that you have continued to improve although you are still somewhat dizzy. Your blood pressure has gone from relatively low to normal to relatively high and it looks like that has been a chronic struggle for you. I do not think adding or subtracting blood pressure medications from the emergency department is going to be necessary nor appropriate. At this time I do think that you are safe to go home. If you find that you are getting worse or develop any new symptoms, please feel free to return to the emergency department for further evaluation. Prescriptions: No Action (DME) motorized scooter See Rx Instructions .Route .MEDSUPPLY Qty: 1 0RF Rx Instructions: As directed cholecalciferol (vitamin D3) 125 mcg (5,000 unit) capsule 125 mcg PO DAILY B12 Active 1,000 mcg tablet,chewable 1,000 mcg PO DAILY diltiazem HCl 30 mg tablet 30 mg PO BID Patient Comments: take 1 tablet by mouth three times a day Rx Instructions: 0700, 1400, 2100 spironolacton-hydrochlorothiaz 25-25 mg tablet 1 tab PO DAILY Qty: 90 1RF dofetilide [Tikosyn] 500 mcg Capsule 500 mcg PO Q12H Rx Instructions: 0700/1900 fluticasone propionate 50 mcg/actuation spray,suspension 1 spray intranasal BID PRN (Reason: congestion) Qty: 16 2RF Rx Instructions: administer into each nostril cetirizine 10 mg tablet 10 mg PO DAILY PRN (Reason: allergy symptoms) Qty: 30 2RF pravastatin 20 mg Tablet 20 mg PO BEDTIME Xarelto 20 mg Tablet 20 mg PO QPM Referrals: Mark Brennan, DO [Primary Care Provider] - Stand Alone Forms: Patient Portal/API
[2023-08-13] VITALS: PULSE 80; RESP 19; O2SAT 96
[2023-08-13 00:15] LABS: Troponin I 0.022 ng/mL (0.01-0.034)
[2023-08-13 00:30] VITALS: PULSE 81; RESP 25; O2SAT 96
== END 2023-08-13 00:53 | disposition home or self-care (01) ==
PROVIDERS: Emergency Provider Emergency Medicine; PCP Family Medicine
DX: R42 Dizziness and giddiness (principal); I10 Essential (primary) hypertension; R07.9 Chest pain, unspecified; R03.1 Nonspecific low blood-pressure reading; Z79.899 Other long term (current) drug therapy; R06.00 Dyspnea, unspecified; Z79.01 Long term (current) use of anticoagulants; Z95.0 Presence of cardiac pacemaker
CPT/HCPCS: 36415; 71045; 80053; 82550; 83690; 83735; 84484; 85025; 85610; 85730; 93005; 93010; 99284

== ENCOUNTER → 2023-08-23 10:10 | Outpatient (CLI) | payer MEDICARE, OTHER, SELFPAY ==
[2018-08-11 17:25] VITALS: BMI 39.4
== END ==
PROVIDERS: PCP Family Medicine; Visit Provider Nurse Practitioner
DX: R30.0 Dysuria (principal); R31.9 Hematuria, unspecified
CPT/HCPCS: 87077; 87086; 87186

== ENCOUNTER → 2023-08-29 13:18 | Outpatient (CLI) | payer MEDICARE, OTHER, SELFPAY ==
[2018-08-11 17:25] VITALS: BMI 39.4
[2023-08-29 14:14] LABS: Appearance Urine UA CLEAR; Bilirubin Urine UA NEGATIVE (NEGATIVE); Color Urine UA YELLOW; Glucose Urine UA NEGATIVE (Negative); Ketones Urine UA NEGATIVE (NEGATIVE); Leukocyte Esterase Urine UA TRACE (NEGATIVE); Nitrite Urine UA NEGATIVE (Negative); Occult Blood Urine UA NEGATIVE (Negative); Protein Urine UA NEGATIVE (Negative); Specific Gravity Urine UA 1.025 (1.000-1.035); Urobilinogen Urine UA 0.2 E.U./dL (0.2)
[2023-08-29 14:19] LABS: Bacteria Urine None Seen; Culture Indicated Urine Specimen Cultured; RBC Urine None Seen (0-5/HPF); Squamous Epithelial Cell Urine 1-5 /HPF (0-5/HPF); WBC Urine 1-5/HPF (0-5/HPF)
== END ==
LOC: LAB 13:20
PROVIDERS: PCP Family Medicine; Referring Provider Family Medicine; Visit Provider Family Medicine
DX: N39.0 Urinary tract infection, site not specified (principal); R30.0 Dysuria
CPT/HCPCS: 81001; 87086

== ENCOUNTER → 2023-09-08 15:08 | Outpatient (CLI) | payer MEDICARE, OTHER, SELFPAY ==
[2018-08-11 17:25] VITALS: BMI 39.4
== END ==
PROVIDERS: PCP Family Medicine; Visit Provider Student in an Organized Health Care Education/Training Program
DX: R39.9 Unspecified symptoms and signs involving the genitourinary system (principal)
CPT/HCPCS: 87086

== ENCOUNTER 2023-09-18 19:31 | Emergency (ER) | payer MEDICARE, OTHER, SELFPAY ==
[2018-08-11 17:25] VITALS: BMI 39.4
[2023-09-18] VITALS (15 sets, daily range): BP systolic 98–126; BP diastolic 52–68; PULSE 73–101; RESP 12–28; TEMP 36.2; O2SAT 95–97; BMI 42.4
--- NOTE | 2023-09-18 20:33 | DI.RAD.S_ITS ---
PROCEDURE: XR CHEST 1V INDICATIONS: chest pain TECHNIQUE: One view of the chest was acquired. COMPARISON: [facility], CR, XR CHEST 1V, 08/12/2023, 21:24. FINDINGS: Surgical changes and devices: There is a cardiac pacemaker. Lungs and pleura: Bilateral interstitial infiltrates suspicious for pulmonary edema No pleural effusions or pneumothorax. Mediastinum: Mediastinal contours appear normal. Heart size is mildly increased. Bones and chest wall: No suspicious bony lesions. Overlying soft tissues appear unremarkable. IMPRESSION: 1. Bilateral interstitial infiltrates suspicious for pulmonary edema. A differential diagnosis is bilateral interstitial pneumonia. Dictated by: Tami Harris M.D. on 09/18/2023 at 21:03 Approved by: Tami Harris M.D. on 09/18/2023 at 21:04
[2023-09-18 20:49] LABS: Add Manual Diff / Slide Review NO; Basophils Absolute Auto 100 /uL (0-100); Basophils Percent Auto 1.1 % (0-2); Eosinophils Absolute Auto 100 /uL (0-450); Eosinophils Percent Auto 2.1 % (2-4); Hematocrit 39.8 % (36-46); Hemoglobin 13.2 g/dL (12.0-16.0); Lymphocytes Absolute Auto 1500 /uL (1100-4500); Lymphocytes Percent Auto 23.4 % (25-40); Mean Corpuscular HGB Conc 33.1 % (30-36); Mean Corpuscular Hemoglobin 29.5 PG (26-34); Monocytes Absolute Auto 600 /uL (0-900); Monocytes Percent Auto 9.4 % (3-14); Neutrophils Absolute Auto 4100 /uL (1500-7000); Platelet Count 224 X10^3/uL (150-400); Red Blood Cell Count 4.47 X10^6/uL (4.0-5.2); Red Cell Distribution Width 14.1 % (11.6-14.8); White Blood Cell Count 6.5 X10^3/uL (4.5-11.0)
[2023-09-18 20:57] LABS: Alanine Aminotransferase 21 IU/L (<35); Albumin 4.1 g/dL (3.5-5.0); Albumin Globulin Ratio 1.1 (1.0-2.8); Alkaline Phosphatase 78 U/L (38-126); Aspartate Aminotransferase 36 IU/L (14-36); BUN Creatinine Ratio 17.6 (6-22); Bilirubin Total 0.6 mg/dL (0.2-1.3); Blood Urea Nitrogen 19 mg/dL (7-17); Calcium 9.1 mg/dL (8.4-10.2); Carbon Dioxide 24 mmol/L (22-32); Chloride 102 mmol/L (98-107); Creatine Kinase 61 U/L (30-135); Estimated Glomerular Filt Rate 52 mL/min (>60); Globulin 3.9 g/dL (1.7-4.1); Glucose 140 mg/dL (80-110); Lipase 66 U/L (23-300); Magnesium 2.1 mg/dL (1.6-2.3); Potassium 4.6 mmol/L (3.4-5.1); Sodium 134 mmol/L (137-145)
[2023-09-18 21:00] LABS: HEMOLYSIS 95 (0-50)
[2023-09-18 21:08] LABS: Troponin I < 0.012 ng/mL (0.01-0.034)
[2023-09-18 21:09] LABS: INR 1.1 (0.9-1.3); Prothrombin Time 12.3 SECONDS (9.4-12.5)
[2023-09-18 21:12] LABS: PTT Partial Thromboplastin Tim 25 SECONDS (25.1-36.5)
--- NOTE | 2023-09-18 23:36 | ED.DIZZY ---
HPI - Dizziness General Chief Complaint: Dizziness Stated Complaint: LOW BP, NAUSEA, WEAKNESS Time Seen by Provider: 09/18/23 23:27 Source: patient Mode of arrival: Wheelchair History of Present Illness HPI Narrative: This is a 77-year-old female with a history of atrial fibrillation, severe aortic stenosis, pacemaker implant with pacemaker dependence, and chronic orthostatic symptoms presenting with orthostatic dizziness today. She describes it as lightheadedness not spinning. It is not accompanied by chest pain shortness of breath headache or focal neurologic symptoms. She has not been having a fever. She has had no recent medication adjustments. She has been seen here and by her primary care provider for similar symptoms in the past. I reviewed an emergency department note from July of this year, also reviewed cardiology notes from August 31 of this year in May of 2023 as well as primary care notes from July of 2023 and September 11 of this year. Recently had a cardiac catheterization that showed patent coronaries but severe aortic stenosis. It sounds as though there are plans in place for valve repair. 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 She is chronically anticoagulated has not had any recent head injuries. Related Data Home Medications Medication Instructions Recorded Confirmed pravastatin 20 mg tablet 20 mg PO BEDTIME 02/19/18 09/11/23 rivaroxaban 20 mg tablet (Xarelto) 20 mg PO QPM 02/19/18 09/11/23 dofetilide 500 mcg capsule 500 mcg PO Q12H 02/06/21 09/11/23 (Tikosyn) cholecalciferol (vitamin D3) 125 125 mcg PO DAILY 11/02/21 09/11/23 mcg (5,000 unit) capsule mecobalamin (vitamin B12) 1,000 1,000 mcg PO DAILY 11/02/21 09/11/23 mcg chewable tablet (B12 Active) diltiazem HCl 30 mg tablet 30 mg PO BID 11/04/22 09/11/23 sacubitril 24 mg-valsartan 26 mg 1 tab PO BID 09/08/23 09/11/23 tablet (Entresto) Previous Rx's Medication Instructions Recorded motorized scooter #1 ea 04/06/23 spironolactone 25 1 tab PO DAILY #90 tabs 05/22/23 mg-hydrochlorothiazide 25 mg tablet cefdinir 300 mg capsule 300 mg PO BID #10 caps 09/09/23 albuterol sulfate 90 mcg/actuation 2 puff inhalation Q6H PRN 09/11/23 aerosol inhaler shortness of breath or wheezing #8.5 grams benzonatate 200 mg capsule 200 mg PO BID-TID PRN cough #30 09/13/23 caps sulfamethoxazole 800 1 tab PO BID #14 tabs 09/15/23 mg-trimethoprim 160 mg tablet Allergies Allergy/AdvReac Type Severity Reaction Status Date / Time Beta-Blockers Allergy Severe Get all Verified 09/11/23 15:38 (Beta-Adrenergic Bloc the side effects flecainide Allergy Severe Get all Verified 09/11/23 15:38 the symptoms metoprolol Allergy Severe get all Verified 09/11/23 15:38 the side effects macrobid AdvReac Mild Vomiting Uncoded 09/11/23 15:38 Patient History Medical History Bronchospasm Bilateral knee pain Mobility impaired Congestive heart failure Diverticular disease COVID-19 Eustachian tube dysfunction Osteoarthritis of hands, bilateral Pulmonary edema cardiac cause Orthostatic hypotension Hyperlipidemia Fatigue Well adult Sleep apnea (~2012) Osteoporosis (~2013) Cataracts, bilateral (~2010) Irritable bowel syndrome (~1999) GI bleeding (~2004) Colon polyps (~1999) Atrial fibrillation (~2008) Hypertension (~2004) Lower GI bleed Surgical History Anesthesia History of cataract removal with insertion of prosthetic lens (~05/2001) Pacemaker (~2018) Hx of cholecystectomy (~05/1978) H/O abdominal hysterectomy (~04/1977) Cystocele (~03/2001) H/O laminectomy (~04/1990) Family History Mother Breast cancer Diabetes mellitus Hyperlipidemia Hypertension Stroke Father No known health problems Grandfather Stroke Grandmother No problems noted. Grandfather Stroke Social History household members: spouse Smoking Status: Never smoker second hand exposure: No alcohol intake: never substance use type: does not use Smoking Status: Never smoker alcohol intake frequency: 0-2 drinks per day Substance Use Type: does not use Exam Initial Vital Signs Initial Vital Signs: Vital Signs Temperature 97.1 F L 09/18/23 19:38 Pulse Rate 73 09/18/23 19:38 Respiratory Rate 18 09/18/23 19:38 Blood Pressure 98/68 09/18/23 19:38 Pulse Oximetry 96 09/18/23 19:38 Oxygen Delivery Method Room Air 09/18/23 19:38 Noted to be borderline hypotensive. Blood pressure is improved prior to discharge. She appears to be in no distress and is tolerating sitting up without difficulty. HENMT Head: normocephalic and atraumatic Eyes Pupils: PERRL EOM: EOM intact bilaterally and No nystagmus Neck Neck: supple and No JVD Resp Effort & Inspection: normal respiratory effort Auscultation: clear to auscultation bilaterally Cardio Rate: regular rate Rhythm: regular rhythm Heart Sounds: murmur Skin General: dry skin and warm Neuro Cranial Nerves: CN's II-XI intact bilaterally, PERRL, EOM intact bilaterally and No nystagmus Course Orders Ordered: ED Orders 09/18/23 19:46 EKG-12 Lead Stat 09/18/23 20:09 Complete Blood Count AUTO DIFF Stat Comprehensive Metabolic Panel Stat Lipase Stat Magnesium Stat PTT Partial Thromboplastin Jamal Stat Prothrombin Time INR Stat Troponin & CK Cardiac Panel Stat 09/18/23 20:33 XR chest 1V Stat Discontinued Medications Ondansetron HCl (Ondansetron 4 Mg/2 Ml Inj) 4 mg IV NOW ONE Stop: 09/18/23 23:37 Last Admin: 09/18/23 23:41 Dose: 4 mg Documented By: BEATA Vital Signs Vital signs: Vital Signs - 8 hr 09/18/23 19:38 09/18/23 20:01 09/18/23 20:01 Temperature 97.1 F L Pulse Rate 73 101 H Respiratory Rate 18 17 Blood Pressure 98/68 99/53 L Pulse Oximetry 96 96 Oxygen Delivery Method Room Air 09/18/23 20:30 09/18/23 20:44 09/18/23 20:44 Temperature Pulse Rate 93 H 93 H Respiratory Rate 28 H 20 Blood Pressure 117/56 L Pulse Oximetry 97 97 Oxygen Delivery Method 09/18/23 21:00 09/18/23 21:00 09/18/23 21:30 Temperature Pulse Rate 95 H 93 H Respiratory Rate 12 16 Blood Pressure 115/58 L Pulse Oximetry 96 96 Oxygen Delivery Method 09/18/23 21:31 09/18/23 21:31 09/18/23 22:00 Temperature Pulse Rate 91 H 88 Respiratory Rate 21 16 Blood Pressure 116/61 Pulse Oximetry 95 96 Oxygen Delivery Method 09/18/23 22:01 09/18/23 22:01 Temperature Pulse Rate 91 H Respiratory Rate 19 Blood Pressure 126/57 L Pulse Oximetry 95 Oxygen Delivery Method Room Air MDM - Dizziness Medical Records Medical records narrative: Reviewed previous medical records including prior ED visits, cardiology notes, cardiac catheterization report from August of this year as noted in the [facility] Lab Data Lab results narrative: CBC with diff and CMP are unremarkable, troponin is normal 09/18/23 20:09 09/18/23 20:09 Labs: Lab Results 09/18/23 Range/Units 20:09 WBC 6.5 (4.5-11.0) X10^3/uL RBC 4.47 (4.0-5.2) X10^6/uL Hgb 13.2 (12.0-16.0) g/dL Hct 39.8 (36-46) % MCV 89.0 (80-100) fL MCH 29.5 (26-34) PG MCHC 33.1 (30-36) % RDW 14.1 (11.6-14.8) % Plt Count 224 (150-400) X10^3/uL Neut % (Auto) 64.0 (50-75) % Lymph % (Auto) 23.4 L (25-40) % Placer % (Auto) 9.4 (3-14) % Eos % (Auto) 2.1 (2-4) % Baso % (Auto) 1.1 (0-2) % Neut # (Auto) 4100 (8066-2377) /uL Lymph # (Auto) 1500 (9338-7125) /uL Placer # (Auto) 600 (0-900) /uL Eos # (Auto) 100 (0-450) /uL Baso # (Auto) 100 (0-100) /uL PT 12.3 (9.4-12.5) SECONDS INR 1.1 (0.9-1.3) APTT 25 L (25.1-36.5) SECONDS Sodium 134 L (137-145) mmol/L Potassium 4.6 (3.4-5.1) mmol/L Chloride 102 (98-107) mmol/L Carbon Dioxide 24 (22-32) mmol/L BUN 19 H (7-17) mg/dL Creatinine 1.08 H (0.52-1.04) mg/dL Estimated GFR 52 L (>60) mL/min BUN/Creatinine Ratio 17.6 (6-22) Glucose 140 H (80-110) mg/dL Calcium 9.1 (8.4-10.2) mg/dL Magnesium 2.1 (1.6-2.3) mg/dL Total Bilirubin 0.6 (0.2-1.3) mg/dL AST 36 (14-36) IU/L ALT 21 (<35) IU/L Alkaline Phosphatase 78 (38-126) U/L Total Creatine Kinase 61 (30-135) U/L Troponin I < 0.012 (0.01-0.034) ng/mL Total Protein 8.0 (6.3-8.2) g/dL Albumin 4.1 (3.5-5.0) g/dL Globulin 3.9 (1.7-4.1) g/dL Albumin/Globulin Ratio 1.1 (1.0-2.8) Lipase 66 (23-300) U/L Imaging Data Chest x-ray: My Impression: Cardiomegaly, pacemaker implant, diffuse interstitial infiltrates bilaterally, does not appear to be significantly changed from August 12, 2023 Radiologist's Impression: CEDURE: XR CHEST 1V INDICATIONS: chest pain TECHNIQUE: One view of the chest was acquired. COMPARISON: [facility], , XR CHEST 1V, 08/12/2023, 21:24. FINDINGS: Surgical changes and devices: There is a cardiac pacemaker. Lungs and pleura: Bilateral interstitial infiltrates suspicious for pulmonary edema No pleural effusions or pneumothorax. Mediastinum: Mediastinal contours appear normal. Heart size is mildly increased. Bones and chest wall: No suspicious bony lesions. Overlying soft tissues appear unremarkable. IMPRESSION: 1. Bilateral interstitial infiltrates suspicious for pulmonary edema. A differential diagnosis is bilateral interstitial pneumonia. Dictated by: Tami Harris M.D. on 09/18/2023 at 21:03 Approved by: Tami Harris M.D. on 09/18/2023 at 21 ECG Data Interpretation: ECG shows a paced rhythm rate is 97 MDM Narrative Medical decision making narrative: 77-year-old female with a history of dizziness and borderline orthostatic hypotension as well as chronic atrial fibrillation and severe aortic stenosis. She is here today with dizziness and a report that her blood pressures were low at home and borderline here. Oral intake has been maintained she has had no medication adjustments although it is possible that her medications are playing a role. She does seem to have some chronic heart failure which is not decompensated at present. I considered coronary artery disease and not think that is likely, she does not appear to be acutely infected, she does not appear to be hemorrhaging and she does not have a major metabolic disturbance. I considered but do not suspect stroke or intracranial hemorrhage. Given her blood pressure is now improved I think it is safe for her to be discharged home I did recommend that she be cautious with changes in position and contact her wing mailer machine operator as soon as possible for follow up. Discharge Plan Departure Patient Disposition: Home Clinical Impression: Dizziness Instructions: Orthostatic Hypotension Activity Restrictions/Additional Instructions: Emergency department workup today is reassuring. I am concerned that your dizziness may be related to your chronic medical conditions including aortic valvular disease as well as your medications. At this point I do not think it would be lin for me to adjust these. I want you to contact your wing mailer machine operator tomorrow to discuss your symptoms and borderline low blood pressures. Acute adequate fluids. Be careful when going from lying to standing and if feeling lightheaded please sit down immediately. If you are having chest pain shortness of breath or other acute symptoms recheck in the emergency department. Although we have made every effort to ensure that you are safe for discharge, if your symptoms are getting worse, or if you are having other acute symptoms such as chest pain shortness of breath high fevers, abdominal pain or uncontrolled vomiting recheck in the emergency department. Prescriptions: No Action Entresto 24-26 mg tablet 1 tab PO BID (DME) motorized scooter See Rx Instructions .Route .MEDSUPPLY Qty: 1 0RF Rx Instructions: As directed cefdinir 300 mg capsule 300 mg PO BID Qty: 10 0RF benzonatate 200 mg capsule 200 mg PO BID-TID PRN (Reason: cough) Qty: 30 0RF sulfamethoxazole-trimethoprim 800-160 mg tablet 1 tab PO BID Qty: 14 0RF cholecalciferol (vitamin D3) 125 mcg (5,000 unit) capsule 125 mcg PO DAILY B12 Active 1,000 mcg tablet,chewable 1,000 mcg PO DAILY albuterol sulfate 90 mcg/actuation HFA aerosol inhaler 2 puff inhalation Q6H PRN (Reason: shortness of breath or wheezing) Qty: 8.5 2RF diltiazem HCl 30 mg tablet 30 mg PO BID Patient Comments: take 1 tablet by mouth three times a day Rx Instructions: 0700, 1400, 2100 spironolacton-hydrochlorothiaz 25-25 mg tablet 1 tab PO DAILY Qty: 90 1RF dofetilide [Tikosyn] 500 mcg Capsule 500 mcg PO Q12H Rx Instructions: 0700/1900 pravastatin 20 mg Tablet 20 mg PO BEDTIME Xarelto 20 mg Tablet 20 mg PO QPM Referrals: Mark Brennan DO [Primary Care Provider] - Stand Alone Forms: Patient Portal/API
[2023-09-18] MEDS: ONDANSETRON 4 MG/2 ML INJ IV (23:41)
[2023-09-19 00:02] VITALS: TEMP 37.1
== END 2023-09-19 00:02 | disposition home or self-care (01) ==
PROVIDERS: Emergency Provider Emergency Medicine; PCP Family Medicine
DX: R42 Dizziness and giddiness (principal); R07.9 Chest pain, unspecified; Z95.0 Presence of cardiac pacemaker; Z79.01 Long term (current) use of anticoagulants; Z79.899 Other long term (current) drug therapy
CPT/HCPCS: 36415; 71045; 80053; 82550; 83690; 83735; 84484; 85025; 85610; 85730; 93005; 96374; 99284; J2405

== ENCOUNTER → 2023-09-29 12:00 | Outpatient (CLI) | payer MEDICARE, OTHER, SELFPAY ==
[2018-08-11 17:25] VITALS: BMI 39.4
[2023-09-29 13:13] LABS: Alanine Aminotransferase 21 IU/L (<35); Albumin Globulin Ratio 1.1 (1.0-2.8); Alkaline Phosphatase 81 U/L (38-126); Aspartate Aminotransferase 32 IU/L (14-36); BUN Creatinine Ratio 24.3 (6-22); Bilirubin Total 0.5 mg/dL (0.2-1.3); Blood Urea Nitrogen 18 mg/dL (7-17); Calcium 9.2 mg/dL (8.4-10.2); Carbon Dioxide 24 mmol/L (22-32); Chloride 106 mmol/L (98-107); Estimated Glomerular Filt Rate > 60 mL/min (>60); Globulin 3.5 g/dL (1.7-4.1); Glucose 87 mg/dL (80-110); HEMOLYSIS 35 (0-50); Potassium 4.6 mmol/L (3.4-5.1); Sodium 139 mmol/L (137-145); Total Protein 7.5 g/dL (6.3-8.2)
[2023-09-29 13:19] LABS: Appearance Urine UA CLEAR; Bilirubin Urine UA NEGATIVE (NEGATIVE); Color Urine UA YELLOW; Glucose Urine UA NEGATIVE (Negative); Ketones Urine UA NEGATIVE (NEGATIVE); Leukocyte Esterase Urine UA NEGATIVE (NEGATIVE); Nitrite Urine UA NEGATIVE (Negative); Occult Blood Urine UA TRACE-INTACT (Negative); Protein Urine UA NEGATIVE (Negative); Specific Gravity Urine UA 1.025 (1.000-1.035); Urobilinogen Urine UA 0.2 E.U./dL (0.2)
[2023-09-29 13:21] LABS: pH Urine UA 5.5 (4.5-8.0)
[2023-09-29 13:31] LABS: Free T4, Direct Thyroxine 0.82 ng/dL (0.78-2.19)
[2023-09-29 13:40] LABS: Bacteria Urine Occasional (0-1); Culture Indicated Urine Cult Not Indicated; Mucus Urine 2+ (Negative); RBC Urine 1-5/HPF (0-5/HPF); Squamous Epithelial Cell Urine 10-30 /HPF (0-5/HPF); Urine Volume 10mL (spun); WBC Urine 0-1/HPF (0-5/HPF)
[2023-09-29 13:45] LABS: Thyroid Stimulating Hormone 1.58 uIU/mL (0.47-4.68)
== END ==
PROVIDERS: PCP Family Medicine; Referring Provider Family Medicine; Visit Provider Family Medicine
DX: R03.1 Nonspecific low blood-pressure reading (principal); I48.91 Unspecified atrial fibrillation; R42 Dizziness and giddiness; E78.5 Hyperlipidemia, unspecified; N39.0 Urinary tract infection, site not specified
CPT/HCPCS: 36415; 80053; 81001; 84439; 84443

== ENCOUNTER 2023-12-26 11:06 | Emergency (ER) | payer MEDICARE, OTHER, SELFPAY ==
[2018-08-11 17:25] VITALS: BMI 39.4
[2023-12-26 11:09] VITALS: BP 126/76; PULSE 78; RESP 18; TEMP 37; O2SAT 98; BMI 44.2
[2023-12-26 11:47] LABS: Bacteria Urine Moderate (10-30); RBC Urine None Seen (0-5/HPF); Squamous Epithelial Cell Urine 1-5 /HPF (0-5/HPF); Urine Volume 10mL (spun); WBC Urine 0-1/HPF (0-5/HPF)
[2023-12-26 11:48] LABS: Culture Indicated Urine Specimen Cultured
--- NOTE | 2023-12-26 12:08 | DI.CT.S_ITS ---
PROCEDURE: CT ABDOMEN PELVIS W CON INDICATIONS: flank and abd pain TECHNIQUE: After the administration of intravenous contrast, axial sections acquired from the lung bases to the pubic symphysis. Coronal and sagittal reformats were performed. For radiation dose reduction, the following was used: automated exposure control, adjustment of mA and/or kV according to patient size. COMPARISON: [facility], CT, CT ABDOMEN PELVIS W CON, 11/01/2020, 3:24. FINDINGS: Image quality: Diagnostic Lower chest: Possible lower lung scarring and atelectasis with reticular changes. Cardiomegaly. Cardiac electrode leads. Liver: Slight irregularity of the liver contour, correlate with LFTs. Gallbladder and biliary system: Gallbladder is absent. Biliary system is nondilated allowing for postsurgical state Pancreas: No ductal dilation. Mild parenchymal atrophy Spleen: Nonenlarged Adrenals: No discrete nodules Kidneys: No solid mass or hydronephrosis Vessels and lymph nodes: The main portal vein is patent. No abdominal aortic aneurysm. No pathologic lymph nodes by size criteria. Bowel and peritoneum: No evidence of small bowel obstruction. Colonic diverticula. No abscess or pathologic ascites Body wall: Tiny fat containing umbilical and right inguinal hernia Pelvis: Bladder is unremarkable. Uterus is absent Bones: Degenerative changes, no acute or suspicious osseous finding. IMPRESSION: No acute abdominal pelvic abnormality. Other findings as above, likely nonacute/incidental. Dictated by: Pancho Lacy M.D. on 12/26/2023 at 14:08 Approved by: Pancho Lacy M.D. on 12/26/2023 at 14:13
--- NOTE | 2023-12-26 12:46 | ED.FEMALEGU ---
HPI - Female Genitourinary <Teagan Frazier PA-C - Last Filed: 12/26/23 14:52> General Chief complaint: Urogenital-Female Stated complaint: bad back pain frequency urinating Time Seen by Provider: 12/26/23 11:26 Source: patient Mode of arrival: Ambulatory History of Present Illness HPI Narrative: 78-year-old female with past medical history atrial fibrillation, status post pacemaker, CHF, aortic stenosis, sciatica, osteoarthritis, sleep apnea, hyperlipidemia, diverticulitis, sialoadenitis presents to the ED with 2 days of urinary frequency, urinary urgency. Patient also complains of bilateral flank pain, right greater than left with pain wrapping around the lower abdomen. Patient endorses nausea, denies vomiting. Patient endorses chills, denies fever. Patient denies chest pain, shortness of breath, constipation, diarrhea, hematochezia, melena, lightheadedness, dizziness, syncope. Patient does endorse frequent UTIs. She states she has a UTI at least once or twice a year. Patient also has a history of diverticulitis. Related Data Home Medications Medication Instructions Recorded Confirmed pravastatin 20 mg tablet 20 mg PO BEDTIME 02/19/18 10/24/23 rivaroxaban 20 mg tablet (Xarelto) 20 mg PO QPM 02/19/18 10/24/23 dofetilide 500 mcg capsule 500 mcg PO Q12H 02/06/21 10/24/23 (Tikosyn) cholecalciferol (vitamin D3) 125 125 mcg PO DAILY 11/02/21 10/24/23 mcg (5,000 unit) capsule mecobalamin (vitamin B12) 1,000 1,000 mcg PO DAILY 11/02/21 10/24/23 mcg chewable tablet (B12 Active) diltiazem HCl 30 mg tablet 30 mg PO BID 11/04/22 10/24/23 furosemide 20 mg tablet 20 mg PO DAILY 09/29/23 10/24/23 Previous Rx's Medication Instructions Recorded motorized scooter #1 ea 04/06/23 albuterol sulfate 90 mcg/actuation 2 puff inhalation Q6H PRN 09/11/23 aerosol inhaler shortness of breath or wheezing #8.5 grams ospemifene 60 mg tablet (Osphena) 60 mg PO DAILY #90 tabs 10/03/23 estradiol 2 mg (7.5 mcg/24 hour) 1 vag ring vaginal [id number] #1 ea 10/12/23 vaginal ring Disabled Parking Permint #1 ea 10/31/23 cefpodoxime 200 mg tablet 200 mg PO Q12H 10 days #20 tabs 12/26/23 Allergies Allergy/AdvReac Type Severity Reaction Status Date / Time Beta-Blockers Allergy Severe Get all Verified 10/24/23 16:40 (Beta-Adrenergic Bloc the side effects flecainide Allergy Severe Get all Verified 10/24/23 16:40 the symptoms metoprolol Allergy Severe get all Verified 10/24/23 16:40 the side effects macrobid AdvReac Mild Vomiting Uncoded 10/24/23 16:40 Review of Systems <Teagan Frazier PA-C - Last Filed: 12/26/23 14:52> Constitutional Constitutional: Denies chills, Denies fatigue, Denies fever(s), Denies frequent falls, Denies lethargy and Denies weakness Eyes Eyes: Denies change in vision, Denies eye discharge, Denies irritation and Denies loss of vision ENT Ears, Nose, Mouth, and Throat: Denies change in voice, Denies dizziness, Denies neck pain, Denies sore throat and Denies throat swelling Cardiovascular Cardiovascular: Denies chest pain, Denies irregular heart rhythm, Denies lightheadedness, Denies palpitations, Denies dyspnea, Denies dyspnea on exertion and Denies orthopnea Respiratory Respiratory: Denies cough, Denies dyspnea, Denies dyspnea on exertion and Denies wheezing Gastrointestinal Gastrointestinal: Denies abdominal pain, Denies change in bowel habits, Denies diarrhea, Denies nausea and Denies vomiting Comments: Lower abdominal pain, bilateral flank pain Genitourinary Comments: Urinary urgency, urinary frequency Musculoskeletal Musculoskeletal: Denies neck pain and Denies numbness Integumentary/Breasts Skin/Breast: Denies pruritus, Denies erythema, Denies rash and Denies wounds Neurologic Neurologic: Denies behavioral changes, Denies confusion, Denies dizziness, Denies frequent falls, Denies loss of vision, Denies numbness and Denies weakness Psychiatric Psychiatric: Denies anxiety, Denies behavioral changes, Denies confusion, Denies depression, Denies homicidal ideation and Denies suicidal ideation Endocrine Endocrine: Denies fatigue, Denies flushing and Denies palpitations Hematologic/Lymphatic Hematologic/Lymphatic: Denies easy bruising Allergic/Immunologic Allergic/Immunologic: Denies urticaria, Denies throat swelling and Denies wheezing Patient History <Teagan Frazier PA-C - Last Filed: 12/26/23 14:52> Medical History Sialoadenitis Postmenopausal atrophic vaginitis Recurrent urinary tract infection Bronchospasm Bilateral knee pain Mobility impaired Congestive heart failure Diverticular disease COVID-19 Eustachian tube dysfunction Osteoarthritis of hands, bilateral Pulmonary edema cardiac cause Orthostatic hypotension Hyperlipidemia Fatigue Well adult Sleep apnea (~2012) Osteoporosis (~2013) Cataracts, bilateral (~2010) Irritable bowel syndrome (~1999) GI bleeding (~2004) Colon polyps (~1999) Atrial fibrillation (~2008) Hypertension (~2004) Lower GI bleed Surgical History Anesthesia History of cataract removal with insertion of prosthetic lens (~05/2001) Pacemaker (~2018) Hx of cholecystectomy (~05/1978) H/O abdominal hysterectomy (~04/1977) Cystocele (~03/2001) H/O laminectomy (~04/1990) Family History Mother Breast cancer Diabetes mellitus Hyperlipidemia Hypertension Stroke Father No known health problems Grandfather Stroke Grandmother No problems noted. Grandfather Stroke alcohol intake frequency: 0-2 drinks per day Substance Use Type: does not use Exam <Teagan Frazier PA-C - Last Filed: 12/26/23 14:52> Narrative Exam Narrative: Const General:?cooperative, healthy appearing and comfortable [facility] Head:?normal to inspection Ears:?hearing grossly normal bilaterally Nose:?external nose normal Face and sinus:?normal facial exam and sinuses nontender Mouth:?oral mucosae normal Throat:?posterior oropharynx normal Eyes General:?appearance normal, both eyes and all related structures Neck Neck:?normal visual inspection and no lymphadenopathy noted Resp Effort & Inspection:?normal respiratory effort Auscultation:?clear to auscultation bilaterally Cardio Rate:?regular rate Rhythm:?regular rhythm GI Abdomen is soft, nondistended, generalized tenderness to palpation. Bilateral CVA tenderness, right greater than left Neuro General:?patient alert, patient awake and patient oriented x3 Initial Vital Signs Initial Vital Signs: Vital Signs Temperature 98.6 F 12/26/23 11:09 Pulse Rate 78 12/26/23 11:09 Respiratory Rate 18 12/26/23 11:09 Blood Pressure 126/76 12/26/23 11:09 Pulse Oximetry 98 12/26/23 11:09 Oxygen Delivery Method Room Air 12/26/23 11:09 <Fely Alcala DO - Last Filed: 12/26/23 18:46> Initial Vital Signs Initial Vital Signs: Vital Signs Temperature 98.6 F 12/26/23 11:09 Pulse Rate 78 12/26/23 11:09 Respiratory Rate 18 12/26/23 11:09 Blood Pressure 126/76 12/26/23 11:09 Pulse Oximetry 98 12/26/23 11:09 Oxygen Delivery Method Room Air 12/26/23 11:09 Course <Teagan Frazier PA-C - Last Filed: 12/26/23 14:52> Orders Ordered: ED Orders 12/26/23 11:15 Urine Culture Stat Urine Microscopic Stat 12/26/23 12:08 CT abdomen pelvis w con Stat 12/26/23 13:10 CBC Auto Diff [Complete Blood Count AUTO DIFF] Stat CMP [Comprehensive Metabolic Panel] Stat Lactate (Lactic Acid) Stat Lipase Stat Discontinued Medications Ketorolac Tromethamine (Ketorolac 30 Mg/Ml Vial) 15 mg IV NOW ONE Stop: 12/26/23 12:11 Last Admin: 12/26/23 13:09 Dose: 15 mg Documented By: THEO Ondansetron HCl (Ondansetron 4 Mg Odt) 4 mg SL NOW PRN PRN Reason: Nausea And Vomiting Ondansetron HCl (Ondansetron 4 Mg/2 Ml Inj) 4 mg IV NOW PRN PRN Reason: Nausea And Vomiting Ondansetron HCl (Ondansetron 4 Mg/2 Ml Inj) 4 mg IV NOW ONE Stop: 12/26/23 12:11 Last Admin: 12/26/23 13:09 Dose: 4 mg Documented By: THEO Sodium Chloride (Sodium Chloride 0.9% Flush) 10 ml IV BID NICOLA Sodium Chloride (Sodium Chloride 0.9% Flush) 10 ml IV PRN PRN PRN Reason: Flush Last Admin: 12/26/23 13:50 Dose: 10 ml Documented By: THEO Vital Signs Vital signs: Vital Signs - 8 hr 12/26/23 11:09 12/26/23 14:55 Temperature 98.6 F Pulse Rate 78 75 Respiratory Rate 18 18 Blood Pressure 126/76 124/72 Pulse Oximetry 98 99 Oxygen Delivery Method Room Air Room Air <Fely Alcala DO - Last Filed: 12/26/23 18:46> Orders Ordered: ED Orders 12/26/23 11:15 Urine Culture Stat Urine Microscopic Stat 12/26/23 12:08 CT abdomen pelvis w con Stat 12/26/23 13:10 CBC Auto Diff [Complete Blood Count AUTO DIFF] Stat CMP [Comprehensive Metabolic Panel] Stat Lactate (Lactic Acid) Stat Lipase Stat Discontinued Medications Ketorolac Tromethamine (Ketorolac 30 Mg/Ml Vial) 15 mg IV NOW ONE Stop: 12/26/23 12:11 Last Admin: 12/26/23 13:09 Dose: 15 mg Documented By: THEO Ondansetron HCl (Ondansetron 4 Mg Odt) 4 mg SL NOW PRN PRN Reason: Nausea And Vomiting Ondansetron HCl (Ondansetron 4 Mg/2 Ml Inj) 4 mg IV NOW PRN PRN Reason: Nausea And Vomiting Ondansetron HCl (Ondansetron 4 Mg/2 Ml Inj) 4 mg IV NOW ONE Stop: 12/26/23 12:11 Last Admin: 12/26/23 13:09 Dose: 4 mg Documented By: THEO Sodium Chloride (Sodium Chloride 0.9% Flush) 10 ml IV BID NICOLA Sodium Chloride (Sodium Chloride 0.9% Flush) 10 ml IV PRN PRN PRN Reason: Flush Last Admin: 12/26/23 13:50 Dose: 10 ml Documented By: THEO Vital Signs Vital signs: Vital Signs - 8 hr 12/26/23 11:09 12/26/23 14:55 Temperature 98.6 F Pulse Rate 78 75 Respiratory Rate 18 18 Blood Pressure 126/76 124/72 Pulse Oximetry 98 99 Oxygen Delivery Method Room Air Room Air MDM - Female Genitourinary <Teagan Frazier PA-C - Last Filed: 12/26/23 14:52> Lab Data 12/26/23 13:10 12/26/23 13:10 Labs: Lab Results 12/26/23 12/26/23 Range/Units 11:15 13:10 WBC 7.7 (4.5-11.0) X10^3/uL RBC 4.57 (4.0-5.2) X10^6/uL Hgb 13.3 (12.0-16.0) g/dL Hct 40.6 (36-46) % MCV 88.9 (80-100) fL MCH 29.2 (26-34) PG MCHC 32.8 (30-36) % RDW 14.5 (11.6-14.8) % Plt Count 197 (150-400) X10^3/uL Neut % (Auto) 58.7 (50-75) % Lymph % (Auto) 29.1 (25-40) % [facility] % (Auto) 9.5 (3-14) % Eos % (Auto) 1.8 L (2-4) % Baso % (Auto) 0.9 (0-2) % Neut # (Auto) 4500 (2769-1951) /uL Lymph # (Auto) 2300 (7115-0241) /uL [facility] # (Auto) 700 (0-900) /uL Eos # (Auto) 100 (0-450) /uL Baso # (Auto) 100 (0-100) /uL Sodium 141 (137-145) mmol/L Potassium 4.5 (3.4-5.1) mmol/L Chloride 108 H (98-107) mmol/L Carbon Dioxide 31 (22-32) mmol/L BUN 25 H (7-17) mg/dL Creatinine 0.86 (0.52-1.04) mg/dL Estimated GFR > 60 (>60) mL/min BUN/Creatinine Ratio 29.1 H (6-22) Glucose 89 (80-110) mg/dL Lactate 1.0 (0.7-2.1) mmol/L Calcium 9.1 (8.4-10.2) mg/dL Total Bilirubin 0.4 (0.2-1.3) mg/dL AST 29 (14-36) IU/L ALT 20 (<35) IU/L Alkaline Phosphatase 80 (38-126) U/L Total Protein 7.7 (6.3-8.2) g/dL Albumin 4.2 (3.5-5.0) g/dL Globulin 3.5 (1.7-4.1) g/dL Albumin/Globulin Ratio 1.2 (1.0-2.8) Lipase 59 (23-300) U/L Urine RBC None seen (0-5/HPF) Urine WBC 0-1/hpf (0-5/HPF) Ur Squamous Epith Cells 1-5 /hpf D (0-5/HPF) Urine Bacteria Moderate (10-30) H (None) Urine Yeast 0-1/hpf (None) Ur Culture Indicated? Specimen cultured Vol Urine Centrifuged 10ml (spun) Urine Dip Bedside Urine Glucose Negative Bedside Urine Bilirubin - Negative Bedside Urine Ketone - Negative Urine Specific [place] 1.025 Bedside Urine Occult Blood +/- Bedside Urine pH 6 Bedside Urine Protein - Negative Bedside Urine Urobilinogen - Negative Bedside Urine Nitrite - Negative Bedside Urine Leukocytes +/- 15 Esterase MDM Narrative Medical decision making narrative: 78-year-old female with past medical history atrial fibrillation, status post pacemaker, CHF, aortic stenosis, sciatica, osteoarthritis, sleep apnea, hyperlipidemia, diverticulitis, sialoadenitis presents to the ED with 2 days of urinary frequency, urinary urgency. Concern for UTI versus pyelonephritis versus urolithiasis versus diverticulitis versus other intra-abdominal pathology versus other. Will obtain labs, lipase, lactate, UA, CT abdomen pelvis. Will give Toradol and Zofran for symptoms. Will reassess. Labs within normal limits, CT abdomen pelvis without acute findings. Urine positive for leukocyte esterase, negative for WBCs. Will treat with antibiotics, given how symptomatic patient is. Discussed findings with patient. Recommend good hydration. Recommend follow-up with PCP as soon as possible. ED return precautions discussed with patient. Patient verbalized understanding. Medical records reviewed: Yes <Fely Alcala DO - Last Filed: 12/26/23 18:46> Lab Data Labs: Lab Results 12/26/23 12/26/23 Range/Units 11:15 13:10 WBC 7.7 (4.5-11.0) X10^3/uL RBC 4.57 (4.0-5.2) X10^6/uL Hgb 13.3 (12.0-16.0) g/dL Hct 40.6 (36-46) % MCV 88.9 (80-100) fL MCH 29.2 (26-34) PG MCHC 32.8 (30-36) % RDW 14.5 (11.6-14.8) % Plt Count 197 (150-400) X10^3/uL Neut % (Auto) 58.7 (50-75) % Lymph % (Auto) 29.1 (25-40) % [facility] % (Auto) 9.5 (3-14) % Eos % (Auto) 1.8 L (2-4) % Baso % (Auto) 0.9 (0-2) % Neut # (Auto) 4500 (8087-1598) /uL Lymph # (Auto) 2300 (7050-6984) /uL [facility] # (Auto) 700 (0-900) /uL Eos # (Auto) 100 (0-450) /uL Baso # (Auto) 100 (0-100) /uL Sodium 141 (137-145) mmol/L Potassium 4.5 (3.4-5.1) mmol/L Chloride 108 H (98-107) mmol/L Carbon Dioxide 31 (22-32) mmol/L BUN 25 H (7-17) mg/dL Creatinine 0.86 (0.52-1.04) mg/dL Estimated GFR > 60 (>60) mL/min BUN/Creatinine Ratio 29.1 H (6-22) Glucose 89 (80-110) mg/dL Lactate 1.0 (0.7-2.1) mmol/L Calcium 9.1 (8.4-10.2) mg/dL Total Bilirubin 0.4 (0.2-1.3) mg/dL AST 29 (14-36) IU/L ALT 20 (<35) IU/L Alkaline Phosphatase 80 (38-126) U/L Total Protein 7.7 (6.3-8.2) g/dL Albumin 4.2 (3.5-5.0) g/dL Globulin 3.5 (1.7-4.1) g/dL Albumin/Globulin Ratio 1.2 (1.0-2.8) Lipase 59 (23-300) U/L Urine RBC None seen (0-5/HPF) Urine WBC 0-1/hpf (0-5/HPF) Ur Squamous Epith Cells 1-5 /hpf D (0-5/HPF) Urine Bacteria Moderate (10-30) H (None) Urine Yeast 0-1/hpf (None) Ur Culture Indicated? Specimen cultured Vol Urine Centrifuged 10ml (spun) Urine Dip Bedside Urine Glucose Negative Bedside Urine Bilirubin - Negative Bedside Urine Ketone - Negative Urine Specific [place] 1.025 Bedside Urine Occult Blood +/- Bedside Urine pH 6 Bedside Urine Protein - Negative Bedside Urine Urobilinogen - Negative Bedside Urine Nitrite - Negative Bedside Urine Leukocytes +/- 15 Esterase Discharge Plan Departure Patient Disposition: Home Clinical Impression: UTI (urinary tract infection) Qualifiers: Urinary tract infection type: acute cystitis Hematuria presence: with hematuria Qualified Code(s): N30.01 - Acute cystitis with hematuria Instructions: DI for Urinary Tract Infection (UTI) Activity Restrictions/Additional Instructions: You were evaluated in the ED today for urinary symptoms and abdominal pain. Your labs and CT scan were normal. Your urine did show some signs of a UTI for which you are being prescribed an antibiotic. Please take the antibiotics as prescribed. Please follow-up with your PCP as soon as possible. Return to the ED if you have worsening symptoms persistent vomiting, fever, chills. Prescriptions: New cefpodoxime 200 mg tablet 200 mg PO Q12H 10 Days Qty: 20 0RF Rx Instructions: must administer with a meal/food No Action (DME) motorized scooter See Rx Instructions .Route .MEDSUPPLY Qty: 1 0RF Rx Instructions: As directed estradiol 2 mg (7.5 mcg /24 hour) ring 1 vag ring vaginal [id number] Qty: 1 0RF (DME) Disabled Parking Permint See Rx Instructions .ROUTE .MEDSUPPLY Qty: 1 0RF Rx Instructions: I find this patient to be medically disabled and qualified for Disabled Parking as indicated and signed on the Accompanying Disabled Parking Application for individuals. cholecalciferol (vitamin D3) 125 mcg (5,000 unit) capsule 125 mcg PO DAILY B12 Active 1,000 mcg tablet,chewable 1,000 mcg PO DAILY albuterol sulfate 90 mcg/actuation HFA aerosol inhaler 2 puff inhalation Q6H PRN (Reason: shortness of breath or wheezing) Qty: 8.5 2RF furosemide 20 mg tablet 20 mg PO DAILY diltiazem HCl 30 mg tablet 30 mg PO BID Patient Comments: take 1 tablet by mouth three times a day Rx Instructions: 0700, 1400, 2100 dofetilide [Tikosyn] 500 mcg Capsule 500 mcg PO Q12H Rx Instructions: 0700/1900 pravastatin 20 mg Tablet 20 mg PO BEDTIME Xarelto 20 mg Tablet 20 mg PO QPM Osphena 60 mg tablet 60 mg PO DAILY Qty: 90 3RF Rx Instructions: must administer with food, preferably a high-fat meal Referrals: Mark Brennan DO [Primary Care Provider] - Stand Alone Forms: Patient Portal/API ED Sign-out <Fely Alcala DO - Last Filed: 12/26/23 18:46> Cosign ED Attending Cosumeshature Attestation: I was immediately available in the department for consultation.
[2023-12-26] MEDS: KETOROLAC 30 MG/ML VIAL 15 MG IV (13:09)
[2023-12-26] MEDS: ONDANSETRON 4 MG/2 ML INJ IV (13:09)
[2023-12-26 13:20] LABS: Add Manual Diff / Slide Review NO; Basophils Absolute Auto 100 /uL (0-100); Basophils Percent Auto 0.9 % (0-2); Eosinophils Absolute Auto 100 /uL (0-450); Eosinophils Percent Auto 1.8 % (2-4); Hematocrit 40.6 % (36-46); Hemoglobin 13.3 g/dL (12.0-16.0); Lymphocytes Absolute Auto 2300 /uL (1100-4500); Lymphocytes Percent Auto 29.1 % (25-40); Mean Corpuscular HGB Conc 32.8 % (30-36); Mean Corpuscular Hemoglobin 29.2 PG (26-34); Mean Corpuscular Volume 88.9 fL (80-100); Monocytes Absolute Auto 700 /uL (0-900); Monocytes Percent Auto 9.5 % (3-14); Neutrophils Absolute Auto 4500 /uL (1500-7000); Neutrophils Percent Auto 58.7 % (50-75); Platelet Count 197 X10^3/uL (150-400); Red Blood Cell Count 4.57 X10^6/uL (4.0-5.2); Red Cell Distribution Width 14.5 % (11.6-14.8); White Blood Cell Count 7.7 X10^3/uL (4.5-11.0)
[2023-12-26 13:35] LABS: Alanine Aminotransferase 20 IU/L (<35); Albumin 4.2 g/dL (3.5-5.0); Albumin Globulin Ratio 1.2 (1.0-2.8); Alkaline Phosphatase 80 U/L (38-126); Aspartate Aminotransferase 29 IU/L (14-36); BUN Creatinine Ratio 29.1 (6-22); Bilirubin Total 0.4 mg/dL (0.2-1.3); Blood Urea Nitrogen 25 mg/dL (7-17); Calcium 9.1 mg/dL (8.4-10.2); Carbon Dioxide 31 mmol/L (22-32); Chloride 108 mmol/L (98-107); Estimated Glomerular Filt Rate > 60 mL/min (>60); Globulin 3.5 g/dL (1.7-4.1); Glucose 89 mg/dL (80-110); HEMOLYSIS 19 (0-50); Lipase 59 U/L (23-300); Potassium 4.5 mmol/L (3.4-5.1); Sodium 141 mmol/L (137-145); Total Protein 7.7 g/dL (6.3-8.2)
[2023-12-26] MEDS: SODIUM CHLORIDE 0.9% FLUSH 10 ML IV (13:50)
[2023-12-26 14:55] VITALS: BP 124/72; PULSE 75; RESP 18; O2SAT 99
== END 2023-12-26 14:57 | disposition home or self-care (01) ==
PROVIDERS: Emergency Medicine; Emergency Provider Student in an Organized Health Care Education/Training Program; PCP Family Medicine
DX: N30.01 Acute cystitis with hematuria (principal); R10.9 Unspecified abdominal pain; Z79.01 Long term (current) use of anticoagulants; Z95.0 Presence of cardiac pacemaker
CPT/HCPCS: 74177; 80053; 81003; 81015; 83605; 83690; 85025; 87086; 96374; 96375; 99283; 99284; J1885; J2405; Q9967

== ENCOUNTER → 2023-12-29 13:35 | Outpatient (CLI) | payer MEDICARE, OTHER, SELFPAY ==
[2018-08-11 17:25] VITALS: BMI 39.4
--- NOTE | 2023-12-29 13:37 | DI.CT.S_ITS ---
PROCEDURE: CT SOFT TISSUE NECK W CON INDICATIONS: Localized swelling, mass and lump, head TECHNIQUE: After the administration of intravenous contrast, 3.0 mm axial sections acquired from the sella to the aortic arch. Additional oblique axial 3.0 mm sections acquired through the pharynx. 3 mm thick coronal and sagittal reformats were generated. For radiation dose reduction, the following was used: automated exposure control. COMPARISON: [facility], CR, XR CHEST 1V, 09/18/2023, 20:53. FINDINGS: Image quality: Excellent. Lymph nodes: No enlarged lymph nodes seen throughout the neck. Vessels: Visualized vasculature appears patent. Neck spaces: A soft tissue marker can be placed upon the area of clinical concern within the left perimandibular region. At this site, no masses are seen, although there is mild skin thickening with subcutaneous fatty infiltration. No soft tissue gas is seen. No loculated fluid collection is seen. The oropharynx, nasopharynx, and pharynx demonstrate no mucosal lesions. The vocal cords, false vocal cords, pyriform sinuses, epiglottis, vallecula, and tongue base all appear normal. Glands: The parotid and submandibular glands appear normal. Thyroid gland demonstrates no significant abnormality. Miscellaneous: Visualized brain and orbits appear normal. Likely scarring change can be seen at the lung apices. Superficial soft tissues appear normal. A left-sided pacer device is partially seen. Bones: No suspicious bony lesions. Visualized sinuses and mastoids appear unremarkable. Moderate cervical spine degenerative change can be seen. IMPRESSION: Focal soft tissue swelling with inflammatory change can be seen involving the site of clinical concern. No masses or abscess collection can be seen at this site. No enlarged lymph nodes. Additional findings: Left-sided pacer device Dictated by: Fer Gardner M.D. on 12/29/2023 at 16:28 Approved by: Fer Gardner M.D. on 12/29/2023 at 16:31
== END ==
PROVIDERS: PCP Family Medicine; Referring Provider Specialist; Visit Provider Specialist
DX: R22.0 Localized swelling, mass and lump, head (principal)
CPT/HCPCS: 70491; Q9967

== ENCOUNTER → 2024-02-06 09:21 | Outpatient (CLI) | payer MEDICARE, OTHER, SELFPAY ==
[2018-08-11 17:25] VITALS: BMI 39.4
[2024-02-06 10:44] LABS: Appearance Urine UA CLEAR; Bilirubin Urine UA NEGATIVE (NEGATIVE); Color Urine UA YELLOW; Glucose Urine UA NEGATIVE (Negative); Ketones Urine UA NEGATIVE (NEGATIVE); Leukocyte Esterase Urine UA NEGATIVE (NEGATIVE); Nitrite Urine UA NEGATIVE (Negative); Occult Blood Urine UA 1+ (Negative); Protein Urine UA NEGATIVE (Negative); Specific Gravity Urine UA 1.025 (1.000-1.035); Urobilinogen Urine UA 0.2 E.U./dL (0.2)
[2024-02-06 10:54] LABS: Bacteria Urine None Seen; Culture Indicated Urine Cult Not Indicated; RBC Urine 0-1/HPF (0-5/HPF); Squamous Epithelial Cell Urine 1-5 /HPF (0-5/HPF); Urine Volume 10mL (spun); WBC Urine 1-5/HPF (0-5/HPF)
== END ==
LOC: LAB 09:22
PROVIDERS: PCP Family Medicine; Referring Provider Family Medicine; Visit Provider Family Medicine
DX: R30.9 Painful micturition, unspecified (principal)
CPT/HCPCS: 81001

== ENCOUNTER 2024-02-14 10:26 | Emergency (ER) | payer MEDICARE, OTHER, SELFPAY ==
[2018-08-11 17:25] VITALS: BMI 39.4
[2024-02-14] VITALS (11 sets, daily range): BP systolic 116–140; BP diastolic 60–88; PULSE 80–95; RESP 11–23; TEMP 36.4; O2SAT 96–99; BMI 45.7
--- NOTE | 2024-02-14 10:32 | EKG_ITS ---
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
--- NOTE | 2024-02-14 10:32 | DI.RAD.S_ITS ---
PROCEDURE: XR CHEST 1V INDICATIONS: chest pain TECHNIQUE: One view of the chest was acquired. COMPARISON: [facility], CR, XR CHEST 1V, 09/18/2023, 20:53. FINDINGS: Surgical changes and devices: Pacemaker and valve replacement. Lungs and pleura: Mild appearance of increased pulmonary vascularity. Faint increased opacities are present in the bases bilaterally. Mediastinum: Mediastinal contours appear normal. Heart size is enlarged. Bones and chest wall: No suspicious bony lesions. Overlying soft tissues appear unremarkable. IMPRESSION: Increased vascularity suggestive of edema. Mild increased bibasilar opacities which may represent focal edema versus developing pneumonia. Dictated by: Irma Coburn M.D. on 02/14/2024 at 10:56 Approved by: Irma Coburn M.D. on 02/14/2024 at 10:56
--- NOTE | 2024-02-14 10:39 | ED_ITS ---
HPI - Dizziness General Chief Complaint: Dizziness Stated Complaint: Dizzy, chill Time Seen by Provider: 02/14/24 10:35 Source: patient Mode of arrival: Ambulatory History of Present Illness HPI Narrative: Patient is a 78-year-old female history of recent TAVR are at [facility], atrial fibrillation on Xarelto, pacemaker, CHF frequent UTIs presents today with ongoing dizziness. Reports that since she had her TAVR on January 22 he has had intermittent dizziness. She reports she is dizzy at rest and standing up. She has not fallen or passed out. No chest pain or palpitations. She denies any sort of fever. Denies painful frequent urination, chest pain or cough. No numbness tingling or weakness Related Data Home Medications Medication Instructions Recorded Confirmed pravastatin 20 mg tablet 20 mg PO BEDTIME 02/19/18 02/07/24 rivaroxaban 20 mg tablet (Xarelto) 20 mg PO QPM 02/19/18 02/07/24 dofetilide 500 mcg capsule 500 mcg PO Q12H 02/06/21 02/07/24 (Tikosyn) cholecalciferol (vitamin D3) 125 125 mcg PO DAILY 11/02/21 02/07/24 mcg (5,000 unit) capsule mecobalamin (vitamin B12) 1,000 1,000 mcg PO DAILY 11/02/21 02/07/24 mcg chewable tablet (B12 Active) diltiazem HCl 30 mg tablet 30 mg PO BID 11/04/22 02/07/24 furosemide 20 mg tablet 20 mg PO DAILY 09/29/23 02/07/24 Previous Rx's Medication Instructions Recorded motorized scooter #1 ea 04/06/23 albuterol sulfate 90 mcg/actuation 2 puff inhalation Q6H PRN 09/11/23 aerosol inhaler shortness of breath or wheezing #8.5 grams ospemifene 60 mg tablet (Osphena) 60 mg PO DAILY #90 tabs 10/03/23 estradiol 2 mg (7.5 mcg/24 hour) 1 vag ring vaginal [id number] #1 ea 10/12/23 vaginal ring Disabled Parking Permint #1 ea 10/31/23 meclizine 25 mg tablet 25 mg PO TID PRN dizziness #10 tabs 02/14/24 ondansetron 4 mg disintegrating 4 mg PO Q8H PRN nausea and 02/14/24 tablet vomiting #10 tabs Allergies Allergy/AdvReac Type Severity Reaction Status Date / Time Beta-Blockers Allergy Severe Get all Verified 02/14/24 10:32 (Beta-Adrenergic [place]oc the side effects flecainide Allergy Severe Get all Verified 02/14/24 10:32 the symptoms metoprolol Allergy Severe get all Verified 02/14/24 10:32 the side effects macrobid AdvReac Mild Vomiting Uncoded 02/07/24 10:12 Patient History Medical History (Updated 02/14/24 @ 13:25 by Radha De La O DO) Otalgia of right ear History of transcatheter aortic valve replacement (TAVR) Sialoadenitis Postmenopausal atrophic vaginitis Recurrent urinary tract infection Bronchospasm Bilateral knee pain Mobility impaired Congestive heart failure Diverticular disease COVID-19 Eustachian tube dysfunction Osteoarthritis of hands, bilateral Pulmonary edema cardiac cause Orthostatic hypotension Hyperlipidemia Fatigue Well adult Sleep apnea (~2012) Osteoporosis (~2013) Cataracts, bilateral (~2010) Irritable bowel syndrome (~1999) GI bleeding (~2004) Colon polyps (~1999) Atrial fibrillation (~2008) Hypertension (~2004) Lower GI bleed Surgical History Anesthesia History of cataract removal with insertion of prosthetic lens (~05/2001) Pacemaker (~2018) Hx of cholecystectomy (~05/1978) H/O abdominal hysterectomy (~04/1977) Cystocele (~03/2001) H/O laminectomy (~04/1990) Family History Mother Breast cancer Diabetes mellitus Hyperlipidemia Hypertension Stroke Father No known health problems Grandfather Stroke Grandmother No problems noted. Grandfather Stroke Social History household members: spouse Smoking Status: Never smoker second hand exposure: No alcohol intake: never substance use type: does not use Smoking Status: Never smoker alcohol intake frequency: holidays/special occasions only Substance Use Type: does not use Exam Initial Vital Signs Initial Vital Signs: Vital Signs Temperature 97.6 F 02/14/24 10:27 Pulse Rate 89 02/14/24 10:27 Respiratory Rate 17 02/14/24 10:27 Blood Pressure 140/88 02/14/24 10:27 Pulse Oximetry 96 02/14/24 10:27 Oxygen Delivery Method Room Air 02/14/24 10:27 GENERAL: Alert pleasant 78-year-old female and in no acute distress. HEENT: Head atraumatic,EOMI, pupils reactive, face symmetric, no nystagmus moist mucous membranes CARDIOVASCULAR: Regular rate and rhythm without murmurs, rubs or gallops. RESPIRATORY: Breath sounds equal bilaterally, no wheezes rales or rhonchi. ABDOMEN: Soft, nontender. Normoactive bowel sounds all 4 quadrants. No guarding or rebound. EXTREMITIES: Normal range of motion, no clubbing or edema. Neurovascularly intact NEUROLOGICAL: Alert and oriented x4.Normal gait and speech. Cranial nerves II through XII grossly intact. Good [id number], good [id number], strength equal bilaterally, no dysarthria or aphasia, sensation in tact to soft touch bilaterally, no visual changes, no facial droop SKIN: Warm, dry, no laceration, no petechiae, no rashes or lesions. Course Orders Ordered: ED Orders 02/14/24 10:32 XR chest 1V Stat EKG-12 Lead Stat 02/14/24 10:50 Complete Blood Count AUTO DIFF Stat Comprehensive Metabolic Panel Stat Lipase Stat Magnesium Stat PTT Partial Thromboplastin Jamal Stat Prothrombin Time INR Stat Troponin & CK Cardiac Panel Stat 02/14/24 11:02 CT angio head and neck Stat CT head/brain wo con Stat 02/14/24 12:52 UA Complete [Urinalysis and Microscopic] Stat Discontinued Medications Acetaminophen (Ofirmev) 1,000 mg in 100 mls @ 400 mls/hr IV NOW ONE Stop: 02/14/24 11:39 Last Admin: 02/14/24 12:11 Dose: Not Given Documented By: ROSELINE Sodium Chloride (Normal Saline 0.9%) 1,000 mls @ 150 mls/hr IV CONT NICOLA Last Infusion: 02/14/24 13:34 Dose: Infused Documented By: Infusion: 02/14/24 12:13 Dose: 150 mls/hr Documented By: Infusion: 02/14/24 11:38 Dose: 0 mls/hr Documented By: Admin: 02/14/24 11:38 Dose: 150 mls/hr Documented By: PAULINA Acetaminophen (Ofirmev) 1,000 mg in 100 mls @ 400 mls/hr IV NOW ONE Stop: 02/14/24 11:43 Last Infusion: 02/14/24 12:11 Dose: Infused Documented By: Admin: 02/14/24 11:34 Dose: 400 mls/hr Documented By: PAULINA Meclizine HCl (Meclizine Hcl 12.5 Mg Tablet) 50 mg PO NOW ONE Stop: 02/14/24 11:30 Last Admin: 02/14/24 11:37 Dose: 50 mg Documented By: PAULINA Ondansetron HCl (Ondansetron 4 Mg/2 Ml Inj) 4 mg IV NOW ONE Stop: 02/14/24 11:26 Last Admin: 02/14/24 12:11 Dose: Not Given Documented By: ROSELINE Ondansetron HCl (Ondansetron 4 Mg/2 Ml Inj) 4 mg IV NOW ONE Stop: 02/14/24 11:30 Last Admin: 02/14/24 11:31 Dose: 4 mg Documented By: PAULINA Vital Signs Vital signs: Vital Signs - 8 hr 02/14/24 10:27 02/14/24 10:29 02/14/24 10:30 Temperature 97.6 F Pulse Rate 89 95 H 92 H Respiratory Rate 17 Blood Pressure 140/88 Pulse Oximetry 96 97 Oxygen Delivery Method Room Air 02/14/24 10:30 02/14/24 10:33 02/14/24 10:33 Temperature Pulse Rate 88 Respiratory Rate Blood Pressure 140/88 129/60 Pulse Oximetry 97 Oxygen Delivery Method Room Air 02/14/24 10:53 02/14/24 10:53 02/14/24 11:00 Temperature Pulse Rate 80 Respiratory Rate 23 Blood Pressure 126/64 127/68 Pulse Oximetry 99 Oxygen Delivery Method 02/14/24 11:00 02/14/24 11:44 02/14/24 12:00 Temperature Pulse Rate 80 92 H 85 Respiratory Rate 13 12 Blood Pressure Pulse Oximetry 99 98 98 Oxygen Delivery Method Room Air Room Air 02/14/24 12:01 02/14/24 12:01 02/14/24 12:30 Temperature Pulse Rate 80 80 Respiratory Rate 18 14 Blood Pressure 134/60 Pulse Oximetry 98 98 Oxygen Delivery Method Room Air 02/14/24 12:31 02/14/24 12:31 Temperature Pulse Rate 80 Respiratory Rate 11 L Blood Pressure 116/60 Pulse Oximetry 98 Oxygen Delivery Method Room Air MDM - Dizziness Lab Data 02/14/24 10:50 02/14/24 10:50 Labs: Lab Results 02/14/24 02/14/24 Range/Units 10:50 12:52 WBC 6.3 (4.5-11.0) X10^3/uL RBC 4.77 (4.0-5.2) X10^6/uL Hgb 13.9 (12.0-16.0) g/dL Hct 42.4 (36-46) % MCV 88.9 (80-100) fL MCH 29.0 (26-34) PG MCHC 32.7 (30-36) % RDW 14.2 (11.6-14.8) % Plt Count 161 (150-400) X10^3/uL Neut % (Auto) 52.1 (50-75) % Lymph % (Auto) 35.0 (25-40) % [place] % (Auto) 10.1 (3-14) % Eos % (Auto) 2.1 (2-4) % Baso % (Auto) 0.7 (0-2) % Neut # (Auto) 3300 (5106-6734) /uL Lymph # (Auto) 2200 (0016-5549) /uL [place] # (Auto) 600 (0-900) /uL Eos # (Auto) 100 (0-450) /uL Baso # (Auto) 0 (0-100) /uL PT 14.0 H (9.4-12.5) SECONDS INR 1.2 (0.9-1.3) APTT 21 L (25.1-36.5) SECONDS Sodium 139 (137-145) mmol/L Potassium 4.6 (3.4-5.1) mmol/L Chloride 113 H (98-107) mmol/L Carbon Dioxide 24 (22-32) mmol/L BUN 18 H (7-17) mg/dL Creatinine 0.81 (0.52-1.04) mg/dL Estimated GFR > 60 (>60) mL/min BUN/Creatinine Ratio 22.2 H (6-22) Glucose 111 H (80-110) mg/dL Calcium 9.2 (8.4-10.2) mg/dL Magnesium 2.2 (1.6-2.3) mg/dL Total Bilirubin 0.5 (0.2-1.3) mg/dL AST 36 (14-36) IU/L ALT 25 (<35) IU/L Alkaline Phosphatase 82 (38-126) U/L Total Creatine Kinase 52 (30-135) U/L Troponin I 0.013 (0.01-0.034) ng/mL Total Protein 8.1 (6.3-8.2) g/dL Albumin 4.3 (3.5-5.0) g/dL Globulin 3.8 (1.7-4.1) g/dL Albumin/Globulin Ratio 1.1 (1.0-2.8) Lipase 145 (23-300) U/L Urine Color Yellow Urine Appearance Clear Urine pH 6.0 (4.5-8.0) Ur Specific [place] 1.010 (1.000-1.035) Urine Protein Negative (Negative) Urine Glucose (UA) Negative (Negative) g/dL Urine Ketones Negative (NEGATIVE) Urine Occult Blood Trace-intact (Negative) Urine Nitrate Negative (Negative) Urine Bilirubin Negative (NEGATIVE) Urine Urobilinogen 0.2 (0.2) E.U./dL Ur Leukocyte Esterase Negative (NEGATIVE) Urine RBC None seen (0-5/HPF) Urine WBC 0-1/hpf (0-5/HPF) Ur Squamous Epith Cells 0-1 /hpf (0-5/HPF) Urine Bacteria Moderate (10-30) H (None) Urine Mucus 1+ H (Negative) Urine Yeast 0-1/hpf (None) Ur Culture Indicated? Cult not indicated Vol Urine Centrifuged 10ml (spun) Imaging Data CT scan - head: Radiologist's Impression: PROCEDURE: CT HEAD/BRAIN WO CON INDICATIONS: dizzy TECHNIQUE: Noncontrast 4.5 mm thick angled axial sections acquired from the foramen magnum to the vertex, with coronal and sagittal reformats. For radiation dose reduction, the following was used: automated exposure control, adjustment of mA and/or kV according to patient size. COMPARISON: [facility], CT, CT HEAD/BRAIN WO CON, 06/16/2021, 7:36. FINDINGS: Image quality: Diagnostic. CSF spaces: Basal cisterns are patent. No extra-axial fluid collections. The ventricles are symmetric in size and shape. Brain: No intracranial bleeds or masses. There is cerebral volume loss for age, with resultant ventricular and sulcal prominence. There are periventricular and deep white matter chronic small vessel ischemic changes. There is intracranial internal carotid artery atherosclerosis. Skull and face: Calvarium and visualized facial bones appear intact, without suspicious lesions. Sinuses: Visualized sinuses and mastoids are clear. IMPRESSION: No acute intracranial pathology. Dictated by: Troy Betts M.D. on 02/14/2024 at 11:54 Chest x-ray: Radiologist's Impression: PROCEDURE: XR CHEST 1V INDICATIONS: chest pain TECHNIQUE: One view of the chest was acquired. COMPARISON: [facility], CR, XR CHEST 1V, 09/18/2023, 20:53. FINDINGS: Surgical changes and devices: Pacemaker and valve replacement. Lungs and pleura: Mild appearance of increased pulmonary vascularity. Faint increased opacities are present in the bases bilaterally. Mediastinum: Mediastinal contours appear normal. Heart size is enlarged. Bones and chest wall: No suspicious bony lesions. Overlying soft tissues appear unremarkable. IMPRESSION: Increased vascularity suggestive of edema. Mild increased bibasilar opacities which may represent focal edema versus developing pneumonia. Dictated by: Irma Coburn M.D. on 02/14/2024 at 10:56 Approved by: Irma Coburn M.D. on 02/14/2024 at 10:56 CTA - brain/neck: Radiologist's Impression: PROCEDURE: CT ANGIO HEAD AND NECK INDICATIONS: dizzy TECHNIQUE: After the administration of intravenous contrast, 1 mm thick sections acquired from the aortic arch through the [place] of [place]. 3-dimensional aqdxozf-tiqcifkak-geisrfgmnh (MIP) and/or volume rendering reformats were acquired of the central intracranial vasculature and neck separately. For radiation dose reduction, the following was used: automated exposure control, adjustment of mA and/or kV according to patient size. COMPARISON: [facility], CT, CT HEAD/BRAIN WO CON, 02/14/2024, 11:38. FINDINGS: Image quality: Diagnostic. BRAIN: See separately dictated CT head report of 02/14/2024. HEAD CT ANGIOGRAPHY: Anterior circulation: Intracranial internal carotid arteries are normal in size and flow. The flow within the paired anterior cerebral arteries is normal and symmetric. The flow within the middle cerebral arteries is normal and symmetric. The anterior communicating artery is seen. No aneurysms are seen. Posterior circulation: Vertebral arteries are codominant. Visualized portions of the vertebral arteries demonstrate normal caliber, and join to form a normal appearing basilar artery. Flow within the posterior cerebral arteries is normal and symmetric. No aneurysms are seen. NECK CT ANGIOGRAPHY: Carotid system: The great vessels demonstrate a conventional anatomy as they arise from the aortic arch. The origins of the common carotid arteries appear patent. The common carotid arteries demonstrate normal caliber and courses. The bifurcation regions are both widely patent. The internal carotid arteries demonstrate normal calibers and courses. Posterior circulation: The origins of the vertebral arteries both appear widely patent. The more superior extracranial portions of both vertebral arteries also demonstrate normal courses and calibers. They join to form a normal appearing basilar artery. Soft tissues: Visualized neck soft tissues demonstrate no suspicious abnormalities. Bones: No suspicious bony lesions. Visualized cervical spine appears normally aligned. IMPRESSION: No areas of hemodynamically significant stenosis, vascular occlusion or aneurysmal dilation within the anterior circulation. No areas of hemodynamically significant stenosis, vascular occlusion or aneurysmal dilation within the posterior circulation. No areas of hemodynamically significant stenosis, vascular occlusion or aneurysmal dilation within the neck vasculature. Any quantitative measurements of stenosis were performed using NASCET criteria. Dictated by: Irma Coburn M.D. on 02/14/2024 at 12:16 ECG Data Attestation: I personally reviewed and interpreted this ECG as follows: Interpretation: Dual pacemaker rate 93 no Sgarbossa criteria left bundle-branch noted MDM Narrative Medical decision making narrative: MDM CC: Dizziness Complicating co-morbidities: Recent TAVR, recurrent UTI Medical records reviewed: PCP no from 02/07/2024 Differential considered: [ ] Exam documented above, pertinent findings include: Neurovascularly intact overall appears well Lab Test results independently reviewed as above. Pertinent findings: WBC 6.3 hemoglobin 13.9 hematocrit 42.4, platelets 161, sodium 139 potassium 4.6 chloride 113 carbon dioxide 24, BUN 18, creatinine 0.8, glucose 111, calcium 9.2 bilirubin 0.5 AST 36 ALT 25 alk-phos 82 troponin 0.013, lipase 145 Negative for nitrates or leukocyte Independently reviewed EKG as above paced rhythm Imaging studies independently reviewed: Head CT and CT angio no acute abnormality chest x-ray no acute cardiopulmonary process Consultations: None Treatments: IV fluids IV Tylenol meclizine Zofran Re-evaluations: Patient is feeling better after meclizine she ambulated to the restroom to give a urine sample. Discussion: Patient presenting today with dizziness ongoing the last couple weeks presenting today has a headache. CT imaging does not show any significant abnormality or intracranial hemorrhage. No evidence of recurrent UTI today. Blood work is overall reassuring. She has no focal deficits. Pacemaker was also interrogated by [employer]. Dual-chamber pacemaker atrial fibrillation which is not new overall appears stable with no acute events Recurrent UTI not currently taking hormonal replacement therapy may benefit from supplemental estrogen. Discharge Plan Departure Patient Disposition: Home Clinical Impression: Dizziness Instructions: DI for Dizziness-Nonvertigo Activity Restrictions/Additional Instructions: *You have been diagnosed with non vertigo *What to do: Increase activity as tolerated be sure to eat and drink as normal Talk to your provider about supplemental estrogen for recurrent UTI *Continue to take medications as directed Zofran 4 mg every 8 hours for nausea or vomiting Meclizine 25-50 mg as needed for dizziness *Follow up with your primary care provider in 2-3 days or call [phone] *Return to ER if you should have increasing dizziness weakness falls chest pain or any new, worsening or concerning symptoms Prescriptions: New meclizine 25 mg tablet 25 mg PO TID PRN (Reason: dizziness) Qty: 10 0RF ondansetron 4 mg tablet,disintegrating 4 mg PO Q8H PRN (Reason: nausea and vomiting) Qty: 10 0RF No Action (DME) motorized scooter See Rx Instructions .Route .MEDSUPPLY Qty: 1 0RF Rx Instructions: As directed estradiol 2 mg (7.5 mcg /24 hour) ring 1 vag ring vaginal [id number] Qty: 1 0RF (DME) Disabled Parking Permint See Rx Instructions .ROUTE .MEDSUPPLY Qty: 1 0RF Rx Instructions: I find this patient to be medically disabled and qualified for Disabled Parking as indicated and signed on the Accompanying Disabled Parking Application for individuals. cholecalciferol (vitamin D3) 125 mcg (5,000 unit) capsule 125 mcg PO DAILY B12 Active 1,000 mcg tablet,chewable 1,000 mcg PO DAILY albuterol sulfate 90 mcg/actuation HFA aerosol inhaler 2 puff inhalation Q6H PRN (Reason: shortness of breath or wheezing) Qty: 8.5 2RF furosemide 20 mg tablet 20 mg PO DAILY diltiazem HCl 30 mg tablet 30 mg PO BID Patient Comments: take 1 tablet by mouth three times a day Rx Instructions: 0700, 1400, 2100 dofetilide [Tikosyn] 500 mcg Capsule 500 mcg PO Q12H Rx Instructions: 0700/1900 pravastatin 20 mg Tablet 20 mg PO BEDTIME Xarelto 20 mg Tablet 20 mg PO QPM Osphena 60 mg tablet 60 mg PO DAILY Qty: 90 3RF Rx Instructions: must administer with food, preferably a high-fat meal Referrals: Mark Brennan DO [Primary Care Provider] - Stand Alone Forms: Patient Portal/API
[2024-02-14 11:02] LABS: Add Manual Diff / Slide Review NO; Basophils Absolute Auto 0 /uL (0-100); Basophils Percent Auto 0.7 % (0-2); Eosinophils Absolute Auto 100 /uL (0-450); Eosinophils Percent Auto 2.1 % (2-4); Hematocrit 42.4 % (36-46); Hemoglobin 13.9 g/dL (12.0-16.0); Lymphocytes Absolute Auto 2200 /uL (1100-4500); Mean Corpuscular HGB Conc 32.7 % (30-36); Mean Corpuscular Volume 88.9 fL (80-100); Monocytes Absolute Auto 600 /uL (0-900); Monocytes Percent Auto 10.1 % (3-14); Neutrophils Absolute Auto 3300 /uL (1500-7000); Neutrophils Percent Auto 52.1 % (50-75); Platelet Count 161 X10^3/uL (150-400); Red Blood Cell Count 4.77 X10^6/uL (4.0-5.2); Red Cell Distribution Width 14.2 % (11.6-14.8); White Blood Cell Count 6.3 X10^3/uL (4.5-11.0)
--- NOTE | 2024-02-14 11:02 | DI.CT.S_ITS ---
PROCEDURE: CT ANGIO HEAD AND NECK INDICATIONS: dizzy TECHNIQUE: After the administration of intravenous contrast, 1 mm thick sections acquired from the aortic arch through the [place] of [place]. 3-dimensional smtmfqm-ljhevjauw-rzzhzihsri (MIP) and/or volume rendering reformats were acquired of the central intracranial vasculature and neck separately. For radiation dose reduction, the following was used: automated exposure control, adjustment of mA and/or kV according to patient size. COMPARISON: [facility], CT, CT HEAD/BRAIN WO CON, 02/14/2024, 11:38. FINDINGS: Image quality: Diagnostic. BRAIN: See separately dictated CT head report of 02/14/2024. HEAD CT ANGIOGRAPHY: Anterior circulation: Intracranial internal carotid arteries are normal in size and flow. The flow within the paired anterior cerebral arteries is normal and symmetric. The flow within the middle cerebral arteries is normal and symmetric. The anterior communicating artery is seen. No aneurysms are seen. Posterior circulation: Vertebral arteries are codominant. Visualized portions of the vertebral arteries demonstrate normal caliber, and join to form a normal appearing basilar artery. Flow within the posterior cerebral arteries is normal and symmetric. No aneurysms are seen. NECK CT ANGIOGRAPHY: Carotid system: The great vessels demonstrate a conventional anatomy as they arise from the aortic arch. The origins of the common carotid arteries appear patent. The common carotid arteries demonstrate normal caliber and courses. The bifurcation regions are both widely patent. The internal carotid arteries demonstrate normal calibers and courses. Posterior circulation: The origins of the vertebral arteries both appear widely patent. The more superior extracranial portions of both vertebral arteries also demonstrate normal courses and calibers. They join to form a normal appearing basilar artery. Soft tissues: Visualized neck soft tissues demonstrate no suspicious abnormalities. Bones: No suspicious bony lesions. Visualized cervical spine appears normally aligned. IMPRESSION: No areas of hemodynamically significant stenosis, vascular occlusion or aneurysmal dilation within the anterior circulation. No areas of hemodynamically significant stenosis, vascular occlusion or aneurysmal dilation within the posterior circulation. No areas of hemodynamically significant stenosis, vascular occlusion or aneurysmal dilation within the neck vasculature. Any quantitative measurements of stenosis were performed using NASCET criteria. Dictated by: Irma Coburn M.D. on 02/14/2024 at 12:16 Approved by: Irma Coburn M.D. on 02/14/2024 at 12:19
--- NOTE | 2024-02-14 11:02 | DI.CT.S_ITS ---
PROCEDURE: CT HEAD/BRAIN WO CON INDICATIONS: dizzy TECHNIQUE: Noncontrast 4.5 mm thick angled axial sections acquired from the foramen magnum to the vertex, with coronal and sagittal reformats. For radiation dose reduction, the following was used: automated exposure control, adjustment of mA and/or kV according to patient size. COMPARISON: [facility], CT, CT HEAD/BRAIN WO CON, 06/16/2021, 7:36. FINDINGS: Image quality: Diagnostic. CSF spaces: Basal cisterns are patent. No extra-axial fluid collections. The ventricles are symmetric in size and shape. Brain: No intracranial bleeds or masses. There is cerebral volume loss for age, with resultant ventricular and sulcal prominence. There are periventricular and deep white matter chronic small vessel ischemic changes. There is intracranial internal carotid artery atherosclerosis. Skull and face: Calvarium and visualized facial bones appear intact, without suspicious lesions. Sinuses: Visualized sinuses and mastoids are clear. IMPRESSION: No acute intracranial pathology. Dictated by: Troy Betts M.D. on 02/14/2024 at 11:54 Approved by: Troy Betts M.D. on 02/14/2024 at 11:55
[2024-02-14 11:10] LABS: INR 1.2 (0.9-1.3)
[2024-02-14 11:12] LABS: PTT Partial Thromboplastin Tim 21 SECONDS (25.1-36.5)
[2024-02-14 11:14] LABS: Alanine Aminotransferase 25 IU/L (<35); Albumin 4.3 g/dL (3.5-5.0); Albumin Globulin Ratio 1.1 (1.0-2.8); Alkaline Phosphatase 82 U/L (38-126); Aspartate Aminotransferase 36 IU/L (14-36); BUN Creatinine Ratio 22.2 (6-22); Bilirubin Total 0.5 mg/dL (0.2-1.3); Blood Urea Nitrogen 18 mg/dL (7-17); Calcium 9.2 mg/dL (8.4-10.2); Carbon Dioxide 24 mmol/L (22-32); Chloride 113 mmol/L (98-107); Creatine Kinase 52 U/L (30-135); Estimated Glomerular Filt Rate > 60 mL/min (>60); Globulin 3.8 g/dL (1.7-4.1); Glucose 111 mg/dL (80-110); Lipase 145 U/L (23-300); Magnesium 2.2 mg/dL (1.6-2.3); Potassium 4.6 mmol/L (3.4-5.1); Sodium 139 mmol/L (137-145); Total Protein 8.1 g/dL (6.3-8.2)
[2024-02-14 11:15] LABS: HEMOLYSIS 69 (0-50)
[2024-02-14 11:26] LABS: Troponin I 0.013 ng/mL (0.01-0.034)
[2024-02-14] MEDS: ONDANSETRON 4 MG/2 ML INJ IV (11:31)
[2024-02-14] MEDS: ACETAMINOPHEN IV 1,000 MG/100 ML VIAL 400 MG IV (11:34)
[2024-02-14] MEDS: MECLIZINE HCL 12.5 MG TABLET 50 MG PO (11:37)
[2024-02-14] MEDS: SODIUM CHLORIDE 0.9% 1,000 ML 150 ML IV (11:38)
[2024-02-14 13:09] LABS: Appearance Urine UA CLEAR; Bilirubin Urine UA NEGATIVE (NEGATIVE); Color Urine UA YELLOW; Glucose Urine UA NEGATIVE (Negative); Ketones Urine UA NEGATIVE (NEGATIVE); Leukocyte Esterase Urine UA NEGATIVE (NEGATIVE); Nitrite Urine UA NEGATIVE (Negative); Occult Blood Urine UA TRACE-INTACT (Negative); Protein Urine UA NEGATIVE (Negative); Urobilinogen Urine UA 0.2 E.U./dL (0.2)
[2024-02-14 13:27] LABS: RBC Urine None Seen (0-5/HPF); Urine Volume 10mL (spun); WBC Urine 0-1/HPF (0-5/HPF)
[2024-02-14 13:28] LABS: Bacteria Urine Moderate (10-30); Culture Indicated Urine Cult Not Indicated; Mucus Urine 1+ (Negative); Squamous Epithelial Cell Urine 0-1 /HPF (0-5/HPF)
== END 2024-02-14 13:32 | disposition home or self-care (01) ==
PROVIDERS: Emergency Provider Emergency Medicine; PCP Family Medicine
DX: R42 Dizziness and giddiness (principal); R51.9 Headache, unspecified; I48.91 Unspecified atrial fibrillation; Z79.01 Long term (current) use of anticoagulants; Z95.2 Presence of prosthetic heart valve; Z95.0 Presence of cardiac pacemaker
CPT/HCPCS: 36415; 70450; 70496; 70498; 71045; 80053; 81001; 82550; 83690; 83735; 84484; 85025; 85610; 85730; 93005; 96365; 96375; 99284; J0136; J2405; Q9967

== ENCOUNTER → 2024-03-10 12:42 | Outpatient (CLI) | payer MEDICARE, OTHER, SELFPAY ==
[2018-08-11 17:25] VITALS: BMI 39.4
== END ==
PROVIDERS: Family Provider Family Medicine; PCP Family Medicine; Visit Provider Registered Nurse
DX: R10.9 Unspecified abdominal pain (principal)
CPT/HCPCS: 87077; 87086; 87186

== ENCOUNTER 2024-03-13 07:30 | Outpatient (RCR) | payer MEDICARE, OTHER, SELFPAY ==
[2018-08-11 17:25] VITALS: BMI 39.4
--- NOTE | 2024-03-06 14:25 | PT.OIE ---
Current Diagnoses Dizziness and giddiness (03/06/24) Past Medical History (Last Updated 02/07/24 @ 10:44 by Mark Brennan DO) Atrial fibrillation (~2008) Bilateral knee pain Bronchospasm Cataracts, bilateral (~2010) Colon polyps (~1999) Congestive heart failure COVID-19 Diverticular disease Eustachian tube dysfunction Fatigue GI bleeding (~2004) History of transcatheter aortic valve replacement (TAVR) Hyperlipidemia Hypertension (~2004) Irritable bowel syndrome (~1999) Lower GI bleed Mobility impaired Orthostatic hypotension Osteoarthritis of hands, bilateral Osteoporosis (~2013) Otalgia of right ear Postmenopausal atrophic vaginitis Pulmonary edema cardiac cause Recurrent urinary tract infection Sialoadenitis Sleep apnea (~2012) Well adult Past Surgical History (Last Reviewed 12/26/23 @ 13:00 by Teagan Frazier PA-C) Anesthesia Cystocele (~03/2001) H/O abdominal hysterectomy (~04/1977) H/O laminectomy (~04/1990) History of cataract removal with insertion of prosthetic lens (~05/2001) Hx of cholecystectomy (~05/1978) Pacemaker (~2018) Visit Care Team Role Provider Type Other Providers Specialty: Address: Phone: Fax: Email: Mark Brennan DO Family Provider Physician Primary Care Provider Specialty: Family Practice Address: [address] [place] [address], [id number] Email: [email or web address] Attending Provider Non-Staff Referring Provider Specialty: Cardiology Address: [address] [place] [address], [id number] Email: Physical Therapy Initial Evaluation PT-OP-A Visit Information Start: 03/06/24 07:11 Freq: Status: Active Protocol: Document 03/06/24 12:51 MB (Rec: 03/06/24 14:24 MB [id number]) Out-Patient Physical Therapy Visit Information Visit Information Visit Type Initial Evaluation Visit Note Medicare 09/15 before KX Visit Start Time 13:00 Visit Stop Time 13:40 Visit Number 1 Number of SERVICENOW ADMINISTRATOR DEVELOPER Visits 0 Evaluation Information Evaluation Date 03/06/24 PT-OP-B Current Condition Start: 03/06/24 07:11 Freq: Status: Active Protocol: Document 03/06/24 12:51 MB (Rec: 03/06/24 14:24 MB [id number]) Current Condition History of Current Condition Onset Date 3 years Current Complaints Dizziness with lying down and sitting up, head moving back and forth History of Current Condition Pt had ED visit 02/14/24 for dizziness with negative head and neck diagnostics. PT could not find if orthostatics were checked in the ED. On paper work, pt answers no to all dizziness questions on the DHI and not at all concerned about falling for all questions on FES. Pt underwent recent TAVR and has history of CHF, a- fib, HTN, right ear pain, OP, orthostatic hypotension and eustachian tube disease, morbid obesity, pacemaker. Pt states that she gets dizzy when she lies flat and she sleeps with the HOB elevated. Pt gets dizzy when she gets up . She demonstrates spinning with her finger when asked how she would describe dizziness. She uses a stick to push up to sit up in the bed. Pt denies: falls, numbness and tingling, vision changes, history of concussion, performance of sit-ups, anemia , weakness, hearing change, sinus/allergy issues, trouble swallowing, recent overhead lifting, B12 deficiency, eye pressure changes, whiplash injury, chiropractor treatment , TMJ problems, ROJAS. Pt reports intermittent right ear pressure and roaring and ringing. Pt reports left face swelling. She states her teeth are okay. She hopes to make appointment with ENT. Treatment Goals Patient/Caregiver Goals To decrease dizziness PT-OP-C Subjective Start: 03/06/24 07:11 Freq: Status: Active Protocol: Document 03/06/24 12:51 MB (Rec: 03/06/24 14:24 MB [id number]) OP-PT Subjective Patient Comments Patient Comments See history of current condition Patient Questionnaires Dizziness Handicap Inventory DHI Score 0 DHI Functional Impairment 0% Impaired (Score 0) Other Questionnaire Name and Score FES score is 0 PT-OP-G Mobility & Gait Start: 03/06/24 07:11 Freq: Status: Active Protocol: Document 03/06/24 12:51 MB (Rec: 03/06/24 14:24 MB [id number]) OP Gait Assessment Comments Gait Comments Pt gait trains with SPC right hand and pt presents with evidence of imbalance, slow gait speed and occ reaching for wall and objects. Cane is 3 too tall and PT lowers about 2 and pt is comfortable with this today. PT ed pt on benefits of using her 4WRW for walks outside and pt states that she really doesn't want to use the walker. She prefers holding onto her . Pt is agreeable to consider bringing in rollator to PT in future treatment dates. Pt gait trains 100'x2 with CGA today. PT-OP-H Neuro Start: 03/06/24 07:11 Freq: Status: Active Protocol: Document 03/06/24 12:51 MB (Rec: 03/06/24 14:24 MB [id number]) Vital Signs Comments Vital Signs Comments PT attempts to check orthostatics on B arms with correct BP cuff size but machine does not read either arm. Pt reports more spinning- type dizziness today and not light-headedness. She has history of orthostatic hypotension and vertigo per pt report PT-OP-J Posture/Palpation/Skin Start: 03/06/24 07:11 Freq: Status: Active Protocol: Document 03/06/24 12:51 MB (Rec: 03/06/24 14:24 MB [id number]) Posture Evaluation Comments Posture Comments Pt presents with increased body mass, forward head posture, Dowager's hump and limited ROM of neck that is severe in all directions. PT-OP-K Range of Motion Start: 03/06/24 07:11 Freq: Status: Active Protocol: Document 03/06/24 12:51 MB (Rec: 03/06/24 14:24 MB [id number]) Cervical Spine Range of Motion Cervical Spine Active Testing Position Sitting Flexion 20 Extension 20 Rotation Left 30 Rotation Right 20 PT-OP-O Vestibular Start: 03/06/24 07:11 Freq: Status: Active Protocol: Document 03/06/24 12:51 MB (Rec: 03/06/24 14:24 MB [id number]) Vestibular Assessment Visual Testing Spontaneous Nystagmus Negative Positional Testing Rolling Test Negative Left,Negative Right Comments Vestibular Comments [place]-Hallpike x2 to each side d /t pt guarding, flexing neck, having trouble tolerating position. No nystagmus to the right and pt reports dizziness and it is as if nystagmus wants to start with testing to the left but it does not. Attempted modified Awais for left ear with getting out of let [place]-Hallpike, but pt does not tolerate procedure and flexes neck/keeps neck rigid PT-OP-Q Treatments Start: 03/06/24 07:11 Freq: Status: Active Protocol: Document 03/06/24 12:51 MB (Rec: 03/06/24 14:24 MB [id number]) Self-Care/Home Management Treatment Education Patient Education Body Mechanics,Joint Protection,Posture Other Education PT educates pt on BPPV and possibility that her reduced cervical movement and sleeping position upright may contribute to less inner ear movement and any BPPV, ed pt that she was unable to tolerate testing well and attempted treatment today that would address any left ear issues. Ed pt in benefits of increasing non-caffeinated fluid intake and gentle cervical rotation and flexion and extension to improve inner ear movement and cervical flexibility. Ed pt in benefits of using rollator for safety and proper sleeping position. Canalithic Repositioning BPPV Treatment Other Comments Modified Awais x2 and B Roll Test and attempted left modified Awais and pt is unable to tolerate head positioning for successful maneuver. Suprisingly, after all these maneuvers with +2 max A, pt feels better after treatment and her facial coloring is better PT-OP-T Assessment and Plan Start: 03/06/24 07:11 Freq: Status: Active Protocol: Document 03/06/24 12:51 MB (Rec: 03/06/24 14:24 MB [id number]) Physical Therapy Assessment Rehab Potential Rehabilitation Potential Fair Evaluation Complexity Number of Personal Factors/Comorbidities 1-2 Number of Body Systems Impaired 3 Clinical Presentation at Evaluation Evolving Impairments Impairments Activity Tolerance,Balance, Functional Activities, Functional Mobility,Gait,Pain, Posture,ROM,Soft Tissue Mobility,Transfers,Vestibular Other Concerns Fall Risk Yes Goals 3 Impairment Lack of HEP Manager Inspection Goal (LTG) Pt will perform progressive HEP with I including VOR, cervical flexibility, postural and balance exercises to improve symptoms and balance. LTG Duration 5 weeks 2 Impairment CGA for transfers and gait, increased fall risk Impairment Pt did not understand FES handout, it appears, and so will add balance goal to address fall risk concern that pt reports she has and that PT observes Care Home Goal (LTG) Pt will perform TUG with LRAD in no more than 10 secs to improve balance and decrease fall risk. LTG Duration 5 weeks 1 Impairment Dizziness with lying down and sitting up and head movements Impairment Pt did not understand DHI handout, it appears, so will go with % improvement report Manager Inspection Goal (LTG) Pt will report at least a 75% improvement in dizziness with lying down and sitting up and head movements. LTG Duration 5 weeks Assessment Summary Assessment Pt reports a three year history of dizziness and that she does not lie flat at night . ED visit 02/14/24 appears unremarkable and PT does not note that orthostatics were checked. Pt was given Meclizine. Orthostatic hypotension assessment with BP and HR in LUE: BP machine/ cuff do not read despite checking twice. RUE: did not read in right arm. Pt reports vertigo and makes spinning motion with finger with lying, rolling and standing up. She requires 1-2 person assistance for transfers and BPPV testing today. Despite encouragement, cues and 2 person assistance, pt cannot tolerate BPPV testing or treatment well. She has severe postural changes in cervical spine that limit passive rotation and extension with testing and she frequently tightens and moves head and neck. PT does not appreciate nystagmus though when she has the most symptoms with left [place]pike, it does appear that nystagmus wants to start. Attempted to treat possible symptoms with modified Awais for left ear but pt pulls out of position. Overall, PT assessment was not conclusive given BP cuff issues and pt decrease tolerance to BPPV testing and treatment positions. Remarkably, she appears better with increased treatment positions and after procedures. Ed pt to work on hydration, cervical ROM and that PT can attempt to initiate PT treatment. Unsure how successful BPPV treatment will be. Can initiate VOR exercises and balance training and further cervical range and postural training. Physical Therapy Plan Frequency and Duration Frequency of Treatment 1x/Week Duration of treatment (weeks) 5 Plan of Care Start Date 03/06/24 Plan of Care End Date 04/03/24 Therapeutic Interventions Therapeutic Interventions Balance Training,Canalithic Repositioning,Gait Training, Home Exercise Program,Joint Mobilizations,Manual Therapy, Neuromuscular Re-education, Patient/Caregiver Education, Self-Care/Home Management,Soft Tissue Mobilization,Taping, Therapeutic Activities, Therapeutic Exercises, Vestibular Rehabilitation Modalities Cold Pack/Ice Massage,Hot Packs Next Visit Focus/Plan Next Note Type Treatment Note Next Visit Plan Consider 4WRW training, TUG, VOR assessment and HEP, postural and balance exercises . Revisit BPPV testing and use bariatric plinth if pt tolerates in the future.
--- NOTE | 2024-03-06 14:25 | PT.OPPOC ---
Physical, Occupational & Speech Therapy At [facility] Current Diagnoses Dizziness and giddiness (03/06/24) Visit Care Team Role Provider Type Other Providers Specialty: Address: Phone: Fax: Email: Mark Brennan DO Family Provider Physician Primary Care Provider Specialty: Family Practice Address: [address] [place] [address], [phone] Email: [email or web address] Attending Provider Non-Staff Referring Provider Specialty: Cardiology Address: [address] [place] [address], [id number] Email: Plan Of Care PT-OP-T Assessment and Plan Start: 03/06/24 07:11 Freq: Status: Active Protocol: Document 03/06/24 12:51 MB (Rec: 03/06/24 14:24 MB [id number]) Physical Therapy Assessment Rehab Potential Rehabilitation Potential Fair Evaluation Complexity Number of Personal Factors/Comorbidities 1-2 Number of Body Systems Impaired 3 Clinical Presentation at Evaluation Evolving Impairments Impairments Activity Tolerance,Balance, Functional Activities, Functional Mobility,Gait,Pain, Posture,ROM,Soft Tissue Mobility,Transfers,Vestibular Other Concerns Fall Risk Yes Goals 3 Impairment Lack of HEP Health/Safety Job Titles Goal (LTG) Pt will perform progressive HEP with I including VOR, cervical flexibility, postural and balance exercises to improve symptoms and balance. LTG Duration 5 weeks 2 Impairment CGA for transfers and gait, increased fall risk Impairment Pt did not understand FES handout, it appears, and so will add balance goal to address fall risk concern that pt reports she has and that PT observes Assisted Goal (LTG) Pt will perform TUG with LRAD in no more than 10 secs to improve balance and decrease fall risk. LTG Duration 5 weeks 1 Impairment Dizziness with lying down and sitting up and head movements Impairment Pt did not understand DHI handout, it appears, so will go with % improvement report Assisted Goal (LTG) Pt will report at least a 75% improvement in dizziness with lying down and sitting up and head movements. LTG Duration 5 weeks Assessment Summary Assessment Pt reports a three year history of dizziness and that she does not lie flat at night . ED visit 02/14/24 appears unremarkable and PT does not note that orthostatics were checked. Pt was given Meclizine. Orthostatic hypotension assessment with BP and HR in LUE: BP machine/ cuff do not read despite checking twice. RUE: did not read in right arm. Pt reports vertigo and makes spinning motion with finger with lying, rolling and standing up. She requires 1-2 person assistance for transfers and BPPV testing today. Despite encouragement, cues and 2 person assistance, pt cannot tolerate BPPV testing or treatment well. She has severe postural changes in cervical spine that limit passive rotation and extension with testing and she frequently tightens and moves head and neck. PT does not appreciate nystagmus though when she has the most symptoms with left [place]pike, it does appear that nystagmus wants to start. Attempted to treat possible symptoms with modified Awais for left ear but pt pulls out of position. Overall, PT assessment was not conclusive given BP cuff issues and pt decrease tolerance to BPPV testing and treatment positions. Remarkably, she appears better with increased treatment positions and after procedures. Ed pt to work on hydration, cervical ROM and that PT can attempt to initiate PT treatment. Unsure how successful BPPV treatment will be. Can initiate VOR exercises and balance training and further cervical range and postural training. Physical Therapy Plan Frequency and Duration Frequency of Treatment 1x/Week Duration of treatment (weeks) 5 Plan of Care Start Date 03/06/24 Plan of Care End Date 04/03/24 Therapeutic Interventions Therapeutic Interventions Balance Training,Canalithic Repositioning,Gait Training, Home Exercise Program,Joint Mobilizations,Manual Therapy, Neuromuscular Re-education, Patient/Caregiver Education, Self-Care/Home Management,Soft Tissue Mobilization,Taping, Therapeutic Activities, Therapeutic Exercises, Vestibular Rehabilitation Modalities Cold Pack/Ice Massage,Hot Packs Next Visit Focus/Plan Next Note Type Treatment Note Next Visit Plan Consider 4WRW training, TUG, VOR assessment and HEP, postural and balance exercises . Revisit BPPV testing and use bariatric plinth if pt tolerates in the future. Plan of Care Dates Plan of Care Start Date 03/06/24 Plan of Care End Date 04/03/24 Electronically Signed by: Janene Pringle, PT 03/06/24 [id number] If you are in agreement with this Plan of Care, please return a signed and dated copy. I have reviewed this Plan of Care and certify that the skilled therapy services above are required to meet the patient?s needs. Physician Signature Date Printed Name and Credentials Clinical Instructor Signature Printed Name and Credentials
--- NOTE | 2024-03-13 08:12 | PT.OTN ---
Current Diagnoses Dizziness and giddiness (03/13/24) Physical Therapy Treatment Note PT-OP-A Visit Information Start: 03/06/24 07:11 Freq: Status: Active Protocol: Document 03/13/24 07:27 MB (Rec: 03/13/24 07:49 MB [id number]) Out-Patient Physical Therapy Visit Information Visit Information Visit Type Treatment Note Visit Note Medicare 10/16 before KX Visit Start Time 07:27 Visit Stop Time 08:07 Visit Number 2 Number of DIRECTOR SALES Visits 0 Evaluation Information Evaluation Date 03/06/24 PT-OP-B Current Condition Start: 03/06/24 07:11 Freq: Status: Active Protocol: Document 03/06/24 12:51 MB (Rec: 03/06/24 14:24 MB [id number]) Current Condition History of Current Condition Onset Date 3 years Current Complaints Dizziness with lying down and sitting up, head moving back and forth History of Current Condition Pt had ED visit 02/14/24 for dizziness with negative head and neck diagnostics. PT could not find if orthostatics were checked in the ED. On paper work, pt answers no to all dizziness questions on the DHI and not at all concerned about falling for all questions on FES. Pt underwent recent TAVR and has history of CHF, a- fib, HTN, right ear pain, OP, orthostatic hypotension and eustachian tube disease, morbid obesity, pacemaker. Pt states that she gets dizzy when she lies flat and she sleeps with the HOB elevated. Pt gets dizzy when she gets up . She demonstrates spinning with her finger when asked how she would describe dizziness. She uses a stick to push up to sit up in the bed. Pt denies: falls, numbness and tingling, vision changes, history of concussion, performance of sit-ups, anemia , weakness, hearing change, sinus/allergy issues, trouble swallowing, recent overhead lifting, B12 deficiency, eye pressure changes, whiplash injury, chiropractor treatment , TMJ problems, ROJAS. Pt reports intermittent right ear pressure and roaring and ringing. Pt reports left face swelling. She states her teeth are okay. She hopes to make appointment with ENT. Treatment Goals Patient/Caregiver Goals To decrease dizziness PT-OP-C Subjective Start: 03/06/24 07:11 Freq: Status: Active Protocol: Document 03/13/24 07:27 MB (Rec: 03/13/24 07:49 MB [id number]) OP-PT Subjective Patient Comments Patient Comments Pt states that she feels the same. She is still sleeping upright. She cannot sleep flat . She also has some apnea but cannot tolerate an apnea machine. PT-OP-G Mobility & Gait Start: 03/06/24 07:11 Freq: Status: Active Protocol: Document 03/06/24 12:51 MB (Rec: 03/06/24 14:24 MB [id number]) OP Gait Assessment Comments Gait Comments Pt gait trains with SPC right hand and pt presents with evidence of imbalance, slow gait speed and occ reaching for wall and objects. Cane is 3 too tall and PT lowers about 2 and pt is comfortable with this today. PT ed pt on benefits of using her 4WRW for walks outside and pt states that she really doesn't want to use the walker. She prefers holding onto her . Pt is agreeable to consider bringing in rollator to PT in future treatment dates. Pt gait trains 100'x2 with CGA today. PT-OP-H Neuro Start: 03/06/24 07:11 Freq: Status: Active Protocol: Document 03/06/24 12:51 MB (Rec: 03/06/24 14:24 MB [id number]) Vital Signs Comments Vital Signs Comments PT attempts to check orthostatics on B arms with correct BP cuff size but machine does not read either arm. Pt reports more spinning- type dizziness today and not light-headedness. She has history of orthostatic hypotension and vertigo per pt report PT-OP-J Posture/Palpation/Skin Start: 03/06/24 07:11 Freq: Status: Active Protocol: Document 03/06/24 12:51 MB (Rec: 03/06/24 14:24 MB [id number]) Posture Evaluation Comments Posture Comments Pt presents with increased body mass, forward head posture, Dowager's hump and limited ROM of neck that is severe in all directions. PT-OP-K Range of Motion Start: 03/06/24 07:11 Freq: Status: Active Protocol: Document 03/06/24 12:51 MB (Rec: 03/06/24 14:24 MB [id number]) Cervical Spine Range of Motion Cervical Spine Active Testing Position Sitting Flexion 20 Extension 20 Rotation Left 30 Rotation Right 20 PT-OP-O Vestibular Start: 03/06/24 07:11 Freq: Status: Active Protocol: Document 03/06/24 12:51 MB (Rec: 03/06/24 14:24 MB [id number]) Vestibular Assessment Visual Testing Spontaneous Nystagmus Negative Positional Testing Rolling Test Negative Left,Negative Right Comments Vestibular Comments [place]il-Hallpike x2 to each side d /t pt guarding, flexing neck, having trouble tolerating position. No nystagmus to the right and pt reports dizziness and it is as if nystagmus wants to start with testing to the left but it does not. Attempted modified Awais for left ear with getting out of let Jil-Hallpike, but pt does not tolerate procedure and flexes neck/keeps neck rigid PT-OP-Q Treatments Start: 03/06/24 07:11 Freq: Status: Active Protocol: Document 03/13/24 07:27 MB (Rec: 03/13/24 07:49 MB [id number]) Therapeutic Exercises Sitting Exercises Scapular retraction Reps/Minutes 10 reps Comments Ed pt to perform in sitting Cervical flexion and extension Reps/Minutes 10 reps Comments Gently and in pure ranges Cervical rotation Reps/Minutes 10 reps Comments Gently side to side Standing Exercises Scapular retraction Reps/Minutes 10 reps Comments Performed in combination with chin tuck against the wall Chin tuck Reps/Minutes 10 reps Comments Performed in combination with scapular retraction against the wall Neuro Re-Education Treatment Vestibular Rehabilitation VOR exercises Comments Pt sitting and use of letter a: 1: Head and eyes move same direction 2: VOR horizontal and vertical head turns 3: Head and eyes opposite Practice several minutes of all, VCs, demo Self-Care/Home Management Treatment Education Other Education Ed pt on the importance of posture, sleeping position and neck position with regard to vestibular system and movement of the inner ear, demo use of small pool noodle for scapular retraction in sitting and to help with posture PT-OP-T Assessment and Plan Start: 03/06/24 07:11 Freq: Status: Active Protocol: Document 03/13/24 07:27 MB (Rec: 03/13/24 07:49 MB [id number]) Physical Therapy Assessment Rehab Potential Rehabilitation Potential Fair Evaluation Complexity Number of Personal Factors/Comorbidities 1-2 Number of Body Systems Impaired 3 Clinical Presentation at Evaluation Evolving Impairments Impairments Activity Tolerance,Balance, Functional Activities, Functional Mobility,Gait,Pain, Posture,ROM,Soft Tissue Mobility,Transfers,Vestibular Other Concerns Fall Risk Yes Goals 3 Impairment Lack of HEP Shelter Goal (LTG) Pt will perform progressive HEP with I including VOR, cervical flexibility, postural and balance exercises to improve symptoms and balance. LTG Duration 5 weeks 2 Impairment CGA for transfers and gait, increased fall risk Impairment Pt did not understand FES handout, it appears, and so will add balance goal to address fall risk concern that pt reports she has and that PT observes Wad Impregnator Goal (LTG) Pt will perform TUG with LRAD in no more than 10 secs to improve balance and decrease fall risk. LTG Duration 5 weeks 1 Impairment Dizziness with lying down and sitting up and head movements Impairment Pt did not understand DHI handout, it appears, so will go with % improvement report Wad Impregnator Goal (LTG) Pt will report at least a 75% improvement in dizziness with lying down and sitting up and head movements. LTG Duration 5 weeks Assessment Summary Assessment Re-ed pt today on the relationship between posture, dizziness, neck range and balance. Pt is still not receptive to trying to sleep flatter or use of 4WW for balance for gait outside the home. Did initiate postural and cervical ROM exercises today to help with body awareness and cervical and inner ear positioning. Con't BPPV testing in future treatments. Pt's neck ROM is very restricted with looking up/extension. Physical Therapy Plan Frequency and Duration Frequency of Treatment 1x/Week Duration of treatment (weeks) 5 Plan of Care Start Date 03/06/24 Plan of Care End Date 04/03/24 Therapeutic Interventions Therapeutic Interventions Balance Training,Canalithic Repositioning,Gait Training, Home Exercise Program,Joint Mobilizations,Manual Therapy, Neuromuscular Re-education, Patient/Caregiver Education, Self-Care/Home Management,Soft Tissue Mobilization,Taping, Therapeutic Activities, Therapeutic Exercises, Vestibular Rehabilitation Modalities Cold Pack/Ice Massage,Hot Packs Next Visit Focus/Plan Next Note Type Treatment Note Next Visit Plan Consider 4WRW training, TUG, VOR assessment and HEP, postural and balance exercises . Revisit BPPV testing and use bariatric plinth if pt tolerates in the future.
--- NOTE | 2024-03-20 16:25 | PT.OPDS ---
Current Diagnoses Dizziness and giddiness (03/13/24) Visit Care Team Role Provider Type Other Providers Specialty: Address: Phone: Fax: Email: Mark Brennan DO Family Provider Physician Primary Care Provider Specialty: Family Practice Address: [address] [place] [address], [id number] Email: [email or web address] Attending Provider Non-Staff Referring Provider Specialty: Cardiology Address: [address] [place] [address], [id number] Email: Visit Number Visit Number 2 Discharge Summary PT-OP-B Current Condition Start: 03/06/24 07:11 Freq: Status: Active Protocol: Document 03/06/24 12:51 MB (Rec: 03/06/24 14:24 MB [id number]) Current Condition History of Current Condition Onset Date 3 years Current Complaints Dizziness with lying down and sitting up, head moving back and forth History of Current Condition Pt had ED visit 02/14/24 for dizziness with negative head and neck diagnostics. PT could not find if orthostatics were checked in the ED. On paper work, pt answers no to all dizziness questions on the DHI and not at all concerned about falling for all questions on FES. Pt underwent recent TAVR and has history of CHF, a- fib, HTN, right ear pain, OP, orthostatic hypotension and eustachian tube disease, morbid obesity, pacemaker. Pt states that she gets dizzy when she lies flat and she sleeps with the HOB elevated. Pt gets dizzy when she gets up . She demonstrates spinning with her finger when asked how she would describe dizziness. She uses a stick to push up to sit up in the bed. Pt denies: falls, numbness and tingling, vision changes, history of concussion, performance of sit-ups, anemia , weakness, hearing change, sinus/allergy issues, trouble swallowing, recent overhead lifting, B12 deficiency, eye pressure changes, whiplash injury, chiropractor treatment , TMJ problems, ROJAS. Pt reports intermittent right ear pressure and roaring and ringing. Pt reports left face swelling. She states her teeth are okay. She hopes to make appointment with ENT. Treatment Goals Patient/Caregiver Goals To decrease dizziness PT-OP-C Subjective Start: 03/06/24 07:11 Freq: Status: Active Protocol: Document 03/13/24 07:27 MB (Rec: 03/13/24 07:49 MB [id number]) OP-PT Subjective Patient Comments Patient Comments Pt states that she feels the same. She is still sleeping upright. She cannot sleep flat . She also has some apnea but cannot tolerate an apnea machine. PT-OP-G Mobility & Gait Start: 03/06/24 07:11 Freq: Status: Active Protocol: Document 03/06/24 12:51 MB (Rec: 03/06/24 14:24 MB [id number]) OP Gait Assessment Comments Gait Comments Pt gait trains with SPC right hand and pt presents with evidence of imbalance, slow gait speed and occ reaching for wall and objects. Cane is 3 too tall and PT lowers about 2 and pt is comfortable with this today. PT ed pt on benefits of using her 4WRW for walks outside and pt states that she really doesn't want to use the walker. She prefers holding onto her . Pt is agreeable to consider bringing in rollator to PT in future treatment dates. Pt gait trains 100'x2 with CGA today. PT-OP-H Neuro Start: 03/06/24 07:11 Freq: Status: Active Protocol: Document 03/06/24 12:51 MB (Rec: 03/06/24 14:24 MB [id number]) Vital Signs Comments Vital Signs Comments PT attempts to check orthostatics on B arms with correct BP cuff size but machine does not read either arm. Pt reports more spinning- type dizziness today and not light-headedness. She has history of orthostatic hypotension and vertigo per pt report PT-OP-J Posture/Palpation/Skin Start: 03/06/24 07:11 Freq: Status: Active Protocol: Document 03/06/24 12:51 MB (Rec: 03/06/24 14:24 MB [id number]) Posture Evaluation Comments Posture Comments Pt presents with increased body mass, forward head posture, Dowager's hump and limited ROM of neck that is severe in all directions. PT-OP-K Range of Motion Start: 03/06/24 07:11 Freq: Status: Active Protocol: Document 03/06/24 12:51 MB (Rec: 03/06/24 14:24 MB [id number]) Cervical Spine Range of Motion Cervical Spine Active Testing Position Sitting Flexion 20 Extension 20 Rotation Left 30 Rotation Right 20 PT-OP-O Vestibular Start: 03/06/24 07:11 Freq: Status: Active Protocol: Document 03/06/24 12:51 MB (Rec: 03/06/24 14:24 MB [id number]) Vestibular Assessment Visual Testing Spontaneous Nystagmus Negative Positional Testing Rolling Test Negative Left,Negative Right Comments Vestibular Comments [place]-Hallpike x2 to each side d /t pt guarding, flexing neck, having trouble tolerating position. No nystagmus to the right and pt reports dizziness and it is as if nystagmus wants to start with testing to the left but it does not. Attempted modified Awais for left ear with getting out of let [place]-Hallpike, but pt does not tolerate procedure and flexes neck/keeps neck rigid PT-OP-T Assessment and Plan Start: 03/06/24 07:11 Freq: Status: Active Protocol: Document 03/20/24 16:24 MB (Rec: 03/20/24 16:24 MB [id number]) Physical Therapy Assessment Assessment Summary Assessment Pt called to cancel appointments stating that she does not feel well and went back to her doctor and wishes to cancel PT. PT will d/c PT.
== END 2024-03-22 07:51 | disposition home or self-care (01) ==
LOC: PHYS 07:30
PROVIDERS: Family Provider Family Medicine; PCP Family Medicine; Referring Provider Nurse Practitioner; Visit Provider Nurse Practitioner
DX: R42 Dizziness and giddiness (principal)
CPT/HCPCS: 95992; 97110; 97112; 97162; 97535

== ENCOUNTER → 2024-04-16 09:52 | Outpatient (CLI) | payer MEDICARE, OTHER, SELFPAY ==
[2018-08-11 17:25] VITALS: BMI 39.4
== END ==
PROVIDERS: Family Provider Family Medicine; PCP Family Medicine; Referring Provider Family Medicine; Visit Provider Family Medicine
DX: R35.0 Frequency of micturition (principal)
CPT/HCPCS: 87086

== ENCOUNTER 2024-04-26 10:48 | Emergency (ER) | payer MEDICARE, OTHER, SELFPAY ==
[2018-08-11 17:25] VITALS: BMI 39.4
[2024-04-26 10:57] VITALS: BP 128/76; PULSE 64; RESP 18; TEMP 36.4; O2SAT 97; BMI 42.9
--- NOTE | 2024-04-26 11:03 | DI.RAD.S_ITS ---
PROCEDURE: XR CHEST 1V INDICATIONS: Shortness of breath TECHNIQUE: One view of the chest was acquired. COMPARISON: [facility], CR, XR CHEST 1V, 02/14/2024, 10:31. FINDINGS: Surgical changes and devices: Left chest wall pacemaker leads are in the region of right atrium and right ventricle. Prosthetic aortic valve is seen. Lungs and pleura: There is mild pulmonary vascular congestion. Increased interstitial opacities are noted suggestive of mild pulmonary edema. Underlying interstitial infiltrates cannot be excluded. Trace bilateral pleural effusion. No pneumothorax. Mediastinum: Mediastinal contours appear normal. Heart size is enlarged. Bones and chest wall: No suspicious bony lesions. Overlying soft tissues appear unremarkable. IMPRESSION: Cardiomegaly and mild congestion. Trace bilateral pleural effusion. Suggestion of bilateral pulmonary edema. Cannot rule out underlying interstitial infiltrates. Dictated by: Raimundo Hassan M.D. on 04/26/2024 at 12:07 Approved by: Raimundo Hassan M.D. on 04/26/2024 at 12:07
--- NOTE | 2024-04-26 11:20 | ED_ITS ---
HPI - SOB/Dyspnea General Chief Complaint: Shortness of Breath/Dyspnea Stated Complaint: dry cough, sob t-1 Time Seen by Provider: 04/26/24 11:09 Source: patient and family Mode of arrival: Ambulatory Limitations: no limitations History of Present Illness HPI Narrative: 78-year-old female with history of atrial fibrillation on Tikosyn, pacemaker placement presents for shortness of breath and dry cough for 1 day. Patient states that she was concerned this may be caused by her heart. No medications taken at home prior to presentation. Denies leg swelling. Related Data Home Medications Medication Instructions Recorded Confirmed pravastatin 20 mg tablet 20 mg PO BEDTIME 02/19/18 04/16/24 rivaroxaban 20 mg tablet (Xarelto) 20 mg PO QPM 02/19/18 04/16/24 dofetilide 500 mcg capsule 500 mcg PO Q12H 02/06/21 04/16/24 (Tikosyn) cholecalciferol (vitamin D3) 125 125 mcg PO DAILY 11/02/21 04/16/24 mcg (5,000 unit) capsule mecobalamin (vitamin B12) 1,000 1,000 mcg PO DAILY 11/02/21 04/16/24 mcg chewable tablet (B12 Active) Previous Rx's Medication Instructions Recorded motorized scooter #1 ea 04/06/23 albuterol sulfate 90 mcg/actuation 2 puff inhalation Q6H PRN 09/11/23 aerosol inhaler shortness of breath or wheezing #8.5 grams Disabled Parking Permint #1 ea 10/31/23 ondansetron 4 mg disintegrating 4 mg PO Q8H PRN nausea and 02/14/24 tablet vomiting #10 tabs meclizine 25 mg tablet 25 mg PO BID PRN dizziness #20 tabs 03/07/24 phenazopyridine 100 mg tablet 100 mg PO TID pain #15 tabs 04/18/24 (Pyridium) furosemide 20 mg tablet 20 mg PO DAILY #20 tabs 04/26/24 Allergies Allergy/AdvReac Type Severity Reaction Status Date / Time Beta-Blockers Allergy Severe Get all Verified 04/26/24 10:57 (Beta-Adrenergic Bloc the side effects flecainide Allergy Severe Get all Verified 04/26/24 10:57 the symptoms metoprolol Allergy Severe get all Verified 04/26/24 10:57 the side effects macrobid AdvReac Mild Vomiting Uncoded 04/26/24 10:57 Patient History Medical History Labyrinthitis Otalgia of right ear History of transcatheter aortic valve replacement (TAVR) Sialoadenitis Postmenopausal atrophic vaginitis Recurrent urinary tract infection Bronchospasm Bilateral knee pain Mobility impaired Congestive heart failure Diverticular disease COVID-19 Eustachian tube dysfunction Osteoarthritis of hands, bilateral Pulmonary edema cardiac cause Orthostatic hypotension Hyperlipidemia Fatigue Well adult Sleep apnea (~2012) Osteoporosis (~2013) Cataracts, bilateral (~2010) Irritable bowel syndrome (~1999) GI bleeding (~2004) Colon polyps (~1999) Atrial fibrillation (~2008) Hypertension (~2004) Lower GI bleed Surgical History Anesthesia History of cataract removal with insertion of prosthetic lens (~05/2001) Pacemaker (~2018) Hx of cholecystectomy (~05/1978) H/O abdominal hysterectomy (~04/1977) Cystocele (~03/2001) H/O laminectomy (~04/1990) Family History Mother Breast cancer Diabetes mellitus Hyperlipidemia Hypertension Stroke Father No known health problems Grandfather Stroke Grandmother No problems noted. Grandfather Stroke Social History household members: spouse Smoking Status: Never smoker second hand exposure: No alcohol intake: never substance use type: does not use Smoking Status: Never smoker alcohol intake frequency: holidays/special occasions only Substance Use Type: does not use Exam Initial Vital Signs Initial Vital Signs: Vital Signs Temperature 97.6 F 04/26/24 10:57 Pulse Rate 64 04/26/24 10:57 Respiratory Rate 18 04/26/24 10:57 Blood Pressure 128/76 04/26/24 10:57 Pulse Oximetry 97 04/26/24 10:57 Oxygen Delivery Method Room Air 04/26/24 10:57 Const: Awake, alert, no acute distress, nontoxic appearing Cardiac: regular rate, regular rhythm RESP: unlabored, clear bilaterally, no wheezing MSK: No edema, full range of motion, pulses equal Skin: Warm, Dry, intact, no rashes Neuro: AO x3, CN II-XII grossly intact, moves all extremities Course Orders Ordered: Discontinued Medications Furosemide (Furosemide 40 Mg/4 Ml Vial) 40 mg IV NOW ONE Stop: 04/26/24 11:50 Last Admin: 04/26/24 12:09 Dose: 40 mg Documented By: LARY Vital Signs Vital signs: Vital Signs - 8 hr 04/26/24 10:57 Temperature 97.6 F Pulse Rate 64 Respiratory Rate 18 Blood Pressure 128/76 Pulse Oximetry 97 Oxygen Delivery Method Room Air MDM - SOB/Dyspnea Differential Diagnosis Differential diagnosis: Likely acute exacerbation of chronic obstructive airways disease, congestive heart failure and community acquired pneumonia Lab Data 04/26/24 11:10 04/26/24 11:10 Labs: Lab Results 04/26/24 Range/Units 11:10 WBC 6.7 (4.5-11.0) X10^3/uL RBC 4.63 (4.0-5.2) X10^6/uL Hgb 13.5 (12.0-16.0) g/dL Hct 40.6 (36-46) % MCV 87.8 (80-100) fL MCH 29.2 (26-34) PG MCHC 33.3 (30-36) % RDW 14.1 (11.6-14.8) % Plt Count 152 (150-400) X10^3/uL Neut % (Auto) 48.3 L (50-75) % Lymph % (Auto) 35.2 (25-40) % [place] % (Auto) 13.4 (3-14) % Eos % (Auto) 2.1 (2-4) % Baso % (Auto) 1.0 (0-2) % Neut # (Auto) 3200 (4473-3307) /uL Lymph # (Auto) 2400 (6992-9774) /uL [place] # (Auto) 900 (0-900) /uL Eos # (Auto) 100 (0-450) /uL Baso # (Auto) 100 (0-100) /uL PT 14.5 H (9.4-12.5) SECONDS INR 1.3 (0.9-1.3) Sodium 139 (137-145) mmol/L Potassium 4.3 (3.4-5.1) mmol/L Chloride 109 H (98-107) mmol/L Carbon Dioxide 22 (22-32) mmol/L BUN 16 (7-17) mg/dL Creatinine 0.75 (0.52-1.04) mg/dL Estimated GFR > 60 (>60) mL/min BUN/Creatinine Ratio 21.3 (6-22) Glucose 117 H (80-110) mg/dL Lactate 1.3 (0.7-2.1) mmol/L Calcium 8.9 (8.4-10.2) mg/dL Total Bilirubin 0.4 (0.2-1.3) mg/dL AST 35 (14-36) IU/L ALT 28 (<35) IU/L Alkaline Phosphatase 90 (38-126) U/L Troponin I < 0.012 (0.01-0.034) ng/mL NT-Pro-B Natriuret Pep 552 H (<450) pg/mL Total Protein 7.5 (6.3-8.2) g/dL Albumin 4.0 (3.5-5.0) g/dL Globulin 3.5 (1.7-4.1) g/dL Albumin/Globulin Ratio 1.1 (1.0-2.8) Imaging Data Chest x-ray: Radiologist's Impression: PROCEDURE: XR CHEST 1V INDICATIONS: Shortness of breath TECHNIQUE: One view of the chest was acquired. COMPARISON: [facility], , XR CHEST 1V, 02/14/2024, 10:31. FINDINGS: Surgical changes and devices: Left chest wall pacemaker leads are in the region of right atrium and right ventricle. Prosthetic aortic valve is seen. Lungs and pleura: There is mild pulmonary vascular congestion. Increased interstitial opacities are noted suggestive of mild pulmonary edema. Underlying interstitial infiltrates cannot be excluded. Trace bilateral pleural effusion. No pneumothorax. Mediastinum: Mediastinal contours appear normal. Heart size is enlarged. Bones and chest wall: No suspicious bony lesions. Overlying soft tissues appear unremarkable. IMPRESSION: Cardiomegaly and mild congestion. Trace bilateral pleural effusion. Suggestion of bilateral pulmonary edema. Cannot rule out underlying interstitial infiltrates. Dictated by: Raimundo Hassan M.D. on 04/26/2024 at 12:07 Approved by: Raimundo Hassan M.D. on 04/26/2024 at 12:07 ECG Data Interpretation: atrial sensed ventricular paced rhythm. No skgarbossa criteria met. Unchanged from EKG taken 02/14/24 MDM Narrative Medical decision making narrative: Well-appearing patient with 1 day of cough worse with lying down flat. Possible faint inspiratory crackles on pulmonary exam, patient was not appear to be grossly volume overloaded. She does not currently take any diuretics. EKG ventricular paced, unchanged from 2 months prior. Laboratory work is reviewed. WBC count 6.7, hemoglobin 13.5, platelet count 152, sodium 139, potassium 4.3, creatinine 0.75, troponin undetectable, BNP 552. Chest x-ray does appear to show congestion consistent with pulmonary edema. Patient given a dose of Lasix in the emergency department and started on a low dose of furosemide. She was counseled on the importance of PCP follow up to reassess need for ongoing diuretics. Discharge Plan Departure Patient Disposition: Home Clinical Impression: Pulmonary edema Instructions: DI for Heart Failure Activity Restrictions/Additional Instructions: YOUR CHEST X-RAY SHOWED THAT YOU HAVE SOME FLUID ON YOUR LUNGS. THE WATER PILLS PRESCRIBED TODAY SHOULD HELP WITH THIS FINDING. FOLLOW UP WITH YOUR PRIMARY CARE DOCTOR. Prescriptions: New furosemide 20 mg tablet 20 mg PO DAILY Qty: 20 0RF No Action (DME) motorized scooter See Rx Instructions .Route .MEDSUPPLY Qty: 1 0RF Rx Instructions: As directed (DME) Disabled Parking Permint See Rx Instructions .ROUTE .MEDSUPPLY Qty: 1 0RF Rx Instructions: I find this patient to be medically disabled and qualified for Disabled Parking as indicated and signed on the Accompanying Disabled Parking Application for individuals. phenazopyridine [Pyridium] 100 mg tablet 100 mg PO TID Qty: 15 0RF Rx Instructions: for 5 days cholecalciferol (vitamin D3) 125 mcg (5,000 unit) capsule 125 mcg PO DAILY B12 Active 1,000 mcg tablet,chewable 1,000 mcg PO DAILY albuterol sulfate 90 mcg/actuation HFA aerosol inhaler 2 puff inhalation Q6H PRN (Reason: shortness of breath or wheezing) Qty: 8.5 2RF meclizine 25 mg tablet 25 mg PO BID PRN (Reason: dizziness) Qty: 20 0RF dofetilide [Tikosyn] 500 mcg Capsule 500 mcg PO Q12H Rx Instructions: 0700/1900 pravastatin 20 mg Tablet 20 mg PO BEDTIME Xarelto 20 mg Tablet 20 mg PO QPM ondansetron 4 mg tablet,disintegrating 4 mg PO Q8H PRN (Reason: nausea and vomiting) Qty: 10 0RF Referrals: Mark Brennan DO [Primary Care Provider] - Stand Alone Forms: Patient Portal/API
--- NOTE | 2024-04-26 11:22 | EKG_ITS ---
[facility] [id number] [address] [place] [address] Test Date: 2024-04-26 Pat Name: Alivia Stockton Department: Room: Gender: Female Music Adapter: : 1945 Requested By: Order Number: [id number] Reading MD: Slick Contreras Measurements Intervals [place] Rate: 102 P: 84 AL: 164 QRS: -63 QRSD: 156 T: 89 QT: 400 QTc: 521 Interpretive Statements Atrial-sensed ventricular-paced rhythm Electronically Signed On 04-26-2024 20:14:31 PDT by Slick Contreras
[2024-04-26 11:23] LABS: Add Manual Diff / Slide Review NO; Basophils Absolute Auto 100 /uL (0-100); Eosinophils Absolute Auto 100 /uL (0-450); Eosinophils Percent Auto 2.1 % (2-4); Hematocrit 40.6 % (36-46); Hemoglobin 13.5 g/dL (12.0-16.0); Lymphocytes Absolute Auto 2400 /uL (1100-4500); Lymphocytes Percent Auto 35.2 % (25-40); Mean Corpuscular HGB Conc 33.3 % (30-36); Mean Corpuscular Hemoglobin 29.2 PG (26-34); Mean Corpuscular Volume 87.8 fL (80-100); Monocytes Absolute Auto 900 /uL (0-900); Monocytes Percent Auto 13.4 % (3-14); Neutrophils Absolute Auto 3200 /uL (1500-7000); Neutrophils Percent Auto 48.3 % (50-75); Platelet Count 152 X10^3/uL (150-400); Red Blood Cell Count 4.63 X10^6/uL (4.0-5.2); Red Cell Distribution Width 14.1 % (11.6-14.8); White Blood Cell Count 6.7 X10^3/uL (4.5-11.0)
[2024-04-26 11:31] LABS: INR 1.3 (0.9-1.3); Prothrombin Time 14.5 SECONDS (9.4-12.5)
[2024-04-26 11:34] LABS: Lactate (Lactic Acid) 1.3 mmol/L (0.7-2.1)
[2024-04-26 11:36] LABS: Alanine Aminotransferase 28 IU/L (<35); Albumin Globulin Ratio 1.1 (1.0-2.8); Alkaline Phosphatase 90 U/L (38-126); Aspartate Aminotransferase 35 IU/L (14-36); BUN Creatinine Ratio 21.3 (6-22); Bilirubin Total 0.4 mg/dL (0.2-1.3); Blood Urea Nitrogen 16 mg/dL (7-17); Calcium 8.9 mg/dL (8.4-10.2); Carbon Dioxide 22 mmol/L (22-32); Chloride 109 mmol/L (98-107); Estimated Glomerular Filt Rate > 60 mL/min (>60); Globulin 3.5 g/dL (1.7-4.1); Glucose 117 mg/dL (80-110); HEMOLYSIS 21 (0-50); Potassium 4.3 mmol/L (3.4-5.1); Sodium 139 mmol/L (137-145); Total Protein 7.5 g/dL (6.3-8.2)
[2024-04-26 11:47] LABS: NT-proBNP (BNP-Adult 18+) 552 pg/mL (<450); Troponin I < 0.012 ng/mL (0.01-0.034)
[2024-04-26] MEDS: FUROSEMIDE 40 MG/4 ML VIAL IV (12:09)
[2024-04-26 12:34] VITALS: BP 165/105; PULSE 91; RESP 16; TEMP 36.7; O2SAT 95
== END 2024-04-26 12:34 | disposition home or self-care (01) ==
PROVIDERS: Emergency Medicine; Emergency Provider Emergency Medicine; Family Provider Family Medicine; PCP Family Medicine
DX: J81.1 Chronic pulmonary edema (principal); R05.9 Cough, unspecified; Z79.01 Long term (current) use of anticoagulants; Z79.899 Other long term (current) drug therapy; Z95.0 Presence of cardiac pacemaker
CPT/HCPCS: 36415; 71045; 80053; 83605; 83880; 84484; 85025; 85610; 93005; 96374; 99284; J1940

== ENCOUNTER → 2024-05-22 10:05 | Outpatient (CLI) | payer MEDICARE, OTHER, SELFPAY ==
[2018-08-11 17:25] VITALS: BMI 39.4
== END ==
PROVIDERS: Family Provider Family Medicine; PCP Family Medicine; Visit Provider Physician Assistant
DX: R30.0 Dysuria (principal)
CPT/HCPCS: 87086

== ENCOUNTER 2024-06-10 17:02 | Emergency (ER) | payer MEDICARE, OTHER, SELFPAY ==
[2018-08-11 17:25] VITALS: BMI 39.4
[2024-06-10] VITALS (8 sets, daily range): BP systolic 125–175; BP diastolic 60–82; PULSE 70–103; RESP 16–29; TEMP 37.2; O2SAT 93–98; BMI 45.7
--- NOTE | 2024-06-10 17:26 | DI.RAD.S_ITS ---
PROCEDURE: XR CHEST 2V INDICATIONS: cough TECHNIQUE: 2 views of the chest were acquired. COMPARISON: [facility], CR, XR CHEST 1V, 04/26/2024, 11:37. FINDINGS: Surgical changes and devices: Pacemaker. Lungs and pleura: Mild increased pulmonary vascularity. Mediastinum: Mediastinal contours are normal. Heart size is enlarged. Bones and chest wall: No suspicious bony abnormalities. Soft tissues appear unremarkable. IMPRESSION: Increased vascularity suggestive of edema. Dictated by: Irma Coburn M.D. on 06/10/2024 at 18:11 Approved by: Irma Coburn M.D. on 06/10/2024 at 18:11
[2024-06-10 18:10] LABS: Influenza A - CEPHEID Flu A NEGATIVE (NEGATIVE); Influenza B - CEPHEID Flu B NEGATIVE (NEGATIVE); Respiratory Syncytial Virus Negative (Negative)
[2024-06-10 18:12] LABS: COVID-19 CEPHEID 4-PLEX PCR POSITIVE (Negative)
--- NOTE | 2024-06-10 19:13 | EKG_ITS ---
[place] [id number] [place] [id number] Test Date: 2024-06-10 Pat Name: Alivia Stockton Department: [facility] Room: Gender: Female Brine Supervisor: JC FAM : 1945 Requested By: Order Number: [id number] Reading MD: Slick Contreras Measurements Intervals [place] Rate: 71 P: [place]: QRS: -61 QRSD: 162 T: 92 QT: 462 QTc: 502 Interpretive Statements Ventricular-paced rhythm Electronically Signed On 06-12-2024 18:05:42 PDT by Slick Contreras
--- NOTE | 2024-06-10 19:24 | ED_ITS ---
HPI - URI/Sore Throat General Chief Complaint: Upper Respiratory Symptoms Stated Complaint: cough, fever, SOB t-1 Time Seen by Provider: 06/10/24 19:24 Source: patient Mode of arrival: Ambulatory History of Present Illness HPI Narrative: Patient is an 78-year-old female history of TAVR atrial fibrillation on Xarelto pacemaker CHF frequent UTI presenting today with upper respiratory like symptoms fever and cough. She reports that she has had some decreased appetite really not feeling that great. She has not had some increasing shortness of breath with exertion denies any significant orthopnea. She has not been taking her Lasix like she is supposed to. Denies any sort of chest pain. Related Data Home Medications Medication Instructions Recorded Confirmed pravastatin 20 mg tablet 20 mg PO BEDTIME 02/19/18 04/16/24 cholecalciferol (vitamin D3) 125 125 mcg PO DAILY 11/02/21 04/16/24 mcg (5,000 unit) capsule mecobalamin (vitamin B12) 1,000 1,000 mcg PO DAILY 11/02/21 04/16/24 mcg chewable tablet (B12 Active) clopidogrel 75 mg tablet 75 mg PO DAILY 05/22/24 05/22/24 dofetilide 250 mcg capsule 250 mcg PO BID 05/22/24 05/22/24 potassium chloride 20 mEq 20 meq PO DAILY 05/22/24 05/22/24 tablet,extended release(part/cryst) Previous Rx's Medication Instructions Recorded motorized scooter #1 ea 04/06/23 albuterol sulfate 90 mcg/actuation 2 puff inhalation Q6H PRN 09/11/23 aerosol inhaler shortness of breath or wheezing #8.5 grams Disabled Parking Permint #1 ea 10/31/23 ondansetron 4 mg disintegrating 4 mg PO Q8H PRN nausea and 02/14/24 tablet vomiting #10 tabs phenazopyridine 100 mg tablet 100 mg PO TID pain #15 tabs 04/18/24 (Pyridium) furosemide 20 mg tablet 20 mg PO DAILY #20 tabs 04/26/24 meclizine 25 mg tablet 25 mg PO BID PRN dizziness #20 tabs 05/16/24 amoxicillin 875 mg-potassium 1 tab PO BID #14 tabs 05/22/24 clavulanate 125 mg tablet codeine 10 mg-guaifenesin 200 mg/5 5 ml PO Q6H PRN cough #100 mL 06/10/24 mL oral liquid Allergies Allergy/AdvReac Type Severity Reaction Status Date / Time Beta-Blockers Allergy Severe Get all Verified 05/22/24 10:07 (Beta-Adrenergic Bloc the side effects flecainide Allergy Severe Get all Verified 05/22/24 10:07 the symptoms metoprolol Allergy Severe get all Verified 05/22/24 10:07 the side effects macrobid AdvReac Mild Vomiting Uncoded 05/22/24 10:07 Patient History Medical History Labyrinthitis Otalgia of right ear History of transcatheter aortic valve replacement (TAVR) Sialoadenitis Postmenopausal atrophic vaginitis Recurrent urinary tract infection Bronchospasm Bilateral knee pain Mobility impaired Congestive heart failure Diverticular disease COVID-19 Eustachian tube dysfunction Osteoarthritis of hands, bilateral Pulmonary edema cardiac cause Orthostatic hypotension Hyperlipidemia Fatigue Well adult Sleep apnea (~2012) Osteoporosis (~2013) Cataracts, bilateral (~2010) Irritable bowel syndrome (~1999) GI bleeding (~2004) Colon polyps (~1999) Atrial fibrillation (~2008) Hypertension (~2004) Lower GI bleed Surgical History Anesthesia History of cataract removal with insertion of prosthetic lens (~05/2001) Pacemaker (~2018) Hx of cholecystectomy (~05/1978) H/O abdominal hysterectomy (~04/1977) Cystocele (~03/2001) H/O laminectomy (~04/1990) Family History Mother Breast cancer Diabetes mellitus Hyperlipidemia Hypertension Stroke Father No known health problems Grandfather Stroke Grandmother No problems noted. Grandfather Stroke Social History household members: spouse Smoking Status: Never smoker second hand exposure: No alcohol intake: never substance use type: does not use Smoking Status: Never smoker alcohol intake frequency: holidays/special occasions only Substance Use Type: does not use Exam Initial Vital Signs Initial Vital Signs: Vital Signs Temperature 98.9 F 06/10/24 17:09 Pulse Rate 79 06/10/24 17:09 Respiratory Rate 18 06/10/24 17:09 Blood Pressure 158/73 H 06/10/24 17:09 Pulse Oximetry 98 06/10/24 17:09 Oxygen Delivery Method Room Air 06/10/24 17:09 GENERAL: Alert pleasant 78-year-old female HEENT: Head atraumatic,EOMI, pupils reactive, face symmetric, moist mucous membranes CARDIOVASCULAR: Regular rate and rhythm without murmurs, rubs or gallops. RESPIRATORY: Breath sounds equal bilaterally, no wheezes rales or rhonchi. No conversational dyspnea rales or rhonchi ABDOMEN: Soft, nontender. Normoactive bowel sounds all 4 quadrants. No guarding or rebound. EXTREMITIES: Normal range of motion, no clubbing or edema. Neurovascularly intact NEUROLOGICAL: Alert and oriented x4.Normal gait and speech. Cranial nerves II through XII grossly intact. SKIN: Warm, dry, no laceration, no petechiae, no rashes or lesions. Course Orders Ordered: ED Orders 06/10/24 19:13 EKG-12 Lead Stat 06/10/24 19:58 Complete Blood Count AUTO DIFF Stat Comprehensive Metabolic Panel Stat Lipase Stat Magnesium Stat NT-proBNP (BNP-Adult 18+) Stat PTT Partial Thromboplastin Jamal Stat Prothrombin Time INR Stat Troponin & CK Cardiac Panel Stat Discontinued Medications Acetaminophen (Acetaminophen 325 Mg Tablet) 975 mg PO NOW ONE Stop: 06/10/24 19:35 Last Admin: 06/10/24 19:58 Dose: 975 mg Documented By: LUIS Aspirin (Aspirin 81 Mg Chew Tab) 324 mg PO NOW ONE Stop: 06/10/24 19:14 Last Admin: 06/10/24 20:50 Dose: Not Given Documented By: LUIS Furosemide (Furosemide 40 Mg/4 Ml Vial) 40 mg IV NOW ONE Stop: 06/10/24 19:35 Last Admin: 06/10/24 19:59 Dose: 40 mg Documented By: LUIS Vital Signs Vital signs: Vital Signs - 8 hr 06/10/24 18:54 06/10/24 18:55 06/10/24 18:55 Pulse Rate 103 H 102 H Respiratory Rate Blood Pressure 142/63 H Pulse Oximetry 96 93 Oxygen Delivery Method Room Air 06/10/24 19:00 06/10/24 19:00 06/10/24 19:30 Pulse Rate 78 70 Respiratory Rate 17 25 H Blood Pressure 125/60 Pulse Oximetry 97 98 Oxygen Delivery Method 06/10/24 20:00 06/10/24 20:30 06/10/24 20:31 Pulse Rate 71 75 Respiratory Rate 29 H 17 Blood Pressure 175/82 H Pulse Oximetry 97 97 Oxygen Delivery Method Room Air 06/10/24 20:31 Pulse Rate 74 Respiratory Rate 16 Blood Pressure Pulse Oximetry 97 Oxygen Delivery Method MDM - URI/Sore Throat Lab Data 06/10/24 19:58 06/10/24 19:58 Labs: Lab Results 06/10/24 06/10/24 Range/Units 17:28 19:58 WBC 7.2 (4.5-11.0) X10^3/uL RBC 4.61 (4.0-5.2) X10^6/uL Hgb 13.2 (12.0-16.0) g/dL Hct 40.6 (36-46) % MCV 88.0 (80-100) fL MCH 28.6 (26-34) PG MCHC 32.5 (30-36) % RDW 14.6 (11.6-14.8) % Plt Count 147 L (150-400) X10^3/uL Neut % (Auto) 54.0 (50-75) % Lymph % (Auto) 28.1 (25-40) % [place] % (Auto) 13.9 (3-14) % Eos % (Auto) 3.5 (2-4) % Baso % (Auto) 0.5 (0-2) % Neut # (Auto) 3900 (3422-4095) /uL Lymph # (Auto) 2000 (0878-2171) /uL [place] # (Auto) 1000 H (0-900) /uL Eos # (Auto) 300 (0-450) /uL Baso # (Auto) 0 (0-100) /uL PT 13.3 H (9.4-12.5) SECONDS INR 1.2 (0.9-1.3) APTT 35 (25.1-36.5) SECONDS Sodium 140 (137-145) mmol/L Potassium 4.5 (3.4-5.1) mmol/L Chloride 109 H (98-107) mmol/L Carbon Dioxide 26 (22-32) mmol/L BUN 19 H (7-17) mg/dL Creatinine 0.81 (0.52-1.04) mg/dL Estimated GFR > 60 (>60) mL/min BUN/Creatinine Ratio 23.5 H (6-22) Glucose 98 (80-110) mg/dL Calcium 9.0 (8.4-10.2) mg/dL Magnesium 2.0 (1.6-2.3) mg/dL Total Bilirubin 0.3 (0.2-1.3) mg/dL AST 33 (14-36) IU/L ALT 25 (<35) IU/L Alkaline Phosphatase 101 (38-126) U/L Total Creatine Kinase 77 (30-135) U/L Troponin I < 0.012 (0.01-0.034) ng/mL NT-Pro-B Natriuret Pep 493 H (<450) pg/mL Total Protein 7.4 (6.3-8.2) g/dL Albumin 4.0 (3.5-5.0) g/dL Globulin 3.4 (1.7-4.1) g/dL Albumin/Globulin Ratio 1.2 (1.0-2.8) Lipase 59 (23-300) U/L SARS-CoV-2 (PCR) Positive H (Negative) Influenza A (RT-PCR) Flu a negative (NEGATIVE) Influenza B (RT-PCR) Flu b negative (NEGATIVE) RSV (PCR) Negative (Negative) Imaging Data Chest x-ray: Radiologist's Impression: PROCEDURE: XR CHEST 2V INDICATIONS: cough TECHNIQUE: 2 views of the chest were acquired. COMPARISON: [facility], , XR CHEST 1V, 04/26/2024, 11:37. FINDINGS: Surgical changes and devices: Pacemaker. Lungs and pleura: Mild increased pulmonary vascularity. Mediastinum: Mediastinal contours are normal. Heart size is enlarged. Bones and chest wall: No suspicious bony abnormalities. Soft tissues appear unremarkable. IMPRESSION: Increased vascularity suggestive of edema. Dictated by: Irma Coburn M.D. on 06/10/2024 at 18:11 ECG Data Attestation: I personally reviewed and interpreted this ECG as follows: Interpretation: Paced rhythm rate 71 no Sgarbossa criteria MDM Narrative Medical decision making narrative: MDM CC: Shortness of breath fever Complicating co-morbidities: Congestive heart failure atrial fibrillation on Xarelto Medical records reviewed: Previous ED records Differential considered: CHF, COVID pneumonia pleural effusion Exam documented above, pertinent findings include: No real conversational dyspnea no peripheral edema significant fluid overload on exam Lab Test results independently reviewed as above. Pertinent findings: COVID + BNP 493, troponin negative WBC 7.2 CMP stable electrolytes creatinine 0.8 Independently reviewed EKG as above paced rhythm no ischemia Imaging studies independently reviewed: Pulmonary edema noted on x-ray Consultations: None Treatments: Lasix Re-evaluations: Patient is breathing little bit better she was never in significant respiratory distress or hypoxic Discussion: Patient 78-year-old female history of CHF presenting today with upper respiratory like symptoms she is diagnosed with COVID. Had some interstitial edema on her x-ray but has been noncompliant with her Lasix. BNP is 400 not significantly fluid overloaded on exam. She has not hypoxic she has no conversational dyspnea. She has no leukocytosis vitals are stable. At this time supportive care only. She is requesting medication for her cough Discharge Plan Departure Patient Disposition: Home Clinical Impression: COVID-19, Congestive heart failure Instructions: DI for COVID-19 (Suspected or Confirmed ) Activity Restrictions/Additional Instructions: *You have been diagnosed with COVID-19 *What to do: At this time please stay hydrated take Tylenol as needed. *Continue to take medications as directed Take your Lasix once daily Robitussin with codeine at nighttime every 6 hours or at nighttime if needed for cough *Follow up with your primary care provider in 2-3 days or call [phone] *Return to ER if you should have increasing chest pain shortness of breath fever confusion [or] any new, worsening or concerning symptoms CONTROLLED SUBSTANCE DISCHARGE (Narcotoic/benzodiazepine/Flexeril/Phenergan) 1. You have been prescribed narcotic medications, it does have acetaminophen/Tylenol/paracetamol in it, DO NOT TAKE MORE THAN 4,00mg in 24 hours of Tylenol. TRAMADOL DOES NOT CONTAIN TYLENOL 2. Please understand that we cannot provide further refills of narcotics, benzodiazepines or controlled substances through the ED and her pain management will need to be through your provider. 3. While on these medications you cannot drive or operate heavy machinery. 4. You cannot sign legal documents or perform any duties such as this. 5. As long as you're taking opiate pain medications he should also be taking a stool softener such as Colace, Dulcolax, MiraLAX or prune juice, to help avoid constipation. Prescriptions: New codeine-guaifenesin 10-200 mg/5 mL liquid 5 ml PO Q6H PRN (Reason: cough) Qty: 100 0RF No Action dofetilide 250 mcg capsule 250 mcg PO BID potassium chloride 20 mEq tablet,ER particles/crystals 20 meq PO DAILY clopidogrel 75 mg tablet 75 mg PO DAILY amoxicillin-pot clavulanate 875-125 mg tablet 1 tab PO BID Qty: 14 0RF (DME) motorized scooter See Rx Instructions .Route .MEDSUPPLY Qty: 1 0RF Rx Instructions: As directed (DME) Disabled Parking Permint See Rx Instructions .ROUTE .MEDSUPPLY Qty: 1 0RF Rx Instructions: I find this patient to be medically disabled and qualified for Disabled Parking as indicated and signed on the Accompanying Disabled Parking Application for individuals. phenazopyridine [Pyridium] 100 mg tablet 100 mg PO TID Qty: 15 0RF Rx Instructions: for 5 days meclizine 25 mg tablet 25 mg PO BID PRN (Reason: dizziness) Qty: 20 1RF cholecalciferol (vitamin D3) 125 mcg (5,000 unit) capsule 125 mcg PO DAILY B12 Active 1,000 mcg tablet,chewable 1,000 mcg PO DAILY albuterol sulfate 90 mcg/actuation HFA aerosol inhaler 2 puff inhalation Q6H PRN (Reason: shortness of breath or wheezing) Qty: 8.5 2RF pravastatin 20 mg Tablet 20 mg PO BEDTIME ondansetron 4 mg tablet,disintegrating 4 mg PO Q8H PRN (Reason: nausea and vomiting) Qty: 10 0RF furosemide 20 mg tablet 20 mg PO DAILY Qty: 20 0RF Referrals: Mark Brennan DO [Primary Care Provider] - Stand Alone Forms: Patient Portal/API
[2024-06-10] MEDS: ACETAMINOPHEN 325 MG TABLET 975 MG PO (19:58)
[2024-06-10] MEDS: FUROSEMIDE 40 MG/4 ML VIAL IV (19:59)
[2024-06-10 20:05] LABS: Add Manual Diff / Slide Review NO; Basophils Absolute Auto 0 /uL (0-100); Basophils Percent Auto 0.5 % (0-2); Eosinophils Absolute Auto 300 /uL (0-450); Eosinophils Percent Auto 3.5 % (2-4); Hematocrit 40.6 % (36-46); Hemoglobin 13.2 g/dL (12.0-16.0); Lymphocytes Absolute Auto 2000 /uL (1100-4500); Lymphocytes Percent Auto 28.1 % (25-40); Mean Corpuscular HGB Conc 32.5 % (30-36); Mean Corpuscular Hemoglobin 28.6 PG (26-34); Monocytes Absolute Auto 1000 /uL (0-900); Monocytes Percent Auto 13.9 % (3-14); Neutrophils Absolute Auto 3900 /uL (1500-7000); Platelet Count 147 X10^3/uL (150-400); Red Blood Cell Count 4.61 X10^6/uL (4.0-5.2); Red Cell Distribution Width 14.6 % (11.6-14.8); White Blood Cell Count 7.2 X10^3/uL (4.5-11.0)
[2024-06-10 20:15] LABS: INR 1.2 (0.9-1.3); Prothrombin Time 13.3 SECONDS (9.4-12.5)
[2024-06-10 20:18] LABS: PTT Partial Thromboplastin Tim 35 SECONDS (25.1-36.5)
[2024-06-10 20:19] LABS: Alanine Aminotransferase 25 IU/L (<35); Albumin Globulin Ratio 1.2 (1.0-2.8); Alkaline Phosphatase 101 U/L (38-126); Aspartate Aminotransferase 33 IU/L (14-36); BUN Creatinine Ratio 23.5 (6-22); Bilirubin Total 0.3 mg/dL (0.2-1.3); Blood Urea Nitrogen 19 mg/dL (7-17); Carbon Dioxide 26 mmol/L (22-32); Chloride 109 mmol/L (98-107); Creatine Kinase 77 U/L (30-135); Estimated Glomerular Filt Rate > 60 mL/min (>60); Globulin 3.4 g/dL (1.7-4.1); Glucose 98 mg/dL (80-110); HEMOLYSIS < 15 (0-50); Lipase 59 U/L (23-300); Potassium 4.5 mmol/L (3.4-5.1); Sodium 140 mmol/L (137-145); Total Protein 7.4 g/dL (6.3-8.2)
[2024-06-10 20:31] LABS: NT-proBNP (BNP-Adult 18+) 493 pg/mL (<450); Troponin I < 0.012 ng/mL (0.01-0.034)
== END 2024-06-10 20:59 | disposition home or self-care (01) ==
PROVIDERS: Student in an Organized Health Care Education/Training Program; Emergency Provider Emergency Medicine; Family Provider Family Medicine; PCP Family Medicine
DX: U07.1 COVID-19 (principal); I50.9 Heart failure, unspecified; R05.9 Cough, unspecified; Z79.01 Long term (current) use of anticoagulants
CPT/HCPCS: 0241U; 36415; 71046; 80053; 82550; 83690; 83735; 83880; 84484; 85025; 85610; 85730; 93005; 96374; 99284; J1940

== ENCOUNTER → 2024-08-05 15:40 | Outpatient (CLI) | payer MEDICARE, OTHER, SELFPAY ==
[2018-08-11 17:25] VITALS: BMI 39.4
== END ==
PROVIDERS: Family Provider Family Medicine; PCP Family Medicine; Visit Provider Family Medicine
DX: R30.0 Dysuria (principal)
CPT/HCPCS: 87086

== ENCOUNTER → 2024-09-09 14:11 | Outpatient (CLI) | payer MEDICARE, OTHER, SELFPAY ==
[2018-08-11 17:25] VITALS: BMI 39.4
[2024-09-09 15:20] LABS: Appearance Urine UA CLEAR; Bilirubin Urine UA NEGATIVE (NEGATIVE); Color Urine UA YELLOW; Glucose Urine UA NEGATIVE (Negative); Ketones Urine UA NEGATIVE (NEGATIVE); Leukocyte Esterase Urine UA 1+ (NEGATIVE); Nitrite Urine UA NEGATIVE (Negative); Occult Blood Urine UA 1+ (Negative); Protein Urine UA NEGATIVE (Negative); Specific Gravity Urine UA 1.025 (1.000-1.035); Urobilinogen Urine UA 0.2 E.U./dL (0.2)
[2024-09-09 15:47] LABS: Bacteria Urine Moderate (10-30); Culture Indicated Urine Specimen Cultured; RBC Urine 1-5/HPF (0-5/HPF); Squamous Epithelial Cell Urine 1-5 /HPF (0-5/HPF); Urine Volume 10mL (spun); WBC Urine 5-10/HPF (0-5/HPF)
== END ==
PROVIDERS: Family Provider Family Medicine; PCP Family Medicine; Referring Provider Family Medicine; Visit Provider Family Medicine
DX: R35.0 Frequency of micturition (principal)
CPT/HCPCS: 81001; 87086

== ENCOUNTER → 2024-09-12 12:32 | Outpatient (CLI) | payer MEDICARE, OTHER, SELFPAY ==
[2018-08-11 17:25] VITALS: BMI 39.4
--- NOTE | 2024-09-12 12:35 | DI.CT.S_ITS ---
PROCEDURE: CT IVP A/P W/WO INDICATIONS: eval microscopic hematuria TECHNIQUE: Optional 5 mm thick noncontrast images acquired from the diaphragm to the symphysis pubis. After the administration of intravenous contrast, 5 mm thick images acquired from the diaphragm to the symphysis pubis after a 10-minute delay. 2 mm thick coronal and sagittal reformats were then performed of the kidneys and ureters. For radiation dose reduction, the following was used: automated exposure control, adjustment of mA and/or kV according to patient size. COMPARISON: [facility], CT, CT ABDOMEN PELVIS W CON, 12/26/2023, 13:31. FINDINGS: Image quality: Diagnostic Lower chest: Basal atelectasis/scarring. Aortic valve replacement partially seen. Cardiac electrode leads partially seen. Cardiomegaly partially seen. Liver: Hepatic steatosis. Volume redistribution of the liver suggestive of chronic liver disease Gallbladder and biliary system: Gallbladder is not seen. Biliary system is ectatic likely related to postsurgical state Pancreas: No ductal dilation Spleen: Nonenlarged Adrenals: No discrete nodules Kidneys: No solid mass. No hydronephrosis. There is slight atrophy of the left kidney compared to the right. No obstructing calcified stone. No hydronephrosis. No ureter filling defects. No obstructing ureter mass Vessels and lymph nodes: No abdominal aortic aneurysm. No pathologic lymph nodes by size criteria. Atherosclerotic calcifications are present. Bowel and peritoneum: No evidence of small bowel obstruction. There are colonic diverticula. No pathologic ascites. Body wall: Fat containing umbilical hernia. Pelvis: Uterus is absent. Bladder is under distended and not well assessed. No calcified bladder stone is seen. Bones: There are degenerative changes. IMPRESSION: No significant upper tract disease by CT IVP. In the setting of hematuria, consider cystoscopy to evaluate the lower tracts. Other findings above. Dictated by: Pancho Lacy M.D. on 09/12/2024 at 15:07 Approved by: Pancho Lacy M.D. on 09/12/2024 at 15:12
[2024-09-12 13:09] LABS: Estimated Glomerular Filt Rate 58 mL/min (>60)
== END ==
PROVIDERS: Radiology Diagnostic Radiology; Family Provider Family Medicine; PCP Family Medicine; Referring Provider Family Medicine; Visit Provider Family Medicine
DX: R31.29 Other microscopic hematuria (principal); K42.9 Umbilical hernia without obstruction or gangrene; I51.7 Cardiomegaly; K57.90 Diverticulosis of intestine, part unspecified, without perforation or abscess without bleeding; K76.0 Fatty (change of) liver, not elsewhere classified; Z95.2 Presence of prosthetic heart valve; Z90.710 Acquired absence of both cervix and uterus
CPT/HCPCS: 74178; 82565; Q9967

== ENCOUNTER → 2024-10-28 13:10 | Outpatient (CLI) | payer MEDICARE, OTHER, SELFPAY ==
[2018-08-11 17:25] VITALS: BMI 39.4
--- NOTE | 2024-10-28 13:11 | DI.CT.S_ITS ---
PROCEDURE: CT LUMBAR SPINE WO CON INDICATIONS: pain TECHNIQUE: Noncontrast 3 mm thick sections acquired from the T12 level to the sacrum. Sagittal and coronal reformats were constructed. For radiation dose reduction, the following was used: automated exposure control. COMPARISON: , CT, CT IVP A/P W/WO, 09/12/2024, 13:42. FINDINGS: Image quality: Excellent. Bones: Mild retrolisthesis of L2 on L3. Multilevel degenerative changes with disc height loss, vacuum disc phenomenon, osteophytosis and facet arthropathy. Decreased osseous mineralization. No acute vertebral body compression fractures. No suspicious lytic or blastic bony lesions. No pars defects. T12-L1: No significant central or neural foraminal stenosis. L1-L2: Posterior disc osteophyte complex mild to moderate central canal stenosis. Mild bilateral neural foraminal stenosis. L2-L3: No significant central canal or neural foraminal stenosis. L3-L4: Mild central canal stenosis. Moderate left and mild right neural foraminal stenosis. L4-L5: Mild central canal stenosis. [id number] bilateral neural foraminal stenosis. L5-S1: No central canal stenosis. Moderate bilateral neural foraminal stenosis. Soft tissues: No retroperitoneal masses or hematomas. Visualized aorta is normal in caliber. Atherosclerotic vascular calcifications. Diverticulosis without evidence of diverticulitis. IMPRESSION: Multilevel degenerative changes of the lumbar spine as described above. Dictated by: Julio Saavedra M.D. on 10/28/2024 at 16:53 Approved by: Julio Saaevdra M.D. on 10/28/2024 at 16:56
== END ==
PROVIDERS: Family Provider Family Medicine; PCP Family Medicine; Referring Provider Family Medicine; Visit Provider Family Medicine
DX: M48.061 Spinal stenosis, lumbar region without neurogenic claudication (principal); M48.07 Spinal stenosis, lumbosacral region; M54.50 Low back pain, unspecified; K57.90 Diverticulosis of intestine, part unspecified, without perforation or abscess without bleeding; G89.29 Other chronic pain
CPT/HCPCS: 72131

== ENCOUNTER → 2025-01-23 11:56 | Outpatient (CLI) | payer MEDICARE, OTHER, SELFPAY ==
[2018-08-11 17:25] VITALS: BMI 39.4
[2025-01-23 13:05] LABS: Add Manual Diff / Slide Review NO; Basophils Absolute Auto 0 /uL (0-100); Basophils Percent Auto 0.6 % (0-2); Eosinophils Absolute Auto 200 /uL (0-450); Eosinophils Percent Auto 2.5 % (2-4); Hematocrit 46.1 % (36-46); Hemoglobin 15.3 g/dL (12.0-16.0); Lymphocytes Absolute Auto 2600 /uL (1100-4500); Lymphocytes Percent Auto 38.2 % (25-40); Mean Corpuscular HGB Conc 33.3 % (30-36); Mean Corpuscular Hemoglobin 30.1 PG (26-34); Mean Corpuscular Volume 90.6 fL (80-100); Monocytes Absolute Auto 800 /uL (0-900); Monocytes Percent Auto 12.5 % (3-14); Neutrophils Absolute Auto 3100 /uL (1500-7000); Neutrophils Percent Auto 46.2 % (50-75); Platelet Count 155 X10^3/uL (150-400); Red Blood Cell Count 5.08 X10^6/uL (4.0-5.2); White Blood Cell Count 6.8 X10^3/uL (4.5-11.0)
[2025-01-23 13:12] LABS: Hemoglobin A1C% w Est Avg Glu 5.3 % (4.0-6.0)
[2025-01-23 13:27] LABS: HEMOLYSIS 45 (0-50); Iron 114 ug/dL (37-170)
[2025-01-23 13:31] LABS: Alanine Aminotransferase 20 IU/L (<35); Albumin Globulin Ratio 1.2 (1.0-2.8); Alkaline Phosphatase 95 U/L (38-126); Aspartate Aminotransferase 33 IU/L (14-36); BUN Creatinine Ratio 22.9 (6-22); Bilirubin Total 0.5 mg/dL (0.2-1.3); Blood Urea Nitrogen 19 mg/dL (7-17); Calcium 9.4 mg/dL (8.4-10.2); Carbon Dioxide 21 mmol/L (22-32); Chloride 108 mmol/L (98-107); Estimated Glomerular Filt Rate > 60 mL/min (>60); Globulin 3.4 g/dL (1.7-4.1); Glucose 83 mg/dL (70-99); HEMOLYSIS 25 (0-50); Potassium 4.7 mmol/L (3.4-5.1); Sodium 139 mmol/L (137-145); Total Protein 7.4 g/dL (6.3-8.2)
[2025-01-23 13:39] LABS: Percent Iron Saturation 46 % (15-50); Total Iron Binding Capacity 246 ug/dL (265-497); Transferrin 205 mg/dL (206-381)
[2025-01-23 14:21] LABS: Vitamin B12 898 pg/mL (239-931)
== END ==
PROVIDERS: Family Provider Family Medicine; PCP Family Medicine; Referring Provider Family Medicine; Visit Provider Family Medicine
DX: E78.5 Hyperlipidemia, unspecified (principal); Z13.1 Encounter for screening for diabetes mellitus; I48.91 Unspecified atrial fibrillation; D64.9 Anemia, unspecified; R53.83 Other fatigue; I50.9 Heart failure, unspecified; I49.9 Cardiac arrhythmia, unspecified; J40 Bronchitis, not specified as acute or chronic; J18.9 Pneumonia, unspecified organism; R11.0 Nausea
CPT/HCPCS: 36415; 80053; 82607; 83036; 83540; 83550; 85025

== ENCOUNTER 2025-02-15 09:31 | Emergency (ER) | payer MEDICARE, OTHER, SELFPAY ==
[2018-08-11 17:25] VITALS: BMI 39.4
[2025-02-15] VITALS (11 sets, daily range): BP systolic 129–191; BP diastolic 61–92; PULSE 69–88; RESP 15–22; TEMP 36.6; O2SAT 93–98; BMI 47.5
--- NOTE | 2025-02-15 09:38 | DI.RAD.S_ITS ---
PROCEDURE: XR CHEST 1V INDICATIONS: Chest Pain TECHNIQUE: One view of the chest was acquired. COMPARISON: [facility], CR, XR CHEST 2V, 06/10/2024, 17:34. [facility], CR, XR CHEST 1V, 04/26/2024, 11:37. FINDINGS: Surgical changes and devices: Left chest wall cardiac pacer and prosthetic cardiac valve. Lungs and pleura: Lungs are hypoinflated without consolidation. No pleural effusions or pneumothorax. Mediastinum: Mediastinal contours appear normal. Heart size is normal. Bones and chest wall: No suspicious bony lesions. Overlying soft tissues appear unremarkable. IMPRESSION: No acute cardiopulmonary abnormality is seen. Dictated by: Layne Rabago M.D. on 02/15/2025 at 10:44 Approved by: Layne Rabago M.D. on 02/15/2025 at 10:46
--- NOTE | 2025-02-15 09:41 | ED.ABDPAIN ---
HPI - Abdominal Pain General Chief Complaint: Dizziness Stated Complaint: Dizzy (4days), ear ache, abdominal pain 1 day Time Seen by Provider: 02/15/25 09:39 Source: patient Mode of arrival: Ambulatory History of Present Illness HPI narrative: 79-year-old female history of paroxysmal atrial fibrillation status post ablation on Xarelto, pacemaker, aortic valve stenosis status post TAVR, GI bleeding in the setting of PUD, hypertension, dyslipidemia, sleep apnea, cholecystectomy laminectomy and hysterectomy with most recent echo of 50-55% presents with right ear ache dizziness nausea and diffuse abdominal pain that started yesterday despite taking Bentyl that was called in by her family doctor. Patient denies chest pain, shortness breath, cough, diarrhea, fever, chills, body aches, urinary symptoms, and back pain. Last bowel movement was yesterday and normal. Other than what is stated 14 point review of system is negative. Related Data Home Medications ?Medication ?Instructions ?Recorded ?Confirmed pravastatin 20 mg tablet 20 mg PO BEDTIME 02/19/18 01/31/25 cholecalciferol (vitamin D3) 125 125 mcg PO DAILY 11/02/21 01/31/25 mcg (5,000 unit) capsule mecobalamin (vitamin B12) 1,000 1,000 mcg PO DAILY 11/02/21 01/31/25 mcg chewable tablet (B12 Active) rivaroxaban 20 mg tablet (Xarelto) 20 mg PO DAILY 07/16/24 01/31/25 Previous Rx's ?Medication ?Instructions ?Recorded motorized scooter #1 ea 04/06/23 Disabled Parking Permint #1 ea 10/31/23 furosemide 20 mg tablet 20 mg PO DAILY #20 tabs 04/26/24 tramadol 50 mg tablet 50 mg PO TID PRN pain #60 tabs 01/02/25 meclizine 25 mg tablet 12.5 mg (1/2 x 25 mg) PO BID-TID 01/31/25 PRN dizziness #90 tabs dicyclomine 10 mg capsule 10 mg PO TID PRN abdominal pain 02/10/25 #30 caps ondansetron 4 mg disintegrating 4 mg PO Q6H PRN nausea and 02/15/25 tablet vomiting #30 tabs Allergies Allergy/AdvReac Type Severity Reaction Status Date / Time Beta-Blockers Allergy Severe Get all Verified 02/15/25 09:39 (Beta-Adrenergic Bloc the side effects flecainide Allergy Severe Get all Verified 02/15/25 09:39 the symptoms metoprolol Allergy Severe get all Verified 02/15/25 09:39 the side effects macrobid AdvReac Mild Vomiting Uncoded 02/15/25 09:39 Review of Systems Review of Systems ROS Unobtainable: All systems reviewed & are unremarkable except as noted in HPI and below Patient History Medical History Obesity Dyspepsia Acute exacerbation of chronic low back pain Medicare annual wellness visit, subsequent Recurrent UTI Microscopic hematuria Right rotator cuff tendinitis Dysuria Anemia Labyrinthitis Otalgia of right ear History of transcatheter aortic valve replacement (TAVR) Sialoadenitis Postmenopausal atrophic vaginitis Recurrent urinary tract infection Bronchospasm Bilateral knee pain Mobility impaired Congestive heart failure Diverticular disease COVID-19 Eustachian tube dysfunction Osteoarthritis of hands, bilateral Pulmonary edema cardiac cause Orthostatic hypotension Hyperlipidemia Fatigue Well adult Sleep apnea (~2012) Osteoporosis (~2013) Cataracts, bilateral (~2010) Irritable bowel syndrome (~1999) GI bleeding (~2004) Colon polyps (~1999) Atrial fibrillation (~2008) Hypertension (~2004) Lower GI bleed Surgical History Anesthesia History of cataract removal with insertion of prosthetic lens (~05/2001) Pacemaker (~2018) Hx of cholecystectomy (~05/1978) H/O abdominal hysterectomy (~04/1977) Cystocele (~03/2001) H/O laminectomy (~04/1990) Family History Mother Breast cancer Diabetes mellitus Hyperlipidemia Hypertension Stroke Father No known health problems Grandfather Stroke Grandmother No problems noted. Grandfather Stroke Social History household members: spouse Smoking Status: Unknown if ever smoked second hand exposure: No alcohol intake: never substance use type: does not use Smoking Status: Unknown if ever smoked alcohol intake frequency: holidays/special occasions only Exam Narrative Exam Narrative: GENERAL: [79] year old patient appears stated age. Well-developed patient, in mild distress. HEAD: Atraumatic. Normocephalic. EYES: Pupils equal round and reactive. Extraocular motions intact. No scleral icterus. No injection or drainage. ENT: Nose without bleeding, purulent drainage. Throat without erythema, tonsillar hypertrophy or exudate. Airway patent. NECK: Trachea midline. Non tender CARDIOVASCULAR: Regular rate and rhythm without murmurs, gallops, or rubs. RESPIRATORY: Clear to auscultation. Breath sounds equal bilaterally. No wheezes, rales, or rhonchi. GASTROINTESTINAL: Abdomen soft, diffuse tenderness to palpation but more localized to the left lower quadrant but no rebound rigidity or guarding nondistended. EXTREMITIES: No edema or joint tenderness. BACK: Nontender without deformity or crepitance. No flank tenderness. NEURO: AOx3. SKIN: No rash or erythema of visible areas Initial Vital Signs Initial Vital Signs: Vital Signs Temperature 97.8 F 02/15/25 09:31 Pulse Rate 88 02/15/25 09:31 Respiratory Rate 18 02/15/25 09:31 Blood Pressure 191/86 H 02/15/25 09:31 Pulse Oximetry 96 02/15/25 09:31 Oxygen Delivery Method Room Air 02/15/25 09:31 Course Orders Ordered: ED Orders 02/15/25 09:38 XR chest 1V Stat EKG-12 Lead Stat 02/15/25 09:56 CT abdomen pelvis w con Stat 02/15/25 10:30 Complete Blood Count AUTO DIFF Stat Comprehensive Metabolic Panel Stat Lipase Stat Lipase Stat Magnesium Stat NT-proBNP (BNP-Adult 18+) Stat PTT Partial Thromboplastin Jamal Stat Prothrombin Time INR Stat Troponin & CK Cardiac Panel Stat Discontinued Medications Hydromorphone HCl (Hydromorphone 1 Mg Inj) 1 mg IV NOW ONE Stop: 02/15/25 09:58 Last Admin: 02/15/25 10:25 Dose: 1 mg Documented By: RB Lactated Ringer's (Lactated Ringers) 1,000 mls @ 1,000 mls/hr IV BOLUS ONE Stop: 02/15/25 10:56 Last Infusion: 02/15/25 11:30 Dose: Infused Documented By: Admin: 02/15/25 10:26 Dose: 1,000 mls/hr Documented By: RB Ondansetron HCl (Ondansetron 4 Mg/2 Ml Inj) 4 mg IV NOW ONE Stop: 02/15/25 09:58 Last Admin: 02/15/25 10:26 Dose: 4 mg Documented By: RB Vital Signs Vital signs: Vital Signs - 8 hr 02/15/25 09:31 02/15/25 09:37 02/15/25 09:37 Temperature 97.8 F Pulse Rate 88 83 Respiratory Rate 18 Blood Pressure 191/86 H 191/86 H Pulse Oximetry 96 96 Oxygen Delivery Method Room Air 02/15/25 10:00 02/15/25 10:30 02/15/25 11:00 Temperature Pulse Rate 70 70 69 Respiratory Rate 19 17 Blood Pressure Pulse Oximetry 96 98 93 Oxygen Delivery Method 02/15/25 11:28 02/15/25 11:28 Temperature Pulse Rate 72 Respiratory Rate 15 Blood Pressure 144/76 H Pulse Oximetry 96 Oxygen Delivery Method MDM - Abdominal Pain Lab Data 02/15/25 10:30 02/15/25 10:30 Labs: Lab Results 02/15/25 02/15/25 Range/Units 10:30 10:30 WBC 5.8 (4.5-11.0) X10^3/uL RBC 4.92 (4.0-5.2) X10^6/uL Hgb 14.3 (12.0-16.0) g/dL Hct 43.8 (36-46) % MCV 89.0 (80-100) fL MCH 29.0 (26-34) PG MCHC 32.6 (30-36) % RDW 13.7 (11.6-14.8) % Plt Count 126 L (150-400) X10^3/uL Neut % (Auto) 45.5 L (50-75) % Lymph % (Auto) 40.6 H (25-40) % Sunflower % (Auto) 10.9 (3-14) % Eos % (Auto) 1.9 L (2-4) % Baso % (Auto) 1.1 (0-2) % Neut # (Auto) 2600 (6525-4322) /uL Lymph # (Auto) 2300 (1798-9563) /uL Sunflower # (Auto) 600 (0-900) /uL Eos # (Auto) 100 (0-450) /uL Baso # (Auto) 100 (0-100) /uL PT 13.5 H (9.4-12.5) SECONDS INR 1.2 (0.9-1.3) APTT 38 H (25.1-36.5) SECONDS Sodium 136 L (137-145) mmol/L Potassium 4.5 (3.4-5.1) mmol/L Chloride 105 (98-107) mmol/L Carbon Dioxide 24 (22-32) mmol/L BUN 13 (7-17) mg/dL Creatinine 0.85 (0.52-1.04) mg/dL Estimated GFR > 60 (>60) mL/min BUN/Creatinine Ratio 15.3 (6-22) Glucose 92 (70-99) mg/dL Calcium 8.8 (8.4-10.2) mg/dL Magnesium 2.0 (1.6-2.3) mg/dL Total Bilirubin 0.5 (0.2-1.3) mg/dL AST 41 H (14-36) IU/L ALT 30 (<35) IU/L Alkaline Phosphatase 106 (38-126) U/L Total Creatine Kinase 48 (30-135) U/L Troponin I < 0.012 (0.01-0.034) ng/mL NT-Pro-B Natriuret Pep 278 (<450) pg/mL Total Protein 6.9 (6.3-8.2) g/dL Albumin 3.7 (3.5-5.0) g/dL Globulin 3.2 (1.7-4.1) g/dL Albumin/Globulin Ratio 1.2 (1.0-2.8) Lipase 54 52 (23-300) U/L Point of care testing: Urine Dip Bedside Urine Glucose Negative Bedside Urine Bilirubin - Negative Bedside Urine Ketone - Negative Urine Specific [place] 1.005 Bedside Urine Occult Blood - Negative Bedside Urine pH 7.5 Bedside Urine Protein - Negative Bedside Urine Urobilinogen - Negative Bedside Urine Nitrite - Negative Bedside Urine Leukocytes - Negative Esterase Imaging Data CT scan - abdomen/pelvis: Radiologist's Impression: [address] [address] [address] Scan Report Signed Patient: Alivia Stockton MR#: [id number] : 1945 Acct:[id number] Age/Sex: 79 / F Date of Service: 02/15/25 Loc: ED Accession Number: [id number] Procedure: CT abdomen pelvis w con Ordering Provider: Enrique Grider D.O. PROCEDURE: CT ABDOMEN PELVIS W CON INDICATIONS: abd pain /nausea TECHNIQUE: After the administration of intravenous contrast, axial sections acquired from the lung bases to the pubic symphysis. Coronal and sagittal reformats were performed. For radiation dose reduction, the following was used: automated exposure control, adjustment of mA and/or kV according to patient size. COMPARISON: [facility], CT, CT ABDOMEN PELVIS W CON, 12/26/2023, 13:31. FINDINGS: Image quality: Diagnostic. Lower Chest: No significant findings. ABDOMEN: Liver: No solid mass. Gallbladder: Surgically absent. Biliary ducts: No biliary dilation. Pancreas: No ductal dilation. Mild fatty atrophy. Spleen: Size is within normal limits. Adrenal Glands: No adrenal nodules. Kidneys and Ureters: No hydronephrosis. No solid mass. No complex renal cystic lesion which requires follow up. Stomach and Bowel: Normal colonic caliber, without significant wall thickening. Numerous sigmoid diverticula are present without associated inflammation. Peritoneum: No abnormal intraperitoneal fluid. No free air. Ventral Wall: No significant ventral hernia. Abdominal Nodes: No retroperitoneal or mesenteric adenopathy by size criteria. Vessels: Aorta and inferior vena cava are normal in size. PELVIS: Pelvic Organs: Unremarkable. Bladder: No bladder wall thickening, accounting for underdistention. Pelvic Nodes: No enlarged lymph nodes. Miscellaneous: No inguinal hernias are seen. Bones: No aggressive osseous abnormality. IMPRESSION: No acute abdominal process. Specifically, no appendicitis, diverticulitis, urolithiasis, or obstruction. Dictated by: Layne Rabago M.D. on 02/15/2025 at 10:46 Approved by: Layne Rabago M.D. on 02/15/2025 at 10:52 Chest x-ray: Radiologist's Impression: Patient: Alivia Stockton MR#: [id number] : 1945 Acct:[id number] Age/Sex: 79 / F Date of Service: 02/15/25 Loc: ED Accession Number: [id number] Procedure: XR chest 1V Ordering Provider: Enrique Grider D.O. PROCEDURE: XR CHEST 1V INDICATIONS: Chest Pain TECHNIQUE: One view of the chest was acquired. COMPARISON: [facility], CR, XR CHEST 2V, 06/10/2024, 17:34. [facility], CR, XR CHEST 1V, 04/26/2024, 11:37. FINDINGS: Surgical changes and devices: Left chest wall cardiac pacer and prosthetic cardiac valve. Lungs and pleura: Lungs are hypoinflated without consolidation. No pleural effusions or pneumothorax. Mediastinum: Mediastinal contours appear normal. Heart size is normal. Bones and chest wall: No suspicious bony lesions. Overlying soft tissues appear unremarkable. IMPRESSION: No acute cardiopulmonary abnormality is seen. Dictated by: Layne Rabago M.D. on 02/15/2025 at 10:44 ECG Data Interpretation: V Paced HR [address]-t wave changes NH undetermined QRS 154 QT 440 Unchanged from 06/10/24 MDM Narrative Medical decision making narrative: Vital signs, nurse triage note, medication list, previous ER visits, and all imaging studies reviewed. White count normal platelet 126 sodium 136 troponin less than 0.012, EKG V paced but no STT wave changes unchanged from 06/10/2024. CT abdomen and pelvis showed no acute abdominal process specifically no appendicitis derived diverticulitis kidney stone or obstruction. Chest x-ray reviewed no acute process. Patient received fluids Toradol and Zofran here. Differential diagnosis includes diverticulitis pancreatitis kidney stone kidney infection small-bowel obstruction constipation viral. DC home on Zofran clear liquid diet advance as tolerated Discharge Plan Departure Patient Disposition: Home Clinical Impression: Abdominal pain Qualifiers: Abdominal location: generalized Qualified Code(s): R10.84 - Generalized abdominal pain Nausea & vomiting Qualifiers: Vomiting type: unspecified Qualified Code(s): R11.2 - Nausea with vomiting, unspecified Instructions: DI for Abdominal Pain-Adult Activity Restrictions/Additional Instructions: Return with new or worsening symptoms. Clear liquid diet advance as tolerated. Take medicines as directed. Follow up PCP next week if no improvement in symptoms. Prescriptions: New ondansetron 4 mg tablet,disintegrating 4 mg PO Q6H PRN (Reason: nausea and vomiting) Qty: 30 0RF No Action (DME) motorized scooter See Rx Instructions .Route .MEDSUPPLY Qty: 1 0RF Rx Instructions: As directed (DME) Disabled Parking Permint See Rx Instructions .ROUTE .MEDSUPPLY Qty: 1 0RF Rx Instructions: I find this patient to be medically disabled and qualified for Disabled Parking as indicated and signed on the Accompanying Disabled Parking Application for individuals. tramadol 50 mg tablet 50 mg PO TID PRN (Reason: pain) Qty: 60 2RF dicyclomine 10 mg capsule 10 mg PO TID PRN (Reason: abdominal pain) Qty: 30 1RF cholecalciferol (vitamin D3) 125 mcg (5,000 unit) capsule 125 mcg PO DAILY B12 Active 1,000 mcg tablet,chewable 1,000 mcg PO DAILY Xarelto 20 mg tablet 20 mg PO DAILY Rx Instructions: must administer with evening meal meclizine 25 mg tablet 12.5 mg PO BID-TID PRN (Reason: dizziness) Qty: 90 3RF pravastatin 20 mg Tablet 20 mg PO BEDTIME furosemide 20 mg tablet 20 mg PO DAILY Qty: 20 0RF Referrals: Mark Brennan DO [Primary Care Provider, Family Practice] Stand Alone Forms: Patient Portal/API
--- NOTE | 2025-02-15 09:46 | EKG_ITS ---
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
--- NOTE | 2025-02-15 09:56 | DI.CT.S_ITS ---
PROCEDURE: CT ABDOMEN PELVIS W CON INDICATIONS: abd pain /nausea TECHNIQUE: After the administration of intravenous contrast, axial sections acquired from the lung bases to the pubic symphysis. Coronal and sagittal reformats were performed. For radiation dose reduction, the following was used: automated exposure control, adjustment of mA and/or kV according to patient size. COMPARISON: [facility], CT, CT ABDOMEN PELVIS W CON, 12/26/2023, 13:31. FINDINGS: Image quality: Diagnostic. Lower Chest: No significant findings. ABDOMEN: Liver: No solid mass. Gallbladder: Surgically absent. Biliary ducts: No biliary dilation. Pancreas: No ductal dilation. Mild fatty atrophy. Spleen: Size is within normal limits. Adrenal Glands: No adrenal nodules. Kidneys and Ureters: No hydronephrosis. No solid mass. No complex renal cystic lesion which requires follow up. Stomach and Bowel: Normal colonic caliber, without significant wall thickening. Numerous sigmoid diverticula are present without associated inflammation. Peritoneum: No abnormal intraperitoneal fluid. No free air. Ventral Wall: No significant ventral hernia. Abdominal Nodes: No retroperitoneal or mesenteric adenopathy by size criteria. Vessels: Aorta and inferior vena cava are normal in size. PELVIS: Pelvic Organs: Unremarkable. Bladder: No bladder wall thickening, accounting for underdistention. Pelvic Nodes: No enlarged lymph nodes. Miscellaneous: No inguinal hernias are seen. Bones: No aggressive osseous abnormality. IMPRESSION: No acute abdominal process. Specifically, no appendicitis, diverticulitis, urolithiasis, or obstruction. Dictated by: Layne Rabago M.D. on 02/15/2025 at 10:46 Approved by: Layne Rabago M.D. on 02/15/2025 at 10:52
[2025-02-15] MEDS: HYDROMORPHONE 1 MG INJ IV (10:25)
[2025-02-15] MEDS: ONDANSETRON 4 MG/2 ML INJ IV (10:26)
[2025-02-15] MEDS: LACTATED RINGERS 1,000 ML 1000 ML IV (10:26)
[2025-02-15 10:40] LABS: Add Manual Diff / Slide Review NO; Basophils Absolute Auto 100 /uL (0-100); Basophils Percent Auto 1.1 % (0-2); Eosinophils Absolute Auto 100 /uL (0-450); Eosinophils Percent Auto 1.9 % (2-4); Hematocrit 43.8 % (36-46); Hemoglobin 14.3 g/dL (12.0-16.0); Lymphocytes Absolute Auto 2300 /uL (1100-4500); Lymphocytes Percent Auto 40.6 % (25-40); Mean Corpuscular HGB Conc 32.6 % (30-36); Monocytes Absolute Auto 600 /uL (0-900); Monocytes Percent Auto 10.9 % (3-14); Neutrophils Absolute Auto 2600 /uL (1500-7000); Neutrophils Percent Auto 45.5 % (50-75); Platelet Count 126 X10^3/uL (150-400); Red Blood Cell Count 4.92 X10^6/uL (4.0-5.2); Red Cell Distribution Width 13.7 % (11.6-14.8); White Blood Cell Count 5.8 X10^3/uL (4.5-11.0)
[2025-02-15 10:45] LABS: INR 1.2 (0.9-1.3); Prothrombin Time 13.5 SECONDS (9.4-12.5)
[2025-02-15 10:48] LABS: PTT Partial Thromboplastin Tim 38 SECONDS (25.1-36.5)
[2025-02-15 10:49] LABS: Lipase 52 U/L (23-300)
[2025-02-15 10:50] LABS: Alanine Aminotransferase 30 IU/L (<35); Albumin 3.7 g/dL (3.5-5.0); Albumin Globulin Ratio 1.2 (1.0-2.8); Alkaline Phosphatase 106 U/L (38-126); Aspartate Aminotransferase 41 IU/L (14-36); BUN Creatinine Ratio 15.3 (6-22); Bilirubin Total 0.5 mg/dL (0.2-1.3); Blood Urea Nitrogen 13 mg/dL (7-17); Calcium 8.8 mg/dL (8.4-10.2); Carbon Dioxide 24 mmol/L (22-32); Chloride 105 mmol/L (98-107); Creatine Kinase 48 U/L (30-135); Estimated Glomerular Filt Rate > 60 mL/min (>60); Globulin 3.2 g/dL (1.7-4.1); Glucose 92 mg/dL (70-99); HEMOLYSIS < 15 (0-50); Lipase 54 U/L (23-300); Potassium 4.5 mmol/L (3.4-5.1); Sodium 136 mmol/L (137-145); Total Protein 6.9 g/dL (6.3-8.2)
[2025-02-15 11:02] LABS: NT-proBNP (BNP-Adult 18+) 278 pg/mL (<450); Troponin I < 0.012 ng/mL (0.01-0.034)
== END 2025-02-15 13:31 | disposition home or self-care (01) ==
PROVIDERS: Emergency Provider Family Medicine; Family Provider Family Medicine; PCP Family Medicine
DX: R10.84 Generalized abdominal pain (principal); R42 Dizziness and giddiness; R11.2 Nausea with vomiting, unspecified; Z95.0 Presence of cardiac pacemaker; H92.01 Otalgia, right ear; Z86.79 Personal history of other diseases of the circulatory system
CPT/HCPCS: 71045; 74177; 80053; 81003; 82550; 83690; 83735; 83880; 84484; 85025; 85610; 85730; 93005; 93010; 96361; 96374; 96375; 99284; J1171; J2405; Q9967

== ENCOUNTER 2025-03-01 09:53 | Emergency (ER) | payer MEDICARE, OTHER, SELFPAY ==
[2018-08-11 17:25] VITALS: BMI 39.4
[2025-03-01] VITALS (10 sets, daily range): BP systolic 120–158; BP diastolic 59–82; PULSE 69–91; RESP 14–20; TEMP 37; O2SAT 92–99; BMI 50.5
--- NOTE | 2025-03-01 10:03 | ED_ITS ---
HPI - Abdominal Pain General Chief Complaint: Abdominal Pain Stated Complaint: Stomach pain; passing bloody stool this am Time Seen by Provider: 03/01/25 10:00 History of Present Illness HPI narrative: 79-year-old a history of paroxysmal atrial fibrillation, status post ablation on Xarelto, sick sinus syndrome, pacemaker aortic valve stenosis status post TAVR using prosthesis, GI bleed in the setting of PUD, hypertension, dyslipidemia, and sleep apnea presents with abdominal pain nausea and blood in the stool and on the tissue paper bright red this morning along with dizziness. Patient denies headache, blurred vision, chest pain, shortness of breath, cough, back pain, urinary complaints, fever, chills, body aches. Other than what is stated 14 point review of system was negative Related Data Home Medications ?Medication ?Instructions ?Recorded ?Confirmed pravastatin 20 mg tablet 20 mg PO BEDTIME 02/19/18 cholecalciferol (vitamin D3) 125 125 mcg PO DAILY 04/1801/31/25 mcg (5,000 unit) capsule mecobalamin (vitamin B12) 1,000 1,000 mcg PO DAILY 04/1801/31/25 mcg chewable tablet (B12 Active) rivaroxaban 20 mg tablet (Xarelto) 20 mg PO DAILY 06/2801/31/25 Previous Rx's ?Medication ?Instructions ?Recorded motorized scooter #1 ea 04/06/23 Disabled Parking Permint #1 ea 10/31/23 furosemide 20 mg tablet 20 mg PO DAILY #20 tabs 03/30 tramadol 50 mg tablet 50 mg PO TID PRN pain #60 ta bs 01/02/25 meclizine 25 mg tablet 12.5 mg (1/2 x 25 mg) PO BID -TID 01/31/25 PRN dizziness #90 tabs dicyclomine 10 mg capsule 10 mg PO TID PRN abdominal p ain 02/10/25 #30 caps ondansetron 4 mg disintegrating 4 mg PO Q6H PRN nausea and 02/15/25 tablet vomiting #30 tabs semaglutide (weight loss) 0.25 0.25 mg (0.5 mL) SUBCUT QWEEK #2 mL 02/18/25 mg/0.5 mL subcutaneous pen injector (Wegovy) hydrocortisone 2.5 % topical cream 1 applic NJ QD-BID PRN hemorrhoids 03/01/25 with perineal applicator #30 grams (Anusol-HC) Allergies Allergy/AdvReac Type Severity Reaction Status Date / Time Beta-Blockers Allergy Severe Get all Verified 02/15/25 09:39 (Beta-Adrenergic Bloc the side effects flecainide Allergy Severe Get all Verified 02/15/25 09:39 the symptoms metoprolol Allergy Severe get all Verified 02/15/25 09:39 the side effects macrobid AdvReac Mild Vomiting Uncoded 02/15/25 09:39 Review of Systems Review of Systems ROS Unobtainable: All systems reviewed & are unremarkable except as noted in HPI and below Patient History Medical History Obesity Dyspepsia Acute exacerbation of chronic low back pain Medicare annual wellness visit, subsequent Recurrent UTI Microscopic hematuria Right rotator cuff tendinitis Dysuria Anemia Labyrinthitis Otalgia of right ear History of transcatheter aortic valve replacement (TAVR) Sialoadenitis Postmenopausal atrophic vaginitis Recurrent urinary tract infection Bronchospasm Bilateral knee pain Mobility impaired Congestive heart failure Diverticular disease COVID-19 Eustachian tube dysfunction Osteoarthritis of hands, bilateral Pulmonary edema cardiac cause Orthostatic hypotension Hyperlipidemia Fatigue Well adult Sleep apnea (~2012) Osteoporosis (~2013) Cataracts, bilateral (~2010) Irritable bowel syndrome (~1999) GI bleeding (~2004) Colon polyps (~1999) Atrial fibrillation (~2008) Hypertension (~2004) Lower GI bleed Surgical History Anesthesia History of cataract removal with insertion of prosthetic lens (~05/2001) Pacemaker (~2018) Hx of cholecystectomy (~05/1978) H/O abdominal hysterectomy (~04/1977) Cystocele (~03/2001) H/O laminectomy (~04/1990) Family History Mother Breast cancer Diabetes mellitus Hyperlipidemia Hypertension Stroke Father No known health problems Grandfather Stroke Grandmother No problems noted. Grandfather Stroke Social History household members: spouse second hand exposure: No alcohol intake: never substance use type: does not use alcohol intake frequency: holidays/special occasions only Exam Narrative Exam Narrative: GENERAL: [79] year old patient appears stated age. Well-developed patient, in mild distress. HEAD: Atraumatic. Normocephalic. EYES: Pupils equal round and reactive. Extraocular motions intact. No scleral icterus. No injection or drainage. ENT: Nose without bleeding, purulent drainage. Throat without erythema, tonsillar hypertrophy or exudate. Airway patent. NECK: Trachea midline. Non tender CARDIOVASCULAR: Regular rate and rhythm without murmurs, gallops, or rubs. RESPIRATORY: Clear to auscultation. Breath sounds equal bilaterally. No wheezes, rales, or rhonchi. GASTROINTESTINAL: Abdomen soft, non-tender, nondistended. EXTREMITIES: No edema or joint tenderness. BACK: Nontender without deformity or crepitance. No flank tenderness. NEURO: AOx3. Rectal exam. No external hemorrhoids no fissure seen guaiac-negative SKIN: No rash or erythema of visible areas Initial Vital Signs Initial Vital Signs: Vital Signs Pulse Oximetry 97 03/01/25 10:03 Course Orders Ordered: ED Orders 03/01/25 10:10 CT angio abdomen pelvis Stat 03/01/25 10:30 Complete Blood Count AUTO DIFF Stat Comprehensive Metabolic Panel Stat PTT Partial Thromboplastin Jamal Stat Prothrombin Time INR Stat 03/01/25 11:45 Urine Microscopic Stat Ondansetron HCl (Ondansetron 4 Mg/2 Ml Inj) 4 mg IV NOW PRN PRN Reason: Nausea And Vomiting Ondansetron HCl (Ondansetron 4 Mg Odt) 4 mg PO NOW PRN PRN Reason: Nausea And Vomiting Discontinued Medications Morphine Sulfate (Morphine 4 Mg/Ml Inj) 4 mg IV NOW ONE Stop: 03/01/25 10:11 Last Admin: 03/01/25 10:46 Dose: 4 mg Documented By: RB Ondansetron HCl (Ondansetron 4 Mg/2 Ml Inj) 4 mg IV NOW ONE Stop: 03/01/25 10:11 Last Admin: 03/01/25 10:46 Dose: 4 mg Documented By: RB Vital Signs Vital signs: Vital Signs - 8 hr 03/01/25 10:03 03/01/25 10:04 03/01/25 10:04 Temperature Pulse Rate 88 Respiratory Rate Blood Pressure 158/82 H Pulse Oximetry 97 97 Oxygen Delivery Method 03/01/25 10:06 03/01/25 10:30 03/01/25 11:00 Temperature 98.6 F Pulse Rate 91 H 69 84 Respiratory Rate 16 15 Blood Pressure 158/82 H Pulse Oximetry 96 98 92 Oxygen Delivery Method Room Air MDM - Abdominal Pain Lab Data 03/01/25 10:30 03/01/25 10:30 Labs: Lab Results 03/01/25 03/01/25 Range/Units 10:30 11:45 WBC 5.7 (4.5-11.0) X10^3/uL RBC 5.07 (4.0-5.2) X10^6/uL Hgb 14.8 (12.0-16.0) g/dL Hct 45.0 (36-46) % MCV 88.7 (80-100) fL MCH 29.1 (26-34) PG MCHC 32.8 (30-36) % RDW 14.2 (11.6-14.8) % Plt Count 146 L (150-400) X10^3/uL Neut % (Auto) 52.4 (50-75) % Lymph % (Auto) 31.8 (25-40) % [place] % (Auto) 12.5 (3-14) % Eos % (Auto) 2.3 (2-4) % Baso % (Auto) 1.0 (0-2) % Neut # (Auto) 3000 (6592-2043) /uL Lymph # (Auto) 1800 (5576-6990) /uL [place] # (Auto) 700 (0-900) /uL Eos # (Auto) 100 (0-450) /uL Baso # (Auto) 100 (0-100) /uL PT 21.3 H (9.4-12.5) SECONDS INR 1.9 H (0.9-1.3) APTT 41 H (25.1-36.5) SECONDS Sodium 140 (137-145) mmol/L Potassium 4.8 (3.4-5.1) mmol/L Chloride 106 (98-107) mmol/L Carbon Dioxide 27 (22-32) mmol/L BUN 23 H (7-17) mg/dL Creatinine 0.98 (0.52-1.04) mg/dL Estimated GFR 58 L (>60) mL/min BUN/Creatinine Ratio 23.5 H (6-22) Glucose 92 (70-99) mg/dL Calcium 9.3 (8.4-10.2) mg/dL Total Bilirubin 0.4 (0.2-1.3) mg/dL AST 38 H (14-36) IU/L ALT 26 (<35) IU/L Alkaline Phosphatase 102 (38-126) U/L Total Protein 8.0 (6.3-8.2) g/dL Albumin 4.2 (3.5-5.0) g/dL Globulin 3.8 (1.7-4.1) g/dL Albumin/Globulin Ratio 1.1 (1.0-2.8) Urine RBC None seen (0-5/HPF) Urine WBC 0-1/hpf (0-5/HPF) Ur Squamous Epith Cells 0-1 /hpf (0-5/HPF) Urine Bacteria None seen (None) Ur Culture Indicated? Cult not indicated Vol Urine Centrifuged 10ml (spun) Point of care testing: Urine Dip Bedside Urine Glucose Negative Bedside Urine Bilirubin - Negative Bedside Urine Ketone - Negative Urine Specific [place] 1.005 Bedside Urine Occult Blood +/- Bedside Urine pH 7.0 Bedside Urine Protein - Negative Bedside Urine Urobilinogen - Negative Bedside Urine Nitrite - Negative Bedside Urine Leukocytes - Negative Esterase Imaging Data CT scan - abdomen/pelvis: Radiologist's Impression: [place] [address] CT Scan Report Signed Patient: Alivia Stockton MR#: [id number] : 1945 Acct:[id number] Age/Sex: 79 / F Date of Service: 03/01/25 Loc: ED Accession Number: [id number] Procedure: CT angio abdomen pelvis Ordering Provider: Enrique Grider D.O. PROCEDURE: CT ANGIO ABDOMEN PELVIS INDICATIONS: GI bleed TECHNIQUE: After the administration of intravenous contrast, 2.5 mm sections acquired from the diaphragm to the iliac crests. 10 mm maximum intensity projection (MIP) coronal and sagittal reformats were then performed. For radiation dose reduction, the following was used: automated exposure control. COMPARISON: [facility], CT, CT ABDOMEN PELVIS W CON, 02/15/2025, 10:18. FINDINGS: Image quality: Diagnostic Lower chest: Fissural nodule on the right, probably a lymph node, similar to prior. Mild basal reticular changes and atelectasis. Partially seen cardiac electrode leads. Aortic valve replacement. Mild cardiomegaly. Liver: Unremarkable Gallbladder and biliary system: Absent, mildly distended CBD at 8-9 mm, likely related to postsurgical state Pancreas: Mild parenchymal atrophy. No ductal dilation Spleen: Nonenlarged Adrenals: No discrete nodules Kidneys: Mild parenchymal atrophy. No hydronephrosis. No solid renal mass. Vessels and lymph nodes: The main portal vein is patent. No abdominal aortic aneurysm. Atherosclerotic calcifications are present. No enlarged lymph nodes identified by size criteria. Bowel and peritoneum: No small bowel obstruction. Colonic diverticulosis. No definite arterial extravasation identified. No hemoperitoneum. Prominent arterially enhancing vessels at the anal verge, possibly hemorrhoids. Body wall: Tiny fat containing umbilical hernia. Pelvis: Under distended urinary bladder. The uterus is absent Bones: No aggressive appearing osseous abnormality. There are degenerative changes. IMPRESSION: Colonic diverticulosis. No definite arterial extravasation identified. No hemoperitoneum. Possible hemorrhoidal vessels at the anal verge. In the setting of GI bleed, consider direct visualization. Other findings above. MDM Narrative Medical decision making narrative: All lab work, vital signs, nurse triage note, medication list, previous ER visits, and all imaging studies reviewed. CT scan showed colonic diverticulosis no definite arterial extravasation identified. No no hemoperitoneum possible hemorrhoidal vessels at the anal verge. Normal white count and hemoglobin, INR 1.9 and urine was clean. Patient will be discharged on Anusol rx. Differential diagnosis includes GI bleed ulcer disease hemorrhoids fissure constipation. Discharge Plan Departure Patient Disposition: Home Clinical Impression: Abdominal pain Hemorrhoid Qualifiers: Hemorrhoid type: unspecified Qualified Code(s): K64.9 - Unspecified hemorrhoids Instructions: DI for Abdominal Pain-Adult Activity Restrictions/Additional Instructions: Return with new or worsening symptoms. Take your medicines as directed. Clear liquid diet advance as tolerated. Follow up PCP 1-2 weeks if no improvement in symptoms. Prescriptions: New hydrocortisone [Anusol-HC] 2.5 % cream with perineal applicator 1 applic NJ QD-BID PRN (Reason: hemorrhoids) Qty: 30 0RF No Action (DME) motorized scooter See Rx Instructions .Route .MEDSUPPLY Qty: 1 0RF Rx Instructions: As directed (DME) Disabled Parking Permint See Rx Instructions .ROUTE .MEDSUPPLY Qty: 1 0RF Rx Instructions: I find this patient to be medically disabled and qualified for Disabled Parking as indicated and signed on the Accompanying Disabled Parking Application for individuals. tramadol 50 mg tablet 50 mg PO TID PRN (Reason: pain) Qty: 60 2RF dicyclomine 10 mg capsule 10 mg PO TID PRN (Reason: abdominal pain) Qty: 30 1RF Wegovy 0.25 mg/0.5 mL pen injector 0.25 mg SUBCUT QWEEK Qty: 2 0RF Rx Instructions: administer weeks 1 through 4 of therapy, then increase dose to 0.5 MG weekly for 4 weeks cholecalciferol (vitamin D3) 125 mcg (5,000 unit) capsule 125 mcg PO DAILY B12 Active 1,000 mcg tablet,chewable 1,000 mcg PO DAILY Xarelto 20 mg tablet 20 mg PO DAILY Rx Instructions: must administer with evening meal meclizine 25 mg tablet 12.5 mg PO BID-TID PRN (Reason: dizziness) Qty: 90 3RF pravastatin 20 mg Tablet 20 mg PO BEDTIME furosemide 20 mg tablet 20 mg PO DAILY Qty: 20 0RF ondansetron 4 mg tablet,disintegrating 4 mg PO Q6H PRN (Reason: nausea and vomiting) Qty: 30 0RF Referrals: Mark Brennan DO [Primary Care Provider, Family Practice] Stand Alone Forms: Patient Portal/API
--- NOTE | 2025-03-01 10:10 | DI.CT.S_ITS ---
PROCEDURE: CT ANGIO ABDOMEN PELVIS INDICATIONS: GI bleed TECHNIQUE: After the administration of intravenous contrast, 2.5 mm sections acquired from the diaphragm to the iliac crests. 10 mm maximum intensity projection (MIP) coronal and sagittal reformats were then performed. For radiation dose reduction, the following was used: automated exposure control. COMPARISON: [facility], CT, CT ABDOMEN PELVIS W CON, 02/15/2025, 10:18. FINDINGS: Image quality: Diagnostic Lower chest: Fissural nodule on the right, probably a lymph node, similar to prior. Mild basal reticular changes and atelectasis. Partially seen cardiac electrode leads. Aortic valve replacement. Mild cardiomegaly. Liver: Unremarkable Gallbladder and biliary system: Absent, mildly distended CBD at 8-9 mm, likely related to postsurgical state Pancreas: Mild parenchymal atrophy. No ductal dilation Spleen: Nonenlarged Adrenals: No discrete nodules Kidneys: Mild parenchymal atrophy. No hydronephrosis. No solid renal mass. Vessels and lymph nodes: The main portal vein is patent. No abdominal aortic aneurysm. Atherosclerotic calcifications are present. No enlarged lymph nodes identified by size criteria. Bowel and peritoneum: No small bowel obstruction. Colonic diverticulosis. No definite arterial extravasation identified. No hemoperitoneum. Prominent arterially enhancing vessels at the anal verge, possibly hemorrhoids. Body wall: Tiny fat containing umbilical hernia. Pelvis: Under distended urinary bladder. The uterus is absent Bones: No aggressive appearing osseous abnormality. There are degenerative changes. IMPRESSION: Colonic diverticulosis. No definite arterial extravasation identified. No hemoperitoneum. Possible hemorrhoidal vessels at the anal verge. In the setting of GI bleed, consider direct visualization. Other findings above. Dictated by: Pancho Lacy M.D. on 03/01/2025 at 10:28 Approved by: Pancho Lacy M.D. on 03/01/2025 at 10:35
[2025-03-01 10:41] LABS: Add Manual Diff / Slide Review NO; Hematocrit 45.0 % (36-46); Hemoglobin 14.8 g/dL (12.0-16.0); Lymphocytes Absolute Auto 1800 /uL (1100-4500); Mean Corpuscular HGB Conc 32.8 % (30-36); Mean Corpuscular Hemoglobin 29.1 PG (26-34); Mean Corpuscular Volume 88.7 fL (80-100); Platelet Count 146 X10^3/uL (150-400)
[2025-03-01] MEDS: ONDANSETRON 4 MG/2 ML INJ IV (10:46)
[2025-03-01] MEDS: MORPHINE 4 MG/ML INJ IV (10:46)
[2025-03-01 10:47] LABS: INR 1.9 (0.9-1.3); Prothrombin Time 21.3 SECONDS (9.4-12.5)
[2025-03-01 10:49] LABS: PTT Partial Thromboplastin Tim 41 SECONDS (25.1-36.5)
[2025-03-01 11:10] LABS: Alanine Aminotransferase 26 IU/L (<35); Albumin 4.2 g/dL (3.5-5.0); Albumin Globulin Ratio 1.1 (1.0-2.8); Alkaline Phosphatase 102 U/L (38-126); Blood Urea Nitrogen 23 mg/dL (7-17); Calcium 9.3 mg/dL (8.4-10.2); Carbon Dioxide 27 mmol/L (22-32); Chloride 106 mmol/L (98-107); Estimated Glomerular Filt Rate 58 mL/min (>60); Globulin 3.8 g/dL (1.7-4.1); Glucose 92 mg/dL (70-99); HEMOLYSIS < 15 (0-50); Potassium 4.8 mmol/L (3.4-5.1); Sodium 140 mmol/L (137-145); Total Protein 8.0 g/dL (6.3-8.2)
[2025-03-01 12:23] LABS: Culture Indicated Urine Cult Not Indicated
== END 2025-03-01 13:05 | disposition home or self-care (01) ==
PROVIDERS: Emergency Provider Family Medicine; Family Provider Family Medicine; PCP Family Medicine; Referring Provider Family Medicine
DX: R10.9 Unspecified abdominal pain (principal); K64.9 Unspecified hemorrhoids; R42 Dizziness and giddiness; Z95.0 Presence of cardiac pacemaker; Z95.2 Presence of prosthetic heart valve; Z79.01 Long term (current) use of anticoagulants; Z86.79 Personal history of other diseases of the circulatory system
CPT/HCPCS: 36415; 74174; 80053; 81003; 81015; 85025; 85610; 85730; 96374; 96375; 99284; J2270; J2405; Q9967

== ENCOUNTER → 2025-03-11 11:33 | Outpatient (CLI) | payer MEDICARE, OTHER, SELFPAY ==
[2018-08-11 17:25] VITALS: BMI 39.4
--- NOTE | 2025-03-11 11:34 | DI.CT.S_ITS ---
PROCEDURE: CT ANGIO ABD AORTA RUNOFF INDICATIONS: screening TECHNIQUE: After the administration of intravenous contrast, 2.5 mm sections acquired from T12 to the feet, with optional delayed image acquisition from the knees to the feet. 3-dimensional maximum intensity projection (MIP) coronal and sagittal reformats, and/or 3-dimensional volume rendering reformatting was then performed. For radiation dose reduction, the following was used: automated exposure control. COMPARISON: [facility], CT, CT ANGIO ABDOMEN PELVIS, 03/01/2025, 10:43. FINDINGS: Image Quality: Diagnostic. Abdominal aorta: Nonaneurysmal with minimal calcification. Splanchnic vessels: The celiac, SMA, single bilateral renal arteries and inferior mesenteric artery are widely patent. Right lower extremity: The common, internal and external iliac, common femoral, deep and superficial femoral artery, popliteal artery and three-vessel runoff are widely patent without significant atheromatous disease. Left lower extremity: The common, internal and external iliac, common femoral, deep and superficial femoral artery, popliteal artery and three-vessel runoff are widely patent without significant atheromatous disease. Lower Chest: No significant findings. Artificial aortic valve and pacer leads partially visualized. ABDOMEN: Liver: No solid mass. Gallbladder: Not seen and likely surgically absent. Biliary ducts: No biliary dilation. Pancreas: Moderate pancreatic fatty atrophy without ductal dilatation. Spleen: Size is within normal limits. Adrenal Glands: No adrenal nodules. Kidneys and Ureters: No hydronephrosis. No solid mass. No complex renal cystic lesion which requires follow up. Stomach and Bowel: Normal colonic caliber, without significant wall thickening. Moderate pancolonic low diverticulosis without diverticulitis. The stomach and small bowel appear normal. Peritoneum: No abnormal intraperitoneal fluid. No free air. Ventral Wall: No hernia. Abdominal Nodes: No retroperitoneal or mesenteric adenopathy by size criteria. Vessels: Aorta and inferior vena cava are normal in size. PELVIS: Pelvic Organs: Unremarkable. Bladder: Unremarkable. Pelvic Nodes: No enlarged lymph nodes. Miscellaneous: No inguinal hernias are seen. Bones: No aggressive osseous abnormality. Severe left and moderate right hip osteoarthritis. Moderate to severe bilateral medial compartment predominant knee osteoarthritis. Moderate multilevel degenerative disc disease involving the lower thoracic and lumbar spine. IMPRESSION: * No significant arterial disease is seen. * Moderate to severe arthritis involving the hips and knees and spine. Dictated by: Nasim Worthy M.D. on 03/15/2025 at 14:46 Approved by: Nasim Worthy M.D. on 03/15/2025 at 14:55
== END ==
PROVIDERS: Family Provider Family Medicine; PCP Family Medicine; Referring Provider Family Medicine; Visit Provider Family Medicine
DX: I73.9 Peripheral vascular disease, unspecified (principal); M79.672 Pain in left foot; K57.90 Diverticulosis of intestine, part unspecified, without perforation or abscess without bleeding; M16.0 Bilateral primary osteoarthritis of hip; M17.0 Bilateral primary osteoarthritis of knee; M51.34 Other intervertebral disc degeneration, thoracic region; M51.369 Other intervertebral disc degeneration, lumbar region without mention of lumbar back pain or lower extremity pain
CPT/HCPCS: 75635; Q9967

== ENCOUNTER → 2025-07-21 08:57 | Outpatient (CLI) | payer MEDICARE, OTHER, SELFPAY ==
[2018-08-11 17:25] VITALS: BMI 39.4
== END ==
PROVIDERS: PCP Family Medicine; Visit Provider Chiropractor
DX: R39.15 Urgency of urination (principal)
CPT/HCPCS: 87077; 87086

== ENCOUNTER 2025-07-25 09:50 | Emergency (ER) | payer MEDICARE, OTHER, SELFPAY ==
[2018-08-11 17:25] VITALS: BMI 39.4
== END 2025-07-25 12:06 | disposition home or self-care (01) ==
LOC: ED 07-28 09:56
PROVIDERS: Emergency Provider Student in an Organized Health Care Education/Training Program; PCP Family Medicine
DX: N10 Acute pyelonephritis (principal); B96.20 Unspecified Escherichia coli [E. coli] as the cause of diseases classified elsewhere
CPT/HCPCS: 81001; 87077; 87086; 87186; 99282; J1335; J7050

== ENCOUNTER 2025-07-28 16:23 | Emergency (ER) | payer MEDICARE, OTHER, SELFPAY ==
[2018-08-11 17:25] VITALS: BMI 39.4
[2025-07-28 16:47] VITALS: BP 148/69; PULSE 71; RESP 18; TEMP 36.9; O2SAT 98; BMI 49.4
--- NOTE | 2025-07-28 16:53 | ED.FEMALEGU ---
HPI - Female Genitourinary <Teagan Frazier PA-C - Last Filed: 07/28/25 17:04> General Chief complaint: Urogenital-Female Stated complaint: pc sent for infusion Time Seen by Provider: 07/28/25 16:43 Source: patient and family Mode of arrival: Wheelchair History of Present Illness HPI Narrative: 79-year-old female presents to the ED for the 4th dose of IV ertapenem for a UTI. Patient was diagnosed with a UTI on 07/25/2025, started on daily IV doses of ertapenem based on culture and sensitivity. Patient has been getting her subsequent infusion doses from the infusion center. However, today the infusion center was closed and patient presents to the ED for today's dose. Patient denies any side-effects from the medication. No fever, chills, nausea, vomiting. Patient still has some dysuria, however states she is feeling better. Related Data Home Medications ?Medication ?Instructions ?Recorded ?Confirmed cholecalciferol (vitamin D3) 125 125 mcg PO DAILY 11/02/21 07/21/25 mcg (5,000 unit) capsule mecobalamin (vitamin B12) 1,000 1,000 mcg PO DAILY 11/02/21 07/21/25 mcg chewable tablet (B12 Active) rivaroxaban 20 mg tablet (Xarelto) 20 mg PO DAILY 07/16/24 07/21/25 chlorhexidine gluconate 0.12 % PO BID 05/26/25 07/21/25 mouthwash cyclosporine 0.05 % eye drops in a 1 drp EYE-BOTH Q12H 05/26/25 07/21/25 dropperette (Restasis) potassium chloride 20 mEq 20 meq PO DAILY 05/26/25 07/21/25 tablet,extended release(part/cryst) Previous Rx's ?Medication ?Instructions ?Recorded motorized scooter #1 ea 04/06/23 Disabled Parking Permint #1 ea 10/31/23 furosemide 20 mg tablet 20 mg PO DAILY #20 tabs 04/26/24 meclizine 25 mg tablet 12.5 mg (1/2 x 25 mg) PO BID-TID 01/31/25 PRN dizziness #90 tabs ondansetron 4 mg disintegrating 4 mg PO Q6H PRN nausea and 02/15/25 tablet vomiting #30 tabs dicyclomine 10 mg capsule 10 mg PO TID PRN abdominal pain 04/22/25 #30 caps amoxicillin 875 mg-potassium 1 tab PO BID #20 tabs 05/27/25 clavulanate 125 mg tablet tramadol 50 mg tablet 50 mg PO TID PRN pain #60 tabs 06/03/25 trazodone 50 mg tablet 50 mg PO BEDTIME #30 tabs 06/18/25 pravastatin 20 mg tablet 20 mg PO BEDTIME #90 tabs 06/19/25 semaglutide (weight loss) 0.25 See Rx Instructions .Route 07/16/25 mg/0.5 mL subcutaneous pen .COMPLEX #2 mL injector (Wegovy) nitrofurantoin 100 mg PO Q12H 5 days #10 caps 07/25/25 monohydrate/macrocrystals 100 mg capsule (Macrobid) Allergies Allergy/AdvReac Type Severity Reaction Status Date / Time Beta-Blockers Allergy Severe Get all Verified 07/28/25 16:46 (Beta-Adrenergic Bloc the side effects flecainide Allergy Severe Get all Verified 07/28/25 16:46 the symptoms metoprolol Allergy Severe get all Verified 07/28/25 16:46 the side effects macrobid AdvReac Mild Vomiting Uncoded 07/28/25 16:46 Review of Systems <Teagan Frazier PA-C - Last Filed: 07/28/25 17:04> Constitutional Constitutional: Denies chills, Denies fatigue, Denies fever(s), Denies frequent falls, Denies lethargy and Denies weakness Eyes Eyes: Denies change in vision, Denies eye discharge, Denies irritation and Denies loss of vision ENT Ears, Nose, Mouth, and Throat: Denies change in voice, Denies dizziness, Denies neck pain, Denies sore throat and Denies throat swelling Cardiovascular Cardiovascular: Denies chest pain, Denies irregular heart rhythm, Denies lightheadedness, Denies palpitations, Denies dyspnea, Denies dyspnea on exertion and Denies orthopnea Respiratory Respiratory: Denies cough, Denies dyspnea, Denies dyspnea on exertion and Denies wheezing Gastrointestinal Gastrointestinal: Denies abdominal pain, Denies change in bowel habits, Denies diarrhea, Denies nausea and Denies vomiting Genitourinary Genitourinary: Reports dysuria Musculoskeletal Musculoskeletal: Denies neck pain and Denies numbness Integumentary/Breasts Skin/Breast: Denies pruritus, Denies erythema, Denies rash and Denies wounds Neurologic Neurologic: Denies behavioral changes, Denies confusion, Denies dizziness, Denies frequent falls, Denies loss of vision, Denies numbness and Denies weakness Psychiatric Psychiatric: Denies anxiety, Denies behavioral changes, Denies confusion, Denies depression, Denies homicidal ideation and Denies suicidal ideation Endocrine Endocrine: Denies fatigue, Denies flushing and Denies palpitations Hematologic/Lymphatic Hematologic/Lymphatic: Denies easy bruising Allergic/Immunologic Allergic/Immunologic: Denies urticaria, Denies throat swelling and Denies wheezing Patient History <Teagan Frazier PA-C - Last Filed: 07/28/25 17:04> Medical History Insomnia Dizziness of unknown cause Peripheral artery disease Sialoadenitis of minor salivary gland Obesity Dyspepsia Acute exacerbation of chronic low back pain Medicare annual wellness visit, subsequent Recurrent UTI Microscopic hematuria Right rotator cuff tendinitis Dysuria Anemia Labyrinthitis Otalgia of right ear History of transcatheter aortic valve replacement (TAVR) Sialoadenitis Postmenopausal atrophic vaginitis Recurrent urinary tract infection Bronchospasm Bilateral knee pain Mobility impaired Congestive heart failure Diverticular disease COVID-19 Eustachian tube dysfunction Osteoarthritis of hands, bilateral Pulmonary edema cardiac cause Orthostatic hypotension Hyperlipidemia Fatigue Well adult Sleep apnea (~2012) Osteoporosis (~2013) Cataracts, bilateral (~2010) Irritable bowel syndrome (~1999) GI bleeding (~2004) Colon polyps (~1999) Atrial fibrillation (~2008) Hypertension (~2004) Lower GI bleed Surgical History Anesthesia History of cataract removal with insertion of prosthetic lens (~05/2001) Pacemaker (~2018) Hx of cholecystectomy (~05/1978) H/O abdominal hysterectomy (~04/1977) Cystocele (~03/2001) H/O laminectomy (~04/1990) Family History Mother Breast cancer Diabetes mellitus Hyperlipidemia Hypertension Stroke Father No known health problems Grandfather Stroke Grandmother No problems noted. Grandfather Stroke Exam <Teagan Frazier PA-C - Last Filed: 07/28/25 17:04> Narrative Exam Narrative: Const General:?cooperative, healthy appearing and comfortable [facility] Head:?normal to inspection Ears:?hearing grossly normal bilaterally Nose:?external nose normal Face and sinus:?normal facial exam and sinuses nontender Mouth:?oral mucosae normal Throat:?posterior oropharynx normal Eyes General:?appearance normal, both eyes and all related structures Neck Neck:?normal visual inspection and no lymphadenopathy noted Resp Effort & Inspection:?normal respiratory effort Auscultation:?clear to auscultation bilaterally Cardio Rate:?regular rate Rhythm:?regular rhythm Neuro General:?patient alert, patient awake and patient oriented x3 Initial Vital Signs Initial Vital Signs: Vital Signs Temperature 98.4 F 07/28/25 16:47 Pulse Rate 71 07/28/25 16:47 Respiratory Rate 18 07/28/25 16:47 Blood Pressure 148/69 H 07/28/25 16:47 Pulse Oximetry 98 07/28/25 16:47 Oxygen Delivery Method Room Air 07/28/25 16:47 <Fely Alcala DO - Last Filed: 07/29/25 00:04> Initial Vital Signs Initial Vital Signs: Vital Signs Temperature 98.4 F 07/28/25 16:47 Pulse Rate 71 07/28/25 16:47 Respiratory Rate 18 07/28/25 16:47 Blood Pressure 148/69 H 07/28/25 16:47 Pulse Oximetry 98 07/28/25 16:47 Oxygen Delivery Method Room Air 07/28/25 16:47 Course <Teagan Frazier PA-C - Last Filed: 07/28/25 17:04> Orders Ordered: Discontinued Medications Ertapenem 1 gm/ Sodium (Chloride) 100 mls @ 200 mls/hr IV NOW ONE Stop: 07/28/25 16:52 Last Admin: 07/28/25 17:09 Dose: 200 mls/hr Documented By: LEROY Vital Signs Vital signs: Vital Signs - 8 hr 07/28/25 16:47 Temperature 98.4 F Pulse Rate 71 Respiratory Rate 18 Blood Pressure 148/69 H Pulse Oximetry 98 Oxygen Delivery Method Room Air <DO Pollo Cowart Last Filed: 07/29/25 00:04> Orders Ordered: Discontinued Medications Ertapenem 1 gm/ Sodium (Chloride) 100 mls @ 200 mls/hr IV NOW ONE Stop: 07/28/25 16:52 Last Admin: 07/28/25 17:09 Dose: 200 mls/hr Documented By: LEROY Vital Signs Vital signs: Vital Signs - 8 hr 07/28/25 16:47 Temperature 98.4 F Pulse Rate 71 Respiratory Rate 18 Blood Pressure 148/69 H Pulse Oximetry 98 Oxygen Delivery Method Room Air MDM - Female Genitourinary <Teagan Frazier PA-C - Last Filed: 07/28/25 17:04> MDM Narrative Medical decision making narrative: 79-year-old female presents to the ED for the 4th dose of IV ertapenem for a UTI. Ordered 1 g ertapenem IV as the 4th dose to be given today. Patient has been prescribed 7 total daily doses. ED return precautions discussed with patient. Patient verbalized understanding. Medical records reviewed: Yes Discharge Plan Departure Patient Disposition: Home Clinical Impression: UTI (urinary tract infection) Qualifiers: Urinary tract infection type: acute pyelonephritis Qualified Code(s): N10 - Acute pyelonephritis Instructions: DI for Urinary Tract Infection (UTI) Activity Restrictions/Additional Instructions: You were seen in the emergency department today for the 4th dose of IV antibiotics. You were given a dose of ertapenem IV today. You may go to the infusion center for your remaining IV doses. Return to the ED if you are unable to get the antibiotics from the infusion center or if you have worsening symptoms. Prescriptions: No Action (DME) motorized scooter See Rx Instructions .Route .MEDSUPPLY Qty: 1 0RF Rx Instructions: As directed (DME) Disabled Parking Permint See Rx Instructions .ROUTE .MEDSUPPLY Qty: 1 0RF Rx Instructions: I find this patient to be medically disabled and qualified for Disabled Parking as indicated and signed on the Accompanying Disabled Parking Application for individuals. dicyclomine 10 mg capsule 10 mg PO TID PRN (Reason: abdominal pain) Qty: 30 2RF amoxicillin-pot clavulanate 875-125 mg tablet 1 tab PO BID Qty: 20 0RF tramadol 50 mg tablet 50 mg PO TID PRN (Reason: pain) Qty: 60 2RF pravastatin 20 mg tablet 20 mg PO BEDTIME Qty: 90 0RF Wegovy 0.25 mg/0.5 mL pen injector See Rx Instructions .ROUTE .COMPLEX Qty: 2 4RF Dose Instruction: INJECT 0.25 mg (0.5 mL) UNDER THE SKIN every week for heart condition / pacemaker; administer weeks 1 through 4 of therapy, then increase dose to 0.5 MG weekly for 4 weeks Rx Instructions: INJECT 0.25 mg (0.5 mL) UNDER THE SKIN every week for heart condition / pacemaker; administer weeks 1 through 4 of therapy, then increase dose to 0.5 MG weekly for 4 weeks nitrofurantoin monohyd/m-cryst [Macrobid] 100 mg capsule 100 mg PO Q12H 5 Days Qty: 10 0RF Rx Instructions: must administer with a meal/food cholecalciferol (vitamin D3) 125 mcg (5,000 unit) capsule 125 mcg PO DAILY B12 Active 1,000 mcg tablet,chewable 1,000 mcg PO DAILY Xarelto 20 mg tablet 20 mg PO DAILY Rx Instructions: must administer with evening meal meclizine 25 mg tablet 12.5 mg PO BID-TID PRN (Reason: dizziness) Qty: 90 3RF trazodone 50 mg tablet 50 mg PO BEDTIME Qty: 30 3RF potassium chloride 20 mEq tablet,ER particles/crystals 20 meq PO DAILY cyclosporine [Restasis] 0.05 % dropperette 1 drp EYE-BOTH Q12H chlorhexidine gluconate 0.12 % mouthwash PO BID furosemide 20 mg tablet 20 mg PO DAILY Qty: 20 0RF ondansetron 4 mg tablet,disintegrating 4 mg PO Q6H PRN (Reason: nausea and vomiting) Qty: 30 0RF Referrals: Mark Brennan DO [Primary Care Provider, Family Practice] Stand Alone Forms: Patient Portal/API ED Sign-out <Fely Alcala DO - Last Filed: 07/29/25 00:04> Cosign ED Attending Cosumeshature Attestation: I was immediately available in the department for consultation.
[2025-07-28] MEDS: ERTAPENEM 1 GM in SODIUM CHLORIDE 0.9% 100 ML IV (17:09)
--- NOTE | 2025-07-28 17:21 | PC.NURSE ---
Iv is infusing via left hand without incident. site asymptomatic good blood return. leaving Iv in for return of antibiotics tomorrow at infusion clinic
== END 2025-07-28 18:01 | disposition home or self-care (01) ==
PROVIDERS: Emergency Provider Student in an Organized Health Care Education/Training Program; PCP Family Medicine
DX: N10 Acute pyelonephritis (principal)
CPT/HCPCS: 99283; 99284; J1335; J7050

== ENCOUNTER → 2025-08-04 12:31 | Outpatient (CLI) | payer MEDICARE, OTHER, SELFPAY ==
[2025-07-30 09:41] VITALS: BMI 39.4
[2025-08-04 14:33] LABS: Appearance Urine UA CLEAR; Bilirubin Urine UA NEGATIVE (NEGATIVE); Color Urine UA YELLOW; Glucose Urine UA NEGATIVE (Negative); Ketones Urine UA NEGATIVE (NEGATIVE); Leukocyte Esterase Urine UA NEGATIVE (NEGATIVE); Nitrite Urine UA NEGATIVE (Negative); Occult Blood Urine UA NEGATIVE (Negative); Protein Urine UA NEGATIVE (Negative); Specific Gravity Urine UA 1.020 (1.000-1.035); Urobilinogen Urine UA 0.2 E.U./dL (0.2)
[2025-08-04 14:36] LABS: pH Urine UA 6.0 (4.5-8.0)
[2025-08-04 14:56] LABS: Culture Indicated Urine Cult Not Indicated
== END ==
PROVIDERS: PCP Family Medicine; Referring Provider Family Medicine; Visit Provider Family Medicine
DX: N10 Acute pyelonephritis (principal)
CPT/HCPCS: 81001

== ENCOUNTER → 2025-08-05 14:31 | Outpatient (CLI) | payer MEDICARE, OTHER, SELFPAY ==
[2025-07-30 09:41] VITALS: BMI 39.4
--- NOTE | 2025-08-05 14:32 | DI.RAD.S_ITS ---
PROCEDURE: XR LUMBAR SPINE 3V INDICATIONS: Progressive lower back pain with radiculopathy TECHNIQUE: 3 views of the lumbar spine were acquired. COMPARISON: [facility], CR, XR LUMBAR SPINE MIN 4V, 02/03/2023, 10:54. FINDINGS: Moderate to severe degenerative changes lower thoracic, lumbar spine with disc space narrowing, osteophytes, facet osseous hypertrophic changes most notably at L1-2, L2-3, L3-4, L5-S1. Degenerative changes of the sacroiliac joints and hips partially imaged. Mild levoscoliosis. Aortic valve endograft prosthesis and pacemaker leads partially imaged. Nonspecific abdominal bowel gas pattern. Moderate diffuse vascular calcifications mid and distal aorta. No radiographic evidence of fracture or significant subluxation. IMPRESSION: Degenerative changes lower thoracic, lumbar spine as discussed above. Other findings as above. If symptoms persist or worsen, or there is high clinical suspicion of lumbar abnormality, MRI could be performed. Dictated by: Regis Ely M.D. on 08/06/2025 at 8:04 Approved by: Regis Ely M.D. on 08/06/2025 at 8:09
== END ==
PROVIDERS: PCP Family Medicine; Referring Provider Family Medicine; Visit Provider Family Medicine
DX: M54.50 Low back pain, unspecified (principal); M47.814 Spondylosis without myelopathy or radiculopathy, thoracic region; M47.816 Spondylosis without myelopathy or radiculopathy, lumbar region; M41.9 Scoliosis, unspecified; G89.29 Other chronic pain
CPT/HCPCS: 72100